=== PATIENT | female | born 1945 | race Caucasian/White ===

== ENCOUNTER → 2018-06-02 11:29 | Outpatient (CLI) | payer MEDICARE, SELFPAY ==
--- NOTE | 2018-06-02 | DI.RAD.S_ITS ---
PROCEDURE: XR LUMBAR SPINE 2-3V INDICATIONS: BACK PAIN TECHNIQUE: 3 views of the lumbar spine were acquired. COMPARISON: , , L-SPINE 2-3 VIEWS, 05/10/2013, 11:06. FINDINGS: Bones: 5 [id number] vertebrae are present. Trace spondylolisthesis L4-L5. Trace retrolisthesis L5-S1. Mild multilevel disc degeneration moderate lower lumbar spine facet joint arthropathy. No vertebral body compression fractures. No suspicious bony lesions. Soft tissues: Overlying bowel gas pattern is normal. No suspicious soft tissue calcifications. 9 mm rounded calcification projected over the right flank posteriorly. IMPRESSION: 1. Multilevel degenerative change. 2. Possible 9 mm right renal calcification. If indicated CT KUB could be performed for further localization. Dictated by: Brendon LEVINE Interpreted: Chilo Sprague MD on 06/02/2018 at 11:47 Approved by: Chilo Sprague M.D. on 06/02/2018 at 12:22
== END ==
PROVIDERS: Visit Provider Internal Medicine
DX: M54.5 Low back pain (principal); M47.816 Spondylosis without myelopathy or radiculopathy, lumbar region
CPT/HCPCS: 72100

== ENCOUNTER 2018-06-08 14:40 | Inpatient (IN) | payer MEDICARE, SELFPAY ==
[2018-06-08 15:02] VITALS: BP 89/57; PULSE 94; RESP 16; TEMP 35.9; O2SAT 97; BMI 32.1
--- NOTE | 2018-06-08 15:38 | ED.NAVMDI ---
HPI - Nausea/Vomiting/Diarrhea <Lenora Jaramillo PA-C - Last Filed: 06/08/18 22:04> General Chief complaint: Nausea/Vomiting/Diarrhea Stated complaint: SENT FOR FLUIDS Time Seen by Provider: 06/08/18 15:37 Source: patient and old records reviewed Mode of arrival: ambulatory Limitations: no limitations History of Present Illness HPI Narrative: this 72-year-old female is sent by her primary care clinic due to vomiting and diarrhea, dehydration. She states that the symptoms started abruptly yesterday with shakes, nausea, and profuse vomiting. She states that she thought she vomited 5 or 6 times but her daughter states more like 30 or 40, at 1 point was vomiting almost continuously. Paramedics came out to evaluate her apparently and told her likely norovirus. She had a fever of 100.4 at that time and also some vague right-sided pain. Her daughter and granddaughter state at 1 point when she had the fever she was confused, got out of bed and stated I am going, but could not walk on her own and they had to support her and have her sit down. She does not remember this. She the started to have diarrhea today about every 0.5 hr. She states this is watery, no blood in the stools. She states that she has not been vomiting so much today because she has had mainly dry heaves. She thinks that she has kept down some tea and water the last couple of days but nothing else. She denies any recent antibiotic use, recent travel or known exposures. Daughter and granddaughter had some mild GI upset last week but that had fully resolved. She denies any urinary symptoms. She denies any chest pain or dyspnea, nor any new pain or swelling in extremities. She and family have not noted any focal weakness, changes in speech or facial symmetry. she states that she did fall and hurt her right upper back a couple of weeks ago and has been taking Tylenol as needed for that pain which is stable. Related Data Home Medications Medication Instructions Recorded Confirmed ibuprofen 600 mg PO TID 06/08/18 06/08/18 naproxen sodium 440 mg PO BID 06/08/18 06/08/18 Previous Rx's Medication Instructions Recorded acyclovir [Zovirax] 800 mg PO BID #20 tab 06/12/18 alum-mag hydroxide-simeth [Mag-Al 30 ml MUCOUS MEMBRANE Q4H PRN #150 06/12/18 Plus] ml gabapentin 100 mg PO TID #30 cap 06/12/18 levofloxacin 500 mg PO DAILY #7 tab 06/12/18 lidocaine HCl [Lidocaine Viscous] 30 ml MUCOUS MEMBRANE Q4H PRN #150 06/12/18 ml methocarbamol 500 mg PO TID #20 tab 06/12/18 nystatin 3,000,000 unit MUCOUS MEMBRANE Q4H 06/12/18 PRN 10 Days ml Allergies Allergy/AdvReac Type Severity Reaction Status Date / Time Penicillins Allergy Verified 06/08/18 15:02 Sulfa (Sulfonamide Allergy Verified 06/08/18 15:02 Antibiotics) Review of Systems <Lenora Jaramillo PA-C - Last Filed: 06/08/18 22:04> Review of Systems All systems reviewed & are unremarkable except as noted in HPI and below Exam <Lenora Jaramillo PA-C - Last Filed: 06/08/18 22:04> Narrative Exam Narrative: GENERAL APPEARANCE: Patient sitting comfortably, in no distress. HEENT: PERRL, EOMI, no scleral icterus , conjunctivae pink, normal oropharynx NECK: Supple LUNGS: Clear to auscultation bilaterally. HEART: Rate and rhythm regular, normal S1 and S2, no S3 or S4. ABDOMEN: Soft, nontender, nondistended, soft bowel sounds present x 4 quadrants, no masses palpable, no hepatosplenomegaly. no CVAT EXTREMITIES: No edema, no calf tenderness DERMATOLOGIC: No jaundice or exanthem NEUROLOGIC: Alert and oriented with normal speech and coordination, facial musculature is symmetric Initial Vital Signs Initial Vital Signs: Vital Signs Temperature 96.6 F L 06/08/18 15:02 Pulse Rate 94 H 06/08/18 15:02 Respiratory Rate 16 06/08/18 15:02 Blood Pressure 89/57 L 06/08/18 15:02 Pulse Oximetry 97 06/08/18 15:02 <Gabrielle Dye MD - Last Filed: 06/14/18 07:59> Initial Vital Signs Initial Vital Signs: Vital Signs Temperature 96.6 F L 06/08/18 15:02 Pulse Rate 94 H 06/08/18 15:02 Respiratory Rate 16 06/08/18 15:02 Blood Pressure 89/57 L 06/08/18 15:02 Pulse Oximetry 97 06/08/18 15:02 Course <Lenora Jaramillo PA-C - Last Filed: 06/08/18 22:04> Additional Information: 194: Findings reviewed with patient and her family including ultrasound report. 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 She does have kidney stones on ultrasound, but no obstruction. There is concern for infection on her micro. She has been given a dose of Levaquin. I have spoken with hospitalist nurse practitioner Zane regarding evaluation and request for admission. Patient has not had any vomiting or diarrhea for several hours now. She still has some nausea and will be given a dose of Zofran. Requesting ice chips, which she will try. SCOOP DRIVER is agreeable and will see patient on the floor. Orders Ordered: ED Orders 06/14/18 05:28 Complete Blood Count AUTO DIFF DAILY Comprehensive Metabolic Panel DAILY Acetaminophen (Tylenol) 650 mg PO Q4HR PRN PRN Reason: As Needed for Fever/Mild Pain Last Admin: 06/14/18 02:50 Dose: 650 mg Admin: 06/13/18 20:23 Dose: 650 mg Admin: 06/13/18 14:02 Dose: 650 mg Admin: 06/13/18 08:58 Dose: 650 mg Admin: 06/12/18 19:16 Dose: 650 mg Acyclovir (Zovirax) 800 mg PO BID WINNIE Last Admin: 06/13/18 20:23 Dose: 800 mg Admin: 06/13/18 09:12 Dose: 800 mg Admin: 06/12/18 21:18 Dose: 800 mg Admin: 06/12/18 10:59 Dose: 800 mg Lidocaine HCl 30 ml/ Al Hydrox /Mg Hydrox/Simethicone 30 ml/Nystatin 3,000,000 unit 0 ml MM Q4H PRN PRN Reason: mucositis Last Admin: 06/13/18 20:24 Dose: 5 ml Admin: 06/13/18 15:52 Dose: 5 ml Admin: 06/13/18 08:59 Dose: 30 ml Admin: 06/13/18 03:35 Dose: 5 ml Admin: 06/12/18 23:38 Dose: 5 ml Admin: 06/12/18 19:16 Dose: 5 ml Admin: 06/12/18 14:47 Dose: 5 ml Admin: 06/12/18 10:59 Dose: 5 ml Docusate Sodium (Colace) 100 mg PO BID PRN PRN Reason: Constipation Last Admin: 06/13/18 14:58 Dose: 100 mg Gabapentin (Neurontin) 100 mg PO TID [facility] Last Admin: 06/13/18 20:23 Dose: 100 mg Admin: 06/13/18 14:58 Dose: 100 mg Admin: 06/13/18 09:15 Dose: Not Given Admin: 06/12/18 21:18 Dose: 100 mg Admin: 06/12/18 15:36 Dose: Not Given Admin: 06/12/18 09:38 Dose: 100 mg Admin: 06/11/18 21:54 Dose: Not Given Admin: 06/11/18 16:47 Dose: Not Given Admin: 06/11/18 09:00 Dose: 100 mg Admin: 06/10/18 20:54 Dose: 100 mg Admin: 06/10/18 15:00 Dose: 100 mg Admin: 06/10/18 08:49 Dose: 100 mg Admin: 06/09/18 21:41 Dose: 100 mg Admin: 06/09/18 14:57 Dose: 100 mg Admin: 06/09/18 09:38 Dose: 100 mg Hydromorphone HCl (Dilaudid) 1 mg IV Q4H PRN PRN Reason: Pain, Severe (7-10) Ceftriaxone Sodium/Dextrose (Rocephin) 1 gm in 50 mls @ 100 mls/hr IV Q24H [facility] Last Infusion: 06/13/18 13:46 Dose: 100 mls/hr Admin: 06/13/18 11:45 Dose: 100 mls/hr Infusion: 06/12/18 15:25 Dose: 0 mls/hr Admin: 06/12/18 14:46 Dose: 100 mls/hr Lorazepam (Ativan) 1 mg IV Q4HR PRN PRN Reason: Anxiety Methocarbamol (Robaxin) 500 mg PO TID [facility] Last Admin: 06/13/18 20:23 Dose: 500 mg Admin: 06/13/18 12:18 Dose: 500 mg Admin: 06/13/18 09:16 Dose: Not Given Admin: 06/12/18 21:18 Dose: 500 mg Admin: 06/12/18 15:36 Dose: Not Given Admin: 06/12/18 09:38 Dose: 500 mg Admin: 06/11/18 21:54 Dose: Not Given Admin: 06/11/18 16:47 Dose: Not Given Admin: 06/11/18 09:00 Dose: 500 mg Admin: 06/10/18 20:53 Dose: 500 mg Admin: 06/10/18 15:00 Dose: 500 mg Admin: 06/10/18 08:49 Dose: 500 mg Admin: 06/09/18 21:41 Dose: 500 mg Admin: 06/09/18 14:57 Dose: 500 mg Admin: 06/09/18 09:38 Dose: 500 mg Metoprolol Tartrate (Lopressor) 5 mg IV Q6H PRN PRN Reason: SBP>180 AND / OR HR >110 Last Admin: 06/11/18 18:38 Dose: 5 mg Ondansetron HCl (Zofran) 4 mg IV Q8HR PRN PRN Reason: Nausea And Vomiting Last Admin: 06/13/18 03:38 Dose: 4 mg Admin: 06/12/18 18:39 Dose: 4 mg Admin: 06/09/18 03:16 Dose: 4 mg Prochlorperazine (Compazine) 5 mg IV Q6HR PRN PRN Reason: Nausea Last Admin: 06/13/18 09:06 Dose: 5 mg Admin: 06/09/18 02:14 Dose: 5 mg Sennosides (Senna) 17.2 mg PO BID [facility] Last Admin: 06/13/18 20:23 Dose: 17.2 mg Admin: 06/13/18 14:58 Dose: 17.2 mg Sodium Chloride (Normal Saline 0.9% Flush) 10 ml IV PRN PRN PRN Reason: Flush Tramadol HCl (Ultram) 50 mg PO BID [facility] Last Admin: 06/13/18 20:23 Dose: Not Given Admin: 06/13/18 08:58 Dose: Admin: 06/12/18 21:14 Dose: Admin: 06/12/18 09:38 Dose: Admin: 06/11/18 21:54 Dose: Not Given Admin: 06/11/18 09:47 Dose: 50 mg Admin: 06/10/18 20:54 Dose: 50 mg Admin: 06/10/18 08:48 Dose: 50 mg Admin: 06/09/18 21:41 Dose: 50 mg Admin: 06/09/18 09:38 Dose: 50 mg Discontinued Medications Acetaminophen (Tylenol) 650 mg PO NOW ONE Stop: 06/08/18 19:45 Last Admin: 06/08/18 20:04 Dose: 650 mg Acetaminophen (Tylenol) 650 mg SC Q6HR PRN PRN Reason: As Needed for Fever/Mild Pain Fentanyl (Sublimaze) 25 mcg IV NOW ONE Stop: 06/09/18 04:35 Last Admin: 06/09/18 04:52 Dose: 25 mcg Sodium Chloride (Normal Saline 0.9%) 1,000 mls @ 1,000 mls/hr IV BOLUS ONE Stop: 06/08/18 17:02 Last Infusion: 06/08/18 17:04 Dose: 0 mls/hr Admin: 06/08/18 16:05 Dose: 1,000 mls/hr Sodium Chloride (Normal Saline 0.9%) 1,000 mls @ 1,000 mls/hr IV BOLUS ONE Stop: 06/08/18 17:33 Last Infusion: 06/08/18 20:12 Dose: 0 mls/hr Admin: 06/08/18 16:47 Dose: 1,000 mls/hr Levofloxacin (Levaquin) 250 mg in 50 mls @ 50 mls/hr IV NOW ONE Stop: 06/08/18 19:59 Last Infusion: 06/08/18 20:12 Dose: 0 mls/hr Admin: 06/08/18 19:22 Dose: 50 mls/hr Sodium Chloride (Normal Saline 0.9%) 1,000 mls @ 100 mls/hr IV CONT WINNIE Last Admin: 06/11/18 06:56 Dose: 100 mls/hr Infusion: 06/11/18 06:53 Dose: 100 mls/hr Admin: 06/10/18 20:53 Dose: 100 mls/hr Infusion: 06/10/18 18:53 Dose: 100 mls/hr Admin: 06/10/18 08:53 Dose: 100 mls/hr Infusion: 06/10/18 08:49 Dose: 100 mls/hr Admin: 06/09/18 22:49 Dose: 100 mls/hr Infusion: 06/09/18 07:09 Dose: 100 mls/hr Admin: 06/08/18 21:09 Dose: 100 mls/hr Levofloxacin (Levaquin) 250 mg in 50 mls @ 50 mls/hr IV Q48H [facility] Last Infusion: 06/10/18 13:55 Dose: 0 mls/hr Admin: 06/10/18 08:49 Dose: 50 mls/hr Levofloxacin (Levaquin) 250 mg in 50 mls @ 50 mls/hr IV 0900 [facility] Last Infusion: 06/11/18 10:52 Dose: 0 mls/hr Admin: 06/11/18 09:47 Dose: 50 mls/hr Sodium Chloride (Normal Saline 0.9%) 250 mls @ 250 mls/hr IV BOLUS ONE Stop: 06/11/18 11:27 Last Admin: 06/11/18 10:52 Dose: 250 mls/hr Potassium Chloride/Sodium Chloride (Ns With Kcl 20 Meq) 1,000 mls @ 70 mls/hr IV CONT [facility] Last Infusion: 06/13/18 14:03 Dose: 70 mls/hr Admin: 06/12/18 23:39 Dose: 70 mls/hr Infusion: 06/12/18 23:39 Dose: 70 mls/hr Infusion: 06/12/18 14:47 Dose: 70 mls/hr Infusion: 06/12/18 09:30 Dose: 0 mls/hr Admin: 06/12/18 04:57 Dose: 70 mls/hr Infusion: 06/12/18 04:41 Dose: 70 mls/hr Admin: 06/11/18 14:23 Dose: 70 mls/hr Levofloxacin (Levaquin) 750 mg in 150 mls @ 100 mls/hr IV Q24H [facility] Last Admin: 06/12/18 09:54 Dose: Not Given Levofloxacin (Levaquin) 500 mg in 100 mls @ 100 mls/hr IV NOW ONE Stop: 06/11/18 15:17 Last Admin: 06/11/18 14:31 Dose: 100 mls/hr Metoprolol Tartrate (Lopressor) 5 mg IV NOW ONE Stop: 06/11/18 14:20 Last Admin: 06/11/18 14:31 Dose: 5 mg Ondansetron HCl (Zofran) 4 mg IV NOW ONE Stop: 06/08/18 15:54 Last Admin: 06/08/18 16:03 Dose: 4 mg Ondansetron HCl (Zofran) 4 mg IV NOW ONE Stop: 06/08/18 19:45 Last Admin: 06/08/18 20:05 Dose: 4 mg Potassium Chloride (Klor-Con M20) 40 meq PO NOW ONE Stop: 06/11/18 14:07 Last Admin: 06/11/18 14:23 Dose: 40 meq Sodium Chloride (Normal Saline 0.9%) 1,000 ml IV NOW ONE Stop: 06/08/18 23:52 Last Admin: 06/09/18 00:29 Dose: 1,000 ml Vital Signs - 8 hr 06/14/18 00:00 06/14/18 06:00 06/14/18 06:49 Temperature 98.0 F Pulse Rate 90 Respiratory Rate 16 Blood Pressure 129/72 Pulse Oximetry 96 96 96 <Gabrielle Dye MD - Last Filed: 06/14/18 07:59> Orders Ordered: ED Orders 06/14/18 05:28 Complete Blood Count AUTO DIFF DAILY Comprehensive Metabolic Panel DAILY Acetaminophen (Tylenol) 650 mg PO Q4HR PRN PRN Reason: As Needed for Fever/Mild Pain Last Admin: 06/14/18 02:50 Dose: 650 mg Admin: 06/13/18 20:23 Dose: 650 mg Admin: 06/13/18 14:02 Dose: 650 mg Admin: 06/13/18 08:58 Dose: 650 mg Admin: 06/12/18 19:16 Dose: 650 mg Acyclovir (Zovirax) 800 mg PO BID WINNIE Last Admin: 06/13/18 20:23 Dose: 800 mg Admin: 06/13/18 09:12 Dose: 800 mg Admin: 06/12/18 21:18 Dose: 800 mg Admin: 06/12/18 10:59 Dose: 800 mg Lidocaine HCl 30 ml/ Al Hydrox /Mg Hydrox/Simethicone 30 ml/Nystatin 3,000,000 unit 0 ml MM Q4H PRN PRN Reason: mucositis Last Admin: 06/13/18 20:24 Dose: 5 ml Admin: 06/13/18 15:52 Dose: 5 ml Admin: 06/13/18 08:59 Dose: 30 ml Admin: 06/13/18 03:35 Dose: 5 ml Admin: 06/12/18 23:38 Dose: 5 ml Admin: 06/12/18 19:16 Dose: 5 ml Admin: 06/12/18 14:47 Dose: 5 ml Admin: 06/12/18 10:59 Dose: 5 ml Docusate Sodium (Colace) 100 mg PO BID PRN PRN Reason: Constipation Last Admin: 06/13/18 14:58 Dose: 100 mg Gabapentin (Neurontin) 100 mg PO TID [facility] Last Admin: 06/13/18 20:23 Dose: 100 mg Admin: 06/13/18 14:58 Dose: 100 mg Admin: 06/13/18 09:15 Dose: Not Given Admin: 06/12/18 21:18 Dose: 100 mg Admin: 06/12/18 15:36 Dose: Not Given Admin: 06/12/18 09:38 Dose: 100 mg Admin: 06/11/18 21:54 Dose: Not Given Admin: 06/11/18 16:47 Dose: Not Given Admin: 06/11/18 09:00 Dose: 100 mg Admin: 06/10/18 20:54 Dose: 100 mg Admin: 06/10/18 15:00 Dose: 100 mg Admin: 06/10/18 08:49 Dose: 100 mg Admin: 06/09/18 21:41 Dose: 100 mg Admin: 06/09/18 14:57 Dose: 100 mg Admin: 06/09/18 09:38 Dose: 100 mg Hydromorphone HCl (Dilaudid) 1 mg IV Q4H PRN PRN Reason: Pain, Severe (7-10) Ceftriaxone Sodium/Dextrose (Rocephin) 1 gm in 50 mls @ 100 mls/hr IV Q24H [facility] Last Infusion: 06/13/18 13:46 Dose: 100 mls/hr Admin: 06/13/18 11:45 Dose: 100 mls/hr Infusion: 06/12/18 15:25 Dose: 0 mls/hr Admin: 06/12/18 14:46 Dose: 100 mls/hr Lorazepam (Ativan) 1 mg IV Q4HR PRN PRN Reason: Anxiety Methocarbamol (Robaxin) 500 mg PO TID [facility] Last Admin: 06/13/18 20:23 Dose: 500 mg Admin: 06/13/18 12:18 Dose: 500 mg Admin: 06/13/18 09:16 Dose: Not Given Admin: 06/12/18 21:18 Dose: 500 mg Admin: 06/12/18 15:36 Dose: Not Given Admin: 06/12/18 09:38 Dose: 500 mg Admin: 06/11/18 21:54 Dose: Not Given Admin: 06/11/18 16:47 Dose: Not Given Admin: 06/11/18 09:00 Dose: 500 mg Admin: 06/10/18 20:53 Dose: 500 mg Admin: 06/10/18 15:00 Dose: 500 mg Admin: 06/10/18 08:49 Dose: 500 mg Admin: 06/09/18 21:41 Dose: 500 mg Admin: 06/09/18 14:57 Dose: 500 mg Admin: 06/09/18 09:38 Dose: 500 mg Metoprolol Tartrate (Lopressor) 5 mg IV Q6H PRN PRN Reason: SBP>180 AND / OR HR >110 Last Admin: 06/11/18 18:38 Dose: 5 mg Ondansetron HCl (Zofran) 4 mg IV Q8HR PRN PRN Reason: Nausea And Vomiting Last Admin: 06/13/18 03:38 Dose: 4 mg Admin: 06/12/18 18:39 Dose: 4 mg Admin: 06/09/18 03:16 Dose: 4 mg Prochlorperazine (Compazine) 5 mg IV Q6HR PRN PRN Reason: Nausea Last Admin: 06/13/18 09:06 Dose: 5 mg Admin: 06/09/18 02:14 Dose: 5 mg Sennosides (Senna) 17.2 mg PO BID WINNIE Last Admin: 06/13/18 20:23 Dose: 17.2 mg Admin: 06/13/18 14:58 Dose: 17.2 mg Sodium Chloride (Normal Saline 0.9% Flush) 10 ml IV PRN PRN PRN Reason: Flush Tramadol HCl (Ultram) 50 mg PO BID WINNIE Last Admin: 06/13/18 20:23 Dose: Not Given Admin: 06/13/18 08:58 Dose: Admin: 06/12/18 21:14 Dose: Admin: 06/12/18 09:38 Dose: Admin: 06/11/18 21:54 Dose: Not Given Admin: 06/11/18 09:47 Dose: 50 mg Admin: 06/10/18 20:54 Dose: 50 mg Admin: 06/10/18 08:48 Dose: 50 mg Admin: 06/09/18 21:41 Dose: 50 mg Admin: 06/09/18 09:38 Dose: 50 mg Discontinued Medications Acetaminophen (Tylenol) 650 mg PO NOW ONE Stop: 06/08/18 19:45 Last Admin: 06/08/18 20:04 Dose: 650 mg Acetaminophen (Tylenol) 650 mg SC Q6HR PRN PRN Reason: As Needed for Fever/Mild Pain Fentanyl (Sublimaze) 25 mcg IV NOW ONE Stop: 06/09/18 04:35 Last Admin: 06/09/18 04:52 Dose: 25 mcg Sodium Chloride (Normal Saline 0.9%) 1,000 mls @ 1,000 mls/hr IV BOLUS ONE Stop: 06/08/18 17:02 Last Infusion: 06/08/18 17:04 Dose: 0 mls/hr Admin: 06/08/18 16:05 Dose: 1,000 mls/hr Sodium Chloride (Normal Saline 0.9%) 1,000 mls @ 1,000 mls/hr IV BOLUS ONE Stop: 06/08/18 17:33 Last Infusion: 06/08/18 20:12 Dose: 0 mls/hr Admin: 06/08/18 16:47 Dose: 1,000 mls/hr Levofloxacin (Levaquin) 250 mg in 50 mls @ 50 mls/hr IV NOW ONE Stop: 06/08/18 19:59 Last Infusion: 06/08/18 20:12 Dose: 0 mls/hr Admin: 06/08/18 19:22 Dose: 50 mls/hr Sodium Chloride (Normal Saline 0.9%) 1,000 mls @ 100 mls/hr IV CONT WINNIE Last Admin: 06/11/18 06:56 Dose: 100 mls/hr Infusion: 06/11/18 06:53 Dose: 100 mls/hr Admin: 06/10/18 20:53 Dose: 100 mls/hr Infusion: 06/10/18 18:53 Dose: 100 mls/hr Admin: 06/10/18 08:53 Dose: 100 mls/hr Infusion: 06/10/18 08:49 Dose: 100 mls/hr Admin: 06/09/18 22:49 Dose: 100 mls/hr Infusion: 06/09/18 07:09 Dose: 100 mls/hr Admin: 06/08/18 21:09 Dose: 100 mls/hr Levofloxacin (Levaquin) 250 mg in 50 mls @ 50 mls/hr IV Q48H [facility] Last Infusion: 06/10/18 13:55 Dose: 0 mls/hr Admin: 06/10/18 08:49 Dose: 50 mls/hr Levofloxacin (Levaquin) 250 mg in 50 mls @ 50 mls/hr IV 0900 [facility] Last Infusion: 06/11/18 10:52 Dose: 0 mls/hr Admin: 06/11/18 09:47 Dose: 50 mls/hr Sodium Chloride (Normal Saline 0.9%) 250 mls @ 250 mls/hr IV BOLUS ONE Stop: 06/11/18 11:27 Last Admin: 06/11/18 10:52 Dose: 250 mls/hr Potassium Chloride/Sodium Chloride (Ns With Kcl 20 Meq) 1,000 mls @ 70 mls/hr IV CONT WINNIE Last Infusion: 06/13/18 14:03 Dose: 70 mls/hr Admin: 06/12/18 23:39 Dose: 70 mls/hr Infusion: 06/12/18 23:39 Dose: 70 mls/hr Infusion: 06/12/18 14:47 Dose: 70 mls/hr Infusion: 06/12/18 09:30 Dose: 0 mls/hr Admin: 06/12/18 04:57 Dose: 70 mls/hr Infusion: 06/12/18 04:41 Dose: 70 mls/hr Admin: 06/11/18 14:23 Dose: 70 mls/hr Levofloxacin (Levaquin) 750 mg in 150 mls @ 100 mls/hr IV Q24H [facility] Last Admin: 06/12/18 09:54 Dose: Not Given Levofloxacin (Levaquin) 500 mg in 100 mls @ 100 mls/hr IV NOW ONE Stop: 06/11/18 15:17 Last Admin: 06/11/18 14:31 Dose: 100 mls/hr Metoprolol Tartrate (Lopressor) 5 mg IV NOW ONE Stop: 06/11/18 14:20 Last Admin: 06/11/18 14:31 Dose: 5 mg Ondansetron HCl (Zofran) 4 mg IV NOW ONE Stop: 06/08/18 15:54 Last Admin: 06/08/18 16:03 Dose: 4 mg Ondansetron HCl (Zofran) 4 mg IV NOW ONE Stop: 06/08/18 19:45 Last Admin: 06/08/18 20:05 Dose: 4 mg Potassium Chloride (Klor-Con M20) 40 meq PO NOW ONE Stop: 06/11/18 14:07 Last Admin: 06/11/18 14:23 Dose: 40 meq Sodium Chloride (Normal Saline 0.9%) 1,000 ml IV NOW ONE Stop: 06/08/18 23:52 Last Admin: 06/09/18 00:29 Dose: 1,000 ml Vital Signs - 8 hr 06/14/18 00:00 06/14/18 06:00 06/14/18 06:49 Temperature 98.0 F Pulse Rate 90 Respiratory Rate 16 Blood Pressure 129/72 Pulse Oximetry 96 96 96 MDM - Nausea/Vomiting/Diarrhea <Lenora Jaramillo PA-C - Last Filed: 06/08/18 22:04> Lab Data Attestation: I reviewed the patient's lab results. Result diagrams: 06/14/18 05:28 06/14/18 05:28 Lab Results 06/08/18 06/08/18 06/08/18 Range/Units 15:20 15:58 15:58 WBC 33.3 H* (4.5-11.0) X10^3/uL RBC 4.23 (4.0-5.2) X10^6/uL Hgb 12.8 (12.0-16.0) g/dL Hct 37.9 (36-46) % MCV 89.6 (80-100) fL MCH 30.2 (26-34) PG MCHC 33.7 (30-36) % RDW 13.6 (11.6-14.8) % Plt Count 191 (150-400) X10^3/uL Neut % (Auto) Not Reportable Lymph % (Auto) Not Reportable [place] % (Auto) Not Reportable Eos % (Auto) Not Reportable Baso % (Auto) Not Reportable Neut # (Auto) ([id number]) /uL Total Counted 100 Seg Neutrophils % 61.0 (38-70) % Band Neutrophils % 29.0 H (3-7) % Lymphocytes % (Manual) 5.0 L (25-45) % Monocytes % (Manual) 3.0 (2-11) % Eosinophils % (Manual) (2-4) % Basophils % (Manual) (0-1) % Metamyelocytes % 2.0 H (-0) % Neutrophils # (Manual) 96435 H (6307-5717) /uL Toxic Vacuolation RBC Morphology Normal morphology Eosinophil Count PT 17.1 H (10.1-12.7) SECONDS INR 1.5 H (0.9-1.3) APTT 36 (26.4-36.2) SECONDS Sodium (137-145) mmol/L Potassium (3.4-5.1) mmol/L Chloride (98-107) mmol/L Carbon Dioxide (22-32) mmol/L BUN (7-17) mg/dL Creatinine (0.52-1.04) mg/dL Estimated GFR (>60) mL/min BUN/Creatinine Ratio (6-22) Glucose (80-110) mg/dL Lactate (0.7-2.1) mmol/L Calcium (8.4-10.2) mg/dL Magnesium (1.6-2.3) mg/dL Total Bilirubin (0.2-1.3) mg/dL AST (14-36) IU/L ALT (9-52) IU/L Alkaline Phosphatase (38-126) U/L Total Protein (6.3-8.2) g/dL Albumin (3.5-5.0) g/dL Globulin (1.7-4.1) g/dL Albumin/Globulin Ratio (1.0-2.8) Lipase (23-300) U/L Urine Color Urine Appearance Urine pH (4.5-8.0) Ur Specific [place] (1.000-1.035) Urine Protein (Negative) Urine Glucose (UA) (Normal) g/dL Urine Ketones (NEGATIVE) Urine Occult Blood (Negative) Urine Nitrate (Negative) Urine Bilirubin (NEGATIVE) Urine Ictotest (Negative) Urine Urobilinogen (0.2) E.U./dL Ur Leukocyte Esterase (NEGATIVE) Urine RBC (0-5/HPF) Urine WBC (0-5/HPF) Ur Squamous Epith Cells Urine Bacteria (None) Hyaline Casts (None) Ur Culture Indicated? Micro UA Comment Ur Random Sodium (30-90) mmol/L Ur Random Potassium mmol/L Ur Random Phosphorus mg/dL Ur Random Calcium Urine Creatinine mg/dL Date of Stool Aeromonas Cult Neg for aeromonas (Not Detect) Stl C. cayetanensis PCR Not detected (Not Detect) Stool Rotavirus (PCR) Not detected (Not Detect) Stool Adenovirus (PCR) Not detected (Not Detect) Stool Astrovirus (PCR) Not detected (Not Detect) Stool Cryptosporidium PCR Not detected (Not Detect) Stl E.coli Shiga Tox PCR Not detected (Not Detect) St Sh/Enteroin Ecoli PCR Not detected (Not Detect) Stool E coli O157 PCR Not Reportable Stl Enterotoxigenic E PCR Not detected (Not Detect) Stool EPEC (PCR) Not detected (Not Detect) Stl E. histolytica PCR Not detected (Not Detect) Stool Giardia Lamblia PCR Not detected (Not Detect) Stool Sapovirus (PCR) Not detected (Not Detect) Stl P. shigelloides PCR Not detected (Not Detect) St Y.enterocolitica PCR Not detected (Not Detect) Stool Vibrio (PCR) Not detected (Not Detect) Stl Vibrio cholerae PCR Not detected (Not Detect) Stl Enteroaggr Ecoli PCR Not detected (Not Detect) Stl Norovirus GI/GII PCR Not detected (Not Detect) A. baumannii (PCR) (Not Detect) Campylobacter (PCR) Not detected (Not Detect) Julissa albicans (PCR) (Not Detect) C. glabrata (PCR) (Not Detect) C. krusei (PCR) (Not Detect) C. parapsilosis (PCR) (Not Detect) C. tropicalis (PCR) (Not Detect) C. difficile Tox (PCR) Not detected (Not Detect) Enterobacteriac sp PCR (Not Detect) E. cloacae complex PCR (Not Detect) Enterococcus sp PCR (Not Detect) E. coli (PCR) (Not Detect) H. influenzae (PCR) (Not Detect) Klebsiella oxytoca PCR (Not Detect) Klebsiella pneumoniae (Not Detect) List. monocytogenes PCR (Not Detect) N. meningitidis (PCR) (Not Detect) Proteus species (PCR) (Not Detect) Salmonella (PCR) Not detected (Not Detect) Serratia marcescens PCR (Not Detect) Staphylococcus sp PCR (Not Detect) Staph aureus (PCR) (Not Detect) mecA-Methicil Res Gene Streptococcus sp PCR (Not Detect) Group A Strep (PCR) (Not Detect) Strep agalactiae (PCR) (Not Detect) Strep pneumoniae (PCR) (Not Detect) P. aeruginosa (PCR) (Not Detect) Tammie/B-Vanco Res Genes KPC-Carbap Res Gene PCR (Not Detect) 06/08/18 06/08/18 06/08/18 Range/Units 15:58 16:55 17:25 WBC (4.5-11.0) X10^3/uL RBC (4.0-5.2) X10^6/uL Hgb (12.0-16.0) g/dL Hct (36-46) % MCV (80-100) fL MCH (26-34) PG MCHC (30-36) % RDW (11.6-14.8) % Plt Count (150-400) X10^3/uL Neut % (Auto) Lymph % (Auto) [place] % (Auto) Eos % (Auto) Baso % (Auto) Neut # (Auto) (0297-5680) /uL Total Counted Seg Neutrophils % (38-70) % Band Neutrophils % (3-7) % Lymphocytes % (Manual) (25-45) % Monocytes % (Manual) (2-11) % Eosinophils % (Manual) (2-4) % Basophils % (Manual) (0-1) % Metamyelocytes % (-0) % Neutrophils # (Manual) (6426-8101) /uL Toxic Vacuolation RBC Morphology Eosinophil Count PT (10.1-12.7) SECONDS INR (0.9-1.3) APTT (26.4-36.2) SECONDS Sodium 142 (137-145) mmol/L Potassium 4.0 (3.4-5.1) mmol/L Chloride 103 (98-107) mmol/L Carbon Dioxide 23 (22-32) mmol/L BUN 48 H (7-17) mg/dL Creatinine 2.10 H (0.52-1.04) mg/dL Estimated GFR 23.0 L (>60) mL/min BUN/Creatinine Ratio 22.9 H (6-22) Glucose 117 H (80-110) mg/dL Lactate 1.7 (0.7-2.1) mmol/L Calcium 8.7 (8.4-10.2) mg/dL Magnesium (1.6-2.3) mg/dL Total Bilirubin 0.7 (0.2-1.3) mg/dL AST 156 H (14-36) IU/L ALT 27 (9-52) IU/L Alkaline Phosphatase 107 (38-126) U/L Total Protein 6.9 (6.3-8.2) g/dL Albumin 3.9 (3.5-5.0) g/dL Globulin 3.0 (1.7-4.1) g/dL Albumin/Globulin Ratio 1.3 (1.0-2.8) Lipase 23 (23-300) U/L Urine Color Urine Appearance Urine pH (4.5-8.0) Ur Specific [place] (1.000-1.035) Urine Protein (Negative) Urine Glucose (UA) (Normal) g/dL Urine Ketones (NEGATIVE) Urine Occult Blood (Negative) Urine Nitrate (Negative) Urine Bilirubin (NEGATIVE) Urine Ictotest (Negative) Urine Urobilinogen (0.2) E.U./dL Ur Leukocyte Esterase (NEGATIVE) Urine RBC (0-5/HPF) Urine WBC (0-5/HPF) Ur Squamous Epith Cells Urine Bacteria (None) Hyaline Casts (None) Ur Culture Indicated? Micro UA Comment Ur Random Sodium (30-90) mmol/L Ur Random Potassium mmol/L Ur Random Phosphorus mg/dL Ur Random Calcium Urine Creatinine mg/dL Date of Stool Aeromonas Cult (Not Detect) Stl C. cayetanensis PCR (Not Detect) Stool Rotavirus (PCR) (Not Detect) Stool Adenovirus (PCR) (Not Detect) Stool Astrovirus (PCR) (Not Detect) Stool Cryptosporidium PCR (Not Detect) Stl E.coli Shiga Tox PCR (Not Detect) St Sh/Enteroin Ecoli PCR (Not Detect) Stool E coli O157 PCR Stl Enterotoxigenic E PCR (Not Detect) Stool EPEC (PCR) (Not Detect) Stl E. histolytica PCR (Not Detect) Stool Giardia Lamblia PCR (Not Detect) Stool Sapovirus (PCR) (Not Detect) Stl P. shigelloides PCR (Not Detect) St Y.enterocolitica PCR (Not Detect) Stool Vibrio (PCR) (Not Detect) Stl Vibrio cholerae PCR (Not Detect) Stl Enteroaggr Ecoli PCR (Not Detect) Stl Norovirus GI/GII PCR (Not Detect) A. baumannii (PCR) Not detected (Not Detect) Campylobacter (PCR) (Not Detect) Julissa albicans (PCR) Not detected (Not Detect) C. glabrata (PCR) Not detected (Not Detect) C. krusei (PCR) Not detected (Not Detect) C. parapsilosis (PCR) Not detected (Not Detect) C. tropicalis (PCR) Not detected (Not Detect) C. difficile Tox (PCR) (Not Detect) Enterobacteriac sp PCR Detected H (Not Detect) E. cloacae complex PCR Not detected (Not Detect) Enterococcus sp PCR Not detected (Not Detect) E. coli (PCR) Detected H (Not Detect) H. influenzae (PCR) Not detected (Not Detect) Klebsiella oxytoca PCR Not detected (Not Detect) Klebsiella pneumoniae Not detected (Not Detect) List. monocytogenes PCR Not detected (Not Detect) N. meningitidis (PCR) Not detected (Not Detect) Proteus species (PCR) Not detected (Not Detect) Salmonella (PCR) (Not Detect) Serratia marcescens PCR Not detected (Not Detect) Staphylococcus sp PCR Not detected (Not Detect) Staph aureus (PCR) Not detected (Not Detect) mecA-Methicil Res Gene Not Reportable Streptococcus sp PCR Not detected (Not Detect) Group A Strep (PCR) Not detected (Not Detect) Strep agalactiae (PCR) Not detected (Not Detect) Strep pneumoniae (PCR) Not detected (Not Detect) P. aeruginosa (PCR) Not detected (Not Detect) Tammie/B-Vanco Res Genes Not Reportable KPC-Carbap Res Gene PCR Not detected (Not Detect) 06/08/18 06/08/18 06/09/18 Range/Units 17:42 17:42 04:45 WBC (4.5-11.0) X10^3/uL RBC (4.0-5.2) X10^6/uL Hgb (12.0-16.0) g/dL Hct (36-46) % MCV (80-100) fL MCH (26-34) PG MCHC (30-36) % RDW (11.6-14.8) % Plt Count (150-400) X10^3/uL Neut % (Auto) Lymph % (Auto) [place] % (Auto) Eos % (Auto) Baso % (Auto) Neut # (Auto) (5749-7483) /uL Total Counted Seg Neutrophils % (38-70) % Band Neutrophils % (3-7) % Lymphocytes % (Manual) (25-45) % Monocytes % (Manual) (2-11) % Eosinophils % (Manual) (2-4) % Basophils % (Manual) (0-1) % Metamyelocytes % (-0) % Neutrophils # (Manual) (2955-1618) /uL Toxic Vacuolation RBC Morphology Eosinophil Count PT (10.1-12.7) SECONDS INR (0.9-1.3) APTT (26.4-36.2) SECONDS Sodium (137-145) mmol/L Potassium (3.4-5.1) mmol/L Chloride (98-107) mmol/L Carbon Dioxide (22-32) mmol/L BUN (7-17) mg/dL Creatinine (0.52-1.04) mg/dL Estimated GFR (>60) mL/min BUN/Creatinine Ratio (6-22) Glucose (80-110) mg/dL Lactate (0.7-2.1) mmol/L Calcium (8.4-10.2) mg/dL Magnesium (1.6-2.3) mg/dL Total Bilirubin (0.2-1.3) mg/dL AST (14-36) IU/L ALT (9-52) IU/L Alkaline Phosphatase (38-126) U/L Total Protein (6.3-8.2) g/dL Albumin (3.5-5.0) g/dL Globulin (1.7-4.1) g/dL Albumin/Globulin Ratio (1.0-2.8) Lipase (23-300) U/L Urine Color Urine Appearance Urine pH (4.5-8.0) Ur Specific [place] (1.000-1.035) Urine Protein (Negative) Urine Glucose (UA) (Normal) g/dL Urine Ketones (NEGATIVE) Urine Occult Blood (Negative) Urine Nitrate (Negative) Urine Bilirubin (NEGATIVE) Urine Ictotest Negative (Negative) Urine Urobilinogen (0.2) E.U./dL Ur Leukocyte Esterase (NEGATIVE) Urine RBC 30-100/hpf H (0-5/HPF) Urine WBC >100/hpf H (0-5/HPF) Ur Squamous Epith Cells 1-5 /hpf Urine Bacteria Many (>30) H (None) Hyaline Casts 1-5/lpf (None) Ur Culture Indicated? Specimen cultured Micro UA Comment Not Reportable Ur Random Sodium 14 L (30-90) mmol/L Ur Random Potassium 46.7 mmol/L Ur Random Phosphorus mg/dL Ur Random Calcium Urine Creatinine 78.9 mg/dL Date of Stool Aeromonas Cult (Not Detect) Stl C. cayetanensis PCR (Not Detect) Stool Rotavirus (PCR) (Not Detect) Stool Adenovirus (PCR) (Not Detect) Stool Astrovirus (PCR) (Not Detect) Stool Cryptosporidium PCR (Not Detect) Stl E.coli Shiga Tox PCR (Not Detect) St Sh/Enteroin Ecoli PCR (Not Detect) Stool E coli O157 PCR Stl Enterotoxigenic E PCR (Not Detect) Stool EPEC (PCR) (Not Detect) Stl E. histolytica PCR (Not Detect) Stool Giardia Lamblia PCR (Not Detect) Stool Sapovirus (PCR) (Not Detect) Stl P. shigelloides PCR (Not Detect) St Y.enterocolitica PCR (Not Detect) Stool Vibrio (PCR) (Not Detect) Stl Vibrio cholerae PCR (Not Detect) Stl Enteroaggr Ecoli PCR (Not Detect) Stl Norovirus GI/GII PCR (Not Detect) A. baumannii (PCR) (Not Detect) Campylobacter (PCR) (Not Detect) Julissa albicans (PCR) (Not Detect) C. glabrata (PCR) (Not Detect) C. krusei (PCR) (Not Detect) C. parapsilosis (PCR) (Not Detect) C. tropicalis (PCR) (Not Detect) C. difficile Tox (PCR) (Not Detect) Enterobacteriac sp PCR (Not Detect) E. cloacae complex PCR (Not Detect) Enterococcus sp PCR (Not Detect) E. coli (PCR) (Not Detect) H. influenzae (PCR) (Not Detect) Klebsiella oxytoca PCR (Not Detect) Klebsiella pneumoniae (Not Detect) List. monocytogenes PCR (Not Detect) N. meningitidis (PCR) (Not Detect) Proteus species (PCR) (Not Detect) Salmonella (PCR) (Not Detect) Serratia marcescens PCR (Not Detect) Staphylococcus sp PCR (Not Detect) Staph aureus (PCR) (Not Detect) mecA-Methicil Res Gene Streptococcus sp PCR (Not Detect) Group A Strep (PCR) (Not Detect) Strep agalactiae (PCR) (Not Detect) Strep pneumoniae (PCR) (Not Detect) P. aeruginosa (PCR) (Not Detect) Tammie/B-Vanco Res Genes KPC-Carbap Res Gene PCR (Not Detect) 06/09/18 06/09/18 06/09/18 Range/Units 04:45 04:45 04:45 WBC (4.5-11.0) X10^3/uL RBC (4.0-5.2) X10^6/uL Hgb (12.0-16.0) g/dL Hct (36-46) % MCV (80-100) fL MCH (26-34) PG MCHC (30-36) % RDW (11.6-14.8) % Plt Count (150-400) X10^3/uL Neut % (Auto) Lymph % (Auto) [place] % (Auto) Eos % (Auto) Baso % (Auto) Neut # (Auto) (2720-0369) /uL Total Counted Seg Neutrophils % (38-70) % Band Neutrophils % (3-7) % Lymphocytes % (Manual) (25-45) % Monocytes % (Manual) (2-11) % Eosinophils % (Manual) (2-4) % Basophils % (Manual) (0-1) % Metamyelocytes % (-0) % Neutrophils # (Manual) (7868-2673) /uL Toxic Vacuolation RBC Morphology Eosinophil Count Cancelled PT (10.1-12.7) SECONDS INR (0.9-1.3) APTT (26.4-36.2) SECONDS Sodium (137-145) mmol/L Potassium (3.4-5.1) mmol/L Chloride (98-107) mmol/L Carbon Dioxide (22-32) mmol/L BUN (7-17) mg/dL Creatinine (0.52-1.04) mg/dL Estimated GFR (>60) mL/min BUN/Creatinine Ratio (6-22) Glucose (80-110) mg/dL Lactate (0.7-2.1) mmol/L Calcium (8.4-10.2) mg/dL Magnesium (1.6-2.3) mg/dL Total Bilirubin (0.2-1.3) mg/dL AST (14-36) IU/L ALT (9-52) IU/L Alkaline Phosphatase (38-126) U/L Total Protein (6.3-8.2) g/dL Albumin (3.5-5.0) g/dL Globulin (1.7-4.1) g/dL Albumin/Globulin Ratio (1.0-2.8) Lipase (23-300) U/L Urine Color Yellow Urine Appearance Sl cloudy Urine pH 5.0 (4.5-8.0) Ur Specific [place] 1.020 (1.000-1.035) Urine Protein 2+ H (Negative) Urine Glucose (UA) Negative (Normal) g/dL Urine Ketones Trace H (NEGATIVE) Urine Occult Blood 3+ H (Negative) Urine Nitrate Negative (Negative) Urine Bilirubin Negative (NEGATIVE) Urine Ictotest (Negative) Urine Urobilinogen 0.2 (0.2) E.U./dL Ur Leukocyte Esterase 1+ H (NEGATIVE) Urine RBC 1-5/hpf D (0-5/HPF) Urine WBC 30-100/hpf H (0-5/HPF) Ur Squamous Epith Cells 0-1 /hpf Urine Bacteria Moderate (10-30) H (None) Hyaline Casts (None) Ur Culture Indicated? Specimen cultured Micro UA Comment Not Reportable Ur Random Sodium (30-90) mmol/L Ur Random Potassium mmol/L Ur Random Phosphorus 59.6 mg/dL Ur Random Calcium < 1.0 Urine Creatinine mg/dL Date of Cancelled Stool Aeromonas Cult (Not Detect) Stl C. cayetanensis PCR (Not Detect) Stool Rotavirus (PCR) (Not Detect) Stool Adenovirus (PCR) (Not Detect) Stool Astrovirus (PCR) (Not Detect) Stool Cryptosporidium PCR (Not Detect) Stl E.coli Shiga Tox PCR (Not Detect) St Sh/Enteroin Ecoli PCR (Not Detect) Stool E coli O157 PCR Stl Enterotoxigenic E PCR (Not Detect) Stool EPEC (PCR) (Not Detect) Stl E. histolytica PCR (Not Detect) Stool Giardia Lamblia PCR (Not Detect) Stool Sapovirus (PCR) (Not Detect) Stl P. shigelloides PCR (Not Detect) St Y.enterocolitica PCR (Not Detect) Stool Vibrio (PCR) (Not Detect) Stl Vibrio cholerae PCR (Not Detect) Stl Enteroaggr Ecoli PCR (Not Detect) Stl Norovirus GI/GII PCR (Not Detect) A. baumannii (PCR) (Not Detect) Campylobacter (PCR) (Not Detect) Julissa albicans (PCR) (Not Detect) C. glabrata (PCR) (Not Detect) C. krusei (PCR) (Not Detect) C. parapsilosis (PCR) (Not Detect) C. tropicalis (PCR) (Not Detect) C. difficile Tox (PCR) (Not Detect) Enterobacteriac sp PCR (Not Detect) E. cloacae complex PCR (Not Detect) Enterococcus sp PCR (Not Detect) E. coli (PCR) (Not Detect) H. influenzae (PCR) (Not Detect) Klebsiella oxytoca PCR (Not Detect) Klebsiella pneumoniae (Not Detect) List. monocytogenes PCR (Not Detect) N. meningitidis (PCR) (Not Detect) Proteus species (PCR) (Not Detect) Salmonella (PCR) (Not Detect) Serratia marcescens PCR (Not Detect) Staphylococcus sp PCR (Not Detect) Staph aureus (PCR) (Not Detect) mecA-Methicil Res Gene Streptococcus sp PCR (Not Detect) Group A Strep (PCR) (Not Detect) Strep agalactiae (PCR) (Not Detect) Strep pneumoniae (PCR) (Not Detect) P. aeruginosa (PCR) (Not Detect) Tammie/B-Vanco Res Genes KPC-Carbap Res Gene PCR (Not Detect) 06/09/18 06/09/18 06/10/18 Range/Units 05:29 05:29 05:37 WBC 22.8 H 19.0 H (4.5-11.0) X10^3/uL RBC 3.69 L 3.55 L (4.0-5.2) X10^6/uL Hgb 11.3 L 10.7 L (12.0-16.0) g/dL Hct 33.4 L 31.9 L (36-46) % MCV 90.7 90.0 (80-100) fL MCH 30.8 30.3 (26-34) PG MCHC 33.9 33.6 (30-36) % RDW 13.8 13.9 (11.6-14.8) % Plt Count 151 153 (150-400) X10^3/uL Neut % (Auto) Not Reportable Not Reportable Lymph % (Auto) Not Reportable Not Reportable [place] % (Auto) Not Reportable Not Reportable Eos % (Auto) Not Reportable Not Reportable Baso % (Auto) Not Reportable Not Reportable Neut # (Auto) (8780-0166) /uL Total Counted 100 100 Seg Neutrophils % 62.0 72.0 H (38-70) % Band Neutrophils % 26.0 H 21.0 H (3-7) % Lymphocytes % (Manual) 6.0 L 4.0 L (25-45) % Monocytes % (Manual) 3.0 2.0 (2-11) % Eosinophils % (Manual) 1.0 L (2-4) % Basophils % (Manual) (0-1) % Metamyelocytes % 3.0 H (-0) % Neutrophils # (Manual) 26268 H 72383 H (3097-2470) /uL Toxic Vacuolation Present H RBC Morphology See below Normal morphology Eosinophil Count PT (10.1-12.7) SECONDS INR (0.9-1.3) APTT (26.4-36.2) SECONDS Sodium 143 (137-145) mmol/L Potassium 3.5 (3.4-5.1) mmol/L Chloride 113 H (98-107) mmol/L Carbon Dioxide 17 L (22-32) mmol/L BUN 47 H (7-17) mg/dL Creatinine 1.20 H (0.52-1.04) mg/dL Estimated GFR 43.9 L (>60) mL/min BUN/Creatinine Ratio 39.2 H (6-22) Glucose 89 (80-110) mg/dL Lactate (0.7-2.1) mmol/L Calcium 7.5 L (8.4-10.2) mg/dL Magnesium 1.8 (1.6-2.3) mg/dL Total Bilirubin (0.2-1.3) mg/dL AST (14-36) IU/L ALT (9-52) IU/L Alkaline Phosphatase (38-126) U/L Total Protein (6.3-8.2) g/dL Albumin (3.5-5.0) g/dL Globulin (1.7-4.1) g/dL Albumin/Globulin Ratio (1.0-2.8) Lipase (23-300) U/L Urine Color Urine Appearance Urine pH (4.5-8.0) Ur Specific [place] (1.000-1.035) Urine Protein (Negative) Urine Glucose (UA) (Normal) g/dL Urine Ketones (NEGATIVE) Urine Occult Blood (Negative) Urine Nitrate (Negative) Urine Bilirubin (NEGATIVE) Urine Ictotest (Negative) Urine Urobilinogen (0.2) E.U./dL Ur Leukocyte Esterase (NEGATIVE) Urine RBC (0-5/HPF) Urine WBC (0-5/HPF) Ur Squamous Epith Cells Urine Bacteria (None) Hyaline Casts (None) Ur Culture Indicated? Micro UA Comment Ur Random Sodium (30-90) mmol/L Ur Random Potassium mmol/L Ur Random Phosphorus mg/dL Ur Random Calcium Urine Creatinine mg/dL Date of Stool Aeromonas Cult (Not Detect) Stl C. cayetanensis PCR (Not Detect) Stool Rotavirus (PCR) (Not Detect) Stool Adenovirus (PCR) (Not Detect) Stool Astrovirus (PCR) (Not Detect) Stool Cryptosporidium PCR (Not Detect) Stl E.coli Shiga Tox PCR (Not Detect) St Sh/Enteroin Ecoli PCR (Not Detect) Stool E coli O157 PCR Stl Enterotoxigenic E PCR (Not Detect) Stool EPEC (PCR) (Not Detect) Stl E. histolytica PCR (Not Detect) Stool Giardia Lamblia PCR (Not Detect) Stool Sapovirus (PCR) (Not Detect) Stl P. shigelloides PCR (Not Detect) St Y.enterocolitica PCR (Not Detect) Stool Vibrio (PCR) (Not Detect) Stl Vibrio cholerae PCR (Not Detect) Stl Enteroaggr Ecoli PCR (Not Detect) Stl Norovirus GI/GII PCR (Not Detect) A. baumannii (PCR) (Not Detect) Campylobacter (PCR) (Not Detect) Julissa albicans (PCR) (Not Detect) C. glabrata (PCR) (Not Detect) C. krusei (PCR) (Not Detect) C. parapsilosis (PCR) (Not Detect) C. tropicalis (PCR) (Not Detect) C. difficile Tox (PCR) (Not Detect) Enterobacteriac sp PCR (Not Detect) E. cloacae complex PCR (Not Detect) Enterococcus sp PCR (Not Detect) E. coli (PCR) (Not Detect) H. influenzae (PCR) (Not Detect) Klebsiella oxytoca PCR (Not Detect) Klebsiella pneumoniae (Not Detect) List. monocytogenes PCR (Not Detect) N. meningitidis (PCR) (Not Detect) Proteus species (PCR) (Not Detect) Salmonella (PCR) (Not Detect) Serratia marcescens PCR (Not Detect) Staphylococcus sp PCR (Not Detect) Staph aureus (PCR) (Not Detect) mecA-Methicil Res Gene Streptococcus sp PCR (Not Detect) Group A Strep (PCR) (Not Detect) Strep agalactiae (PCR) (Not Detect) Strep pneumoniae (PCR) (Not Detect) P. aeruginosa (PCR) (Not Detect) Tammie/B-Vanco Res Genes KPC-Carbap Res Gene PCR (Not Detect) 06/10/18 06/11/18 06/11/18 Range/Units 05:37 05:50 05:50 WBC 11.5 H (4.5-11.0) X10^3/uL RBC 3.43 L (4.0-5.2) X10^6/uL Hgb 10.4 L (12.0-16.0) g/dL Hct 30.9 L (36-46) % MCV 89.9 (80-100) fL MCH 30.4 (26-34) PG MCHC 33.8 (30-36) % RDW 14.0 (11.6-14.8) % Plt Count 149 L (150-400) X10^3/uL Neut % (Auto) Not Reportable Lymph % (Auto) Not Reportable [place] % (Auto) Not Reportable Eos % (Auto) Not Reportable Baso % (Auto) Not Reportable Neut # (Auto) (9381-6112) /uL Total Counted 100 Seg Neutrophils % 40.0 (38-70) % Band Neutrophils % 32.0 H (3-7) % Lymphocytes % (Manual) 11.0 L (25-45) % Monocytes % (Manual) 6.0 (2-11) % Eosinophils % (Manual) 2.0 (2-4) % Basophils % (Manual) 5.0 H (0-1) % Metamyelocytes % 4.0 H (-0) % Neutrophils # (Manual) 8280 H (2609-3415) /uL Toxic Vacuolation RBC Morphology Normal morphology Eosinophil Count PT (10.1-12.7) SECONDS INR (0.9-1.3) APTT (26.4-36.2) SECONDS Sodium 144 142 (137-145) mmol/L Potassium 3.7 3.3 L (3.4-5.1) mmol/L Chloride 113 H 110 H (98-107) mmol/L Carbon Dioxide 22 22 (22-32) mmol/L BUN 26 H 14 (7-17) mg/dL Creatinine 0.70 0.60 (0.52-1.04) mg/dL Estimated GFR > 60.0 > 60.0 (>60) mL/min BUN/Creatinine Ratio 37.1 H 23.3 H (6-22) Glucose 110 101 (80-110) mg/dL Lactate (0.7-2.1) mmol/L Calcium 7.9 L 7.9 L (8.4-10.2) mg/dL Magnesium 2.2 2.1 (1.6-2.3) mg/dL Total Bilirubin (0.2-1.3) mg/dL AST (14-36) IU/L ALT (9-52) IU/L Alkaline Phosphatase (38-126) U/L Total Protein (6.3-8.2) g/dL Albumin (3.5-5.0) g/dL Globulin (1.7-4.1) g/dL Albumin/Globulin Ratio (1.0-2.8) Lipase (23-300) U/L Urine Color Urine Appearance Urine pH (4.5-8.0) Ur Specific [place] (1.000-1.035) Urine Protein (Negative) Urine Glucose (UA) (Normal) g/dL Urine Ketones (NEGATIVE) Urine Occult Blood (Negative) Urine Nitrate (Negative) Urine Bilirubin (NEGATIVE) Urine Ictotest (Negative) Urine Urobilinogen (0.2) E.U./dL Ur Leukocyte Esterase (NEGATIVE) Urine RBC (0-5/HPF) Urine WBC (0-5/HPF) Ur Squamous Epith Cells Urine Bacteria (None) Hyaline Casts (None) Ur Culture Indicated? Micro UA Comment Ur Random Sodium (30-90) mmol/L Ur Random Potassium mmol/L Ur Random Phosphorus mg/dL Ur Random Calcium Urine Creatinine mg/dL Date of Stool Aeromonas Cult (Not Detect) Stl C. cayetanensis PCR (Not Detect) Stool Rotavirus (PCR) (Not Detect) Stool Adenovirus (PCR) (Not Detect) Stool Astrovirus (PCR) (Not Detect) Stool Cryptosporidium PCR (Not Detect) Stl E.coli Shiga Tox PCR (Not Detect) St Sh/Enteroin Ecoli PCR (Not Detect) Stool E coli O157 PCR Stl Enterotoxigenic E PCR (Not Detect) Stool EPEC (PCR) (Not Detect) Stl E. histolytica PCR (Not Detect) Stool Giardia Lamblia PCR (Not Detect) Stool Sapovirus (PCR) (Not Detect) Stl P. shigelloides PCR (Not Detect) St Y.enterocolitica PCR (Not Detect) Stool Vibrio (PCR) (Not Detect) Stl Vibrio cholerae PCR (Not Detect) Stl Enteroaggr Ecoli PCR (Not Detect) Stl Norovirus GI/GII PCR (Not Detect) A. baumannii (PCR) (Not Detect) Campylobacter (PCR) (Not Detect) Julissa albicans (PCR) (Not Detect) C. glabrata (PCR) (Not Detect) C. krusei (PCR) (Not Detect) C. parapsilosis (PCR) (Not Detect) C. tropicalis (PCR) (Not Detect) C. difficile Tox (PCR) (Not Detect) Enterobacteriac sp PCR (Not Detect) E. cloacae complex PCR (Not Detect) Enterococcus sp PCR (Not Detect) E. coli (PCR) (Not Detect) H. influenzae (PCR) (Not Detect) Klebsiella oxytoca PCR (Not Detect) Klebsiella pneumoniae (Not Detect) List. monocytogenes PCR (Not Detect) N. meningitidis (PCR) (Not Detect) Proteus species (PCR) (Not Detect) Salmonella (PCR) (Not Detect) Serratia marcescens PCR (Not Detect) Staphylococcus sp PCR (Not Detect) Staph aureus (PCR) (Not Detect) mecA-Methicil Res Gene Streptococcus sp PCR (Not Detect) Group A Strep (PCR) (Not Detect) Strep agalactiae (PCR) (Not Detect) Strep pneumoniae (PCR) (Not Detect) P. aeruginosa (PCR) (Not Detect) Tammie/B-Vanco Res Genes KPC-Carbap Res Gene PCR (Not Detect) 06/11/18 06/12/18 06/12/18 Range/Units 18:18 05:23 05:23 WBC 9.3 (4.5-11.0) X10^3/uL RBC 3.39 L (4.0-5.2) X10^6/uL Hgb 10.2 L (12.0-16.0) g/dL Hct 30.2 L (36-46) % MCV 89.2 (80-100) fL MCH 30.2 (26-34) PG MCHC 33.9 (30-36) % RDW 13.8 (11.6-14.8) % Plt Count 172 (150-400) X10^3/uL Neut % (Auto) Not Reportable Lymph % (Auto) Not Reportable [place] % (Auto) Not Reportable Eos % (Auto) Not Reportable Baso % (Auto) Not Reportable Neut # (Auto) (6367-5769) /uL Total Counted 100 Seg Neutrophils % 60.0 (38-70) % Band Neutrophils % 10.0 H (3-7) % Lymphocytes % (Manual) 19.0 L (25-45) % Monocytes % (Manual) 11.0 (2-11) % Eosinophils % (Manual) (2-4) % Basophils % (Manual) (0-1) % Metamyelocytes % (-0) % Neutrophils # (Manual) 6510 H (8249-2172) /uL Toxic Vacuolation RBC Morphology Normal morphology Eosinophil Count PT (10.1-12.7) SECONDS INR (0.9-1.3) APTT (26.4-36.2) SECONDS Sodium 143 (137-145) mmol/L Potassium 3.7 (3.4-5.1) mmol/L Chloride 110 H (98-107) mmol/L Carbon Dioxide 23 (22-32) mmol/L BUN 12 (7-17) mg/dL Creatinine 0.60 (0.52-1.04) mg/dL Estimated GFR > 60.0 (>60) mL/min BUN/Creatinine Ratio 20.0 (6-22) Glucose 92 (80-110) mg/dL Lactate 1.2 (0.7-2.1) mmol/L Calcium 7.8 L (8.4-10.2) mg/dL Magnesium (1.6-2.3) mg/dL Total Bilirubin 0.4 (0.2-1.3) mg/dL AST 38 H (14-36) IU/L ALT 28 (9-52) IU/L Alkaline Phosphatase 153 H (38-126) U/L Total Protein 5.0 L (6.3-8.2) g/dL Albumin 2.5 L (3.5-5.0) g/dL Globulin 2.5 (1.7-4.1) g/dL Albumin/Globulin Ratio 1.0 (1.0-2.8) Lipase (23-300) U/L Urine Color Urine Appearance Urine pH (4.5-8.0) Ur Specific [place] (1.000-1.035) Urine Protein (Negative) Urine Glucose (UA) (Normal) g/dL Urine Ketones (NEGATIVE) Urine Occult Blood (Negative) Urine Nitrate (Negative) Urine Bilirubin (NEGATIVE) Urine Ictotest (Negative) Urine Urobilinogen (0.2) E.U./dL Ur Leukocyte Esterase (NEGATIVE) Urine RBC (0-5/HPF) Urine WBC (0-5/HPF) Ur Squamous Epith Cells Urine Bacteria (None) Hyaline Casts (None) Ur Culture Indicated? Micro UA Comment Ur Random Sodium (30-90) mmol/L Ur Random Potassium mmol/L Ur Random Phosphorus mg/dL Ur Random Calcium Urine Creatinine mg/dL Date of Stool Aeromonas Cult (Not Detect) Stl C. cayetanensis PCR (Not Detect) Stool Rotavirus (PCR) (Not Detect) Stool Adenovirus (PCR) (Not Detect) Stool Astrovirus (PCR) (Not Detect) Stool Cryptosporidium PCR (Not Detect) Stl E.coli Shiga Tox PCR (Not Detect) St Sh/Enteroin Ecoli PCR (Not Detect) Stool E coli O157 PCR Stl Enterotoxigenic E PCR (Not Detect) Stool EPEC (PCR) (Not Detect) Stl E. histolytica PCR (Not Detect) Stool Giardia Lamblia PCR (Not Detect) Stool Sapovirus (PCR) (Not Detect) Stl P. shigelloides PCR (Not Detect) St Y.enterocolitica PCR (Not Detect) Stool Vibrio (PCR) (Not Detect) Stl Vibrio cholerae PCR (Not Detect) Stl Enteroaggr Ecoli PCR (Not Detect) Stl Norovirus GI/GII PCR (Not Detect) A. baumannii (PCR) (Not Detect) Campylobacter (PCR) (Not Detect) Julissa albicans (PCR) (Not Detect) C. glabrata (PCR) (Not Detect) C. krusei (PCR) (Not Detect) C. parapsilosis (PCR) (Not Detect) C. tropicalis (PCR) (Not Detect) C. difficile Tox (PCR) (Not Detect) Enterobacteriac sp PCR (Not Detect) E. cloacae complex PCR (Not Detect) Enterococcus sp PCR (Not Detect) E. coli (PCR) (Not Detect) H. influenzae (PCR) (Not Detect) Klebsiella oxytoca PCR (Not Detect) Klebsiella pneumoniae (Not Detect) List. monocytogenes PCR (Not Detect) N. meningitidis (PCR) (Not Detect) Proteus species (PCR) (Not Detect) Salmonella (PCR) (Not Detect) Serratia marcescens PCR (Not Detect) Staphylococcus sp PCR (Not Detect) Staph aureus (PCR) (Not Detect) mecA-Methicil Res Gene Streptococcus sp PCR (Not Detect) Group A Strep (PCR) (Not Detect) Strep agalactiae (PCR) (Not Detect) Strep pneumoniae (PCR) (Not Detect) P. aeruginosa (PCR) (Not Detect) Tammie/B-Vanco Res Genes KPC-Carbap Res Gene PCR (Not Detect) 06/12/1818 06/13/18 Range/Units Unknown 05:37 05:37 WBC 11.4 H (4.5-11.0) X10^3/uL RBC 3.58 L (4.0-5.2) X10^6/uL Hgb 10.4 L (12.0-16.0) g/dL Hct 32.0 L (36-46) % MCV 89.5 (80-100) fL MCH 29.0 (26-34) PG MCHC 32.5 (30-36) % RDW 14.0 (11.6-14.8) % Plt Count 237 (150-400) X10^3/uL Neut % (Auto) Not Reportable Lymph % (Auto) Not Reportable [place] % (Auto) Not Reportable Eos % (Auto) Not Reportable Baso % (Auto) Not Reportable Neut # (Auto) (8077-9346) /uL Total Counted 100 Seg Neutrophils % 74.0 H (38-70) % Band Neutrophils % 8.0 H (3-7) % Lymphocytes % (Manual) 11.0 L (25-45) % Monocytes % (Manual) 7.0 (2-11) % Eosinophils % (Manual) (2-4) % Basophils % (Manual) (0-1) % Metamyelocytes % (-0) % Neutrophils # (Manual) 9348 H (0702-5141) /uL Toxic Vacuolation RBC Morphology Normal morphology Eosinophil Count PT (10.1-12.7) SECONDS INR (0.9-1.3) APTT (26.4-36.2) SECONDS Sodium 143 (137-145) mmol/L Potassium 3.4 (3.4-5.1) mmol/L Chloride 109 H (98-107) mmol/L Carbon Dioxide 24 (22-32) mmol/L BUN 9 (7-17) mg/dL Creatinine 0.50 L (0.52-1.04) mg/dL Estimated GFR > 60.0 (>60) mL/min BUN/Creatinine Ratio 18.0 (6-22) Glucose 97 (80-110) mg/dL Lactate (0.7-2.1) mmol/L Calcium 7.7 L (8.4-10.2) mg/dL Magnesium (1.6-2.3) mg/dL Total Bilirubin 0.5 (0.2-1.3) mg/dL AST 48 H (14-36) IU/L ALT 31 (9-52) IU/L Alkaline Phosphatase 134 H (38-126) U/L Total Protein 5.4 L (6.3-8.2) g/dL Albumin 2.7 L (3.5-5.0) g/dL Globulin 2.7 (1.7-4.1) g/dL Albumin/Globulin Ratio 1.0 (1.0-2.8) Lipase (23-300) U/L Urine Color Urine Appearance Urine pH (4.5-8.0) Ur Specific [place] (1.000-1.035) Urine Protein (Negative) Urine Glucose (UA) (Normal) g/dL Urine Ketones (NEGATIVE) Urine Occult Blood (Negative) Urine Nitrate (Negative) Urine Bilirubin (NEGATIVE) Urine Ictotest (Negative) Urine Urobilinogen (0.2) E.U./dL Ur Leukocyte Esterase (NEGATIVE) Urine RBC (0-5/HPF) Urine WBC (0-5/HPF) Ur Squamous Epith Cells Urine Bacteria (None) Hyaline Casts (None) Ur Culture Indicated? Micro UA Comment Ur Random Sodium (30-90) mmol/L Ur Random Potassium mmol/L Ur Random Phosphorus mg/dL Ur Random Calcium Urine Creatinine mg/dL Date of Stool Aeromonas Cult (Not Detect) Stl C. cayetanensis PCR (Not Detect) Stool Rotavirus (PCR) (Not Detect) Stool Adenovirus (PCR) (Not Detect) Stool Astrovirus (PCR) (Not Detect) Stool Cryptosporidium PCR (Not Detect) Stl E.coli Shiga Tox PCR (Not Detect) St Sh/Enteroin Ecoli PCR (Not Detect) Stool E coli O157 PCR Stl Enterotoxigenic E PCR (Not Detect) Stool EPEC (PCR) (Not Detect) Stl E. histolytica PCR (Not Detect) Stool Giardia Lamblia PCR (Not Detect) Stool Sapovirus (PCR) (Not Detect) Stl P. shigelloides PCR (Not Detect) St Y.enterocolitica PCR (Not Detect) Stool Vibrio (PCR) (Not Detect) Stl Vibrio cholerae PCR (Not Detect) Stl Enteroaggr Ecoli PCR (Not Detect) Stl Norovirus GI/GII PCR (Not Detect) A. baumannii (PCR) Not detected (Not Detect) Campylobacter (PCR) (Not Detect) Julissa albicans (PCR) Not detected (Not Detect) C. glabrata (PCR) Not detected (Not Detect) C. krusei (PCR) Not detected (Not Detect) C. parapsilosis (PCR) Not detected (Not Detect) C. tropicalis (PCR) Not detected (Not Detect) C. difficile Tox (PCR) (Not Detect) Enterobacteriac sp PCR Detected H (Not Detect) E. cloacae complex PCR Not detected (Not Detect) Enterococcus sp PCR Not detected (Not Detect) E. coli (PCR) Detected H (Not Detect) H. influenzae (PCR) Not detected (Not Detect) Klebsiella oxytoca PCR Not detected (Not Detect) Klebsiella pneumoniae Not detected (Not Detect) List. monocytogenes PCR Not detected (Not Detect) N. meningitidis (PCR) Not detected (Not Detect) Proteus species (PCR) Not detected (Not Detect) Salmonella (PCR) (Not Detect) Serratia marcescens PCR Not detected (Not Detect) Staphylococcus sp PCR Not detected (Not Detect) Staph aureus (PCR) Not detected (Not Detect) mecA-Methicil Res Gene Not detected Streptococcus sp PCR Not detected (Not Detect) Group A Strep (PCR) Not detected (Not Detect) Strep agalactiae (PCR) Not detected (Not Detect) Strep pneumoniae (PCR) Not detected (Not Detect) P. aeruginosa (PCR) Not detected (Not Detect) Tammie/B-Vanco Res Genes Not detected KPC-Carbap Res Gene PCR Not detected (Not Detect) 06/14/18 06/14/18 Range/Units 05:28 05:28 WBC 10.1 (4.5-11.0) X10^3/uL RBC 3.56 L (4.0-5.2) X10^6/uL Hgb 10.5 L (12.0-16.0) g/dL Hct 32.0 L (36-46) % MCV 90.0 (80-100) fL MCH 29.5 (26-34) PG MCHC 32.8 (30-36) % RDW 13.9 (11.6-14.8) % Plt Count 321 (150-400) X10^3/uL Neut % (Auto) 70.8 Lymph % (Auto) 17.7 L [place] % (Auto) 9.5 Eos % (Auto) 1.6 L Baso % (Auto) 0.4 Neut # (Auto) 7100 H (3116-1672) /uL Total Counted Seg Neutrophils % (38-70) % Band Neutrophils % (3-7) % Lymphocytes % (Manual) (25-45) % Monocytes % (Manual) (2-11) % Eosinophils % (Manual) (2-4) % Basophils % (Manual) (0-1) % Metamyelocytes % (-0) % Neutrophils # (Manual) (4694-2360) /uL Toxic Vacuolation RBC Morphology Eosinophil Count PT (10.1-12.7) SECONDS INR (0.9-1.3) APTT (26.4-36.2) SECONDS Sodium 145 (137-145) mmol/L Potassium 3.5 (3.4-5.1) mmol/L Chloride 107 (98-107) mmol/L Carbon Dioxide 29 (22-32) mmol/L BUN 10 (7-17) mg/dL Creatinine 0.60 (0.52-1.04) mg/dL Estimated GFR > 60.0 (>60) mL/min BUN/Creatinine Ratio 16.7 (6-22) Glucose 95 (80-110) mg/dL Lactate (0.7-2.1) mmol/L Calcium 8.0 L (8.4-10.2) mg/dL Magnesium (1.6-2.3) mg/dL Total Bilirubin 0.3 (0.2-1.3) mg/dL AST 32 (14-36) IU/L ALT 25 (9-52) IU/L Alkaline Phosphatase 115 (38-126) U/L Total Protein 5.4 L (6.3-8.2) g/dL Albumin 2.6 L (3.5-5.0) g/dL Globulin 2.8 (1.7-4.1) g/dL Albumin/Globulin Ratio 0.9 L (1.0-2.8) Lipase (23-300) U/L Urine Color Urine Appearance Urine pH (4.5-8.0) Ur Specific [place] (1.000-1.035) Urine Protein (Negative) Urine Glucose (UA) (Normal) g/dL Urine Ketones (NEGATIVE) Urine Occult Blood (Negative) Urine Nitrate (Negative) Urine Bilirubin (NEGATIVE) Urine Ictotest (Negative) Urine Urobilinogen (0.2) E.U./dL Ur Leukocyte Esterase (NEGATIVE) Urine RBC (0-5/HPF) Urine WBC (0-5/HPF) Ur Squamous Epith Cells Urine Bacteria (None) Hyaline Casts (None) Ur Culture Indicated? Micro UA Comment Ur Random Sodium (30-90) mmol/L Ur Random Potassium mmol/L Ur Random Phosphorus mg/dL Ur Random Calcium Urine Creatinine mg/dL Date of Stool Aeromonas Cult (Not Detect) Stl C. cayetanensis PCR (Not Detect) Stool Rotavirus (PCR) (Not Detect) Stool Adenovirus (PCR) (Not Detect) Stool Astrovirus (PCR) (Not Detect) Stool Cryptosporidium PCR (Not Detect) Stl E.coli Shiga Tox PCR (Not Detect) St Sh/Enteroin Ecoli PCR (Not Detect) Stool E coli O157 PCR Stl Enterotoxigenic E PCR (Not Detect) Stool EPEC (PCR) (Not Detect) Stl E. histolytica PCR (Not Detect) Stool Giardia Lamblia PCR (Not Detect) Stool Sapovirus (PCR) (Not Detect) Stl P. shigelloides PCR (Not Detect) St Y.enterocolitica PCR (Not Detect) Stool Vibrio (PCR) (Not Detect) Stl Vibrio cholerae PCR (Not Detect) Stl Enteroaggr Ecoli PCR (Not Detect) Stl Norovirus GI/GII PCR (Not Detect) A. baumannii (PCR) (Not Detect) Campylobacter (PCR) (Not Detect) Julissa albicans (PCR) (Not Detect) C. glabrata (PCR) (Not Detect) C. krusei (PCR) (Not Detect) C. parapsilosis (PCR) (Not Detect) C. tropicalis (PCR) (Not Detect) C. difficile Tox (PCR) (Not Detect) Enterobacteriac sp PCR (Not Detect) E. cloacae complex PCR (Not Detect) Enterococcus sp PCR (Not Detect) E. coli (PCR) (Not Detect) H. influenzae (PCR) (Not Detect) Klebsiella oxytoca PCR (Not Detect) Klebsiella pneumoniae (Not Detect) List. monocytogenes PCR (Not Detect) N. meningitidis (PCR) (Not Detect) Proteus species (PCR) (Not Detect) Salmonella (PCR) (Not Detect) Serratia marcescens PCR (Not Detect) Staphylococcus sp PCR (Not Detect) Staph aureus (PCR) (Not Detect) mecA-Methicil Res Gene Streptococcus sp PCR (Not Detect) Group A Strep (PCR) (Not Detect) Strep agalactiae (PCR) (Not Detect) Strep pneumoniae (PCR) (Not Detect) P. aeruginosa (PCR) (Not Detect) Tammie/B-Vanco Res Genes KPC-Carbap Res Gene PCR (Not Detect) Urine Dip Bedside Urine Glucose Negative Bedside Urine Bilirubin + 1 Bedside Urine Ketone - Negative Urine Specific [place] 1.030 Bedside Urine Occult Blood +++ Bedside Urine pH 5.5 Bedside Urine Protein ++ 100 Bedside Urine Urobilinogen - Negative Bedside Urine Nitrite - Negative Bedside Urine Leukocytes ++ 125 Esterase Imaging Data US - abdomen: Radiologist's impression: [address] [address] Ultrasound Report Signed Patient: Angela Snider LMR#: [id number] : 4Acct:[id number] Age/Sex: 72 / FDate of Service: 06/08/18 Loc: ED Accession Number: [id number] Procedure: US abdomen complete Ordering Provider: Lenora Jaramillo P.A-C PROCEDURE: US ABDOMEN COMPLETE INDICATIONS: elevated WBCs, LFTs, vomiting TECHNIQUE: Real-time scanning was performed of the abdominal and retroperitoneal organs, with image documentation. COMPARISON: [facility], [place], ABDOMEN COMPLETE, 06/29/2013, 8:35. FINDINGS: Liver: Liver is normal in size and homogeneous in echotexture. Gallbladder: There is a 2.5 cm gallstone. The gallbladder wall measures 3 mm, pericholecystic fluid or sonographic Samano's sign. Biliary ducts: Intrahepatic bile ducts are non-dilated. Extrahepatic bile duct caliber measures 5 mm. Normal is 6-7 mm or less in diameter, or 10 mm or less post-cholecystectomy. Pancreas: Visualized portions of the pancreas are sonographically normal. Spleen: Spleen is normal in size and homogeneous in echotexture. Kidneys: Kidneys are normal in size and echotexture. Right kidney measures 13.8 cm long; left kidney measures 13.6 cm long. No hydronephrosis or nephrolithiasis. No solid masses. There are renal calculi bilaterally measuring up to 9 mm in the right kidney and 10 mm in the left kidney. Aorta: Visualized aorta is normal in caliber at less than 3 cm. Iliacs: Proximal common iliac arteries are normal in caliber at less than 2.5 cm. IVC: Intrahepatic inferior vena cava is patent. Miscellaneous: No free abdominal fluid. IMPRESSION: 1. Cholelithiasis. The gallbladder wall is at the upper limit of normal. No pericholecystic fluid collection or Samano's sign. 2. Nephrolithiasis bilaterally. No hydronephrosis. Dictated by: Chilo Sprague M.D. on 06/08/2018 at 19:20 Approved by: Chilo Sprague M.D. on 06/08/2018 at 19:24 ECG Data Attestation: I personally reviewed and interpreted this ECG as follows: ( sinus rhythm with rate 97, normal axis, intraventricular conduction delay) Prior ECG tracings: not available for review <Gabrielle Dye MD - Last Filed: 06/14/18 07:59> Lab Data Lab Results 06/08/18 06/08/18 06/08/18 Range/Units 15:20 15:58 15:58 WBC 33.3 H* (4.5-11.0) X10^3/uL RBC 4.23 (4.0-5.2) X10^6/uL Hgb 12.8 (12.0-16.0) g/dL Hct 37.9 (36-46) % MCV 89.6 (80-100) fL MCH 30.2 (26-34) PG MCHC 33.7 (30-36) % RDW 13.6 (11.6-14.8) % Plt Count 191 (150-400) X10^3/uL Neut % (Auto) Not Reportable Lymph % (Auto) Not Reportable [place] % (Auto) Not Reportable Eos % (Auto) Not Reportable Baso % (Auto) Not Reportable Neut # (Auto) (9948-9699) /uL Total Counted 100 Seg Neutrophils % 61.0 (38-70) % Band Neutrophils % 29.0 H (3-7) % Lymphocytes % (Manual) 5.0 L (25-45) % Monocytes % (Manual) 3.0 (2-11) % Eosinophils % (Manual) (2-4) % Basophils % (Manual) (0-1) % Metamyelocytes % 2.0 H (-0) % Neutrophils # (Manual) 26488 H (1426-9731) /uL Toxic Vacuolation RBC Morphology Normal morphology Eosinophil Count PT 17.1 H (10.1-12.7) SECONDS INR 1.5 H (0.9-1.3) APTT 36 (26.4-36.2) SECONDS Sodium (137-145) mmol/L Potassium (3.4-5.1) mmol/L Chloride (98-107) mmol/L Carbon Dioxide (22-32) mmol/L BUN (7-17) mg/dL Creatinine (0.52-1.04) mg/dL Estimated GFR (>60) mL/min BUN/Creatinine Ratio (6-22) Glucose (80-110) mg/dL Lactate (0.7-2.1) mmol/L Calcium (8.4-10.2) mg/dL Magnesium (1.6-2.3) mg/dL Total Bilirubin (0.2-1.3) mg/dL AST (14-36) IU/L ALT (9-52) IU/L Alkaline Phosphatase (38-126) U/L Total Protein (6.3-8.2) g/dL Albumin (3.5-5.0) g/dL Globulin (1.7-4.1) g/dL Albumin/Globulin Ratio (1.0-2.8) Lipase (23-300) U/L Urine Color Urine Appearance Urine pH (4.5-8.0) Ur Specific [place] (1.000-1.035) Urine Protein (Negative) Urine Glucose (UA) (Normal) g/dL Urine Ketones (NEGATIVE) Urine Occult Blood (Negative) Urine Nitrate (Negative) Urine Bilirubin (NEGATIVE) Urine Ictotest (Negative) Urine Urobilinogen (0.2) E.U./dL Ur Leukocyte Esterase (NEGATIVE) Urine RBC (0-5/HPF) Urine WBC (0-5/HPF) Ur Squamous Epith Cells Urine Bacteria (None) Hyaline Casts (None) Ur Culture Indicated? Micro UA Comment Ur Random Sodium (30-90) mmol/L Ur Random Potassium mmol/L Ur Random Phosphorus mg/dL Ur Random Calcium Urine Creatinine mg/dL Date of Stool Aeromonas Cult Neg for aeromonas (Not Detect) Stl C. cayetanensis PCR Not detected (Not Detect) Stool Rotavirus (PCR) Not detected (Not Detect) Stool Adenovirus (PCR) Not detected (Not Detect) Stool Astrovirus (PCR) Not detected (Not Detect) Stool Cryptosporidium PCR Not detected (Not Detect) Stl E.coli Shiga Tox PCR Not detected (Not Detect) St Sh/Enteroin Ecoli PCR Not detected (Not Detect) Stool E coli O157 PCR Not Reportable Stl Enterotoxigenic E PCR Not detected (Not Detect) Stool EPEC (PCR) Not detected (Not Detect) Stl E. histolytica PCR Not detected (Not Detect) Stool Giardia Lamblia PCR Not detected (Not Detect) Stool Sapovirus (PCR) Not detected (Not Detect) Stl P. shigelloides PCR Not detected (Not Detect) St Y.enterocolitica PCR Not detected (Not Detect) Stool Vibrio (PCR) Not detected (Not Detect) Stl Vibrio cholerae PCR Not detected (Not Detect) Stl Enteroaggr Ecoli PCR Not detected (Not Detect) Stl Norovirus GI/GII PCR Not detected (Not Detect) A. baumannii (PCR) (Not Detect) Campylobacter (PCR) Not detected (Not Detect) Julissa albicans (PCR) (Not Detect) C. glabrata (PCR) (Not Detect) C. krusei (PCR) (Not Detect) C. parapsilosis (PCR) (Not Detect) C. tropicalis (PCR) (Not Detect) C. difficile Tox (PCR) Not detected (Not Detect) Enterobacteriac sp PCR (Not Detect) E. cloacae complex PCR (Not Detect) Enterococcus sp PCR (Not Detect) E. coli (PCR) (Not Detect) H. influenzae (PCR) (Not Detect) Klebsiella oxytoca PCR (Not Detect) Klebsiella pneumoniae (Not Detect) List. monocytogenes PCR (Not Detect) N. meningitidis (PCR) (Not Detect) Proteus species (PCR) (Not Detect) Salmonella (PCR) Not detected (Not Detect) Serratia marcescens PCR (Not Detect) Staphylococcus sp PCR (Not Detect) Staph aureus (PCR) (Not Detect) mecA-Methicil Res Gene Streptococcus sp PCR (Not Detect) Group A Strep (PCR) (Not Detect) Strep agalactiae (PCR) (Not Detect) Strep pneumoniae (PCR) (Not Detect) P. aeruginosa (PCR) (Not Detect) Tammie/B-Vanco Res Genes KPC-Carbap Res Gene PCR (Not Detect) 06/08/18 06/08/18 06/08/18 Range/Units 15:58 16:55 17:25 WBC (4.5-11.0) X10^3/uL RBC (4.0-5.2) X10^6/uL Hgb (12.0-16.0) g/dL Hct (36-46) % MCV (80-100) fL MCH (26-34) PG MCHC (30-36) % RDW (11.6-14.8) % Plt Count (150-400) X10^3/uL Neut % (Auto) Lymph % (Auto) [place] % (Auto) Eos % (Auto) Baso % (Auto) Neut # (Auto) (7946-5169) /uL Total Counted Seg Neutrophils % (38-70) % Band Neutrophils % (3-7) % Lymphocytes % (Manual) (25-45) % Monocytes % (Manual) (2-11) % Eosinophils % (Manual) (2-4) % Basophils % (Manual) (0-1) % Metamyelocytes % (-0) % Neutrophils # (Manual) (6251-6476) /uL Toxic Vacuolation RBC Morphology Eosinophil Count PT (10.1-12.7) SECONDS INR (0.9-1.3) APTT (26.4-36.2) SECONDS Sodium 142 (137-145) mmol/L Potassium 4.0 (3.4-5.1) mmol/L Chloride 103 (98-107) mmol/L Carbon Dioxide 23 (22-32) mmol/L BUN 48 H (7-17) mg/dL Creatinine 2.10 H (0.52-1.04) mg/dL Estimated GFR 23.0 L (>60) mL/min BUN/Creatinine Ratio 22.9 H (6-22) Glucose 117 H (80-110) mg/dL Lactate 1.7 (0.7-2.1) mmol/L Calcium 8.7 (8.4-10.2) mg/dL Magnesium (1.6-2.3) mg/dL Total Bilirubin 0.7 (0.2-1.3) mg/dL AST 156 H (14-36) IU/L ALT 27 (9-52) IU/L Alkaline Phosphatase 107 (38-126) U/L Total Protein 6.9 (6.3-8.2) g/dL Albumin 3.9 (3.5-5.0) g/dL Globulin 3.0 (1.7-4.1) g/dL Albumin/Globulin Ratio 1.3 (1.0-2.8) Lipase 23 (23-300) U/L Urine Color Urine Appearance Urine pH (4.5-8.0) Ur Specific [place] (1.000-1.035) Urine Protein (Negative) Urine Glucose (UA) (Normal) g/dL Urine Ketones (NEGATIVE) Urine Occult Blood (Negative) Urine Nitrate (Negative) Urine Bilirubin (NEGATIVE) Urine Ictotest (Negative) Urine Urobilinogen (0.2) E.U./dL Ur Leukocyte Esterase (NEGATIVE) Urine RBC (0-5/HPF) Urine WBC (0-5/HPF) Ur Squamous Epith Cells Urine Bacteria (None) Hyaline Casts (None) Ur Culture Indicated? Micro UA Comment Ur Random Sodium (30-90) mmol/L Ur Random Potassium mmol/L Ur Random Phosphorus mg/dL Ur Random Calcium Urine Creatinine mg/dL Date of Stool Aeromonas Cult (Not Detect) Stl C. cayetanensis PCR (Not Detect) Stool Rotavirus (PCR) (Not Detect) Stool Adenovirus (PCR) (Not Detect) Stool Astrovirus (PCR) (Not Detect) Stool Cryptosporidium PCR (Not Detect) Stl E.coli Shiga Tox PCR (Not Detect) St Sh/Enteroin Ecoli PCR (Not Detect) Stool E coli O157 PCR Stl Enterotoxigenic E PCR (Not Detect) Stool EPEC (PCR) (Not Detect) Stl E. histolytica PCR (Not Detect) Stool Giardia Lamblia PCR (Not Detect) Stool Sapovirus (PCR) (Not Detect) Stl P. shigelloides PCR (Not Detect) St Y.enterocolitica PCR (Not Detect) Stool Vibrio (PCR) (Not Detect) Stl Vibrio cholerae PCR (Not Detect) Stl Enteroaggr Ecoli PCR (Not Detect) Stl Norovirus GI/GII PCR (Not Detect) A. baumannii (PCR) Not detected (Not Detect) Campylobacter (PCR) (Not Detect) Julissa albicans (PCR) Not detected (Not Detect) C. glabrata (PCR) Not detected (Not Detect) C. krusei (PCR) Not detected (Not Detect) C. parapsilosis (PCR) Not detected (Not Detect) C. tropicalis (PCR) Not detected (Not Detect) C. difficile Tox (PCR) (Not Detect) Enterobacteriac sp PCR Detected H (Not Detect) E. cloacae complex PCR Not detected (Not Detect) Enterococcus sp PCR Not detected (Not Detect) E. coli (PCR) Detected H (Not Detect) H. influenzae (PCR) Not detected (Not Detect) Klebsiella oxytoca PCR Not detected (Not Detect) Klebsiella pneumoniae Not detected (Not Detect) List. monocytogenes PCR Not detected (Not Detect) N. meningitidis (PCR) Not detected (Not Detect) Proteus species (PCR) Not detected (Not Detect) Salmonella (PCR) (Not Detect) Serratia marcescens PCR Not detected (Not Detect) Staphylococcus sp PCR Not detected (Not Detect) Staph aureus (PCR) Not detected (Not Detect) mecA-Methicil Res Gene Not Reportable Streptococcus sp PCR Not detected (Not Detect) Group A Strep (PCR) Not detected (Not Detect) Strep agalactiae (PCR) Not detected (Not Detect) Strep pneumoniae (PCR) Not detected (Not Detect) P. aeruginosa (PCR) Not detected (Not Detect) Tammie/B-Vanco Res Genes Not Reportable KPC-Carbap Res Gene PCR Not detected (Not Detect) 06/08/18 06/08/18 06/09/18 Range/Units 17:42 17:42 04:45 WBC (4.5-11.0) X10^3/uL RBC (4.0-5.2) X10^6/uL Hgb (12.0-16.0) g/dL Hct (36-46) % MCV (80-100) fL MCH (26-34) PG MCHC (30-36) % RDW (11.6-14.8) % Plt Count (150-400) X10^3/uL Neut % (Auto) Lymph % (Auto) [place] % (Auto) Eos % (Auto) Baso % (Auto) Neut # (Auto) (1901-0612) /uL Total Counted Seg Neutrophils % (38-70) % Band Neutrophils % (3-7) % Lymphocytes % (Manual) (25-45) % Monocytes % (Manual) (2-11) % Eosinophils % (Manual) (2-4) % Basophils % (Manual) (0-1) % Metamyelocytes % (-0) % Neutrophils # (Manual) (3400-3870) /uL Toxic Vacuolation RBC Morphology Eosinophil Count PT (10.1-12.7) SECONDS INR (0.9-1.3) APTT (26.4-36.2) SECONDS Sodium (137-145) mmol/L Potassium (3.4-5.1) mmol/L Chloride (98-107) mmol/L Carbon Dioxide (22-32) mmol/L BUN (7-17) mg/dL Creatinine (0.52-1.04) mg/dL Estimated GFR (>60) mL/min BUN/Creatinine Ratio (6-22) Glucose (80-110) mg/dL Lactate (0.7-2.1) mmol/L Calcium (8.4-10.2) mg/dL Magnesium (1.6-2.3) mg/dL Total Bilirubin (0.2-1.3) mg/dL AST (14-36) IU/L ALT (9-52) IU/L Alkaline Phosphatase (38-126) U/L Total Protein (6.3-8.2) g/dL Albumin (3.5-5.0) g/dL Globulin (1.7-4.1) g/dL Albumin/Globulin Ratio (1.0-2.8) Lipase (23-300) U/L Urine Color Urine Appearance Urine pH (4.5-8.0) Ur Specific [place] (1.000-1.035) Urine Protein (Negative) Urine Glucose (UA) (Normal) g/dL Urine Ketones (NEGATIVE) Urine Occult Blood (Negative) Urine Nitrate (Negative) Urine Bilirubin (NEGATIVE) Urine Ictotest Negative (Negative) Urine Urobilinogen (0.2) E.U./dL Ur Leukocyte Esterase (NEGATIVE) Urine RBC 30-100/hpf H (0-5/HPF) Urine WBC >100/hpf H (0-5/HPF) Ur Squamous Epith Cells 1-5 /hpf Urine Bacteria Many (>30) H (None) Hyaline Casts 1-5/lpf (None) Ur Culture Indicated? Specimen cultured Micro UA Comment Not Reportable Ur Random Sodium 14 L (30-90) mmol/L Ur Random Potassium 46.7 mmol/L Ur Random Phosphorus mg/dL Ur Random Calcium Urine Creatinine 78.9 mg/dL Date of Stool Aeromonas Cult (Not Detect) Stl C. cayetanensis PCR (Not Detect) Stool Rotavirus (PCR) (Not Detect) Stool Adenovirus (PCR) (Not Detect) Stool Astrovirus (PCR) (Not Detect) Stool Cryptosporidium PCR (Not Detect) Stl E.coli Shiga Tox PCR (Not Detect) St Sh/Enteroin Ecoli PCR (Not Detect) Stool E coli O157 PCR Stl Enterotoxigenic E PCR (Not Detect) Stool EPEC (PCR) (Not Detect) Stl E. histolytica PCR (Not Detect) Stool Giardia Lamblia PCR (Not Detect) Stool Sapovirus (PCR) (Not Detect) Stl P. shigelloides PCR (Not Detect) St Y.enterocolitica PCR (Not Detect) Stool Vibrio (PCR) (Not Detect) Stl Vibrio cholerae PCR (Not Detect) Stl Enteroaggr Ecoli PCR (Not Detect) Stl Norovirus GI/GII PCR (Not Detect) A. baumannii (PCR) (Not Detect) Campylobacter (PCR) (Not Detect) Julissa albicans (PCR) (Not Detect) C. glabrata (PCR) (Not Detect) C. krusei (PCR) (Not Detect) C. parapsilosis (PCR) (Not Detect) C. tropicalis (PCR) (Not Detect) C. difficile Tox (PCR) (Not Detect) Enterobacteriac sp PCR (Not Detect) E. cloacae complex PCR (Not Detect) Enterococcus sp PCR (Not Detect) E. coli (PCR) (Not Detect) H. influenzae (PCR) (Not Detect) Klebsiella oxytoca PCR (Not Detect) Klebsiella pneumoniae (Not Detect) List. monocytogenes PCR (Not Detect) N. meningitidis (PCR) (Not Detect) Proteus species (PCR) (Not Detect) Salmonella (PCR) (Not Detect) Serratia marcescens PCR (Not Detect) Staphylococcus sp PCR (Not Detect) Staph aureus (PCR) (Not Detect) mecA-Methicil Res Gene Streptococcus sp PCR (Not Detect) Group A Strep (PCR) (Not Detect) Strep agalactiae (PCR) (Not Detect) Strep pneumoniae (PCR) (Not Detect) P. aeruginosa (PCR) (Not Detect) Tammie/B-Vanco Res Genes KPC-Carbap Res Gene PCR (Not Detect) 06/09/18 06/09/18 06/09/18 Range/Units 04:45 04:45 04:45 WBC (4.5-11.0) X10^3/uL RBC (4.0-5.2) X10^6/uL Hgb (12.0-16.0) g/dL Hct (36-46) % MCV (80-100) fL MCH (26-34) PG MCHC (30-36) % RDW (11.6-14.8) % Plt Count (150-400) X10^3/uL Neut % (Auto) Lymph % (Auto) [place] % (Auto) Eos % (Auto) Baso % (Auto) Neut # (Auto) (3559-3874) /uL Total Counted Seg Neutrophils % (38-70) % Band Neutrophils % (3-7) % Lymphocytes % (Manual) (25-45) % Monocytes % (Manual) (2-11) % Eosinophils % (Manual) (2-4) % Basophils % (Manual) (0-1) % Metamyelocytes % (-0) % Neutrophils # (Manual) (4701-0371) /uL Toxic Vacuolation RBC Morphology Eosinophil Count Cancelled PT (10.1-12.7) SECONDS INR (0.9-1.3) APTT (26.4-36.2) SECONDS Sodium (137-145) mmol/L Potassium (3.4-5.1) mmol/L Chloride (98-107) mmol/L Carbon Dioxide (22-32) mmol/L BUN (7-17) mg/dL Creatinine (0.52-1.04) mg/dL Estimated GFR (>60) mL/min BUN/Creatinine Ratio (6-22) Glucose (80-110) mg/dL Lactate (0.7-2.1) mmol/L Calcium (8.4-10.2) mg/dL Magnesium (1.6-2.3) mg/dL Total Bilirubin (0.2-1.3) mg/dL AST (14-36) IU/L ALT (9-52) IU/L Alkaline Phosphatase (38-126) U/L Total Protein (6.3-8.2) g/dL Albumin (3.5-5.0) g/dL Globulin (1.7-4.1) g/dL Albumin/Globulin Ratio (1.0-2.8) Lipase (23-300) U/L Urine Color Yellow Urine Appearance Sl cloudy Urine pH 5.0 (4.5-8.0) Ur Specific [place] 1.020 (1.000-1.035) Urine Protein 2+ H (Negative) Urine Glucose (UA) Negative (Normal) g/dL Urine Ketones Trace H (NEGATIVE) Urine Occult Blood 3+ H (Negative) Urine Nitrate Negative (Negative) Urine Bilirubin Negative (NEGATIVE) Urine Ictotest (Negative) Urine Urobilinogen 0.2 (0.2) E.U./dL Ur Leukocyte Esterase 1+ H (NEGATIVE) Urine RBC 1-5/hpf D (0-5/HPF) Urine WBC 30-100/hpf H (0-5/HPF) Ur Squamous Epith Cells 0-1 /hpf Urine Bacteria Moderate (10-30) H (None) Hyaline Casts (None) Ur Culture Indicated? Specimen cultured Micro UA Comment Not Reportable Ur Random Sodium (30-90) mmol/L Ur Random Potassium mmol/L Ur Random Phosphorus 59.6 mg/dL Ur Random Calcium < 1.0 Urine Creatinine mg/dL Date of Cancelled Stool Aeromonas Cult (Not Detect) Stl C. cayetanensis PCR (Not Detect) Stool Rotavirus (PCR) (Not Detect) Stool Adenovirus (PCR) (Not Detect) Stool Astrovirus (PCR) (Not Detect) Stool Cryptosporidium PCR (Not Detect) Stl E.coli Shiga Tox PCR (Not Detect) St Sh/Enteroin Ecoli PCR (Not Detect) Stool E coli O157 PCR Stl Enterotoxigenic E PCR (Not Detect) Stool EPEC (PCR) (Not Detect) Stl E. histolytica PCR (Not Detect) Stool Giardia Lamblia PCR (Not Detect) Stool Sapovirus (PCR) (Not Detect) Stl P. shigelloides PCR (Not Detect) St Y.enterocolitica PCR (Not Detect) Stool Vibrio (PCR) (Not Detect) Stl Vibrio cholerae PCR (Not Detect) Stl Enteroaggr Ecoli PCR (Not Detect) Stl Norovirus GI/GII PCR (Not Detect) A. baumannii (PCR) (Not Detect) Campylobacter (PCR) (Not Detect) Julissa albicans (PCR) (Not Detect) C. glabrata (PCR) (Not Detect) C. krusei (PCR) (Not Detect) C. parapsilosis (PCR) (Not Detect) C. tropicalis (PCR) (Not Detect) C. difficile Tox (PCR) (Not Detect) Enterobacteriac sp PCR (Not Detect) E. cloacae complex PCR (Not Detect) Enterococcus sp PCR (Not Detect) E. coli (PCR) (Not Detect) H. influenzae (PCR) (Not Detect) Klebsiella oxytoca PCR (Not Detect) Klebsiella pneumoniae (Not Detect) List. monocytogenes PCR (Not Detect) N. meningitidis (PCR) (Not Detect) Proteus species (PCR) (Not Detect) Salmonella (PCR) (Not Detect) Serratia marcescens PCR (Not Detect) Staphylococcus sp PCR (Not Detect) Staph aureus (PCR) (Not Detect) mecA-Methicil Res Gene Streptococcus sp PCR (Not Detect) Group A Strep (PCR) (Not Detect) Strep agalactiae (PCR) (Not Detect) Strep pneumoniae (PCR) (Not Detect) P. aeruginosa (PCR) (Not Detect) Tammie/B-Vanco Res Genes KPC-Carbap Res Gene PCR (Not Detect) 06/09/18 06/09/18 06/10/18 Range/Units 05:29 05:29 05:37 WBC 22.8 H 19.0 H (4.5-11.0) X10^3/uL RBC 3.69 L 3.55 L (4.0-5.2) X10^6/uL Hgb 11.3 L 10.7 L (12.0-16.0) g/dL Hct 33.4 L 31.9 L (36-46) % MCV 90.7 90.0 (80-100) fL MCH 30.8 30.3 (26-34) PG MCHC 33.9 33.6 (30-36) % RDW 13.8 13.9 (11.6-14.8) % Plt Count 151 153 (150-400) X10^3/uL Neut % (Auto) Not Reportable Not Reportable Lymph % (Auto) Not Reportable Not Reportable [place] % (Auto) Not Reportable Not Reportable Eos % (Auto) Not Reportable Not Reportable Baso % (Auto) Not Reportable Not Reportable Neut # (Auto) (3521-1927) /uL Total Counted 100 100 Seg Neutrophils % 62.0 72.0 H (38-70) % Band Neutrophils % 26.0 H 21.0 H (3-7) % Lymphocytes % (Manual) 6.0 L 4.0 L (25-45) % Monocytes % (Manual) 3.0 2.0 (2-11) % Eosinophils % (Manual) 1.0 L (2-4) % Basophils % (Manual) (0-1) % Metamyelocytes % 3.0 H (-0) % Neutrophils # (Manual) 86648 H 60628 H (3248-6273) /uL Toxic Vacuolation Present H RBC Morphology See below Normal morphology Eosinophil Count PT (10.1-12.7) SECONDS INR (0.9-1.3) APTT (26.4-36.2) SECONDS Sodium 143 (137-145) mmol/L Potassium 3.5 (3.4-5.1) mmol/L Chloride 113 H (98-107) mmol/L Carbon Dioxide 17 L (22-32) mmol/L BUN 47 H (7-17) mg/dL Creatinine 1.20 H (0.52-1.04) mg/dL Estimated GFR 43.9 L (>60) mL/min BUN/Creatinine Ratio 39.2 H (6-22) Glucose 89 (80-110) mg/dL Lactate (0.7-2.1) mmol/L Calcium 7.5 L (8.4-10.2) mg/dL Magnesium 1.8 (1.6-2.3) mg/dL Total Bilirubin (0.2-1.3) mg/dL AST (14-36) IU/L ALT (9-52) IU/L Alkaline Phosphatase (38-126) U/L Total Protein (6.3-8.2) g/dL Albumin (3.5-5.0) g/dL Globulin (1.7-4.1) g/dL Albumin/Globulin Ratio (1.0-2.8) Lipase (23-300) U/L Urine Color Urine Appearance Urine pH (4.5-8.0) Ur Specific [place] (1.000-1.035) Urine Protein (Negative) Urine Glucose (UA) (Normal) g/dL Urine Ketones (NEGATIVE) Urine Occult Blood (Negative) Urine Nitrate (Negative) Urine Bilirubin (NEGATIVE) Urine Ictotest (Negative) Urine Urobilinogen (0.2) E.U./dL Ur Leukocyte Esterase (NEGATIVE) Urine RBC (0-5/HPF) Urine WBC (0-5/HPF) Ur Squamous Epith Cells Urine Bacteria (None) Hyaline Casts (None) Ur Culture Indicated? Micro UA Comment Ur Random Sodium (30-90) mmol/L Ur Random Potassium mmol/L Ur Random Phosphorus mg/dL Ur Random Calcium Urine Creatinine mg/dL Date of Stool Aeromonas Cult (Not Detect) Stl C. cayetanensis PCR (Not Detect) Stool Rotavirus (PCR) (Not Detect) Stool Adenovirus (PCR) (Not Detect) Stool Astrovirus (PCR) (Not Detect) Stool Cryptosporidium PCR (Not Detect) Stl E.coli Shiga Tox PCR (Not Detect) St Sh/Enteroin Ecoli PCR (Not Detect) Stool E coli O157 PCR Stl Enterotoxigenic E PCR (Not Detect) Stool EPEC (PCR) (Not Detect) Stl E. histolytica PCR (Not Detect) Stool Giardia Lamblia PCR (Not Detect) Stool Sapovirus (PCR) (Not Detect) Stl P. shigelloides PCR (Not Detect) St Y.enterocolitica PCR (Not Detect) Stool Vibrio (PCR) (Not Detect) Stl Vibrio cholerae PCR (Not Detect) Stl Enteroaggr Ecoli PCR (Not Detect) Stl Norovirus GI/GII PCR (Not Detect) A. baumannii (PCR) (Not Detect) Campylobacter (PCR) (Not Detect) Julissa albicans (PCR) (Not Detect) C. glabrata (PCR) (Not Detect) C. krusei (PCR) (Not Detect) C. parapsilosis (PCR) (Not Detect) C. tropicalis (PCR) (Not Detect) C. difficile Tox (PCR) (Not Detect) Enterobacteriac sp PCR (Not Detect) E. cloacae complex PCR (Not Detect) Enterococcus sp PCR (Not Detect) E. coli (PCR) (Not Detect) H. influenzae (PCR) (Not Detect) Klebsiella oxytoca PCR (Not Detect) Klebsiella pneumoniae (Not Detect) List. monocytogenes PCR (Not Detect) N. meningitidis (PCR) (Not Detect) Proteus species (PCR) (Not Detect) Salmonella (PCR) (Not Detect) Serratia marcescens PCR (Not Detect) Staphylococcus sp PCR (Not Detect) Staph aureus (PCR) (Not Detect) mecA-Methicil Res Gene Streptococcus sp PCR (Not Detect) Group A Strep (PCR) (Not Detect) Strep agalactiae (PCR) (Not Detect) Strep pneumoniae (PCR) (Not Detect) P. aeruginosa (PCR) (Not Detect) Tammie/B-Vanco Res Genes KPC-Carbap Res Gene PCR (Not Detect) 06/10/18 06/11/18 06/11/18 Range/Units 05:37 05:50 05:50 WBC 11.5 H (4.5-11.0) X10^3/uL RBC 3.43 L (4.0-5.2) X10^6/uL Hgb 10.4 L (12.0-16.0) g/dL Hct 30.9 L (36-46) % MCV 89.9 (80-100) fL MCH 30.4 (26-34) PG MCHC 33.8 (30-36) % RDW 14.0 (11.6-14.8) % Plt Count 149 L (150-400) X10^3/uL Neut % (Auto) Not Reportable Lymph % (Auto) Not Reportable [place] % (Auto) Not Reportable Eos % (Auto) Not Reportable Baso % (Auto) Not Reportable Neut # (Auto) (3106-2800) /uL Total Counted 100 Seg Neutrophils % 40.0 (38-70) % Band Neutrophils % 32.0 H (3-7) % Lymphocytes % (Manual) 11.0 L (25-45) % Monocytes % (Manual) 6.0 (2-11) % Eosinophils % (Manual) 2.0 (2-4) % Basophils % (Manual) 5.0 H (0-1) % Metamyelocytes % 4.0 H (-0) % Neutrophils # (Manual) 8280 H (8739-1499) /uL Toxic Vacuolation RBC Morphology Normal morphology Eosinophil Count PT (10.1-12.7) SECONDS INR (0.9-1.3) APTT (26.4-36.2) SECONDS Sodium 144 142 (137-145) mmol/L Potassium 3.7 3.3 L (3.4-5.1) mmol/L Chloride 113 H 110 H (98-107) mmol/L Carbon Dioxide 22 22 (22-32) mmol/L BUN 26 H 14 (7-17) mg/dL Creatinine 0.70 0.60 (0.52-1.04) mg/dL Estimated GFR > 60.0 > 60.0 (>60) mL/min BUN/Creatinine Ratio 37.1 H 23.3 H (6-22) Glucose 110 101 (80-110) mg/dL Lactate (0.7-2.1) mmol/L Calcium 7.9 L 7.9 L (8.4-10.2) mg/dL Magnesium 2.2 2.1 (1.6-2.3) mg/dL Total Bilirubin (0.2-1.3) mg/dL AST (14-36) IU/L ALT (9-52) IU/L Alkaline Phosphatase (38-126) U/L Total Protein (6.3-8.2) g/dL Albumin (3.5-5.0) g/dL Globulin (1.7-4.1) g/dL Albumin/Globulin Ratio (1.0-2.8) Lipase (23-300) U/L Urine Color Urine Appearance Urine pH (4.5-8.0) Ur Specific [place] (1.000-1.035) Urine Protein (Negative) Urine Glucose (UA) (Normal) g/dL Urine Ketones (NEGATIVE) Urine Occult Blood (Negative) Urine Nitrate (Negative) Urine Bilirubin (NEGATIVE) Urine Ictotest (Negative) Urine Urobilinogen (0.2) E.U./dL Ur Leukocyte Esterase (NEGATIVE) Urine RBC (0-5/HPF) Urine WBC (0-5/HPF) Ur Squamous Epith Cells Urine Bacteria (None) Hyaline Casts (None) Ur Culture Indicated? Micro UA Comment Ur Random Sodium (30-90) mmol/L Ur Random Potassium mmol/L Ur Random Phosphorus mg/dL Ur Random Calcium Urine Creatinine mg/dL Date of Stool Aeromonas Cult (Not Detect) Stl C. cayetanensis PCR (Not Detect) Stool Rotavirus (PCR) (Not Detect) Stool Adenovirus (PCR) (Not Detect) Stool Astrovirus (PCR) (Not Detect) Stool Cryptosporidium PCR (Not Detect) Stl E.coli Shiga Tox PCR (Not Detect) St Sh/Enteroin Ecoli PCR (Not Detect) Stool E coli O157 PCR Stl Enterotoxigenic E PCR (Not Detect) Stool EPEC (PCR) (Not Detect) Stl E. histolytica PCR (Not Detect) Stool Giardia Lamblia PCR (Not Detect) Stool Sapovirus (PCR) (Not Detect) Stl P. shigelloides PCR (Not Detect) St Y.enterocolitica PCR (Not Detect) Stool Vibrio (PCR) (Not Detect) Stl Vibrio cholerae PCR (Not Detect) Stl Enteroaggr Ecoli PCR (Not Detect) Stl Norovirus GI/GII PCR (Not Detect) A. baumannii (PCR) (Not Detect) Campylobacter (PCR) (Not Detect) Julissa albicans (PCR) (Not Detect) C. glabrata (PCR) (Not Detect) C. krusei (PCR) (Not Detect) C. parapsilosis (PCR) (Not Detect) C. tropicalis (PCR) (Not Detect) C. difficile Tox (PCR) (Not Detect) Enterobacteriac sp PCR (Not Detect) E. cloacae complex PCR (Not Detect) Enterococcus sp PCR (Not Detect) E. coli (PCR) (Not Detect) H. influenzae (PCR) (Not Detect) Klebsiella oxytoca PCR (Not Detect) Klebsiella pneumoniae (Not Detect) List. monocytogenes PCR (Not Detect) N. meningitidis (PCR) (Not Detect) Proteus species (PCR) (Not Detect) Salmonella (PCR) (Not Detect) Serratia marcescens PCR (Not Detect) Staphylococcus sp PCR (Not Detect) Staph aureus (PCR) (Not Detect) mecA-Methicil Res Gene Streptococcus sp PCR (Not Detect) Group A Strep (PCR) (Not Detect) Strep agalactiae (PCR) (Not Detect) Strep pneumoniae (PCR) (Not Detect) P. aeruginosa (PCR) (Not Detect) Tammie/B-Vanco Res Genes KPC-Carbap Res Gene PCR (Not Detect) 18 18 06/12/18 Range/Units 18:18 05:23 05:23 WBC 9.3 (4.5-11.0) X10^3/uL RBC 3.39 L (4.0-5.2) X10^6/uL Hgb 10.2 L (12.0-16.0) g/dL Hct 30.2 L (36-46) % MCV 89.2 (80-100) fL MCH 30.2 (26-34) PG MCHC 33.9 (30-36) % RDW 13.8 (11.6-14.8) % Plt Count 172 (150-400) X10^3/uL Neut % (Auto) Not Reportable Lymph % (Auto) Not Reportable [place] % (Auto) Not Reportable Eos % (Auto) Not Reportable Baso % (Auto) Not Reportable Neut # (Auto) (6114-3880) /uL Total Counted 100 Seg Neutrophils % 60.0 (38-70) % Band Neutrophils % 10.0 H (3-7) % Lymphocytes % (Manual) 19.0 L (25-45) % Monocytes % (Manual) 11.0 (2-11) % Eosinophils % (Manual) (2-4) % Basophils % (Manual) (0-1) % Metamyelocytes % (-0) % Neutrophils # (Manual) 6510 H (5163-8437) /uL Toxic Vacuolation RBC Morphology Normal morphology Eosinophil Count PT (10.1-12.7) SECONDS INR (0.9-1.3) APTT (26.4-36.2) SECONDS Sodium 143 (137-145) mmol/L Potassium 3.7 (3.4-5.1) mmol/L Chloride 110 H (98-107) mmol/L Carbon Dioxide 23 (22-32) mmol/L BUN 12 (7-17) mg/dL Creatinine 0.60 (0.52-1.04) mg/dL Estimated GFR > 60.0 (>60) mL/min BUN/Creatinine Ratio 20.0 (6-22) Glucose 92 (80-110) mg/dL Lactate 1.2 (0.7-2.1) mmol/L Calcium 7.8 L (8.4-10.2) mg/dL Magnesium (1.6-2.3) mg/dL Total Bilirubin 0.4 (0.2-1.3) mg/dL AST 38 H (14-36) IU/L ALT 28 (9-52) IU/L Alkaline Phosphatase 153 H (38-126) U/L Total Protein 5.0 L (6.3-8.2) g/dL Albumin 2.5 L (3.5-5.0) g/dL Globulin 2.5 (1.7-4.1) g/dL Albumin/Globulin Ratio 1.0 (1.0-2.8) Lipase (23-300) U/L Urine Color Urine Appearance Urine pH (4.5-8.0) Ur Specific [place] (1.000-1.035) Urine Protein (Negative) Urine Glucose (UA) (Normal) g/dL Urine Ketones (NEGATIVE) Urine Occult Blood (Negative) Urine Nitrate (Negative) Urine Bilirubin (NEGATIVE) Urine Ictotest (Negative) Urine Urobilinogen (0.2) E.U./dL Ur Leukocyte Esterase (NEGATIVE) Urine RBC (0-5/HPF) Urine WBC (0-5/HPF) Ur Squamous Epith Cells Urine Bacteria (None) Hyaline Casts (None) Ur Culture Indicated? Micro UA Comment Ur Random Sodium (30-90) mmol/L Ur Random Potassium mmol/L Ur Random Phosphorus mg/dL Ur Random Calcium Urine Creatinine mg/dL Date of Stool Aeromonas Cult (Not Detect) Stl C. cayetanensis PCR (Not Detect) Stool Rotavirus (PCR) (Not Detect) Stool Adenovirus (PCR) (Not Detect) Stool Astrovirus (PCR) (Not Detect) Stool Cryptosporidium PCR (Not Detect) Stl E.coli Shiga Tox PCR (Not Detect) St Sh/Enteroin Ecoli PCR (Not Detect) Stool E coli O157 PCR Stl Enterotoxigenic E PCR (Not Detect) Stool EPEC (PCR) (Not Detect) Stl E. histolytica PCR (Not Detect) Stool Giardia Lamblia PCR (Not Detect) Stool Sapovirus (PCR) (Not Detect) Stl P. shigelloides PCR (Not Detect) St Y.enterocolitica PCR (Not Detect) Stool Vibrio (PCR) (Not Detect) Stl Vibrio cholerae PCR (Not Detect) Stl Enteroaggr Ecoli PCR (Not Detect) Stl Norovirus GI/GII PCR (Not Detect) A. baumannii (PCR) (Not Detect) Campylobacter (PCR) (Not Detect) Julissa albicans (PCR) (Not Detect) C. glabrata (PCR) (Not Detect) C. krusei (PCR) (Not Detect) C. parapsilosis (PCR) (Not Detect) C. tropicalis (PCR) (Not Detect) C. difficile Tox (PCR) (Not Detect) Enterobacteriac sp PCR (Not Detect) E. cloacae complex PCR (Not Detect) Enterococcus sp PCR (Not Detect) E. coli (PCR) (Not Detect) H. influenzae (PCR) (Not Detect) Klebsiella oxytoca PCR (Not Detect) Klebsiella pneumoniae (Not Detect) List. monocytogenes PCR (Not Detect) N. meningitidis (PCR) (Not Detect) Proteus species (PCR) (Not Detect) Salmonella (PCR) (Not Detect) Serratia marcescens PCR (Not Detect) Staphylococcus sp PCR (Not Detect) Staph aureus (PCR) (Not Detect) mecA-Methicil Res Gene Streptococcus sp PCR (Not Detect) Group A Strep (PCR) (Not Detect) Strep agalactiae (PCR) (Not Detect) Strep pneumoniae (PCR) (Not Detect) P. aeruginosa (PCR) (Not Detect) Tammie/B-Vanco Res Genes KPC-Carbap Res Gene PCR (Not Detect) 06/12/18 06/13/18 06/13/18 Range/Units Unknown 05:37 05:37 WBC 11.4 H (4.5-11.0) X10^3/uL RBC 3.58 L (4.0-5.2) X10^6/uL Hgb 10.4 L (12.0-16.0) g/dL Hct 32.0 L (36-46) % MCV 89.5 (80-100) fL MCH 29.0 (26-34) PG MCHC 32.5 (30-36) % RDW 14.0 (11.6-14.8) % Plt Count 237 (150-400) X10^3/uL Neut % (Auto) Not Reportable Lymph % (Auto) Not Reportable [place] % (Auto) Not Reportable Eos % (Auto) Not Reportable Baso % (Auto) Not Reportable Neut # (Auto) (6523-3632) /uL Total Counted 100 Seg Neutrophils % 74.0 H (38-70) % Band Neutrophils % 8.0 H (3-7) % Lymphocytes % (Manual) 11.0 L (25-45) % Monocytes % (Manual) 7.0 (2-11) % Eosinophils % (Manual) (2-4) % Basophils % (Manual) (0-1) % Metamyelocytes % (-0) % Neutrophils # (Manual) 9348 H (5454-9369) /uL Toxic Vacuolation RBC Morphology Normal morphology Eosinophil Count PT (10.1-12.7) SECONDS INR (0.9-1.3) APTT (26.4-36.2) SECONDS Sodium 143 (137-145) mmol/L Potassium 3.4 (3.4-5.1) mmol/L Chloride 109 H (98-107) mmol/L Carbon Dioxide 24 (22-32) mmol/L BUN 9 (7-17) mg/dL Creatinine 0.50 L (0.52-1.04) mg/dL Estimated GFR > 60.0 (>60) mL/min BUN/Creatinine Ratio 18.0 (6-22) Glucose 97 (80-110) mg/dL Lactate (0.7-2.1) mmol/L Calcium 7.7 L (8.4-10.2) mg/dL Magnesium (1.6-2.3) mg/dL Total Bilirubin 0.5 (0.2-1.3) mg/dL AST 48 H (14-36) IU/L ALT 31 (9-52) IU/L Alkaline Phosphatase 134 H (38-126) U/L Total Protein 5.4 L (6.3-8.2) g/dL Albumin 2.7 L (3.5-5.0) g/dL Globulin 2.7 (1.7-4.1) g/dL Albumin/Globulin Ratio 1.0 (1.0-2.8) Lipase (23-300) U/L Urine Color Urine Appearance Urine pH (4.5-8.0) Ur Specific [place] (1.000-1.035) Urine Protein (Negative) Urine Glucose (UA) (Normal) g/dL Urine Ketones (NEGATIVE) Urine Occult Blood (Negative) Urine Nitrate (Negative) Urine Bilirubin (NEGATIVE) Urine Ictotest (Negative) Urine Urobilinogen (0.2) E.U./dL Ur Leukocyte Esterase (NEGATIVE) Urine RBC (0-5/HPF) Urine WBC (0-5/HPF) Ur Squamous Epith Cells Urine Bacteria (None) Hyaline Casts (None) Ur Culture Indicated? Micro UA Comment Ur Random Sodium (30-90) mmol/L Ur Random Potassium mmol/L Ur Random Phosphorus mg/dL Ur Random Calcium Urine Creatinine mg/dL Date of Stool Aeromonas Cult (Not Detect) Stl C. cayetanensis PCR (Not Detect) Stool Rotavirus (PCR) (Not Detect) Stool Adenovirus (PCR) (Not Detect) Stool Astrovirus (PCR) (Not Detect) Stool Cryptosporidium PCR (Not Detect) Stl E.coli Shiga Tox PCR (Not Detect) St Sh/Enteroin Ecoli PCR (Not Detect) Stool E coli O157 PCR Stl Enterotoxigenic E PCR (Not Detect) Stool EPEC (PCR) (Not Detect) Stl E. histolytica PCR (Not Detect) Stool Giardia Lamblia PCR (Not Detect) Stool Sapovirus (PCR) (Not Detect) Stl P. shigelloides PCR (Not Detect) St Y.enterocolitica PCR (Not Detect) Stool Vibrio (PCR) (Not Detect) Stl Vibrio cholerae PCR (Not Detect) Stl Enteroaggr Ecoli PCR (Not Detect) Stl Norovirus GI/GII PCR (Not Detect) A. baumannii (PCR) Not detected (Not Detect) Campylobacter (PCR) (Not Detect) Julissa albicans (PCR) Not detected (Not Detect) C. glabrata (PCR) Not detected (Not Detect) C. krusei (PCR) Not detected (Not Detect) C. parapsilosis (PCR) Not detected (Not Detect) C. tropicalis (PCR) Not detected (Not Detect) C. difficile Tox (PCR) (Not Detect) Enterobacteriac sp PCR Detected H (Not Detect) E. cloacae complex PCR Not detected (Not Detect) Enterococcus sp PCR Not detected (Not Detect) E. coli (PCR) Detected H (Not Detect) H. influenzae (PCR) Not detected (Not Detect) Klebsiella oxytoca PCR Not detected (Not Detect) Klebsiella pneumoniae Not detected (Not Detect) List. monocytogenes PCR Not detected (Not Detect) N. meningitidis (PCR) Not detected (Not Detect) Proteus species (PCR) Not detected (Not Detect) Salmonella (PCR) (Not Detect) Serratia marcescens PCR Not detected (Not Detect) Staphylococcus sp PCR Not detected (Not Detect) Staph aureus (PCR) Not detected (Not Detect) mecA-Methicil Res Gene Not detected Streptococcus sp PCR Not detected (Not Detect) Group A Strep (PCR) Not detected (Not Detect) Strep agalactiae (PCR) Not detected (Not Detect) Strep pneumoniae (PCR) Not detected (Not Detect) P. aeruginosa (PCR) Not detected (Not Detect) Tammie/B-Vanco Res Genes Not detected KPC-Carbap Res Gene PCR Not detected (Not Detect) 06/14/18 06/14/18 Range/Units 05:28 05:28 WBC 10.1 (4.5-11.0) X10^3/uL RBC 3.56 L (4.0-5.2) X10^6/uL Hgb 10.5 L (12.0-16.0) g/dL Hct 32.0 L (36-46) % MCV 90.0 (80-100) fL MCH 29.5 (26-34) PG MCHC 32.8 (30-36) % RDW 13.9 (11.6-14.8) % Plt Count 321 (150-400) X10^3/uL Neut % (Auto) 70.8 Lymph % (Auto) 17.7 L [place] % (Auto) 9.5 Eos % (Auto) 1.6 L Baso % (Auto) 0.4 Neut # (Auto) 7100 H (5336-0051) /uL Total Counted Seg Neutrophils % (38-70) % Band Neutrophils % (3-7) % Lymphocytes % (Manual) (25-45) % Monocytes % (Manual) (2-11) % Eosinophils % (Manual) (2-4) % Basophils % (Manual) (0-1) % Metamyelocytes % (-0) % Neutrophils # (Manual) (0208-8462) /uL Toxic Vacuolation RBC Morphology Eosinophil Count PT (10.1-12.7) SECONDS INR (0.9-1.3) APTT (26.4-36.2) SECONDS Sodium 145 (137-145) mmol/L Potassium 3.5 (3.4-5.1) mmol/L Chloride 107 (98-107) mmol/L Carbon Dioxide 29 (22-32) mmol/L BUN 10 (7-17) mg/dL Creatinine 0.60 (0.52-1.04) mg/dL Estimated GFR > 60.0 (>60) mL/min BUN/Creatinine Ratio 16.7 (6-22) Glucose 95 (80-110) mg/dL Lactate (0.7-2.1) mmol/L Calcium 8.0 L (8.4-10.2) mg/dL Magnesium (1.6-2.3) mg/dL Total Bilirubin 0.3 (0.2-1.3) mg/dL AST 32 (14-36) IU/L ALT 25 (9-52) IU/L Alkaline Phosphatase 115 (38-126) U/L Total Protein 5.4 L (6.3-8.2) g/dL Albumin 2.6 L (3.5-5.0) g/dL Globulin 2.8 (1.7-4.1) g/dL Albumin/Globulin Ratio 0.9 L (1.0-2.8) Lipase (23-300) U/L Urine Color Urine Appearance Urine pH (4.5-8.0) Ur Specific [place] (1.000-1.035) Urine Protein (Negative) Urine Glucose (UA) (Normal) g/dL Urine Ketones (NEGATIVE) Urine Occult Blood (Negative) Urine Nitrate (Negative) Urine Bilirubin (NEGATIVE) Urine Ictotest (Negative) Urine Urobilinogen (0.2) E.U./dL Ur Leukocyte Esterase (NEGATIVE) Urine RBC (0-5/HPF) Urine WBC (0-5/HPF) Ur Squamous Epith Cells Urine Bacteria (None) Hyaline Casts (None) Ur Culture Indicated? Micro UA Comment Ur Random Sodium (30-90) mmol/L Ur Random Potassium mmol/L Ur Random Phosphorus mg/dL Ur Random Calcium Urine Creatinine mg/dL Date of Stool Aeromonas Cult (Not Detect) Stl C. cayetanensis PCR (Not Detect) Stool Rotavirus (PCR) (Not Detect) Stool Adenovirus (PCR) (Not Detect) Stool Astrovirus (PCR) (Not Detect) Stool Cryptosporidium PCR (Not Detect) Stl E.coli Shiga Tox PCR (Not Detect) St Sh/Enteroin Ecoli PCR (Not Detect) Stool E coli O157 PCR Stl Enterotoxigenic E PCR (Not Detect) Stool EPEC (PCR) (Not Detect) Stl E. histolytica PCR (Not Detect) Stool Giardia Lamblia PCR (Not Detect) Stool Sapovirus (PCR) (Not Detect) Stl P. shigelloides PCR (Not Detect) St Y.enterocolitica PCR (Not Detect) Stool Vibrio (PCR) (Not Detect) Stl Vibrio cholerae PCR (Not Detect) Stl Enteroaggr Ecoli PCR (Not Detect) Stl Norovirus GI/GII PCR (Not Detect) A. baumannii (PCR) (Not Detect) Campylobacter (PCR) (Not Detect) Julissa albicans (PCR) (Not Detect) C. glabrata (PCR) (Not Detect) C. krusei (PCR) (Not Detect) C. parapsilosis (PCR) (Not Detect) C. tropicalis (PCR) (Not Detect) C. difficile Tox (PCR) (Not Detect) Enterobacteriac sp PCR (Not Detect) E. cloacae complex PCR (Not Detect) Enterococcus sp PCR (Not Detect) E. coli (PCR) (Not Detect) H. influenzae (PCR) (Not Detect) Klebsiella oxytoca PCR (Not Detect) Klebsiella pneumoniae (Not Detect) List. monocytogenes PCR (Not Detect) N. meningitidis (PCR) (Not Detect) Proteus species (PCR) (Not Detect) Salmonella (PCR) (Not Detect) Serratia marcescens PCR (Not Detect) Staphylococcus sp PCR (Not Detect) Staph aureus (PCR) (Not Detect) mecA-Methicil Res Gene Streptococcus sp PCR (Not Detect) Group A Strep (PCR) (Not Detect) Strep agalactiae (PCR) (Not Detect) Strep pneumoniae (PCR) (Not Detect) P. aeruginosa (PCR) (Not Detect) Tammie/B-Vanco Res Genes KPC-Carbap Res Gene PCR (Not Detect) Urine Dip Bedside Urine Glucose Negative Bedside Urine Bilirubin + 1 Bedside Urine Ketone - Negative Urine Specific [place] 1.030 Bedside Urine Occult Blood +++ Bedside Urine pH 5.5 Bedside Urine Protein ++ 100 Bedside Urine Urobilinogen - Negative Bedside Urine Nitrite - Negative Bedside Urine Leukocytes ++ 125 Esterase Discharge Plan Departure Patient Disposition: Admitted As Inpatient Clinical Impression: Dehydration, Acute renal failure, Pyelonephritis Discharge Date/Time: 06/08/18 20:12 Interventions: ED Discharge Assessment Last Done: 06/08/18 20:07 Instructions: DI for Kidney Infection, Methocarbamol, Gabapentin, Levofloxacin Referrals: Coleman Castellanos MD [Primary Care Provider] - Admit Date/Time: 06/08/18 19:49 Admit Provider: Marisol Degroot
--- NOTE | 2018-06-08 15:59 | ED_ITS ---
HPI - Nausea/Vomiting/Diarrhea <Lenora Jaramillo PA-C - Last Filed: 06/08/18 22:04> General Chief complaint: Nausea/Vomiting/Diarrhea Stated complaint: SENT FOR FLUIDS Time Seen by Provider: 06/08/18 15:37 Source: patient and old records reviewed Mode of arrival: ambulatory Limitations: no limitations History of Present Illness HPI Narrative: this 72-year-old female is sent by her primary care clinic due to vomiting and diarrhea, dehydration. She states that the symptoms started abruptly yesterday with shakes, nausea, and profuse vomiting. She states that she thought she vomited 5 or 6 times but her daughter states more like 30 or 40 , at 1 point was vomiting almost continuously. Paramedics came out to evaluate her apparently and told her likely norovirus. She had a fever of 100.4 at that time and also some vague right-sided pain. Her daughter and granddaughter state at 1 point when she had the fever she was confused, got out of bed and stated I am going, but could not walk on her own and they had to support her and have her sit down. She does not remember this. She the started to have diarrhea today about every 0.5 hr. She states this is watery, no blood in the stools. She states that she has not been vomiting so much today because she has had mainly dry heaves. She thinks that she has kept down some tea and water the last couple of days but nothing else. She denies any recent antibiotic use, recent travel or known exposures. Daughter and granddaughter had some mild GI upset last week but that had fully resolved. She denies any urinary symptoms. She denies any chest pain or dyspnea, nor any new pain or swelling in extremities. She and family have not noted any focal weakness, changes in speech or facial symmetry. she states that she did fall and hurt her right upper back a couple of weeks ago and has been taking Tylenol as needed for that pain which is stable. Related Data Home Medications Medication Instructions Recorded Confirmed ibuprofen 600 mg PO TID 06/08/18 06/08/18 naproxen sodium 440 mg PO BID 06/08/18 06/08/18 Previous Rx's Medication Instructions Recorded acyclovir [Zovirax] 800 mg PO BID #20 tab 06/12/18 alum-mag hydroxide-simeth [Mag-Al 30 ml MUCOUS MEMBRANE Q4H PRN #150 06/12/18 Plus] ml gabapentin 100 mg PO TID #30 cap 06/12/18 levofloxacin 500 mg PO DAILY #7 tab 06/12/18 lidocaine HCl [Lidocaine Viscous] 30 ml MUCOUS MEMBRANE Q4H PRN #150 06/12/18 ml methocarbamol 500 mg PO TID #20 tab 06/12/18 nystatin 3,000,000 unit MUCOUS MEMBRANE Q4H 06/12/18 PRN 10 Days ml Allergies Allergy/AdvReac Type Severity Reaction Status Date / Time Penicillins Allergy Verified 06/08/18 15:02 Sulfa (Sulfonamide Allergy Verified 06/08/18 15:02 Antibiotics) Review of Systems <Lenora Jaramillo PA-C - Last Filed: 06/08/18 22:04> Review of Systems All systems reviewed & are unremarkable except as noted in HPI and below Exam <Lenora Jaramillo PA-C - Last Filed: 06/08/18 22:04> Narrative Exam Narrative: GENERAL APPEARANCE: Patient sitting comfortably, in no distress. HEENT: PERRL, EOMI, no scleral icterus , conjunctivae pink, normal oropharynx NECK: Supple LUNGS: Clear to auscultation bilaterally. HEART: Rate and rhythm regular, normal S1 and S2, no S3 or S4. ABDOMEN: Soft, nontender, nondistended, soft bowel sounds present x 4 quadrants , no masses palpable, no hepatosplenomegaly. no CVAT EXTREMITIES: No edema, no calf tenderness DERMATOLOGIC: No jaundice or exanthem NEUROLOGIC: Alert and oriented with normal speech and coordination, facial musculature is symmetric Initial Vital Signs Initial Vital Signs: Vital Signs Temperature 96.6 F L 06/08/18 15:02 Pulse Rate 94 H 06/08/18 15:02 Respiratory Rate 16 06/08/18 15:02 Blood Pressure 89/57 L 06/08/18 15:02 Pulse Oximetry 97 06/08/18 15:02 <Gabrielle Dye MD - Last Filed: 06/14/18 07:59> Initial Vital Signs Initial Vital Signs: Vital Signs Temperature 96.6 F L 06/08/18 15:02 Pulse Rate 94 H 06/08/18 15:02 Respiratory Rate 16 06/08/18 15:02 Blood Pressure 89/57 L 06/08/18 15:02 Pulse Oximetry 97 06/08/18 15:02 Course <Lenora Jaramillo PA-C - Last Filed: 06/08/18 22:04> Additional Information: 194: Findings reviewed with patient and her family including ultrasound report. 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 She does have kidney stones on ultrasound, but no obstruction. There is concern for infection on her micro. She has been given a dose of Levaquin. I have spoken with hospitalist nurse practitioner Zane regarding evaluation and request for admission. Patient has not had any vomiting or diarrhea for several hours now. She still has some nausea and will be given a dose of Zofran. Requesting ice chips, which she will try. GEOSPATIAL TECHNOLOGIST is agreeable and will see patient on the floor. Orders Ordered: ED Orders 06/14/18 05:28 Complete Blood Count AUTO DIFF DAILY Comprehensive Metabolic Panel DAILY Acetaminophen (Tylenol) 650 mg PO Q4HR PRN PRN Reason: As Needed for Fever/Mild Pain Last Admin: 06/14/18 02:50 Dose: 650 mg Admin: 06/13/18 20:23 Dose: 650 mg Admin: 06/13/18 14:02 Dose: 650 mg Admin: 06/13/18 08:58 Dose: 650 mg Admin: 06/12/18 19:16 Dose: 650 mg Acyclovir (Zovirax) 800 mg PO BID WINNIE Last Admin: 06/13/18 20:23 Dose: 800 mg Admin: 06/13/18 09:12 Dose: 800 mg Admin: 06/12/18 21:18 Dose: 800 mg Admin: 06/12/18 10:59 Dose: 800 mg Lidocaine HCl 30 ml/ Al Hydrox /Mg Hydrox/Simethicone 30 ml/Nystatin 3,000,000 unit 0 ml MM Q4H PRN PRN Reason: mucositis Last Admin: 06/13/18 20:24 Dose: 5 ml Admin: 06/13/18 15:52 Dose: 5 ml Admin: 06/13/18 08:59 Dose: 30 ml Admin: 06/13/18 03:35 Dose: 5 ml Admin: 06/12/18 23:38 Dose: 5 ml Admin: 06/12/18 19:16 Dose: 5 ml Admin: 06/12/18 14:47 Dose: 5 ml Admin: 06/12/18 10:59 Dose: 5 ml Docusate Sodium (Colace) 100 mg PO BID PRN PRN Reason: Constipation Last Admin: 06/13/18 14:58 Dose: 100 mg Gabapentin (Neurontin) 100 mg PO TID [facility] Last Admin: 06/13/18 20:23 Dose: 100 mg Admin: 06/13/18 14:58 Dose: 100 mg Admin: 06/13/18 09:15 Dose: Not Given Admin: 06/12/18 21:18 Dose: 100 mg Admin: 06/12/18 15:36 Dose: Not Given Admin: 06/12/18 09:38 Dose: 100 mg Admin: 06/11/18 21:54 Dose: Not Given Admin: 06/11/18 16:47 Dose: Not Given Admin: 06/11/18 09:00 Dose: 100 mg Admin: 06/10/18 20:54 Dose: 100 mg Admin: 06/10/18 15:00 Dose: 100 mg Admin: 06/10/18 08:49 Dose: 100 mg Admin: 06/09/18 21:41 Dose: 100 mg Admin: 06/09/18 14:57 Dose: 100 mg Admin: 06/09/18 09:38 Dose: 100 mg Hydromorphone HCl (Dilaudid) 1 mg IV Q4H PRN PRN Reason: Pain, Severe (7-10) Ceftriaxone Sodium/Dextrose (Rocephin) 1 gm in 50 mls @ 100 mls/hr IV Q24H [facility] Last Infusion: 06/13/18 13:46 Dose: 100 mls/hr Admin: 06/13/18 11:45 Dose: 100 mls/hr Infusion: 06/12/18 15:25 Dose: 0 mls/hr Admin: 06/12/18 14:46 Dose: 100 mls/hr Lorazepam (Ativan) 1 mg IV Q4HR PRN PRN Reason: Anxiety Methocarbamol (Robaxin) 500 mg PO TID [facility] Last Admin: 06/13/18 20:23 Dose: 500 mg Admin: 06/13/18 12:18 Dose: 500 mg Admin: 06/13/18 09:16 Dose: Not Given Admin: 06/12/18 21:18 Dose: 500 mg Admin: 06/12/18 15:36 Dose: Not Given Admin: 06/12/18 09:38 Dose: 500 mg Admin: 06/11/18 21:54 Dose: Not Given Admin: 06/11/18 16:47 Dose: Not Given Admin: 06/11/18 09:00 Dose: 500 mg Admin: 06/10/18 20:53 Dose: 500 mg Admin: 06/10/18 15:00 Dose: 500 mg Admin: 06/10/18 08:49 Dose: 500 mg Admin: 06/09/18 21:41 Dose: 500 mg Admin: 06/09/18 14:57 Dose: 500 mg Admin: 06/09/18 09:38 Dose: 500 mg Metoprolol Tartrate (Lopressor) 5 mg IV Q6H PRN PRN Reason: SBP>180 AND / OR HR >110 Last Admin: 06/11/18 18:38 Dose: 5 mg Ondansetron HCl (Zofran) 4 mg IV Q8HR PRN PRN Reason: Nausea And Vomiting Last Admin: 06/13/18 03:38 Dose: 4 mg Admin: 06/12/18 18:39 Dose: 4 mg Admin: 06/09/18 03:16 Dose: 4 mg Prochlorperazine (Compazine) 5 mg IV Q6HR PRN PRN Reason: Nausea Last Admin: 06/13/18 09:06 Dose: 5 mg Admin: 06/09/18 02:14 Dose: 5 mg Sennosides (Senna) 17.2 mg PO BID [facility] Last Admin: 06/13/18 20:23 Dose: 17.2 mg Admin: 06/13/18 14:58 Dose: 17.2 mg Sodium Chloride (Normal Saline 0.9% Flush) 10 ml IV PRN PRN PRN Reason: Flush Tramadol HCl (Ultram) 50 mg PO BID [facility] Last Admin: 06/13/18 20:23 Dose: Not Given Admin: 06/13/18 08:58 Dose: Admin: 06/12/18 21:14 Dose: Admin: 06/12/18 09:38 Dose: Admin: 06/11/18 21:54 Dose: Not Given Admin: 06/11/18 09:47 Dose: 50 mg Admin: 06/10/18 20:54 Dose: 50 mg Admin: 06/10/18 08:48 Dose: 50 mg Admin: 06/09/18 21:41 Dose: 50 mg Admin: 06/09/18 09:38 Dose: 50 mg Discontinued Medications Acetaminophen (Tylenol) 650 mg PO NOW ONE Stop: 06/08/18 19:45 Last Admin: 06/08/18 20:04 Dose: 650 mg Acetaminophen (Tylenol) 650 mg [place] Q6HR PRN PRN Reason: As Needed for Fever/Mild Pain Fentanyl (Sublimaze) 25 mcg IV NOW ONE Stop: 06/09/18 04:35 Last Admin: 06/09/18 04:52 Dose: 25 mcg Sodium Chloride (Normal Saline 0.9%) 1,000 mls @ 1,000 mls/hr IV BOLUS ONE Stop: 06/08/18 17:02 Last Infusion: 06/08/18 17:04 Dose: 0 mls/hr Admin: 06/08/18 16:05 Dose: 1,000 mls/hr Sodium Chloride (Normal Saline 0.9%) 1,000 mls @ 1,000 mls/hr IV BOLUS ONE Stop: 06/08/18 17:33 Last Infusion: 06/08/18 20:12 Dose: 0 mls/hr Admin: 06/08/18 16:47 Dose: 1,000 mls/hr Levofloxacin (Levaquin) 250 mg in 50 mls @ 50 mls/hr IV NOW ONE Stop: 06/08/18 19:59 Last Infusion: 06/08/18 20:12 Dose: 0 mls/hr Admin: 06/08/18 19:22 Dose: 50 mls/hr Sodium Chloride (Normal Saline 0.9%) 1,000 mls @ 100 mls/hr IV CONT WINNIE Last Admin: 06/11/18 06:56 Dose: 100 mls/hr Infusion: 06/11/18 06:53 Dose: 100 mls/hr Admin: 06/10/18 20:53 Dose: 100 mls/hr Infusion: 06/10/18 18:53 Dose: 100 mls/hr Admin: 06/10/18 08:53 Dose: 100 mls/hr Infusion: 06/10/18 08:49 Dose: 100 mls/hr Admin: 06/09/18 22:49 Dose: 100 mls/hr Infusion: 06/09/18 07:09 Dose: 100 mls/hr Admin: 06/08/18 21:09 Dose: 100 mls/hr Levofloxacin (Levaquin) 250 mg in 50 mls @ 50 mls/hr IV Q48H [facility] Last Infusion: 06/10/18 13:55 Dose: 0 mls/hr Admin: 06/10/18 08:49 Dose: 50 mls/hr Levofloxacin (Levaquin) 250 mg in 50 mls @ 50 mls/hr IV 0900 [facility] Last Infusion: 06/11/18 10:52 Dose: 0 mls/hr Admin: 06/11/18 09:47 Dose: 50 mls/hr Sodium Chloride (Normal Saline 0.9%) 250 mls @ 250 mls/hr IV BOLUS ONE Stop: 06/11/18 11:27 Last Admin: 06/11/18 10:52 Dose: 250 mls/hr Potassium Chloride/Sodium Chloride (Ns With Kcl 20 Meq) 1,000 mls @ 70 mls/hr IV CONT [facility] Last Infusion: 06/13/18 14:03 Dose: 70 mls/hr Admin: 06/12/18 23:39 Dose: 70 mls/hr Infusion: 06/12/18 23:39 Dose: 70 mls/hr Infusion: 06/12/18 14:47 Dose: 70 mls/hr Infusion: 06/12/18 09:30 Dose: 0 mls/hr Admin: 06/12/18 04:57 Dose: 70 mls/hr Infusion: 06/12/18 04:41 Dose: 70 mls/hr Admin: 06/11/18 14:23 Dose: 70 mls/hr Levofloxacin (Levaquin) 750 mg in 150 mls @ 100 mls/hr IV Q24H [facility] Last Admin: 06/12/18 09:54 Dose: Not Given Levofloxacin (Levaquin) 500 mg in 100 mls @ 100 mls/hr IV NOW ONE Stop: 06/11/18 15:17 Last Admin: 06/11/18 14:31 Dose: 100 mls/hr Metoprolol Tartrate (Lopressor) 5 mg IV NOW ONE Stop: 06/11/18 14:20 Last Admin: 06/11/18 14:31 Dose: 5 mg Ondansetron HCl (Zofran) 4 mg IV NOW ONE Stop: 06/08/18 15:54 Last Admin: 06/08/18 16:03 Dose: 4 mg Ondansetron HCl (Zofran) 4 mg IV NOW ONE Stop: 06/08/18 19:45 Last Admin: 06/08/18 20:05 Dose: 4 mg Potassium Chloride (Klor-Con M20) 40 meq PO NOW ONE Stop: 06/11/18 14:07 Last Admin: 06/11/18 14:23 Dose: 40 meq Sodium Chloride (Normal Saline 0.9%) 1,000 ml IV NOW ONE Stop: 06/08/18 23:52 Last Admin: 06/09/18 00:29 Dose: 1,000 ml Vital Signs - 8 hr 06/14/18 00:00 06/14/18 06:00 06/14/18 06:49 Temperature 98.0 F Pulse Rate 90 Respiratory Rate 16 Blood Pressure 129/72 Pulse Oximetry 96 96 96 <Gabrielle Dye MD - Last Filed: 06/14/18 07:59> Orders Ordered: ED Orders 06/14/18 05:28 Complete Blood Count AUTO DIFF DAILY Comprehensive Metabolic Panel DAILY Acetaminophen (Tylenol) 650 mg PO Q4HR PRN PRN Reason: As Needed for Fever/Mild Pain Last Admin: 06/14/18 02:50 Dose: 650 mg Admin: 06/13/18 20:23 Dose: 650 mg Admin: 06/13/18 14:02 Dose: 650 mg Admin: 06/13/18 08:58 Dose: 650 mg Admin: 06/12/18 19:16 Dose: 650 mg Acyclovir (Zovirax) 800 mg PO BID WINNIE Last Admin: 06/13/18 20:23 Dose: 800 mg Admin: 06/13/18 09:12 Dose: 800 mg Admin: 06/12/18 21:18 Dose: 800 mg Admin: 06/12/18 10:59 Dose: 800 mg Lidocaine HCl 30 ml/ Al Hydrox /Mg Hydrox/Simethicone 30 ml/Nystatin 3,000,000 unit 0 ml MM Q4H PRN PRN Reason: mucositis Last Admin: 06/13/18 20:24 Dose: 5 ml Admin: 06/13/18 15:52 Dose: 5 ml Admin: 06/13/18 08:59 Dose: 30 ml Admin: 06/13/18 03:35 Dose: 5 ml Admin: 06/12/18 23:38 Dose: 5 ml Admin: 06/12/18 19:16 Dose: 5 ml Admin: 06/12/18 14:47 Dose: 5 ml Admin: 06/12/18 10:59 Dose: 5 ml Docusate Sodium (Colace) 100 mg PO BID PRN PRN Reason: Constipation Last Admin: 06/13/18 14:58 Dose: 100 mg Gabapentin (Neurontin) 100 mg PO TID [facility] Last Admin: 06/13/18 20:23 Dose: 100 mg Admin: 06/13/18 14:58 Dose: 100 mg Admin: 06/13/18 09:15 Dose: Not Given Admin: 06/12/18 21:18 Dose: 100 mg Admin: 06/12/18 15:36 Dose: Not Given Admin: 06/12/18 09:38 Dose: 100 mg Admin: 06/11/18 21:54 Dose: Not Given Admin: 06/11/18 16:47 Dose: Not Given Admin: 06/11/18 09:00 Dose: 100 mg Admin: 06/10/18 20:54 Dose: 100 mg Admin: 06/10/18 15:00 Dose: 100 mg Admin: 06/10/18 08:49 Dose: 100 mg Admin: 06/09/18 21:41 Dose: 100 mg Admin: 06/09/18 14:57 Dose: 100 mg Admin: 06/09/18 09:38 Dose: 100 mg Hydromorphone HCl (Dilaudid) 1 mg IV Q4H PRN PRN Reason: Pain, Severe (7-10) Ceftriaxone Sodium/Dextrose (Rocephin) 1 gm in 50 mls @ 100 mls/hr IV Q24H [facility] Last Infusion: 06/13/18 13:46 Dose: 100 mls/hr Admin: 06/13/18 11:45 Dose: 100 mls/hr Infusion: 06/12/18 15:25 Dose: 0 mls/hr Admin: 06/12/18 14:46 Dose: 100 mls/hr Lorazepam (Ativan) 1 mg IV Q4HR PRN PRN Reason: Anxiety Methocarbamol (Robaxin) 500 mg PO TID [facility] Last Admin: 06/13/18 20:23 Dose: 500 mg Admin: 06/13/18 12:18 Dose: 500 mg Admin: 06/13/18 09:16 Dose: Not Given Admin: 06/12/18 21:18 Dose: 500 mg Admin: 06/12/18 15:36 Dose: Not Given Admin: 06/12/18 09:38 Dose: 500 mg Admin: 06/11/18 21:54 Dose: Not Given Admin: 06/11/18 16:47 Dose: Not Given Admin: 06/11/18 09:00 Dose: 500 mg Admin: 06/10/18 20:53 Dose: 500 mg Admin: 06/10/18 15:00 Dose: 500 mg Admin: 06/10/18 08:49 Dose: 500 mg Admin: 06/09/18 21:41 Dose: 500 mg Admin: 06/09/18 14:57 Dose: 500 mg Admin: 06/09/18 09:38 Dose: 500 mg Metoprolol Tartrate (Lopressor) 5 mg IV Q6H PRN PRN Reason: SBP>180 AND / OR HR >110 Last Admin: 06/11/18 18:38 Dose: 5 mg Ondansetron HCl (Zofran) 4 mg IV Q8HR PRN PRN Reason: Nausea And Vomiting Last Admin: 06/13/18 03:38 Dose: 4 mg Admin: 06/12/18 18:39 Dose: 4 mg Admin: 06/09/18 03:16 Dose: 4 mg Prochlorperazine (Compazine) 5 mg IV Q6HR PRN PRN Reason: Nausea Last Admin: 06/13/18 09:06 Dose: 5 mg Admin: 06/09/18 02:14 Dose: 5 mg Sennosides (Senna) 17.2 mg PO BID WINNIE Last Admin: 06/13/18 20:23 Dose: 17.2 mg Admin: 06/13/18 14:58 Dose: 17.2 mg Sodium Chloride (Normal Saline 0.9% Flush) 10 ml IV PRN PRN PRN Reason: Flush Tramadol HCl (Ultram) 50 mg PO BID WINNIE Last Admin: 06/13/18 20:23 Dose: Not Given Admin: 06/13/18 08:58 Dose: Admin: 06/12/18 21:14 Dose: Admin: 06/12/18 09:38 Dose: Admin: 06/11/18 21:54 Dose: Not Given Admin: 06/11/18 09:47 Dose: 50 mg Admin: 06/10/18 20:54 Dose: 50 mg Admin: 06/10/18 08:48 Dose: 50 mg Admin: 06/09/18 21:41 Dose: 50 mg Admin: 06/09/18 09:38 Dose: 50 mg Discontinued Medications Acetaminophen (Tylenol) 650 mg PO NOW ONE Stop: 06/08/18 19:45 Last Admin: 06/08/18 20:04 Dose: 650 mg Acetaminophen (Tylenol) 650 mg [place] Q6HR PRN PRN Reason: As Needed for Fever/Mild Pain Fentanyl (Sublimaze) 25 mcg IV NOW ONE Stop: 06/09/18 04:35 Last Admin: 06/09/18 04:52 Dose: 25 mcg Sodium Chloride (Normal Saline 0.9%) 1,000 mls @ 1,000 mls/hr IV BOLUS ONE Stop: 06/08/18 17:02 Last Infusion: 06/08/18 17:04 Dose: 0 mls/hr Admin: 06/08/18 16:05 Dose: 1,000 mls/hr Sodium Chloride (Normal Saline 0.9%) 1,000 mls @ 1,000 mls/hr IV BOLUS ONE Stop: 06/08/18 17:33 Last Infusion: 06/08/18 20:12 Dose: 0 mls/hr Admin: 06/08/18 16:47 Dose: 1,000 mls/hr Levofloxacin (Levaquin) 250 mg in 50 mls @ 50 mls/hr IV NOW ONE Stop: 06/08/18 19:59 Last Infusion: 06/08/18 20:12 Dose: 0 mls/hr Admin: 06/08/18 19:22 Dose: 50 mls/hr Sodium Chloride (Normal Saline 0.9%) 1,000 mls @ 100 mls/hr IV CONT WINNIE Last Admin: 06/11/18 06:56 Dose: 100 mls/hr Infusion: 06/11/18 06:53 Dose: 100 mls/hr Admin: 06/10/18 20:53 Dose: 100 mls/hr Infusion: 06/10/18 18:53 Dose: 100 mls/hr Admin: 06/10/18 08:53 Dose: 100 mls/hr Infusion: 06/10/18 08:49 Dose: 100 mls/hr Admin: 06/09/18 22:49 Dose: 100 mls/hr Infusion: 06/09/18 07:09 Dose: 100 mls/hr Admin: 06/08/18 21:09 Dose: 100 mls/hr Levofloxacin (Levaquin) 250 mg in 50 mls @ 50 mls/hr IV Q48H [facility] Last Infusion: 06/10/18 13:55 Dose: 0 mls/hr Admin: 06/10/18 08:49 Dose: 50 mls/hr Levofloxacin (Levaquin) 250 mg in 50 mls @ 50 mls/hr IV 0900 [facility] Last Infusion: 06/11/18 10:52 Dose: 0 mls/hr Admin: 06/11/18 09:47 Dose: 50 mls/hr Sodium Chloride (Normal Saline 0.9%) 250 mls @ 250 mls/hr IV BOLUS ONE Stop: 06/11/18 11:27 Last Admin: 06/11/18 10:52 Dose: 250 mls/hr Potassium Chloride/Sodium Chloride (Ns With Kcl 20 Meq) 1,000 mls @ 70 mls/hr IV CONT WINNIE Last Infusion: 06/13/18 14:03 Dose: 70 mls/hr Admin: 06/12/18 23:39 Dose: 70 mls/hr Infusion: 06/12/18 23:39 Dose: 70 mls/hr Infusion: 06/12/18 14:47 Dose: 70 mls/hr Infusion: 06/12/18 09:30 Dose: 0 mls/hr Admin: 06/12/18 04:57 Dose: 70 mls/hr Infusion: 06/12/18 04:41 Dose: 70 mls/hr Admin: 06/11/18 14:23 Dose: 70 mls/hr Levofloxacin (Levaquin) 750 mg in 150 mls @ 100 mls/hr IV Q24H [facility] Last Admin: 06/12/18 09:54 Dose: Not Given Levofloxacin (Levaquin) 500 mg in 100 mls @ 100 mls/hr IV NOW ONE Stop: 06/11/18 15:17 Last Admin: 06/11/18 14:31 Dose: 100 mls/hr Metoprolol Tartrate (Lopressor) 5 mg IV NOW ONE Stop: 06/11/18 14:20 Last Admin: 06/11/18 14:31 Dose: 5 mg Ondansetron HCl (Zofran) 4 mg IV NOW ONE Stop: 06/08/18 15:54 Last Admin: 06/08/18 16:03 Dose: 4 mg Ondansetron HCl (Zofran) 4 mg IV NOW ONE Stop: 06/08/18 19:45 Last Admin: 06/08/18 20:05 Dose: 4 mg Potassium Chloride (Klor-Con M20) 40 meq PO NOW ONE Stop: 06/11/18 14:07 Last Admin: 06/11/18 14:23 Dose: 40 meq Sodium Chloride (Normal Saline 0.9%) 1,000 ml IV NOW ONE Stop: 06/08/18 23:52 Last Admin: 06/09/18 00:29 Dose: 1,000 ml Vital Signs - 8 hr 06/14/18 00:00 06/14/18 06:00 06/14/18 06:49 Temperature 98.0 F Pulse Rate 90 Respiratory Rate 16 Blood Pressure 129/72 Pulse Oximetry 96 96 96 MDM - Nausea/Vomiting/Diarrhea <Lenora Jaramillo PA-C - Last Filed: 06/08/18 22:04> Lab Data Attestation: I reviewed the patient's lab results. Result diagrams: 06/14/18 05:28 06/14/18 05:28 Lab Results 06/08/18 06/08/18 06/08/18 Range/Units 15:20 15:58 15:58 WBC 33.3 H* (4.5-11.0) X10^3/uL RBC 4.23 (4.0-5.2) X10^6/uL Hgb 12.8 (12.0-16.0) g/dL Hct 37.9 (36-46) % MCV 89.6 (80-100) fL MCH 30.2 (26-34) PG MCHC 33.7 (30-36) % RDW 13.6 (11.6-14.8) % Plt Count 191 (150-400) X10^3/uL Neut % (Auto) Not Reportable Lymph % (Auto) Not Reportable [place] % (Auto) Not Reportable Eos % (Auto) Not Reportable Baso % (Auto) Not Reportable Neut # (Auto) ([id number]) /uL Total Counted 100 Seg Neutrophils % 61.0 (38-70) % Band Neutrophils % 29.0 H (3-7) % Lymphocytes % (Manual) 5.0 L (25-45) % Monocytes % (Manual) 3.0 (2-11) % Eosinophils % (Manual) (2-4) % Basophils % (Manual) (0-1) % Metamyelocytes % 2.0 H (-0) % Neutrophils # (Manual) 37188 H (5606-0496) /uL Toxic Vacuolation RBC Morphology Normal morphology Eosinophil Count PT 17.1 H (10.1-12.7) SECONDS INR 1.5 H (0.9-1.3) APTT 36 (26.4-36.2) SECONDS Sodium (137-145) mmol/L Potassium (3.4-5.1) mmol/L Chloride (98-107) mmol/L Carbon Dioxide (22-32) mmol/L BUN (7-17) mg/dL Creatinine (0.52-1.04) mg/dL Estimated GFR (>60) mL/min BUN/Creatinine Ratio (6-22) Glucose (80-110) mg/dL Lactate (0.7-2.1) mmol/L Calcium (8.4-10.2) mg/dL Magnesium (1.6-2.3) mg/dL Total Bilirubin (0.2-1.3) mg/dL AST (14-36) IU/L ALT (9-52) IU/L Alkaline Phosphatase (38-126) U/L Total Protein (6.3-8.2) g/dL Albumin (3.5-5.0) g/dL Globulin (1.7-4.1) g/dL Albumin/Globulin Ratio (1.0-2.8) Lipase (23-300) U/L Urine Color Urine Appearance Urine pH (4.5-8.0) Ur Specific [place] (1.000-1.035) Urine Protein (Negative) Urine Glucose (UA) (Normal) g/dL Urine Ketones (NEGATIVE) Urine Occult Blood (Negative) Urine Nitrate (Negative) Urine Bilirubin (NEGATIVE) Urine Ictotest (Negative) Urine Urobilinogen (0.2) E.U./dL Ur Leukocyte Esterase (NEGATIVE) Urine RBC (0-5/HPF) Urine WBC (0-5/HPF) Ur Squamous Epith Cells Urine Bacteria (None) Hyaline Casts (None) Ur Culture Indicated? Micro UA Comment Ur Random Sodium (30-90) mmol/L Ur Random Potassium mmol/L Ur Random Phosphorus mg/dL Ur Random Calcium Urine Creatinine mg/dL Date of Stool Aeromonas Cult Neg for aeromonas (Not Detect) Stl C. cayetanensis PCR Not detected (Not Detect) Stool Rotavirus (PCR) Not detected (Not Detect) Stool Adenovirus (PCR) Not detected (Not Detect) Stool Astrovirus (PCR) Not detected (Not Detect) Stool Cryptosporidium PCR Not detected (Not Detect) Stl E.coli Shiga Tox PCR Not detected (Not Detect) St Sh/Enteroin Ecoli PCR Not detected (Not Detect) Stool E coli O157 PCR Not Reportable Stl Enterotoxigenic E PCR Not detected (Not Detect) Stool EPEC (PCR) Not detected (Not Detect) Stl E. histolytica PCR Not detected (Not Detect) Stool Giardia Lamblia PCR Not detected (Not Detect) Stool Sapovirus (PCR) Not detected (Not Detect) Stl P. shigelloides PCR Not detected (Not Detect) St Y.enterocolitica PCR Not detected (Not Detect) Stool Vibrio (PCR) Not detected (Not Detect) Stl Vibrio cholerae PCR Not detected (Not Detect) Stl Enteroaggr Ecoli PCR Not detected (Not Detect) Stl Norovirus GI/GII PCR Not detected (Not Detect) A. baumannii (PCR) (Not Detect) Campylobacter (PCR) Not detected (Not Detect) Julissa albicans (PCR) (Not Detect) C. glabrata (PCR) (Not Detect) C. krusei (PCR) (Not Detect) C. parapsilosis (PCR) (Not Detect) C. tropicalis (PCR) (Not Detect) C. difficile Tox (PCR) Not detected (Not Detect) Enterobacteriac sp PCR (Not Detect) E. cloacae complex PCR (Not Detect) Enterococcus sp PCR (Not Detect) E. coli (PCR) (Not Detect) H. influenzae (PCR) (Not Detect) Klebsiella oxytoca PCR (Not Detect) Klebsiella pneumoniae (Not Detect) List. monocytogenes PCR (Not Detect) N. meningitidis (PCR) (Not Detect) Proteus species (PCR) (Not Detect) Salmonella (PCR) Not detected (Not Detect) Serratia marcescens PCR (Not Detect) Staphylococcus sp PCR (Not Detect) Staph aureus (PCR) (Not Detect) mecA-Methicil Res Gene Streptococcus sp PCR (Not Detect) Group A Strep (PCR) (Not Detect) Strep agalactiae (PCR) (Not Detect) Strep pneumoniae (PCR) (Not Detect) P. aeruginosa (PCR) (Not Detect) Tammie/B-Vanco Res Genes KPC-Carbap Res Gene PCR (Not Detect) 06/08/18 06/08/18 06/08/18 Range/Units 15:58 16:55 17:25 WBC (4.5-11.0) X10^3/uL RBC (4.0-5.2) X10^6/uL Hgb (12.0-16.0) g/dL Hct (36-46) % MCV (80-100) fL MCH (26-34) PG MCHC (30-36) % RDW (11.6-14.8) % Plt Count (150-400) X10^3/uL Neut % (Auto) Lymph % (Auto) [place] % (Auto) Eos % (Auto) Baso % (Auto) Neut # (Auto) (0447-1906) /uL Total Counted Seg Neutrophils % (38-70) % Band Neutrophils % (3-7) % Lymphocytes % (Manual) (25-45) % Monocytes % (Manual) (2-11) % Eosinophils % (Manual) (2-4) % Basophils % (Manual) (0-1) % Metamyelocytes % (-0) % Neutrophils # (Manual) (8133-1733) /uL Toxic Vacuolation RBC Morphology Eosinophil Count PT (10.1-12.7) SECONDS INR (0.9-1.3) APTT (26.4-36.2) SECONDS Sodium 142 (137-145) mmol/L Potassium 4.0 (3.4-5.1) mmol/L Chloride 103 (98-107) mmol/L Carbon Dioxide 23 (22-32) mmol/L BUN 48 H (7-17) mg/dL Creatinine 2.10 H (0.52-1.04) mg/dL Estimated GFR 23.0 L (>60) mL/min BUN/Creatinine Ratio 22.9 H (6-22) Glucose 117 H (80-110) mg/dL Lactate 1.7 (0.7-2.1) mmol/L Calcium 8.7 (8.4-10.2) mg/dL Magnesium (1.6-2.3) mg/dL Total Bilirubin 0.7 (0.2-1.3) mg/dL AST 156 H (14-36) IU/L ALT 27 (9-52) IU/L Alkaline Phosphatase 107 (38-126) U/L Total Protein 6.9 (6.3-8.2) g/dL Albumin 3.9 (3.5-5.0) g/dL Globulin 3.0 (1.7-4.1) g/dL Albumin/Globulin Ratio 1.3 (1.0-2.8) Lipase 23 (23-300) U/L Urine Color Urine Appearance Urine pH (4.5-8.0) Ur Specific [place] (1.000-1.035) Urine Protein (Negative) Urine Glucose (UA) (Normal) g/dL Urine Ketones (NEGATIVE) Urine Occult Blood (Negative) Urine Nitrate (Negative) Urine Bilirubin (NEGATIVE) Urine Ictotest (Negative) Urine Urobilinogen (0.2) E.U./dL Ur Leukocyte Esterase (NEGATIVE) Urine RBC (0-5/HPF) Urine WBC (0-5/HPF) Ur Squamous Epith Cells Urine Bacteria (None) Hyaline Casts (None) Ur Culture Indicated? Micro UA Comment Ur Random Sodium (30-90) mmol/L Ur Random Potassium mmol/L Ur Random Phosphorus mg/dL Ur Random Calcium Urine Creatinine mg/dL Date of Stool Aeromonas Cult (Not Detect) Stl C. cayetanensis PCR (Not Detect) Stool Rotavirus (PCR) (Not Detect) Stool Adenovirus (PCR) (Not Detect) Stool Astrovirus (PCR) (Not Detect) Stool Cryptosporidium PCR (Not Detect) Stl E.coli Shiga Tox PCR (Not Detect) St Sh/Enteroin Ecoli PCR (Not Detect) Stool E coli O157 PCR Stl Enterotoxigenic E PCR (Not Detect) Stool EPEC (PCR) (Not Detect) Stl E. histolytica PCR (Not Detect) Stool Giardia Lamblia PCR (Not Detect) Stool Sapovirus (PCR) (Not Detect) Stl P. shigelloides PCR (Not Detect) St Y.enterocolitica PCR (Not Detect) Stool Vibrio (PCR) (Not Detect) Stl Vibrio cholerae PCR (Not Detect) Stl Enteroaggr Ecoli PCR (Not Detect) Stl Norovirus GI/GII PCR (Not Detect) A. baumannii (PCR) Not detected (Not Detect) Campylobacter (PCR) (Not Detect) Julissa albicans (PCR) Not detected (Not Detect) C. glabrata (PCR) Not detected (Not Detect) C. krusei (PCR) Not detected (Not Detect) C. parapsilosis (PCR) Not detected (Not Detect) C. tropicalis (PCR) Not detected (Not Detect) C. difficile Tox (PCR) (Not Detect) Enterobacteriac sp PCR Detected H (Not Detect) E. cloacae complex PCR Not detected (Not Detect) Enterococcus sp PCR Not detected (Not Detect) E. coli (PCR) Detected H (Not Detect) H. influenzae (PCR) Not detected (Not Detect) Klebsiella oxytoca PCR Not detected (Not Detect) Klebsiella pneumoniae Not detected (Not Detect) List. monocytogenes PCR Not detected (Not Detect) N. meningitidis (PCR) Not detected (Not Detect) Proteus species (PCR) Not detected (Not Detect) Salmonella (PCR) (Not Detect) Serratia marcescens PCR Not detected (Not Detect) Staphylococcus sp PCR Not detected (Not Detect) Staph aureus (PCR) Not detected (Not Detect) mecA-Methicil Res Gene Not Reportable Streptococcus sp PCR Not detected (Not Detect) Group A Strep (PCR) Not detected (Not Detect) Strep agalactiae (PCR) Not detected (Not Detect) Strep pneumoniae (PCR) Not detected (Not Detect) P. aeruginosa (PCR) Not detected (Not Detect) Tammie/B-Vanco Res Genes Not Reportable KPC-Carbap Res Gene PCR Not detected (Not Detect) 06/08/18 06/08/18 06/09/18 Range/Units 17:42 17:42 04:45 WBC (4.5-11.0) X10^3/uL RBC (4.0-5.2) X10^6/uL Hgb (12.0-16.0) g/dL Hct (36-46) % MCV (80-100) fL MCH (26-34) PG MCHC (30-36) % RDW (11.6-14.8) % Plt Count (150-400) X10^3/uL Neut % (Auto) Lymph % (Auto) [place] % (Auto) Eos % (Auto) Baso % (Auto) Neut # (Auto) (9763-3955) /uL Total Counted Seg Neutrophils % (38-70) % Band Neutrophils % (3-7) % Lymphocytes % (Manual) (25-45) % Monocytes % (Manual) (2-11) % Eosinophils % (Manual) (2-4) % Basophils % (Manual) (0-1) % Metamyelocytes % (-0) % Neutrophils # (Manual) (8981-3584) /uL Toxic Vacuolation RBC Morphology Eosinophil Count PT (10.1-12.7) SECONDS INR (0.9-1.3) APTT (26.4-36.2) SECONDS Sodium (137-145) mmol/L Potassium (3.4-5.1) mmol/L Chloride (98-107) mmol/L Carbon Dioxide (22-32) mmol/L BUN (7-17) mg/dL Creatinine (0.52-1.04) mg/dL Estimated GFR (>60) mL/min BUN/Creatinine Ratio (6-22) Glucose (80-110) mg/dL Lactate (0.7-2.1) mmol/L Calcium (8.4-10.2) mg/dL Magnesium (1.6-2.3) mg/dL Total Bilirubin (0.2-1.3) mg/dL AST (14-36) IU/L ALT (9-52) IU/L Alkaline Phosphatase (38-126) U/L Total Protein (6.3-8.2) g/dL Albumin (3.5-5.0) g/dL Globulin (1.7-4.1) g/dL Albumin/Globulin Ratio (1.0-2.8) Lipase (23-300) U/L Urine Color Urine Appearance Urine pH (4.5-8.0) Ur Specific [place] (1.000-1.035) Urine Protein (Negative) Urine Glucose (UA) (Normal) g/dL Urine Ketones (NEGATIVE) Urine Occult Blood (Negative) Urine Nitrate (Negative) Urine Bilirubin (NEGATIVE) Urine Ictotest Negative (Negative) Urine Urobilinogen (0.2) E.U./dL Ur Leukocyte Esterase (NEGATIVE) Urine RBC 30-100/hpf H (0-5/HPF) Urine WBC >100/hpf H (0-5/HPF) Ur Squamous Epith Cells 1-5 /hpf Urine Bacteria Many (>30) H (None) Hyaline Casts 1-5/lpf (None) Ur Culture Indicated? Specimen cultured Micro UA Comment Not Reportable Ur Random Sodium 14 L (30-90) mmol/L Ur Random Potassium 46.7 mmol/L Ur Random Phosphorus mg/dL Ur Random Calcium Urine Creatinine 78.9 mg/dL Date of Stool Aeromonas Cult (Not Detect) Stl C. cayetanensis PCR (Not Detect) Stool Rotavirus (PCR) (Not Detect) Stool Adenovirus (PCR) (Not Detect) Stool Astrovirus (PCR) (Not Detect) Stool Cryptosporidium PCR (Not Detect) Stl E.coli Shiga Tox PCR (Not Detect) St Sh/Enteroin Ecoli PCR (Not Detect) Stool E coli O157 PCR Stl Enterotoxigenic E PCR (Not Detect) Stool EPEC (PCR) (Not Detect) Stl E. histolytica PCR (Not Detect) Stool Giardia Lamblia PCR (Not Detect) Stool Sapovirus (PCR) (Not Detect) Stl P. shigelloides PCR (Not Detect) St Y.enterocolitica PCR (Not Detect) Stool Vibrio (PCR) (Not Detect) Stl Vibrio cholerae PCR (Not Detect) Stl Enteroaggr Ecoli PCR (Not Detect) Stl Norovirus GI/GII PCR (Not Detect) A. baumannii (PCR) (Not Detect) Campylobacter (PCR) (Not Detect) Julissa albicans (PCR) (Not Detect) C. glabrata (PCR) (Not Detect) C. krusei (PCR) (Not Detect) C. parapsilosis (PCR) (Not Detect) C. tropicalis (PCR) (Not Detect) C. difficile Tox (PCR) (Not Detect) Enterobacteriac sp PCR (Not Detect) E. cloacae complex PCR (Not Detect) Enterococcus sp PCR (Not Detect) E. coli (PCR) (Not Detect) H. influenzae (PCR) (Not Detect) Klebsiella oxytoca PCR (Not Detect) Klebsiella pneumoniae (Not Detect) List. monocytogenes PCR (Not Detect) N. meningitidis (PCR) (Not Detect) Proteus species (PCR) (Not Detect) Salmonella (PCR) (Not Detect) Serratia marcescens PCR (Not Detect) Staphylococcus sp PCR (Not Detect) Staph aureus (PCR) (Not Detect) mecA-Methicil Res Gene Streptococcus sp PCR (Not Detect) Group A Strep (PCR) (Not Detect) Strep agalactiae (PCR) (Not Detect) Strep pneumoniae (PCR) (Not Detect) P. aeruginosa (PCR) (Not Detect) Tammie/B-Vanco Res Genes KPC-Carbap Res Gene PCR (Not Detect) 06/09/18 06/09/18 06/09/18 Range/Units 04:45 04:45 04:45 WBC (4.5-11.0) X10^3/uL RBC (4.0-5.2) X10^6/uL Hgb (12.0-16.0) g/dL Hct (36-46) % MCV (80-100) fL MCH (26-34) PG MCHC (30-36) % RDW (11.6-14.8) % Plt Count (150-400) X10^3/uL Neut % (Auto) Lymph % (Auto) [place] % (Auto) Eos % (Auto) Baso % (Auto) Neut # (Auto) (9497-0393) /uL Total Counted Seg Neutrophils % (38-70) % Band Neutrophils % (3-7) % Lymphocytes % (Manual) (25-45) % Monocytes % (Manual) (2-11) % Eosinophils % (Manual) (2-4) % Basophils % (Manual) (0-1) % Metamyelocytes % (-0) % Neutrophils # (Manual) (2295-3073) /uL Toxic Vacuolation RBC Morphology Eosinophil Count Cancelled PT (10.1-12.7) SECONDS INR (0.9-1.3) APTT (26.4-36.2) SECONDS Sodium (137-145) mmol/L Potassium (3.4-5.1) mmol/L Chloride (98-107) mmol/L Carbon Dioxide (22-32) mmol/L BUN (7-17) mg/dL Creatinine (0.52-1.04) mg/dL Estimated GFR (>60) mL/min BUN/Creatinine Ratio (6-22) Glucose (80-110) mg/dL Lactate (0.7-2.1) mmol/L Calcium (8.4-10.2) mg/dL Magnesium (1.6-2.3) mg/dL Total Bilirubin (0.2-1.3) mg/dL AST (14-36) IU/L ALT (9-52) IU/L Alkaline Phosphatase (38-126) U/L Total Protein (6.3-8.2) g/dL Albumin (3.5-5.0) g/dL Globulin (1.7-4.1) g/dL Albumin/Globulin Ratio (1.0-2.8) Lipase (23-300) U/L Urine Color Yellow Urine Appearance Sl cloudy Urine pH 5.0 (4.5-8.0) Ur Specific [place] 1.020 (1.000-1.035) Urine Protein 2+ H (Negative) Urine Glucose (UA) Negative (Normal) g/dL Urine Ketones Trace H (NEGATIVE) Urine Occult Blood 3+ H (Negative) Urine Nitrate Negative (Negative) Urine Bilirubin Negative (NEGATIVE) Urine Ictotest (Negative) Urine Urobilinogen 0.2 (0.2) E.U./dL Ur Leukocyte Esterase 1+ H (NEGATIVE) Urine RBC 1-5/hpf D (0-5/HPF) Urine WBC 30-100/hpf H (0-5/HPF) Ur Squamous Epith Cells 0-1 /hpf Urine Bacteria Moderate (10-30) H (None) Hyaline Casts (None) Ur Culture Indicated? Specimen cultured Micro UA Comment Not Reportable Ur Random Sodium (30-90) mmol/L Ur Random Potassium mmol/L Ur Random Phosphorus 59.6 mg/dL Ur Random Calcium < 1.0 Urine Creatinine mg/dL Date of Cancelled Stool Aeromonas Cult (Not Detect) Stl C. cayetanensis PCR (Not Detect) Stool Rotavirus (PCR) (Not Detect) Stool Adenovirus (PCR) (Not Detect) Stool Astrovirus (PCR) (Not Detect) Stool Cryptosporidium PCR (Not Detect) Stl E.coli Shiga Tox PCR (Not Detect) St Sh/Enteroin Ecoli PCR (Not Detect) Stool E coli O157 PCR Stl Enterotoxigenic E PCR (Not Detect) Stool EPEC (PCR) (Not Detect) Stl E. histolytica PCR (Not Detect) Stool Giardia Lamblia PCR (Not Detect) Stool Sapovirus (PCR) (Not Detect) Stl P. shigelloides PCR (Not Detect) St Y.enterocolitica PCR (Not Detect) Stool Vibrio (PCR) (Not Detect) Stl Vibrio cholerae PCR (Not Detect) Stl Enteroaggr Ecoli PCR (Not Detect) Stl Norovirus GI/GII PCR (Not Detect) A. baumannii (PCR) (Not Detect) Campylobacter (PCR) (Not Detect) Julissa albicans (PCR) (Not Detect) C. glabrata (PCR) (Not Detect) C. krusei (PCR) (Not Detect) C. parapsilosis (PCR) (Not Detect) C. tropicalis (PCR) (Not Detect) C. difficile Tox (PCR) (Not Detect) Enterobacteriac sp PCR (Not Detect) E. cloacae complex PCR (Not Detect) Enterococcus sp PCR (Not Detect) E. coli (PCR) (Not Detect) H. influenzae (PCR) (Not Detect) Klebsiella oxytoca PCR (Not Detect) Klebsiella pneumoniae (Not Detect) List. monocytogenes PCR (Not Detect) N. meningitidis (PCR) (Not Detect) Proteus species (PCR) (Not Detect) Salmonella (PCR) (Not Detect) Serratia marcescens PCR (Not Detect) Staphylococcus sp PCR (Not Detect) Staph aureus (PCR) (Not Detect) mecA-Methicil Res Gene Streptococcus sp PCR (Not Detect) Group A Strep (PCR) (Not Detect) Strep agalactiae (PCR) (Not Detect) Strep pneumoniae (PCR) (Not Detect) P. aeruginosa (PCR) (Not Detect) Tammie/B-Vanco Res Genes KPC-Carbap Res Gene PCR (Not Detect) 06/09/18 06/09/18 06/10/18 Range/Units 05:29 05:29 05:37 WBC 22.8 H 19.0 H (4.5-11.0) X10^3/uL RBC 3.69 L 3.55 L (4.0-5.2) X10^6/uL Hgb 11.3 L 10.7 L (12.0-16.0) g/dL Hct 33.4 L 31.9 L (36-46) % MCV 90.7 90.0 (80-100) fL MCH 30.8 30.3 (26-34) PG MCHC 33.9 33.6 (30-36) % RDW 13.8 13.9 (11.6-14.8) % Plt Count 151 153 (150-400) X10^3/uL Neut % (Auto) Not Reportable Not Reportable Lymph % (Auto) Not Reportable Not Reportable [place] % (Auto) Not Reportable Not Reportable Eos % (Auto) Not Reportable Not Reportable Baso % (Auto) Not Reportable Not Reportable Neut # (Auto) (0963-9074) /uL Total Counted 100 100 Seg Neutrophils % 62.0 72.0 H (38-70) % Band Neutrophils % 26.0 H 21.0 H (3-7) % Lymphocytes % (Manual) 6.0 L 4.0 L (25-45) % Monocytes % (Manual) 3.0 2.0 (2-11) % Eosinophils % (Manual) 1.0 L (2-4) % Basophils % (Manual) (0-1) % Metamyelocytes % 3.0 H (-0) % Neutrophils # (Manual) 77214 H 83938 H (1504-3896) /uL Toxic Vacuolation Present H RBC Morphology See below Normal morphology Eosinophil Count PT (10.1-12.7) SECONDS INR (0.9-1.3) APTT (26.4-36.2) SECONDS Sodium 143 (137-145) mmol/L Potassium 3.5 (3.4-5.1) mmol/L Chloride 113 H (98-107) mmol/L Carbon Dioxide 17 L (22-32) mmol/L BUN 47 H (7-17) mg/dL Creatinine 1.20 H (0.52-1.04) mg/dL Estimated GFR 43.9 L (>60) mL/min BUN/Creatinine Ratio 39.2 H (6-22) Glucose 89 (80-110) mg/dL Lactate (0.7-2.1) mmol/L Calcium 7.5 L (8.4-10.2) mg/dL Magnesium 1.8 (1.6-2.3) mg/dL Total Bilirubin (0.2-1.3) mg/dL AST (14-36) IU/L ALT (9-52) IU/L Alkaline Phosphatase (38-126) U/L Total Protein (6.3-8.2) g/dL Albumin (3.5-5.0) g/dL Globulin (1.7-4.1) g/dL Albumin/Globulin Ratio (1.0-2.8) Lipase (23-300) U/L Urine Color Urine Appearance Urine pH (4.5-8.0) Ur Specific [place] (1.000-1.035) Urine Protein (Negative) Urine Glucose (UA) (Normal) g/dL Urine Ketones (NEGATIVE) Urine Occult Blood (Negative) Urine Nitrate (Negative) Urine Bilirubin (NEGATIVE) Urine Ictotest (Negative) Urine Urobilinogen (0.2) E.U./dL Ur Leukocyte Esterase (NEGATIVE) Urine RBC (0-5/HPF) Urine WBC (0-5/HPF) Ur Squamous Epith Cells Urine Bacteria (None) Hyaline Casts (None) Ur Culture Indicated? Micro UA Comment Ur Random Sodium (30-90) mmol/L Ur Random Potassium mmol/L Ur Random Phosphorus mg/dL Ur Random Calcium Urine Creatinine mg/dL Date of Stool Aeromonas Cult (Not Detect) Stl C. cayetanensis PCR (Not Detect) Stool Rotavirus (PCR) (Not Detect) Stool Adenovirus (PCR) (Not Detect) Stool Astrovirus (PCR) (Not Detect) Stool Cryptosporidium PCR (Not Detect) Stl E.coli Shiga Tox PCR (Not Detect) St Sh/Enteroin Ecoli PCR (Not Detect) Stool E coli O157 PCR Stl Enterotoxigenic E PCR (Not Detect) Stool EPEC (PCR) (Not Detect) Stl E. histolytica PCR (Not Detect) Stool Giardia Lamblia PCR (Not Detect) Stool Sapovirus (PCR) (Not Detect) Stl P. shigelloides PCR (Not Detect) St Y.enterocolitica PCR (Not Detect) Stool Vibrio (PCR) (Not Detect) Stl Vibrio cholerae PCR (Not Detect) Stl Enteroaggr Ecoli PCR (Not Detect) Stl Norovirus GI/GII PCR (Not Detect) A. baumannii (PCR) (Not Detect) Campylobacter (PCR) (Not Detect) Julissa albicans (PCR) (Not Detect) C. glabrata (PCR) (Not Detect) C. krusei (PCR) (Not Detect) C. parapsilosis (PCR) (Not Detect) C. tropicalis (PCR) (Not Detect) C. difficile Tox (PCR) (Not Detect) Enterobacteriac sp PCR (Not Detect) E. cloacae complex PCR (Not Detect) Enterococcus sp PCR (Not Detect) E. coli (PCR) (Not Detect) H. influenzae (PCR) (Not Detect) Klebsiella oxytoca PCR (Not Detect) Klebsiella pneumoniae (Not Detect) List. monocytogenes PCR (Not Detect) N. meningitidis (PCR) (Not Detect) Proteus species (PCR) (Not Detect) Salmonella (PCR) (Not Detect) Serratia marcescens PCR (Not Detect) Staphylococcus sp PCR (Not Detect) Staph aureus (PCR) (Not Detect) mecA-Methicil Res Gene Streptococcus sp PCR (Not Detect) Group A Strep (PCR) (Not Detect) Strep agalactiae (PCR) (Not Detect) Strep pneumoniae (PCR) (Not Detect) P. aeruginosa (PCR) (Not Detect) Tammie/B-Vanco Res Genes KPC-Carbap Res Gene PCR (Not Detect) 06/10/18 06/11/18 06/11/18 Range/Units 05:37 05:50 05:50 WBC 11.5 H (4.5-11.0) X10^3/uL RBC 3.43 L (4.0-5.2) X10^6/uL Hgb 10.4 L (12.0-16.0) g/dL Hct 30.9 L (36-46) % MCV 89.9 (80-100) fL MCH 30.4 (26-34) PG MCHC 33.8 (30-36) % RDW 14.0 (11.6-14.8) % Plt Count 149 L (150-400) X10^3/uL Neut % (Auto) Not Reportable Lymph % (Auto) Not Reportable [place] % (Auto) Not Reportable Eos % (Auto) Not Reportable Baso % (Auto) Not Reportable Neut # (Auto) (0689-0329) /uL Total Counted 100 Seg Neutrophils % 40.0 (38-70) % Band Neutrophils % 32.0 H (3-7) % Lymphocytes % (Manual) 11.0 L (25-45) % Monocytes % (Manual) 6.0 (2-11) % Eosinophils % (Manual) 2.0 (2-4) % Basophils % (Manual) 5.0 H (0-1) % Metamyelocytes % 4.0 H (-0) % Neutrophils # (Manual) 8280 H (7260-1996) /uL Toxic Vacuolation RBC Morphology Normal morphology Eosinophil Count PT (10.1-12.7) SECONDS INR (0.9-1.3) APTT (26.4-36.2) SECONDS Sodium 144 142 (137-145) mmol/L Potassium 3.7 3.3 L (3.4-5.1) mmol/L Chloride 113 H 110 H (98-107) mmol/L Carbon Dioxide 22 22 (22-32) mmol/L BUN 26 H 14 (7-17) mg/dL Creatinine 0.70 0.60 (0.52-1.04) mg/dL Estimated GFR > 60.0 > 60.0 (>60) mL/min BUN/Creatinine Ratio 37.1 H 23.3 H (6-22) Glucose 110 101 (80-110) mg/dL Lactate (0.7-2.1) mmol/L Calcium 7.9 L 7.9 L (8.4-10.2) mg/dL Magnesium 2.2 2.1 (1.6-2.3) mg/dL Total Bilirubin (0.2-1.3) mg/dL AST (14-36) IU/L ALT (9-52) IU/L Alkaline Phosphatase (38-126) U/L Total Protein (6.3-8.2) g/dL Albumin (3.5-5.0) g/dL Globulin (1.7-4.1) g/dL Albumin/Globulin Ratio (1.0-2.8) Lipase (23-300) U/L Urine Color Urine Appearance Urine pH (4.5-8.0) Ur Specific [place] (1.000-1.035) Urine Protein (Negative) Urine Glucose (UA) (Normal) g/dL Urine Ketones (NEGATIVE) Urine Occult Blood (Negative) Urine Nitrate (Negative) Urine Bilirubin (NEGATIVE) Urine Ictotest (Negative) Urine Urobilinogen (0.2) E.U./dL Ur Leukocyte Esterase (NEGATIVE) Urine RBC (0-5/HPF) Urine WBC (0-5/HPF) Ur Squamous Epith Cells Urine Bacteria (None) Hyaline Casts (None) Ur Culture Indicated? Micro UA Comment Ur Random Sodium (30-90) mmol/L Ur Random Potassium mmol/L Ur Random Phosphorus mg/dL Ur Random Calcium Urine Creatinine mg/dL Date of Stool Aeromonas Cult (Not Detect) Stl C. cayetanensis PCR (Not Detect) Stool Rotavirus (PCR) (Not Detect) Stool Adenovirus (PCR) (Not Detect) Stool Astrovirus (PCR) (Not Detect) Stool Cryptosporidium PCR (Not Detect) Stl E.coli Shiga Tox PCR (Not Detect) St Sh/Enteroin Ecoli PCR (Not Detect) Stool E coli O157 PCR Stl Enterotoxigenic E PCR (Not Detect) Stool EPEC (PCR) (Not Detect) Stl E. histolytica PCR (Not Detect) Stool Giardia Lamblia PCR (Not Detect) Stool Sapovirus (PCR) (Not Detect) Stl P. shigelloides PCR (Not Detect) St Y.enterocolitica PCR (Not Detect) Stool Vibrio (PCR) (Not Detect) Stl Vibrio cholerae PCR (Not Detect) Stl Enteroaggr Ecoli PCR (Not Detect) Stl Norovirus GI/GII PCR (Not Detect) A. baumannii (PCR) (Not Detect) Campylobacter (PCR) (Not Detect) Julissa albicans (PCR) (Not Detect) C. glabrata (PCR) (Not Detect) C. krusei (PCR) (Not Detect) C. parapsilosis (PCR) (Not Detect) C. tropicalis (PCR) (Not Detect) C. difficile Tox (PCR) (Not Detect) Enterobacteriac sp PCR (Not Detect) E. cloacae complex PCR (Not Detect) Enterococcus sp PCR (Not Detect) E. coli (PCR) (Not Detect) H. influenzae (PCR) (Not Detect) Klebsiella oxytoca PCR (Not Detect) Klebsiella pneumoniae (Not Detect) List. monocytogenes PCR (Not Detect) N. meningitidis (PCR) (Not Detect) Proteus species (PCR) (Not Detect) Salmonella (PCR) (Not Detect) Serratia marcescens PCR (Not Detect) Staphylococcus sp PCR (Not Detect) Staph aureus (PCR) (Not Detect) mecA-Methicil Res Gene Streptococcus sp PCR (Not Detect) Group A Strep (PCR) (Not Detect) Strep agalactiae (PCR) (Not Detect) Strep pneumoniae (PCR) (Not Detect) P. aeruginosa (PCR) (Not Detect) Tammie/B-Vanco Res Genes KPC-Carbap Res Gene PCR (Not Detect) 06/11/18 06/12/18 06/12/18 Range/Units 18:18 05:23 05:23 WBC 9.3 (4.5-11.0) X10^3/uL RBC 3.39 L (4.0-5.2) X10^6/uL Hgb 10.2 L (12.0-16.0) g/dL Hct 30.2 L (36-46) % MCV 89.2 (80-100) fL MCH 30.2 (26-34) PG MCHC 33.9 (30-36) % RDW 13.8 (11.6-14.8) % Plt Count 172 (150-400) X10^3/uL Neut % (Auto) Not Reportable Lymph % (Auto) Not Reportable [place] % (Auto) Not Reportable Eos % (Auto) Not Reportable Baso % (Auto) Not Reportable Neut # (Auto) (8106-1847) /uL Total Counted 100 Seg Neutrophils % 60.0 (38-70) % Band Neutrophils % 10.0 H (3-7) % Lymphocytes % (Manual) 19.0 L (25-45) % Monocytes % (Manual) 11.0 (2-11) % Eosinophils % (Manual) (2-4) % Basophils % (Manual) (0-1) % Metamyelocytes % (-0) % Neutrophils # (Manual) 6510 H (1508-5347) /uL Toxic Vacuolation RBC Morphology Normal morphology Eosinophil Count PT (10.1-12.7) SECONDS INR (0.9-1.3) APTT (26.4-36.2) SECONDS Sodium 143 (137-145) mmol/L Potassium 3.7 (3.4-5.1) mmol/L Chloride 110 H (98-107) mmol/L Carbon Dioxide 23 (22-32) mmol/L BUN 12 (7-17) mg/dL Creatinine 0.60 (0.52-1.04) mg/dL Estimated GFR > 60.0 (>60) mL/min BUN/Creatinine Ratio 20.0 (6-22) Glucose 92 (80-110) mg/dL Lactate 1.2 (0.7-2.1) mmol/L Calcium 7.8 L (8.4-10.2) mg/dL Magnesium (1.6-2.3) mg/dL Total Bilirubin 0.4 (0.2-1.3) mg/dL AST 38 H (14-36) IU/L ALT 28 (9-52) IU/L Alkaline Phosphatase 153 H (38-126) U/L Total Protein 5.0 L (6.3-8.2) g/dL Albumin 2.5 L (3.5-5.0) g/dL Globulin 2.5 (1.7-4.1) g/dL Albumin/Globulin Ratio 1.0 (1.0-2.8) Lipase (23-300) U/L Urine Color Urine Appearance Urine pH (4.5-8.0) Ur Specific [place] (1.000-1.035) Urine Protein (Negative) Urine Glucose (UA) (Normal) g/dL Urine Ketones (NEGATIVE) Urine Occult Blood (Negative) Urine Nitrate (Negative) Urine Bilirubin (NEGATIVE) Urine Ictotest (Negative) Urine Urobilinogen (0.2) E.U./dL Ur Leukocyte Esterase (NEGATIVE) Urine RBC (0-5/HPF) Urine WBC (0-5/HPF) Ur Squamous Epith Cells Urine Bacteria (None) Hyaline Casts (None) Ur Culture Indicated? Micro UA Comment Ur Random Sodium (30-90) mmol/L Ur Random Potassium mmol/L Ur Random Phosphorus mg/dL Ur Random Calcium Urine Creatinine mg/dL Date of Stool Aeromonas Cult (Not Detect) Stl C. cayetanensis PCR (Not Detect) Stool Rotavirus (PCR) (Not Detect) Stool Adenovirus (PCR) (Not Detect) Stool Astrovirus (PCR) (Not Detect) Stool Cryptosporidium PCR (Not Detect) Stl E.coli Shiga Tox PCR (Not Detect) St Sh/Enteroin Ecoli PCR (Not Detect) Stool E coli O157 PCR Stl Enterotoxigenic E PCR (Not Detect) Stool EPEC (PCR) (Not Detect) Stl E. histolytica PCR (Not Detect) Stool Giardia Lamblia PCR (Not Detect) Stool Sapovirus (PCR) (Not Detect) Stl P. shigelloides PCR (Not Detect) St Y.enterocolitica PCR (Not Detect) Stool Vibrio (PCR) (Not Detect) Stl Vibrio cholerae PCR (Not Detect) Stl Enteroaggr Ecoli PCR (Not Detect) Stl Norovirus GI/GII PCR (Not Detect) A. baumannii (PCR) (Not Detect) Campylobacter (PCR) (Not Detect) Julissa albicans (PCR) (Not Detect) C. glabrata (PCR) (Not Detect) C. krusei (PCR) (Not Detect) C. parapsilosis (PCR) (Not Detect) C. tropicalis (PCR) (Not Detect) C. difficile Tox (PCR) (Not Detect) Enterobacteriac sp PCR (Not Detect) E. cloacae complex PCR (Not Detect) Enterococcus sp PCR (Not Detect) E. coli (PCR) (Not Detect) H. influenzae (PCR) (Not Detect) Klebsiella oxytoca PCR (Not Detect) Klebsiella pneumoniae (Not Detect) List. monocytogenes PCR (Not Detect) N. meningitidis (PCR) (Not Detect) Proteus species (PCR) (Not Detect) Salmonella (PCR) (Not Detect) Serratia marcescens PCR (Not Detect) Staphylococcus sp PCR (Not Detect) Staph aureus (PCR) (Not Detect) mecA-Methicil Res Gene Streptococcus sp PCR (Not Detect) Group A Strep (PCR) (Not Detect) Strep agalactiae (PCR) (Not Detect) Strep pneumoniae (PCR) (Not Detect) P. aeruginosa (PCR) (Not Detect) Tammie/B-Vanco Res Genes KPC-Carbap Res Gene PCR (Not Detect) 06/12/1818 06/13/18 Range/Units Unknown 05:37 05:37 WBC 11.4 H (4.5-11.0) X10^3/uL RBC 3.58 L (4.0-5.2) X10^6/uL Hgb 10.4 L (12.0-16.0) g/dL Hct 32.0 L (36-46) % MCV 89.5 (80-100) fL MCH 29.0 (26-34) PG MCHC 32.5 (30-36) % RDW 14.0 (11.6-14.8) % Plt Count 237 (150-400) X10^3/uL Neut % (Auto) Not Reportable Lymph % (Auto) Not Reportable [place] % (Auto) Not Reportable Eos % (Auto) Not Reportable Baso % (Auto) Not Reportable Neut # (Auto) (5626-7972) /uL Total Counted 100 Seg Neutrophils % 74.0 H (38-70) % Band Neutrophils % 8.0 H (3-7) % Lymphocytes % (Manual) 11.0 L (25-45) % Monocytes % (Manual) 7.0 (2-11) % Eosinophils % (Manual) (2-4) % Basophils % (Manual) (0-1) % Metamyelocytes % (-0) % Neutrophils # (Manual) 9348 H (0417-6189) /uL Toxic Vacuolation RBC Morphology Normal morphology Eosinophil Count PT (10.1-12.7) SECONDS INR (0.9-1.3) APTT (26.4-36.2) SECONDS Sodium 143 (137-145) mmol/L Potassium 3.4 (3.4-5.1) mmol/L Chloride 109 H (98-107) mmol/L Carbon Dioxide 24 (22-32) mmol/L BUN 9 (7-17) mg/dL Creatinine 0.50 L (0.52-1.04) mg/dL Estimated GFR > 60.0 (>60) mL/min BUN/Creatinine Ratio 18.0 (6-22) Glucose 97 (80-110) mg/dL Lactate (0.7-2.1) mmol/L Calcium 7.7 L (8.4-10.2) mg/dL Magnesium (1.6-2.3) mg/dL Total Bilirubin 0.5 (0.2-1.3) mg/dL AST 48 H (14-36) IU/L ALT 31 (9-52) IU/L Alkaline Phosphatase 134 H (38-126) U/L Total Protein 5.4 L (6.3-8.2) g/dL Albumin 2.7 L (3.5-5.0) g/dL Globulin 2.7 (1.7-4.1) g/dL Albumin/Globulin Ratio 1.0 (1.0-2.8) Lipase (23-300) U/L Urine Color Urine Appearance Urine pH (4.5-8.0) Ur Specific [place] (1.000-1.035) Urine Protein (Negative) Urine Glucose (UA) (Normal) g/dL Urine Ketones (NEGATIVE) Urine Occult Blood (Negative) Urine Nitrate (Negative) Urine Bilirubin (NEGATIVE) Urine Ictotest (Negative) Urine Urobilinogen (0.2) E.U./dL Ur Leukocyte Esterase (NEGATIVE) Urine RBC (0-5/HPF) Urine WBC (0-5/HPF) Ur Squamous Epith Cells Urine Bacteria (None) Hyaline Casts (None) Ur Culture Indicated? Micro UA Comment Ur Random Sodium (30-90) mmol/L Ur Random Potassium mmol/L Ur Random Phosphorus mg/dL Ur Random Calcium Urine Creatinine mg/dL Date of Stool Aeromonas Cult (Not Detect) Stl C. cayetanensis PCR (Not Detect) Stool Rotavirus (PCR) (Not Detect) Stool Adenovirus (PCR) (Not Detect) Stool Astrovirus (PCR) (Not Detect) Stool Cryptosporidium PCR (Not Detect) Stl E.coli Shiga Tox PCR (Not Detect) St Sh/Enteroin Ecoli PCR (Not Detect) Stool E coli O157 PCR Stl Enterotoxigenic E PCR (Not Detect) Stool EPEC (PCR) (Not Detect) Stl E. histolytica PCR (Not Detect) Stool Giardia Lamblia PCR (Not Detect) Stool Sapovirus (PCR) (Not Detect) Stl P. shigelloides PCR (Not Detect) St Y.enterocolitica PCR (Not Detect) Stool Vibrio (PCR) (Not Detect) Stl Vibrio cholerae PCR (Not Detect) Stl Enteroaggr Ecoli PCR (Not Detect) Stl Norovirus GI/GII PCR (Not Detect) A. baumannii (PCR) Not detected (Not Detect) Campylobacter (PCR) (Not Detect) Julissa albicans (PCR) Not detected (Not Detect) C. glabrata (PCR) Not detected (Not Detect) C. krusei (PCR) Not detected (Not Detect) C. parapsilosis (PCR) Not detected (Not Detect) C. tropicalis (PCR) Not detected (Not Detect) C. difficile Tox (PCR) (Not Detect) Enterobacteriac sp PCR Detected H (Not Detect) E. cloacae complex PCR Not detected (Not Detect) Enterococcus sp PCR Not detected (Not Detect) E. coli (PCR) Detected H (Not Detect) H. influenzae (PCR) Not detected (Not Detect) Klebsiella oxytoca PCR Not detected (Not Detect) Klebsiella pneumoniae Not detected (Not Detect) List. monocytogenes PCR Not detected (Not Detect) N. meningitidis (PCR) Not detected (Not Detect) Proteus species (PCR) Not detected (Not Detect) Salmonella (PCR) (Not Detect) Serratia marcescens PCR Not detected (Not Detect) Staphylococcus sp PCR Not detected (Not Detect) Staph aureus (PCR) Not detected (Not Detect) mecA-Methicil Res Gene Not detected Streptococcus sp PCR Not detected (Not Detect) Group A Strep (PCR) Not detected (Not Detect) Strep agalactiae (PCR) Not detected (Not Detect) Strep pneumoniae (PCR) Not detected (Not Detect) P. aeruginosa (PCR) Not detected (Not Detect) Tammie/B-Vanco Res Genes Not detected KPC-Carbap Res Gene PCR Not detected (Not Detect) 06/14/18 06/14/18 Range/Units 05:28 05:28 WBC 10.1 (4.5-11.0) X10^3/uL RBC 3.56 L (4.0-5.2) X10^6/uL Hgb 10.5 L (12.0-16.0) g/dL Hct 32.0 L (36-46) % MCV 90.0 (80-100) fL MCH 29.5 (26-34) PG MCHC 32.8 (30-36) % RDW 13.9 (11.6-14.8) % Plt Count 321 (150-400) X10^3/uL Neut % (Auto) 70.8 Lymph % (Auto) 17.7 L [place] % (Auto) 9.5 Eos % (Auto) 1.6 L Baso % (Auto) 0.4 Neut # (Auto) 7100 H (2347-8280) /uL Total Counted Seg Neutrophils % (38-70) % Band Neutrophils % (3-7) % Lymphocytes % (Manual) (25-45) % Monocytes % (Manual) (2-11) % Eosinophils % (Manual) (2-4) % Basophils % (Manual) (0-1) % Metamyelocytes % (-0) % Neutrophils # (Manual) (7198-2185) /uL Toxic Vacuolation RBC Morphology Eosinophil Count PT (10.1-12.7) SECONDS INR (0.9-1.3) APTT (26.4-36.2) SECONDS Sodium 145 (137-145) mmol/L Potassium 3.5 (3.4-5.1) mmol/L Chloride 107 (98-107) mmol/L Carbon Dioxide 29 (22-32) mmol/L BUN 10 (7-17) mg/dL Creatinine 0.60 (0.52-1.04) mg/dL Estimated GFR > 60.0 (>60) mL/min BUN/Creatinine Ratio 16.7 (6-22) Glucose 95 (80-110) mg/dL Lactate (0.7-2.1) mmol/L Calcium 8.0 L (8.4-10.2) mg/dL Magnesium (1.6-2.3) mg/dL Total Bilirubin 0.3 (0.2-1.3) mg/dL AST 32 (14-36) IU/L ALT 25 (9-52) IU/L Alkaline Phosphatase 115 (38-126) U/L Total Protein 5.4 L (6.3-8.2) g/dL Albumin 2.6 L (3.5-5.0) g/dL Globulin 2.8 (1.7-4.1) g/dL Albumin/Globulin Ratio 0.9 L (1.0-2.8) Lipase (23-300) U/L Urine Color Urine Appearance Urine pH (4.5-8.0) Ur Specific [place] (1.000-1.035) Urine Protein (Negative) Urine Glucose (UA) (Normal) g/dL Urine Ketones (NEGATIVE) Urine Occult Blood (Negative) Urine Nitrate (Negative) Urine Bilirubin (NEGATIVE) Urine Ictotest (Negative) Urine Urobilinogen (0.2) E.U./dL Ur Leukocyte Esterase (NEGATIVE) Urine RBC (0-5/HPF) Urine WBC (0-5/HPF) Ur Squamous Epith Cells Urine Bacteria (None) Hyaline Casts (None) Ur Culture Indicated? Micro UA Comment Ur Random Sodium (30-90) mmol/L Ur Random Potassium mmol/L Ur Random Phosphorus mg/dL Ur Random Calcium Urine Creatinine mg/dL Date of Stool Aeromonas Cult (Not Detect) Stl C. cayetanensis PCR (Not Detect) Stool Rotavirus (PCR) (Not Detect) Stool Adenovirus (PCR) (Not Detect) Stool Astrovirus (PCR) (Not Detect) Stool Cryptosporidium PCR (Not Detect) Stl E.coli Shiga Tox PCR (Not Detect) St Sh/Enteroin Ecoli PCR (Not Detect) Stool E coli O157 PCR Stl Enterotoxigenic E PCR (Not Detect) Stool EPEC (PCR) (Not Detect) Stl E. histolytica PCR (Not Detect) Stool Giardia Lamblia PCR (Not Detect) Stool Sapovirus (PCR) (Not Detect) Stl P. shigelloides PCR (Not Detect) St Y.enterocolitica PCR (Not Detect) Stool Vibrio (PCR) (Not Detect) Stl Vibrio cholerae PCR (Not Detect) Stl Enteroaggr Ecoli PCR (Not Detect) Stl Norovirus GI/GII PCR (Not Detect) A. baumannii (PCR) (Not Detect) Campylobacter (PCR) (Not Detect) Julissa albicans (PCR) (Not Detect) C. glabrata (PCR) (Not Detect) C. krusei (PCR) (Not Detect) C. parapsilosis (PCR) (Not Detect) C. tropicalis (PCR) (Not Detect) C. difficile Tox (PCR) (Not Detect) Enterobacteriac sp PCR (Not Detect) E. cloacae complex PCR (Not Detect) Enterococcus sp PCR (Not Detect) E. coli (PCR) (Not Detect) H. influenzae (PCR) (Not Detect) Klebsiella oxytoca PCR (Not Detect) Klebsiella pneumoniae (Not Detect) List. monocytogenes PCR (Not Detect) N. meningitidis (PCR) (Not Detect) Proteus species (PCR) (Not Detect) Salmonella (PCR) (Not Detect) Serratia marcescens PCR (Not Detect) Staphylococcus sp PCR (Not Detect) Staph aureus (PCR) (Not Detect) mecA-Methicil Res Gene Streptococcus sp PCR (Not Detect) Group A Strep (PCR) (Not Detect) Strep agalactiae (PCR) (Not Detect) Strep pneumoniae (PCR) (Not Detect) P. aeruginosa (PCR) (Not Detect) Tammie/B-Vanco Res Genes KPC-Carbap Res Gene PCR (Not Detect) Urine Dip Bedside Urine Glucose Negative Bedside Urine Bilirubin + 1 Bedside Urine Ketone - Negative Urine Specific [place] 1.030 Bedside Urine Occult Blood +++ Bedside Urine pH 5.5 Bedside Urine Protein ++ 100 Bedside Urine Urobilinogen - Negative Bedside Urine Nitrite - Negative Bedside Urine Leukocytes ++ 125 Esterase Imaging Data US - abdomen: Radiologist's impression: [address] [address] Ultrasound Report Signed Patient: Angela Snider LMR#: [id number] : 4Acct:[id number] Age/Sex: 72 / FDate of Service: 06/08/18 Loc: ED Accession Number: [id number] Procedure: US abdomen complete Ordering Provider: Lenora Jaramillo P.A-C PROCEDURE: US ABDOMEN COMPLETE INDICATIONS: elevated WBCs, LFTs, vomiting TECHNIQUE: Real-time scanning was performed of the abdominal and retroperitoneal organs, with image documentation. COMPARISON: [facility], US, ABDOMEN COMPLETE, 06/29/2013, 8:35. FINDINGS: Liver: Liver is normal in size and homogeneous in echotexture. Gallbladder: There is a 2.5 cm gallstone. The gallbladder wall measures 3 mm, pericholecystic fluid or sonographic Samano's sign. Biliary ducts: Intrahepatic bile ducts are non-dilated. Extrahepatic bile duct caliber measures 5 mm. Normal is 6-7 mm or less in diameter, or 10 mm or less post-cholecystectomy. Pancreas: Visualized portions of the pancreas are sonographically normal. Spleen: Spleen is normal in size and homogeneous in echotexture. Kidneys: Kidneys are normal in size and echotexture. Right kidney measures 13.8 cm long; left kidney measures 13.6 cm long. No hydronephrosis or nephrolithiasis. No solid masses. There are renal calculi bilaterally measuring up to 9 mm in the right kidney and 10 mm in the left kidney. Aorta: Visualized aorta is normal in caliber at less than 3 cm. Iliacs: Proximal common iliac arteries are normal in caliber at less than 2.5 cm. IVC: Intrahepatic inferior vena cava is patent. Miscellaneous: No free abdominal fluid. IMPRESSION: 1. Cholelithiasis. The gallbladder wall is at the upper limit of normal. No pericholecystic fluid collection or Samano's sign. 2. Nephrolithiasis bilaterally. No hydronephrosis. Dictated by: Chilo Sprague M.D. on 06/08/2018 at 19:20 Approved by: Chilo Sprague M.D. on 06/08/2018 at 19:24 ECG Data Attestation: I personally reviewed and interpreted this ECG as follows: ( sinus rhythm with rate 97, normal axis, intraventricular conduction delay) Prior ECG tracings: not available for review <Gabrielle Dye MD - Last Filed: 06/14/18 07:59> Lab Data Lab Results 06/08/18 06/08/18 06/08/18 Range/Units 15:20 15:58 15:58 WBC 33.3 H* (4.5-11.0) X10^3/uL RBC 4.23 (4.0-5.2) X10^6/uL Hgb 12.8 (12.0-16.0) g/dL Hct 37.9 (36-46) % MCV 89.6 (80-100) fL MCH 30.2 (26-34) PG MCHC 33.7 (30-36) % RDW 13.6 (11.6-14.8) % Plt Count 191 (150-400) X10^3/uL Neut % (Auto) Not Reportable Lymph % (Auto) Not Reportable [place] % (Auto) Not Reportable Eos % (Auto) Not Reportable Baso % (Auto) Not Reportable Neut # (Auto) (7467-6814) /uL Total Counted 100 Seg Neutrophils % 61.0 (38-70) % Band Neutrophils % 29.0 H (3-7) % Lymphocytes % (Manual) 5.0 L (25-45) % Monocytes % (Manual) 3.0 (2-11) % Eosinophils % (Manual) (2-4) % Basophils % (Manual) (0-1) % Metamyelocytes % 2.0 H (-0) % Neutrophils # (Manual) 57084 H (6632-8673) /uL Toxic Vacuolation RBC Morphology Normal morphology Eosinophil Count PT 17.1 H (10.1-12.7) SECONDS INR 1.5 H (0.9-1.3) APTT 36 (26.4-36.2) SECONDS Sodium (137-145) mmol/L Potassium (3.4-5.1) mmol/L Chloride (98-107) mmol/L Carbon Dioxide (22-32) mmol/L BUN (7-17) mg/dL Creatinine (0.52-1.04) mg/dL Estimated GFR (>60) mL/min BUN/Creatinine Ratio (6-22) Glucose (80-110) mg/dL Lactate (0.7-2.1) mmol/L Calcium (8.4-10.2) mg/dL Magnesium (1.6-2.3) mg/dL Total Bilirubin (0.2-1.3) mg/dL AST (14-36) IU/L ALT (9-52) IU/L Alkaline Phosphatase (38-126) U/L Total Protein (6.3-8.2) g/dL Albumin (3.5-5.0) g/dL Globulin (1.7-4.1) g/dL Albumin/Globulin Ratio (1.0-2.8) Lipase (23-300) U/L Urine Color Urine Appearance Urine pH (4.5-8.0) Ur Specific [place] (1.000-1.035) Urine Protein (Negative) Urine Glucose (UA) (Normal) g/dL Urine Ketones (NEGATIVE) Urine Occult Blood (Negative) Urine Nitrate (Negative) Urine Bilirubin (NEGATIVE) Urine Ictotest (Negative) Urine Urobilinogen (0.2) E.U./dL Ur Leukocyte Esterase (NEGATIVE) Urine RBC (0-5/HPF) Urine WBC (0-5/HPF) Ur Squamous Epith Cells Urine Bacteria (None) Hyaline Casts (None) Ur Culture Indicated? Micro UA Comment Ur Random Sodium (30-90) mmol/L Ur Random Potassium mmol/L Ur Random Phosphorus mg/dL Ur Random Calcium Urine Creatinine mg/dL Date of Stool Aeromonas Cult Neg for aeromonas (Not Detect) Stl C. cayetanensis PCR Not detected (Not Detect) Stool Rotavirus (PCR) Not detected (Not Detect) Stool Adenovirus (PCR) Not detected (Not Detect) Stool Astrovirus (PCR) Not detected (Not Detect) Stool Cryptosporidium PCR Not detected (Not Detect) Stl E.coli Shiga Tox PCR Not detected (Not Detect) St Sh/Enteroin Ecoli PCR Not detected (Not Detect) Stool E coli O157 PCR Not Reportable Stl Enterotoxigenic E PCR Not detected (Not Detect) Stool EPEC (PCR) Not detected (Not Detect) Stl E. histolytica PCR Not detected (Not Detect) Stool Giardia Lamblia PCR Not detected (Not Detect) Stool Sapovirus (PCR) Not detected (Not Detect) Stl P. shigelloides PCR Not detected (Not Detect) St Y.enterocolitica PCR Not detected (Not Detect) Stool Vibrio (PCR) Not detected (Not Detect) Stl Vibrio cholerae PCR Not detected (Not Detect) Stl Enteroaggr Ecoli PCR Not detected (Not Detect) Stl Norovirus GI/GII PCR Not detected (Not Detect) A. baumannii (PCR) (Not Detect) Campylobacter (PCR) Not detected (Not Detect) Julissa albicans (PCR) (Not Detect) C. glabrata (PCR) (Not Detect) C. krusei (PCR) (Not Detect) C. parapsilosis (PCR) (Not Detect) C. tropicalis (PCR) (Not Detect) C. difficile Tox (PCR) Not detected (Not Detect) Enterobacteriac sp PCR (Not Detect) E. cloacae complex PCR (Not Detect) Enterococcus sp PCR (Not Detect) E. coli (PCR) (Not Detect) H. influenzae (PCR) (Not Detect) Klebsiella oxytoca PCR (Not Detect) Klebsiella pneumoniae (Not Detect) List. monocytogenes PCR (Not Detect) N. meningitidis (PCR) (Not Detect) Proteus species (PCR) (Not Detect) Salmonella (PCR) Not detected (Not Detect) Serratia marcescens PCR (Not Detect) Staphylococcus sp PCR (Not Detect) Staph aureus (PCR) (Not Detect) mecA-Methicil Res Gene Streptococcus sp PCR (Not Detect) Group A Strep (PCR) (Not Detect) Strep agalactiae (PCR) (Not Detect) Strep pneumoniae (PCR) (Not Detect) P. aeruginosa (PCR) (Not Detect) Tammie/B-Vanco Res Genes KPC-Carbap Res Gene PCR (Not Detect) 06/08/18 06/08/18 06/08/18 Range/Units 15:58 16:55 17:25 WBC (4.5-11.0) X10^3/uL RBC (4.0-5.2) X10^6/uL Hgb (12.0-16.0) g/dL Hct (36-46) % MCV (80-100) fL MCH (26-34) PG MCHC (30-36) % RDW (11.6-14.8) % Plt Count (150-400) X10^3/uL Neut % (Auto) Lymph % (Auto) [place] % (Auto) Eos % (Auto) Baso % (Auto) Neut # (Auto) (3801-3032) /uL Total Counted Seg Neutrophils % (38-70) % Band Neutrophils % (3-7) % Lymphocytes % (Manual) (25-45) % Monocytes % (Manual) (2-11) % Eosinophils % (Manual) (2-4) % Basophils % (Manual) (0-1) % Metamyelocytes % (-0) % Neutrophils # (Manual) (2671-7665) /uL Toxic Vacuolation RBC Morphology Eosinophil Count PT (10.1-12.7) SECONDS INR (0.9-1.3) APTT (26.4-36.2) SECONDS Sodium 142 (137-145) mmol/L Potassium 4.0 (3.4-5.1) mmol/L Chloride 103 (98-107) mmol/L Carbon Dioxide 23 (22-32) mmol/L BUN 48 H (7-17) mg/dL Creatinine 2.10 H (0.52-1.04) mg/dL Estimated GFR 23.0 L (>60) mL/min BUN/Creatinine Ratio 22.9 H (6-22) Glucose 117 H (80-110) mg/dL Lactate 1.7 (0.7-2.1) mmol/L Calcium 8.7 (8.4-10.2) mg/dL Magnesium (1.6-2.3) mg/dL Total Bilirubin 0.7 (0.2-1.3) mg/dL AST 156 H (14-36) IU/L ALT 27 (9-52) IU/L Alkaline Phosphatase 107 (38-126) U/L Total Protein 6.9 (6.3-8.2) g/dL Albumin 3.9 (3.5-5.0) g/dL Globulin 3.0 (1.7-4.1) g/dL Albumin/Globulin Ratio 1.3 (1.0-2.8) Lipase 23 (23-300) U/L Urine Color Urine Appearance Urine pH (4.5-8.0) Ur Specific [place] (1.000-1.035) Urine Protein (Negative) Urine Glucose (UA) (Normal) g/dL Urine Ketones (NEGATIVE) Urine Occult Blood (Negative) Urine Nitrate (Negative) Urine Bilirubin (NEGATIVE) Urine Ictotest (Negative) Urine Urobilinogen (0.2) E.U./dL Ur Leukocyte Esterase (NEGATIVE) Urine RBC (0-5/HPF) Urine WBC (0-5/HPF) Ur Squamous Epith Cells Urine Bacteria (None) Hyaline Casts (None) Ur Culture Indicated? Micro UA Comment Ur Random Sodium (30-90) mmol/L Ur Random Potassium mmol/L Ur Random Phosphorus mg/dL Ur Random Calcium Urine Creatinine mg/dL Date of Stool Aeromonas Cult (Not Detect) Stl C. cayetanensis PCR (Not Detect) Stool Rotavirus (PCR) (Not Detect) Stool Adenovirus (PCR) (Not Detect) Stool Astrovirus (PCR) (Not Detect) Stool Cryptosporidium PCR (Not Detect) Stl E.coli Shiga Tox PCR (Not Detect) St Sh/Enteroin Ecoli PCR (Not Detect) Stool E coli O157 PCR Stl Enterotoxigenic E PCR (Not Detect) Stool EPEC (PCR) (Not Detect) Stl E. histolytica PCR (Not Detect) Stool Giardia Lamblia PCR (Not Detect) Stool Sapovirus (PCR) (Not Detect) Stl P. shigelloides PCR (Not Detect) St Y.enterocolitica PCR (Not Detect) Stool Vibrio (PCR) (Not Detect) Stl Vibrio cholerae PCR (Not Detect) Stl Enteroaggr Ecoli PCR (Not Detect) Stl Norovirus GI/GII PCR (Not Detect) A. baumannii (PCR) Not detected (Not Detect) Campylobacter (PCR) (Not Detect) Julissa albicans (PCR) Not detected (Not Detect) C. glabrata (PCR) Not detected (Not Detect) C. krusei (PCR) Not detected (Not Detect) C. parapsilosis (PCR) Not detected (Not Detect) C. tropicalis (PCR) Not detected (Not Detect) C. difficile Tox (PCR) (Not Detect) Enterobacteriac sp PCR Detected H (Not Detect) E. cloacae complex PCR Not detected (Not Detect) Enterococcus sp PCR Not detected (Not Detect) E. coli (PCR) Detected H (Not Detect) H. influenzae (PCR) Not detected (Not Detect) Klebsiella oxytoca PCR Not detected (Not Detect) Klebsiella pneumoniae Not detected (Not Detect) List. monocytogenes PCR Not detected (Not Detect) N. meningitidis (PCR) Not detected (Not Detect) Proteus species (PCR) Not detected (Not Detect) Salmonella (PCR) (Not Detect) Serratia marcescens PCR Not detected (Not Detect) Staphylococcus sp PCR Not detected (Not Detect) Staph aureus (PCR) Not detected (Not Detect) mecA-Methicil Res Gene Not Reportable Streptococcus sp PCR Not detected (Not Detect) Group A Strep (PCR) Not detected (Not Detect) Strep agalactiae (PCR) Not detected (Not Detect) Strep pneumoniae (PCR) Not detected (Not Detect) P. aeruginosa (PCR) Not detected (Not Detect) Tammie/B-Vanco Res Genes Not Reportable KPC-Carbap Res Gene PCR Not detected (Not Detect) 06/08/18 06/08/18 06/09/18 Range/Units 17:42 17:42 04:45 WBC (4.5-11.0) X10^3/uL RBC (4.0-5.2) X10^6/uL Hgb (12.0-16.0) g/dL Hct (36-46) % MCV (80-100) fL MCH (26-34) PG MCHC (30-36) % RDW (11.6-14.8) % Plt Count (150-400) X10^3/uL Neut % (Auto) Lymph % (Auto) [place] % (Auto) Eos % (Auto) Baso % (Auto) Neut # (Auto) (2436-8439) /uL Total Counted Seg Neutrophils % (38-70) % Band Neutrophils % (3-7) % Lymphocytes % (Manual) (25-45) % Monocytes % (Manual) (2-11) % Eosinophils % (Manual) (2-4) % Basophils % (Manual) (0-1) % Metamyelocytes % (-0) % Neutrophils # (Manual) (7079-1496) /uL Toxic Vacuolation RBC Morphology Eosinophil Count PT (10.1-12.7) SECONDS INR (0.9-1.3) APTT (26.4-36.2) SECONDS Sodium (137-145) mmol/L Potassium (3.4-5.1) mmol/L Chloride (98-107) mmol/L Carbon Dioxide (22-32) mmol/L BUN (7-17) mg/dL Creatinine (0.52-1.04) mg/dL Estimated GFR (>60) mL/min BUN/Creatinine Ratio (6-22) Glucose (80-110) mg/dL Lactate (0.7-2.1) mmol/L Calcium (8.4-10.2) mg/dL Magnesium (1.6-2.3) mg/dL Total Bilirubin (0.2-1.3) mg/dL AST (14-36) IU/L ALT (9-52) IU/L Alkaline Phosphatase (38-126) U/L Total Protein (6.3-8.2) g/dL Albumin (3.5-5.0) g/dL Globulin (1.7-4.1) g/dL Albumin/Globulin Ratio (1.0-2.8) Lipase (23-300) U/L Urine Color Urine Appearance Urine pH (4.5-8.0) Ur Specific [place] (1.000-1.035) Urine Protein (Negative) Urine Glucose (UA) (Normal) g/dL Urine Ketones (NEGATIVE) Urine Occult Blood (Negative) Urine Nitrate (Negative) Urine Bilirubin (NEGATIVE) Urine Ictotest Negative (Negative) Urine Urobilinogen (0.2) E.U./dL Ur Leukocyte Esterase (NEGATIVE) Urine RBC 30-100/hpf H (0-5/HPF) Urine WBC >100/hpf H (0-5/HPF) Ur Squamous Epith Cells 1-5 /hpf Urine Bacteria Many (>30) H (None) Hyaline Casts 1-5/lpf (None) Ur Culture Indicated? Specimen cultured Micro UA Comment Not Reportable Ur Random Sodium 14 L (30-90) mmol/L Ur Random Potassium 46.7 mmol/L Ur Random Phosphorus mg/dL Ur Random Calcium Urine Creatinine 78.9 mg/dL Date of Stool Aeromonas Cult (Not Detect) Stl C. cayetanensis PCR (Not Detect) Stool Rotavirus (PCR) (Not Detect) Stool Adenovirus (PCR) (Not Detect) Stool Astrovirus (PCR) (Not Detect) Stool Cryptosporidium PCR (Not Detect) Stl E.coli Shiga Tox PCR (Not Detect) St Sh/Enteroin Ecoli PCR (Not Detect) Stool E coli O157 PCR Stl Enterotoxigenic E PCR (Not Detect) Stool EPEC (PCR) (Not Detect) Stl E. histolytica PCR (Not Detect) Stool Giardia Lamblia PCR (Not Detect) Stool Sapovirus (PCR) (Not Detect) Stl P. shigelloides PCR (Not Detect) St Y.enterocolitica PCR (Not Detect) Stool Vibrio (PCR) (Not Detect) Stl Vibrio cholerae PCR (Not Detect) Stl Enteroaggr Ecoli PCR (Not Detect) Stl Norovirus GI/GII PCR (Not Detect) A. baumannii (PCR) (Not Detect) Campylobacter (PCR) (Not Detect) Julissa albicans (PCR) (Not Detect) C. glabrata (PCR) (Not Detect) C. krusei (PCR) (Not Detect) C. parapsilosis (PCR) (Not Detect) C. tropicalis (PCR) (Not Detect) C. difficile Tox (PCR) (Not Detect) Enterobacteriac sp PCR (Not Detect) E. cloacae complex PCR (Not Detect) Enterococcus sp PCR (Not Detect) E. coli (PCR) (Not Detect) H. influenzae (PCR) (Not Detect) Klebsiella oxytoca PCR (Not Detect) Klebsiella pneumoniae (Not Detect) List. monocytogenes PCR (Not Detect) N. meningitidis (PCR) (Not Detect) Proteus species (PCR) (Not Detect) Salmonella (PCR) (Not Detect) Serratia marcescens PCR (Not Detect) Staphylococcus sp PCR (Not Detect) Staph aureus (PCR) (Not Detect) mecA-Methicil Res Gene Streptococcus sp PCR (Not Detect) Group A Strep (PCR) (Not Detect) Strep agalactiae (PCR) (Not Detect) Strep pneumoniae (PCR) (Not Detect) P. aeruginosa (PCR) (Not Detect) Tammie/B-Vanco Res Genes KPC-Carbap Res Gene PCR (Not Detect) 06/09/18 06/09/18 06/09/18 Range/Units 04:45 04:45 04:45 WBC (4.5-11.0) X10^3/uL RBC (4.0-5.2) X10^6/uL Hgb (12.0-16.0) g/dL Hct (36-46) % MCV (80-100) fL MCH (26-34) PG MCHC (30-36) % RDW (11.6-14.8) % Plt Count (150-400) X10^3/uL Neut % (Auto) Lymph % (Auto) [place] % (Auto) Eos % (Auto) Baso % (Auto) Neut # (Auto) (3498-6847) /uL Total Counted Seg Neutrophils % (38-70) % Band Neutrophils % (3-7) % Lymphocytes % (Manual) (25-45) % Monocytes % (Manual) (2-11) % Eosinophils % (Manual) (2-4) % Basophils % (Manual) (0-1) % Metamyelocytes % (-0) % Neutrophils # (Manual) (6607-5587) /uL Toxic Vacuolation RBC Morphology Eosinophil Count Cancelled PT (10.1-12.7) SECONDS INR (0.9-1.3) APTT (26.4-36.2) SECONDS Sodium (137-145) mmol/L Potassium (3.4-5.1) mmol/L Chloride (98-107) mmol/L Carbon Dioxide (22-32) mmol/L BUN (7-17) mg/dL Creatinine (0.52-1.04) mg/dL Estimated GFR (>60) mL/min BUN/Creatinine Ratio (6-22) Glucose (80-110) mg/dL Lactate (0.7-2.1) mmol/L Calcium (8.4-10.2) mg/dL Magnesium (1.6-2.3) mg/dL Total Bilirubin (0.2-1.3) mg/dL AST (14-36) IU/L ALT (9-52) IU/L Alkaline Phosphatase (38-126) U/L Total Protein (6.3-8.2) g/dL Albumin (3.5-5.0) g/dL Globulin (1.7-4.1) g/dL Albumin/Globulin Ratio (1.0-2.8) Lipase (23-300) U/L Urine Color Yellow Urine Appearance Sl cloudy Urine pH 5.0 (4.5-8.0) Ur Specific [place] 1.020 (1.000-1.035) Urine Protein 2+ H (Negative) Urine Glucose (UA) Negative (Normal) g/dL Urine Ketones Trace H (NEGATIVE) Urine Occult Blood 3+ H (Negative) Urine Nitrate Negative (Negative) Urine Bilirubin Negative (NEGATIVE) Urine Ictotest (Negative) Urine Urobilinogen 0.2 (0.2) E.U./dL Ur Leukocyte Esterase 1+ H (NEGATIVE) Urine RBC 1-5/hpf D (0-5/HPF) Urine WBC 30-100/hpf H (0-5/HPF) Ur Squamous Epith Cells 0-1 /hpf Urine Bacteria Moderate (10-30) H (None) Hyaline Casts (None) Ur Culture Indicated? Specimen cultured Micro UA Comment Not Reportable Ur Random Sodium (30-90) mmol/L Ur Random Potassium mmol/L Ur Random Phosphorus 59.6 mg/dL Ur Random Calcium < 1.0 Urine Creatinine mg/dL Date of Cancelled Stool Aeromonas Cult (Not Detect) Stl C. cayetanensis PCR (Not Detect) Stool Rotavirus (PCR) (Not Detect) Stool Adenovirus (PCR) (Not Detect) Stool Astrovirus (PCR) (Not Detect) Stool Cryptosporidium PCR (Not Detect) Stl E.coli Shiga Tox PCR (Not Detect) St Sh/Enteroin Ecoli PCR (Not Detect) Stool E coli O157 PCR Stl Enterotoxigenic E PCR (Not Detect) Stool EPEC (PCR) (Not Detect) Stl E. histolytica PCR (Not Detect) Stool Giardia Lamblia PCR (Not Detect) Stool Sapovirus (PCR) (Not Detect) Stl P. shigelloides PCR (Not Detect) St Y.enterocolitica PCR (Not Detect) Stool Vibrio (PCR) (Not Detect) Stl Vibrio cholerae PCR (Not Detect) Stl Enteroaggr Ecoli PCR (Not Detect) Stl Norovirus GI/GII PCR (Not Detect) A. baumannii (PCR) (Not Detect) Campylobacter (PCR) (Not Detect) Julissa albicans (PCR) (Not Detect) C. glabrata (PCR) (Not Detect) C. krusei (PCR) (Not Detect) C. parapsilosis (PCR) (Not Detect) C. tropicalis (PCR) (Not Detect) C. difficile Tox (PCR) (Not Detect) Enterobacteriac sp PCR (Not Detect) E. cloacae complex PCR (Not Detect) Enterococcus sp PCR (Not Detect) E. coli (PCR) (Not Detect) H. influenzae (PCR) (Not Detect) Klebsiella oxytoca PCR (Not Detect) Klebsiella pneumoniae (Not Detect) List. monocytogenes PCR (Not Detect) N. meningitidis (PCR) (Not Detect) Proteus species (PCR) (Not Detect) Salmonella (PCR) (Not Detect) Serratia marcescens PCR (Not Detect) Staphylococcus sp PCR (Not Detect) Staph aureus (PCR) (Not Detect) mecA-Methicil Res Gene Streptococcus sp PCR (Not Detect) Group A Strep (PCR) (Not Detect) Strep agalactiae (PCR) (Not Detect) Strep pneumoniae (PCR) (Not Detect) P. aeruginosa (PCR) (Not Detect) Tammie/B-Vanco Res Genes KPC-Carbap Res Gene PCR (Not Detect) 06/09/18 06/09/18 06/10/18 Range/Units 05:29 05:29 05:37 WBC 22.8 H 19.0 H (4.5-11.0) X10^3/uL RBC 3.69 L 3.55 L (4.0-5.2) X10^6/uL Hgb 11.3 L 10.7 L (12.0-16.0) g/dL Hct 33.4 L 31.9 L (36-46) % MCV 90.7 90.0 (80-100) fL MCH 30.8 30.3 (26-34) PG MCHC 33.9 33.6 (30-36) % RDW 13.8 13.9 (11.6-14.8) % Plt Count 151 153 (150-400) X10^3/uL Neut % (Auto) Not Reportable Not Reportable Lymph % (Auto) Not Reportable Not Reportable [place] % (Auto) Not Reportable Not Reportable Eos % (Auto) Not Reportable Not Reportable Baso % (Auto) Not Reportable Not Reportable Neut # (Auto) (2162-2521) /uL Total Counted 100 100 Seg Neutrophils % 62.0 72.0 H (38-70) % Band Neutrophils % 26.0 H 21.0 H (3-7) % Lymphocytes % (Manual) 6.0 L 4.0 L (25-45) % Monocytes % (Manual) 3.0 2.0 (2-11) % Eosinophils % (Manual) 1.0 L (2-4) % Basophils % (Manual) (0-1) % Metamyelocytes % 3.0 H (-0) % Neutrophils # (Manual) 21218 H 45542 H (4606-1246) /uL Toxic Vacuolation Present H RBC Morphology See below Normal morphology Eosinophil Count PT (10.1-12.7) SECONDS INR (0.9-1.3) APTT (26.4-36.2) SECONDS Sodium 143 (137-145) mmol/L Potassium 3.5 (3.4-5.1) mmol/L Chloride 113 H (98-107) mmol/L Carbon Dioxide 17 L (22-32) mmol/L BUN 47 H (7-17) mg/dL Creatinine 1.20 H (0.52-1.04) mg/dL Estimated GFR 43.9 L (>60) mL/min BUN/Creatinine Ratio 39.2 H (6-22) Glucose 89 (80-110) mg/dL Lactate (0.7-2.1) mmol/L Calcium 7.5 L (8.4-10.2) mg/dL Magnesium 1.8 (1.6-2.3) mg/dL Total Bilirubin (0.2-1.3) mg/dL AST (14-36) IU/L ALT (9-52) IU/L Alkaline Phosphatase (38-126) U/L Total Protein (6.3-8.2) g/dL Albumin (3.5-5.0) g/dL Globulin (1.7-4.1) g/dL Albumin/Globulin Ratio (1.0-2.8) Lipase (23-300) U/L Urine Color Urine Appearance Urine pH (4.5-8.0) Ur Specific [place] (1.000-1.035) Urine Protein (Negative) Urine Glucose (UA) (Normal) g/dL Urine Ketones (NEGATIVE) Urine Occult Blood (Negative) Urine Nitrate (Negative) Urine Bilirubin (NEGATIVE) Urine Ictotest (Negative) Urine Urobilinogen (0.2) E.U./dL Ur Leukocyte Esterase (NEGATIVE) Urine RBC (0-5/HPF) Urine WBC (0-5/HPF) Ur Squamous Epith Cells Urine Bacteria (None) Hyaline Casts (None) Ur Culture Indicated? Micro UA Comment Ur Random Sodium (30-90) mmol/L Ur Random Potassium mmol/L Ur Random Phosphorus mg/dL Ur Random Calcium Urine Creatinine mg/dL Date of Stool Aeromonas Cult (Not Detect) Stl C. cayetanensis PCR (Not Detect) Stool Rotavirus (PCR) (Not Detect) Stool Adenovirus (PCR) (Not Detect) Stool Astrovirus (PCR) (Not Detect) Stool Cryptosporidium PCR (Not Detect) Stl E.coli Shiga Tox PCR (Not Detect) St Sh/Enteroin Ecoli PCR (Not Detect) Stool E coli O157 PCR Stl Enterotoxigenic E PCR (Not Detect) Stool EPEC (PCR) (Not Detect) Stl E. histolytica PCR (Not Detect) Stool Giardia Lamblia PCR (Not Detect) Stool Sapovirus (PCR) (Not Detect) Stl P. shigelloides PCR (Not Detect) St Y.enterocolitica PCR (Not Detect) Stool Vibrio (PCR) (Not Detect) Stl Vibrio cholerae PCR (Not Detect) Stl Enteroaggr Ecoli PCR (Not Detect) Stl Norovirus GI/GII PCR (Not Detect) A. baumannii (PCR) (Not Detect) Campylobacter (PCR) (Not Detect) Julissa albicans (PCR) (Not Detect) C. glabrata (PCR) (Not Detect) C. krusei (PCR) (Not Detect) C. parapsilosis (PCR) (Not Detect) C. tropicalis (PCR) (Not Detect) C. difficile Tox (PCR) (Not Detect) Enterobacteriac sp PCR (Not Detect) E. cloacae complex PCR (Not Detect) Enterococcus sp PCR (Not Detect) E. coli (PCR) (Not Detect) H. influenzae (PCR) (Not Detect) Klebsiella oxytoca PCR (Not Detect) Klebsiella pneumoniae (Not Detect) List. monocytogenes PCR (Not Detect) N. meningitidis (PCR) (Not Detect) Proteus species (PCR) (Not Detect) Salmonella (PCR) (Not Detect) Serratia marcescens PCR (Not Detect) Staphylococcus sp PCR (Not Detect) Staph aureus (PCR) (Not Detect) mecA-Methicil Res Gene Streptococcus sp PCR (Not Detect) Group A Strep (PCR) (Not Detect) Strep agalactiae (PCR) (Not Detect) Strep pneumoniae (PCR) (Not Detect) P. aeruginosa (PCR) (Not Detect) Tammie/B-Vanco Res Genes KPC-Carbap Res Gene PCR (Not Detect) 06/10/18 06/11/18 06/11/18 Range/Units 05:37 05:50 05:50 WBC 11.5 H (4.5-11.0) X10^3/uL RBC 3.43 L (4.0-5.2) X10^6/uL Hgb 10.4 L (12.0-16.0) g/dL Hct 30.9 L (36-46) % MCV 89.9 (80-100) fL MCH 30.4 (26-34) PG MCHC 33.8 (30-36) % RDW 14.0 (11.6-14.8) % Plt Count 149 L (150-400) X10^3/uL Neut % (Auto) Not Reportable Lymph % (Auto) Not Reportable [place] % (Auto) Not Reportable Eos % (Auto) Not Reportable Baso % (Auto) Not Reportable Neut # (Auto) (5667-3502) /uL Total Counted 100 Seg Neutrophils % 40.0 (38-70) % Band Neutrophils % 32.0 H (3-7) % Lymphocytes % (Manual) 11.0 L (25-45) % Monocytes % (Manual) 6.0 (2-11) % Eosinophils % (Manual) 2.0 (2-4) % Basophils % (Manual) 5.0 H (0-1) % Metamyelocytes % 4.0 H (-0) % Neutrophils # (Manual) 8280 H (8312-3160) /uL Toxic Vacuolation RBC Morphology Normal morphology Eosinophil Count PT (10.1-12.7) SECONDS INR (0.9-1.3) APTT (26.4-36.2) SECONDS Sodium 144 142 (137-145) mmol/L Potassium 3.7 3.3 L (3.4-5.1) mmol/L Chloride 113 H 110 H (98-107) mmol/L Carbon Dioxide 22 22 (22-32) mmol/L BUN 26 H 14 (7-17) mg/dL Creatinine 0.70 0.60 (0.52-1.04) mg/dL Estimated GFR > 60.0 > 60.0 (>60) mL/min BUN/Creatinine Ratio 37.1 H 23.3 H (6-22) Glucose 110 101 (80-110) mg/dL Lactate (0.7-2.1) mmol/L Calcium 7.9 L 7.9 L (8.4-10.2) mg/dL Magnesium 2.2 2.1 (1.6-2.3) mg/dL Total Bilirubin (0.2-1.3) mg/dL AST (14-36) IU/L ALT (9-52) IU/L Alkaline Phosphatase (38-126) U/L Total Protein (6.3-8.2) g/dL Albumin (3.5-5.0) g/dL Globulin (1.7-4.1) g/dL Albumin/Globulin Ratio (1.0-2.8) Lipase (23-300) U/L Urine Color Urine Appearance Urine pH (4.5-8.0) Ur Specific [place] (1.000-1.035) Urine Protein (Negative) Urine Glucose (UA) (Normal) g/dL Urine Ketones (NEGATIVE) Urine Occult Blood (Negative) Urine Nitrate (Negative) Urine Bilirubin (NEGATIVE) Urine Ictotest (Negative) Urine Urobilinogen (0.2) E.U./dL Ur Leukocyte Esterase (NEGATIVE) Urine RBC (0-5/HPF) Urine WBC (0-5/HPF) Ur Squamous Epith Cells Urine Bacteria (None) Hyaline Casts (None) Ur Culture Indicated? Micro UA Comment Ur Random Sodium (30-90) mmol/L Ur Random Potassium mmol/L Ur Random Phosphorus mg/dL Ur Random Calcium Urine Creatinine mg/dL Date of Stool Aeromonas Cult (Not Detect) Stl C. cayetanensis PCR (Not Detect) Stool Rotavirus (PCR) (Not Detect) Stool Adenovirus (PCR) (Not Detect) Stool Astrovirus (PCR) (Not Detect) Stool Cryptosporidium PCR (Not Detect) Stl E.coli Shiga Tox PCR (Not Detect) St Sh/Enteroin Ecoli PCR (Not Detect) Stool E coli O157 PCR Stl Enterotoxigenic E PCR (Not Detect) Stool EPEC (PCR) (Not Detect) Stl E. histolytica PCR (Not Detect) Stool Giardia Lamblia PCR (Not Detect) Stool Sapovirus (PCR) (Not Detect) Stl P. shigelloides PCR (Not Detect) St Y.enterocolitica PCR (Not Detect) Stool Vibrio (PCR) (Not Detect) Stl Vibrio cholerae PCR (Not Detect) Stl Enteroaggr Ecoli PCR (Not Detect) Stl Norovirus GI/GII PCR (Not Detect) A. baumannii (PCR) (Not Detect) Campylobacter (PCR) (Not Detect) Julissa albicans (PCR) (Not Detect) C. glabrata (PCR) (Not Detect) C. krusei (PCR) (Not Detect) C. parapsilosis (PCR) (Not Detect) C. tropicalis (PCR) (Not Detect) C. difficile Tox (PCR) (Not Detect) Enterobacteriac sp PCR (Not Detect) E. cloacae complex PCR (Not Detect) Enterococcus sp PCR (Not Detect) E. coli (PCR) (Not Detect) H. influenzae (PCR) (Not Detect) Klebsiella oxytoca PCR (Not Detect) Klebsiella pneumoniae (Not Detect) List. monocytogenes PCR (Not Detect) N. meningitidis (PCR) (Not Detect) Proteus species (PCR) (Not Detect) Salmonella (PCR) (Not Detect) Serratia marcescens PCR (Not Detect) Staphylococcus sp PCR (Not Detect) Staph aureus (PCR) (Not Detect) mecA-Methicil Res Gene Streptococcus sp PCR (Not Detect) Group A Strep (PCR) (Not Detect) Strep agalactiae (PCR) (Not Detect) Strep pneumoniae (PCR) (Not Detect) P. aeruginosa (PCR) (Not Detect) Tammie/B-Vanco Res Genes KPC-Carbap Res Gene PCR (Not Detect) 18 18 06/12/18 Range/Units 18:18 05:23 05:23 WBC 9.3 (4.5-11.0) X10^3/uL RBC 3.39 L (4.0-5.2) X10^6/uL Hgb 10.2 L (12.0-16.0) g/dL Hct 30.2 L (36-46) % MCV 89.2 (80-100) fL MCH 30.2 (26-34) PG MCHC 33.9 (30-36) % RDW 13.8 (11.6-14.8) % Plt Count 172 (150-400) X10^3/uL Neut % (Auto) Not Reportable Lymph % (Auto) Not Reportable [place] % (Auto) Not Reportable Eos % (Auto) Not Reportable Baso % (Auto) Not Reportable Neut # (Auto) (1295-5443) /uL Total Counted 100 Seg Neutrophils % 60.0 (38-70) % Band Neutrophils % 10.0 H (3-7) % Lymphocytes % (Manual) 19.0 L (25-45) % Monocytes % (Manual) 11.0 (2-11) % Eosinophils % (Manual) (2-4) % Basophils % (Manual) (0-1) % Metamyelocytes % (-0) % Neutrophils # (Manual) 6510 H (9367-7122) /uL Toxic Vacuolation RBC Morphology Normal morphology Eosinophil Count PT (10.1-12.7) SECONDS INR (0.9-1.3) APTT (26.4-36.2) SECONDS Sodium 143 (137-145) mmol/L Potassium 3.7 (3.4-5.1) mmol/L Chloride 110 H (98-107) mmol/L Carbon Dioxide 23 (22-32) mmol/L BUN 12 (7-17) mg/dL Creatinine 0.60 (0.52-1.04) mg/dL Estimated GFR > 60.0 (>60) mL/min BUN/Creatinine Ratio 20.0 (6-22) Glucose 92 (80-110) mg/dL Lactate 1.2 (0.7-2.1) mmol/L Calcium 7.8 L (8.4-10.2) mg/dL Magnesium (1.6-2.3) mg/dL Total Bilirubin 0.4 (0.2-1.3) mg/dL AST 38 H (14-36) IU/L ALT 28 (9-52) IU/L Alkaline Phosphatase 153 H (38-126) U/L Total Protein 5.0 L (6.3-8.2) g/dL Albumin 2.5 L (3.5-5.0) g/dL Globulin 2.5 (1.7-4.1) g/dL Albumin/Globulin Ratio 1.0 (1.0-2.8) Lipase (23-300) U/L Urine Color Urine Appearance Urine pH (4.5-8.0) Ur Specific [place] (1.000-1.035) Urine Protein (Negative) Urine Glucose (UA) (Normal) g/dL Urine Ketones (NEGATIVE) Urine Occult Blood (Negative) Urine Nitrate (Negative) Urine Bilirubin (NEGATIVE) Urine Ictotest (Negative) Urine Urobilinogen (0.2) E.U./dL Ur Leukocyte Esterase (NEGATIVE) Urine RBC (0-5/HPF) Urine WBC (0-5/HPF) Ur Squamous Epith Cells Urine Bacteria (None) Hyaline Casts (None) Ur Culture Indicated? Micro UA Comment Ur Random Sodium (30-90) mmol/L Ur Random Potassium mmol/L Ur Random Phosphorus mg/dL Ur Random Calcium Urine Creatinine mg/dL Date of Stool Aeromonas Cult (Not Detect) Stl C. cayetanensis PCR (Not Detect) Stool Rotavirus (PCR) (Not Detect) Stool Adenovirus (PCR) (Not Detect) Stool Astrovirus (PCR) (Not Detect) Stool Cryptosporidium PCR (Not Detect) Stl E.coli Shiga Tox PCR (Not Detect) St Sh/Enteroin Ecoli PCR (Not Detect) Stool E coli O157 PCR Stl Enterotoxigenic E PCR (Not Detect) Stool EPEC (PCR) (Not Detect) Stl E. histolytica PCR (Not Detect) Stool Giardia Lamblia PCR (Not Detect) Stool Sapovirus (PCR) (Not Detect) Stl P. shigelloides PCR (Not Detect) St Y.enterocolitica PCR (Not Detect) Stool Vibrio (PCR) (Not Detect) Stl Vibrio cholerae PCR (Not Detect) Stl Enteroaggr Ecoli PCR (Not Detect) Stl Norovirus GI/GII PCR (Not Detect) A. baumannii (PCR) (Not Detect) Campylobacter (PCR) (Not Detect) Julissa albicans (PCR) (Not Detect) C. glabrata (PCR) (Not Detect) C. krusei (PCR) (Not Detect) C. parapsilosis (PCR) (Not Detect) C. tropicalis (PCR) (Not Detect) C. difficile Tox (PCR) (Not Detect) Enterobacteriac sp PCR (Not Detect) E. cloacae complex PCR (Not Detect) Enterococcus sp PCR (Not Detect) E. coli (PCR) (Not Detect) H. influenzae (PCR) (Not Detect) Klebsiella oxytoca PCR (Not Detect) Klebsiella pneumoniae (Not Detect) List. monocytogenes PCR (Not Detect) N. meningitidis (PCR) (Not Detect) Proteus species (PCR) (Not Detect) Salmonella (PCR) (Not Detect) Serratia marcescens PCR (Not Detect) Staphylococcus sp PCR (Not Detect) Staph aureus (PCR) (Not Detect) mecA-Methicil Res Gene Streptococcus sp PCR (Not Detect) Group A Strep (PCR) (Not Detect) Strep agalactiae (PCR) (Not Detect) Strep pneumoniae (PCR) (Not Detect) P. aeruginosa (PCR) (Not Detect) Tammie/B-Vanco Res Genes KPC-Carbap Res Gene PCR (Not Detect) 06/12/18 06/13/18 06/13/18 Range/Units Unknown 05:37 05:37 WBC 11.4 H (4.5-11.0) X10^3/uL RBC 3.58 L (4.0-5.2) X10^6/uL Hgb 10.4 L (12.0-16.0) g/dL Hct 32.0 L (36-46) % MCV 89.5 (80-100) fL MCH 29.0 (26-34) PG MCHC 32.5 (30-36) % RDW 14.0 (11.6-14.8) % Plt Count 237 (150-400) X10^3/uL Neut % (Auto) Not Reportable Lymph % (Auto) Not Reportable [place] % (Auto) Not Reportable Eos % (Auto) Not Reportable Baso % (Auto) Not Reportable Neut # (Auto) (0221-5245) /uL Total Counted 100 Seg Neutrophils % 74.0 H (38-70) % Band Neutrophils % 8.0 H (3-7) % Lymphocytes % (Manual) 11.0 L (25-45) % Monocytes % (Manual) 7.0 (2-11) % Eosinophils % (Manual) (2-4) % Basophils % (Manual) (0-1) % Metamyelocytes % (-0) % Neutrophils # (Manual) 9348 H (1877-4365) /uL Toxic Vacuolation RBC Morphology Normal morphology Eosinophil Count PT (10.1-12.7) SECONDS INR (0.9-1.3) APTT (26.4-36.2) SECONDS Sodium 143 (137-145) mmol/L Potassium 3.4 (3.4-5.1) mmol/L Chloride 109 H (98-107) mmol/L Carbon Dioxide 24 (22-32) mmol/L BUN 9 (7-17) mg/dL Creatinine 0.50 L (0.52-1.04) mg/dL Estimated GFR > 60.0 (>60) mL/min BUN/Creatinine Ratio 18.0 (6-22) Glucose 97 (80-110) mg/dL Lactate (0.7-2.1) mmol/L Calcium 7.7 L (8.4-10.2) mg/dL Magnesium (1.6-2.3) mg/dL Total Bilirubin 0.5 (0.2-1.3) mg/dL AST 48 H (14-36) IU/L ALT 31 (9-52) IU/L Alkaline Phosphatase 134 H (38-126) U/L Total Protein 5.4 L (6.3-8.2) g/dL Albumin 2.7 L (3.5-5.0) g/dL Globulin 2.7 (1.7-4.1) g/dL Albumin/Globulin Ratio 1.0 (1.0-2.8) Lipase (23-300) U/L Urine Color Urine Appearance Urine pH (4.5-8.0) Ur Specific [place] (1.000-1.035) Urine Protein (Negative) Urine Glucose (UA) (Normal) g/dL Urine Ketones (NEGATIVE) Urine Occult Blood (Negative) Urine Nitrate (Negative) Urine Bilirubin (NEGATIVE) Urine Ictotest (Negative) Urine Urobilinogen (0.2) E.U./dL Ur Leukocyte Esterase (NEGATIVE) Urine RBC (0-5/HPF) Urine WBC (0-5/HPF) Ur Squamous Epith Cells Urine Bacteria (None) Hyaline Casts (None) Ur Culture Indicated? Micro UA Comment Ur Random Sodium (30-90) mmol/L Ur Random Potassium mmol/L Ur Random Phosphorus mg/dL Ur Random Calcium Urine Creatinine mg/dL Date of Stool Aeromonas Cult (Not Detect) Stl C. cayetanensis PCR (Not Detect) Stool Rotavirus (PCR) (Not Detect) Stool Adenovirus (PCR) (Not Detect) Stool Astrovirus (PCR) (Not Detect) Stool Cryptosporidium PCR (Not Detect) Stl E.coli Shiga Tox PCR (Not Detect) St Sh/Enteroin Ecoli PCR (Not Detect) Stool E coli O157 PCR Stl Enterotoxigenic E PCR (Not Detect) Stool EPEC (PCR) (Not Detect) Stl E. histolytica PCR (Not Detect) Stool Giardia Lamblia PCR (Not Detect) Stool Sapovirus (PCR) (Not Detect) Stl P. shigelloides PCR (Not Detect) St Y.enterocolitica PCR (Not Detect) Stool Vibrio (PCR) (Not Detect) Stl Vibrio cholerae PCR (Not Detect) Stl Enteroaggr Ecoli PCR (Not Detect) Stl Norovirus GI/GII PCR (Not Detect) A. baumannii (PCR) Not detected (Not Detect) Campylobacter (PCR) (Not Detect) Julissa albicans (PCR) Not detected (Not Detect) C. glabrata (PCR) Not detected (Not Detect) C. krusei (PCR) Not detected (Not Detect) C. parapsilosis (PCR) Not detected (Not Detect) C. tropicalis (PCR) Not detected (Not Detect) C. difficile Tox (PCR) (Not Detect) Enterobacteriac sp PCR Detected H (Not Detect) E. cloacae complex PCR Not detected (Not Detect) Enterococcus sp PCR Not detected (Not Detect) E. coli (PCR) Detected H (Not Detect) H. influenzae (PCR) Not detected (Not Detect) Klebsiella oxytoca PCR Not detected (Not Detect) Klebsiella pneumoniae Not detected (Not Detect) List. monocytogenes PCR Not detected (Not Detect) N. meningitidis (PCR) Not detected (Not Detect) Proteus species (PCR) Not detected (Not Detect) Salmonella (PCR) (Not Detect) Serratia marcescens PCR Not detected (Not Detect) Staphylococcus sp PCR Not detected (Not Detect) Staph aureus (PCR) Not detected (Not Detect) mecA-Methicil Res Gene Not detected Streptococcus sp PCR Not detected (Not Detect) Group A Strep (PCR) Not detected (Not Detect) Strep agalactiae (PCR) Not detected (Not Detect) Strep pneumoniae (PCR) Not detected (Not Detect) P. aeruginosa (PCR) Not detected (Not Detect) Tammie/B-Vanco Res Genes Not detected KPC-Carbap Res Gene PCR Not detected (Not Detect) 06/14/18 06/14/18 Range/Units 05:28 05:28 WBC 10.1 (4.5-11.0) X10^3/uL RBC 3.56 L (4.0-5.2) X10^6/uL Hgb 10.5 L (12.0-16.0) g/dL Hct 32.0 L (36-46) % MCV 90.0 (80-100) fL MCH 29.5 (26-34) PG MCHC 32.8 (30-36) % RDW 13.9 (11.6-14.8) % Plt Count 321 (150-400) X10^3/uL Neut % (Auto) 70.8 Lymph % (Auto) 17.7 L [place] % (Auto) 9.5 Eos % (Auto) 1.6 L Baso % (Auto) 0.4 Neut # (Auto) 7100 H (9872-7977) /uL Total Counted Seg Neutrophils % (38-70) % Band Neutrophils % (3-7) % Lymphocytes % (Manual) (25-45) % Monocytes % (Manual) (2-11) % Eosinophils % (Manual) (2-4) % Basophils % (Manual) (0-1) % Metamyelocytes % (-0) % Neutrophils # (Manual) (8344-0593) /uL Toxic Vacuolation RBC Morphology Eosinophil Count PT (10.1-12.7) SECONDS INR (0.9-1.3) APTT (26.4-36.2) SECONDS Sodium 145 (137-145) mmol/L Potassium 3.5 (3.4-5.1) mmol/L Chloride 107 (98-107) mmol/L Carbon Dioxide 29 (22-32) mmol/L BUN 10 (7-17) mg/dL Creatinine 0.60 (0.52-1.04) mg/dL Estimated GFR > 60.0 (>60) mL/min BUN/Creatinine Ratio 16.7 (6-22) Glucose 95 (80-110) mg/dL Lactate (0.7-2.1) mmol/L Calcium 8.0 L (8.4-10.2) mg/dL Magnesium (1.6-2.3) mg/dL Total Bilirubin 0.3 (0.2-1.3) mg/dL AST 32 (14-36) IU/L ALT 25 (9-52) IU/L Alkaline Phosphatase 115 (38-126) U/L Total Protein 5.4 L (6.3-8.2) g/dL Albumin 2.6 L (3.5-5.0) g/dL Globulin 2.8 (1.7-4.1) g/dL Albumin/Globulin Ratio 0.9 L (1.0-2.8) Lipase (23-300) U/L Urine Color Urine Appearance Urine pH (4.5-8.0) Ur Specific [place] (1.000-1.035) Urine Protein (Negative) Urine Glucose (UA) (Normal) g/dL Urine Ketones (NEGATIVE) Urine Occult Blood (Negative) Urine Nitrate (Negative) Urine Bilirubin (NEGATIVE) Urine Ictotest (Negative) Urine Urobilinogen (0.2) E.U./dL Ur Leukocyte Esterase (NEGATIVE) Urine RBC (0-5/HPF) Urine WBC (0-5/HPF) Ur Squamous Epith Cells Urine Bacteria (None) Hyaline Casts (None) Ur Culture Indicated? Micro UA Comment Ur Random Sodium (30-90) mmol/L Ur Random Potassium mmol/L Ur Random Phosphorus mg/dL Ur Random Calcium Urine Creatinine mg/dL Date of Stool Aeromonas Cult (Not Detect) Stl C. cayetanensis PCR (Not Detect) Stool Rotavirus (PCR) (Not Detect) Stool Adenovirus (PCR) (Not Detect) Stool Astrovirus (PCR) (Not Detect) Stool Cryptosporidium PCR (Not Detect) Stl E.coli Shiga Tox PCR (Not Detect) St Sh/Enteroin Ecoli PCR (Not Detect) Stool E coli O157 PCR Stl Enterotoxigenic E PCR (Not Detect) Stool EPEC (PCR) (Not Detect) Stl E. histolytica PCR (Not Detect) Stool Giardia Lamblia PCR (Not Detect) Stool Sapovirus (PCR) (Not Detect) Stl P. shigelloides PCR (Not Detect) St Y.enterocolitica PCR (Not Detect) Stool Vibrio (PCR) (Not Detect) Stl Vibrio cholerae PCR (Not Detect) Stl Enteroaggr Ecoli PCR (Not Detect) Stl Norovirus GI/GII PCR (Not Detect) A. baumannii (PCR) (Not Detect) Campylobacter (PCR) (Not Detect) Julissa albicans (PCR) (Not Detect) C. glabrata (PCR) (Not Detect) C. krusei (PCR) (Not Detect) C. parapsilosis (PCR) (Not Detect) C. tropicalis (PCR) (Not Detect) C. difficile Tox (PCR) (Not Detect) Enterobacteriac sp PCR (Not Detect) E. cloacae complex PCR (Not Detect) Enterococcus sp PCR (Not Detect) E. coli (PCR) (Not Detect) H. influenzae (PCR) (Not Detect) Klebsiella oxytoca PCR (Not Detect) Klebsiella pneumoniae (Not Detect) List. monocytogenes PCR (Not Detect) N. meningitidis (PCR) (Not Detect) Proteus species (PCR) (Not Detect) Salmonella (PCR) (Not Detect) Serratia marcescens PCR (Not Detect) Staphylococcus sp PCR (Not Detect) Staph aureus (PCR) (Not Detect) mecA-Methicil Res Gene Streptococcus sp PCR (Not Detect) Group A Strep (PCR) (Not Detect) Strep agalactiae (PCR) (Not Detect) Strep pneumoniae (PCR) (Not Detect) P. aeruginosa (PCR) (Not Detect) Tammie/B-Vanco Res Genes KPC-Carbap Res Gene PCR (Not Detect) Urine Dip Bedside Urine Glucose Negative Bedside Urine Bilirubin + 1 Bedside Urine Ketone - Negative Urine Specific [place] 1.030 Bedside Urine Occult Blood +++ Bedside Urine pH 5.5 Bedside Urine Protein ++ 100 Bedside Urine Urobilinogen - Negative Bedside Urine Nitrite - Negative Bedside Urine Leukocytes ++ 125 Esterase Discharge Plan Departure Patient Disposition: Admitted As Inpatient Clinical Impression: Dehydration, Acute renal failure, Pyelonephritis Discharge Date/Time: 06/08/18 20:12 Interventions: ED Discharge Assessment Last Done: 06/08/18 20:07 Instructions: DI for Kidney Infection, Methocarbamol, Gabapentin, Levofloxacin Referrals: Coleman Castellanos MD [Primary Care Provider] - Admit Date/Time: 06/08/18 19:49 Admit Provider: Marisol Degroot
[2018-06-08] MEDS: ONDANSETRON 4 MG/2 ML INJ IV ×2 (16:03→20:05)
[2018-06-08] MEDS: SODIUM CHLORIDE 0.9% 1,000 ML 1000 ML IV ×2 (16:05→16:47)
[2018-06-08 16:16] LABS: Hematocrit 37.9 % (36-46); Hemoglobin 12.8 g/dL (12.0-16.0); Mean Corpuscular HGB Conc 33.7 % (30-36); Mean Corpuscular Hemoglobin 30.2 PG (26-34); Mean Corpuscular Volume 89.6 fL (80-100); Platelet Count 191 X10^3/uL (150-400); Red Blood Cell Count 4.23 X10^6/uL (4.0-5.2); Red Cell Distribution Width 13.6 % (11.6-14.8)
[2018-06-08 16:27] LABS: Add Manual Diff / Slide Review YES; INR 1.5 (0.9-1.3); Prothrombin Time 17.1 SECONDS (10.1-12.7); White Blood Cell Count 33.3 X10^3/uL (4.5-11.0)
[2018-06-08 16:30] LABS: PTT Partial Thromboplastin Tim 36 SECONDS (26.4-36.2)
[2018-06-08 16:32] LABS: Alanine Aminotransferase 27 IU/L (9-52); Albumin 3.9 g/dL (3.5-5.0); Albumin Globulin Ratio 1.3 (1.0-2.8); Alkaline Phosphatase 107 U/L (38-126); Aspartate Aminotransferase 156 IU/L (14-36); BUN Creatinine Ratio 22.9 (6-22); Bilirubin Total 0.7 mg/dL (0.2-1.3); Blood Urea Nitrogen 48 mg/dL (7-17); Calcium 8.7 mg/dL (8.4-10.2); Carbon Dioxide 23 mmol/L (22-32); Chloride 103 mmol/L (98-107); Glucose 117 mg/dL (80-110); HEMOLYSIS < 15 (0-50); Lipase 23 U/L (23-300); Sodium 142 mmol/L (137-145); Total Protein 6.9 g/dL (6.3-8.2)
[2018-06-08 16:33] LABS: Neutrophils Absolute Manual 29970 /uL (3000-5900); Total Cells Counted 100
[2018-06-08 16:34] LABS: RBC Morphology Normal Morphology
[2018-06-08 17:15] LABS: Lactate (Lactic Acid) 1.7 mmol/L (0.7-2.1)
[2018-06-08 17:26] VITALS: BP 92/47; PULSE 95; RESP 20; O2SAT 97
[2018-06-08 17:31] LABS: Adenovirus F 40/41 Not Detected (Not Detect); Astrovirus Not Detected (Not Detect); Campylobacter Not Detected (Not Detect); Clostridium difficile toxin AB Not Detected (Not Detect); Cryptosporidium Not Detected (Not Detect); Cyclospora cayetanensis Not Detected (Not Detect); Entamoeba histolytica Not Detected (Not Detect); Enteroaggregative E.coli Not Detected (Not Detect); Enteropathogenic E.coli Not Detected (Not Detect); Enterotoxigenic E.coli It/st Not Detected (Not Detect); Giardia lamblia Not Detected (Not Detect); Norovirus GI/GII Not Detected (Not Detect); Plesiomonsa shigelloides Not Detected (Not Detect); Salmonella Not Detected (Not Detect); Shiga-like toxin-prod E.coli Not Detected (Not Detect); Shigella/Enteroinvasive E.coli Not Detected (Not Detect); Vibrio Not Detected (Not Detect); Vibrio cholerae Not Detected (Not Detect); Yersinia enterocolitica Not Detected (Not Detect)
[2018-06-08 17:32] LABS: Rotavirus A Not Detected (Not Detect); Sapovirus Not Detected (Not Detect)
--- NOTE | 2018-06-08 17:51 | DI.US.S_ITS ---
PROCEDURE: US ABDOMEN COMPLETE INDICATIONS: elevated WBCs, LFTs, vomiting TECHNIQUE: Real-time scanning was performed of the abdominal and retroperitoneal organs, with image documentation. COMPARISON: [facility], US, ABDOMEN COMPLETE, 06/29/2013, 8:35. FINDINGS: Liver: Liver is normal in size and homogeneous in echotexture. Gallbladder: There is a 2.5 cm gallstone. The gallbladder wall measures 3 mm, pericholecystic fluid or sonographic Samano's sign. Biliary ducts: Intrahepatic bile ducts are non-dilated. Extrahepatic bile duct caliber measures 5 mm. Normal is 6-7 mm or less in diameter, or 10 mm or less post-cholecystectomy. Pancreas: Visualized portions of the pancreas are sonographically normal. Spleen: Spleen is normal in size and homogeneous in echotexture. Kidneys: Kidneys are normal in size and echotexture. Right kidney measures 13.8 cm long; left kidney measures 13.6 cm long. No hydronephrosis or nephrolithiasis. No solid masses. There are renal calculi bilaterally measuring up to 9 mm in the right kidney and 10 mm in the left kidney. Aorta: Visualized aorta is normal in caliber at less than 3 cm. Iliacs: Proximal common iliac arteries are normal in caliber at less than 2.5 cm. IVC: Intrahepatic inferior vena cava is patent. Miscellaneous: No free abdominal fluid. IMPRESSION: 1. Cholelithiasis. The gallbladder wall is at the upper limit of normal. No pericholecystic fluid collection or Samano's sign. 2. Nephrolithiasis bilaterally. No hydronephrosis. Dictated by: Chilo Sprague M.D. on 06/08/2018 at 19:20 Approved by: Chilo Sprague M.D. on 06/08/2018 at 19:24
[2018-06-08 17:58] LABS: Ictotest Urine Negative (Negative)
[2018-06-08 18:04] LABS: RBC Urine 30-100/HPF (0-5/HPF)
[2018-06-08 18:05] LABS: Bacteria Urine Many (>30); Culture Indicated Urine Specimen Cultured; Hyaline Casts Urine 1-5/LPF; Squamous Epithelial Cell Urine 1-5 /HPF; WBC Urine >100/HPF (0-5/HPF)
[2018-06-08] MEDS: levoFLOXacin 250 MG/50 ML PIGGYBACK 50 MG IV (19:22)
[2018-06-08] MEDS: ACETAMINOPHEN 325 MG TABLET 650 MG PO (20:04)
[2018-06-08 20:07] VITALS: BP 106/54; PULSE 103; RESP 20; O2SAT 98
[2018-06-08 20:13] VITALS: BMI 32.7
--- NOTE | 2018-06-08 20:33 | PC.NURSE ---
Pt admitted to from ER. Transferred via stretcher, ambulated to bed. Alert/oriented. Pain 01/03 in back, reports this has been an issue since falling 2 weeks ago. Nausea present and pt dry heaving. Recently medicated in ER with zofran/also tylenol. Oriented to room and call light. Pt verbalized understanding to call staff before getting out of bed. Bed alarm on due to recent fall. MD notified by shift RN of pt arrival.
[2018-06-08 20:55] VITALS: BP 107/62; PULSE 100; RESP 17; TEMP 36.5; O2SAT 97
[2018-06-08] MEDS: SODIUM CHLORIDE 0.9% 1,000 ML 100 ML IV (21:09)
--- NOTE | 2018-06-08 21:46 | PM.HP.1 ---
History of Present Illness Chief complaint: SENT FOR FLUIDS Narrative: The patient is a 70-year-old female with PMH significant for kidney disease, recurrent pyelonephritis, recurrent UTIs, GERD, HLD, and osteopenia. Patient presented to the ED on 06/08/2018 upon recommendations from her PCP. Patient was seen in the outpatient clinic for sudden, acute, onset of nausea and vomiting. Specifically, symptoms noted in the afternoon on 06/07/2018. Since onset of symptoms and presentation to the ED, patient was told that she had 20-30 episodes of vomiting. Presence of blood in the vomitus is unknown. Associated symptoms include disorientation. Patient notes that she has no recollection of excessive vomiting, however she was told that she was confused. This morning patient developed watery diarrhea. She denies fever, chills, chest pain, palpitations, dizziness, lightheadedness, syncopal events, peripheral edema, abdominal pain, frequency, urgency, or suprapubic discomfort. She does note a 2 day history of right flank pain, hematuria, and decrease in urine output. Describes urine as dark. Patient reports having 3-4 episodes of UTIs annually. It is worth mentioning that patient sustained a fall 2 weeks ago (tripped over an object), has been having bilateral lower lumbar discomfort w/o lower extremity weakness or paresthesia. Patient reports that she was instructed by her outpatient clinic to take 400 mg of ibuprofen twice daily, which she has been doing for the past two weeks. To make a note, the pain patient is experiencing in the past 2 days is specifically in the right flank area. Also, patient's granddaughter was experiencing flu-like symptoms with diarrhea 2-3 weeks ago. With the exception of a fall, patient herself denies recent illness. No prior recent history of strep throat. In the past 24 hr notes sinus drainage and minor cough without significant phlegm production. Patient History Medical History Allergic rhinitis (Chronic) Chronic GERD (Chronic) Elevated lipids (Chronic) History of recurrent UTI (urinary tract infection) (Chronic) Osteopenia (Chronic) Recurrent pyelonephritis (Chronic) Surgical History Status post breast biopsy (Resolved) Family & Social History Social History: household members spouse, grandaughter Prior Living Arrangements House Safety & Behavioral: Feels Safe in Current Yes Environment Been Physically Hurt or No Threatened By a Person Suicidal Ideation Description None Tobacco & Substance use: Smoking Status Never smoker alcohol intake current alcohol intake frequency holiday/special occasion Substance Use Type does not use Meds Home Medications Medication Instructions Recorded Confirmed Type ibuprofen 600 mg PO TID 06/08/18 06/08/18 History naproxen sodium 440 mg PO BID 06/08/18 06/08/18 History Allergies Allergy/AdvReac Type Severity Reaction Status Date / Time Penicillins Allergy Verified 06/08/18 15:02 Sulfa (Sulfonamide Allergy Verified 06/08/18 15:02 Antibiotics) Review of Systems Review of Systems All systems reviewed & are unremarkable except as noted in HPI and below Exam Vital Signs (past 8 hours): - 06/08/18 15:02 06/08/18 17:26 06/08/18 20:07 Temperature 96.6 F L Pulse Rate 94 H 95 H 103 H Respiratory Rate 16 20 20 Blood Pressure 89/57 L 106/54 L Blood Pressure [Right Arm] 92/47 L Pulse Oximetry 97 97 98 06/08/18 20:55 Temperature 97.7 F Pulse Rate 100 H Respiratory Rate 17 Blood Pressure 107/62 Blood Pressure [Right Arm] Pulse Oximetry 97 Oxygen Delivery Method Room Air Narrative Exam Narrative: Constitutional: NAD, obese, pleasant elderly female Neurologic: AOx3, no focal neurological deficits, no unilateral weakness, no speech deficits, follows commands, able to provide adequate recall of history and symptoms Head: NC, AT Eyes: Pupils equal and reactive, gaze conjugate, conjunctiva is not injected Ears: external ears normal, no otorrhea Nose: external nose normal, no rhinorrhea or epistaxis Throat: dry MM, oropharynx w/o exudate, throat is not ejected, no lymphadenopathy Neck: no masses, cervical lymphadenopathy, or JVD Chest / Respiratory: equal chest rise, unlabored respiratory effort, no tachypnea, CTAB Heart / CV: S1S2, no murmur Abdomen / GI: round, NT, ND, + BS, no organomegaly : no suprapubic tenderness, Rigth CVA present Peripheral / Vascular: warm to touch, DP and PT pulses palpable, no edema Musc: full ROM of upper and lower extremities, adequate muscle tone and bulk Skin: no ecchymosis or suspicious lesions / ulcers Objective Labs Result Diagrams: 06/08/18 15:58 06/08/18 15:58 Labs: Laboratory Results - last 24 hr 06/08/18 06/08/18 06/08/18 15:20 15:58 15:58 WBC 33.3 H* RBC 4.23 Hgb 12.8 Hct 37.9 MCV 89.6 MCH 30.2 MCHC 33.7 RDW 13.6 Plt Count 191 Neut % (Auto) Not Reportable Lymph % (Auto) Not Reportable Ritchie % (Auto) Not Reportable Eos % (Auto) Not Reportable Baso % (Auto) Not Reportable Total Counted 100 Seg Neutrophils % 61.0 Band Neutrophils % 29.0 H Lymphocytes % (Manual) 5.0 L Monocytes % (Manual) 3.0 Metamyelocytes % 2.0 H Neutrophils # (Manual) 13711 H RBC Morphology Normal morphology PT 17.1 H INR 1.5 H APTT 36 Sodium Potassium Chloride Carbon Dioxide BUN Creatinine Estimated GFR BUN/Creatinine Ratio Glucose Lactate Calcium Total Bilirubin AST ALT Alkaline Phosphatase Total Protein Albumin Globulin Albumin/Globulin Ratio Lipase Urine Ictotest Urine RBC Urine WBC Ur Squamous Epith Cells Urine Bacteria Hyaline Casts Ur Culture Indicated? Micro UA Comment Stool Aeromonas Cult Awaiting culture res Stl C. cayetanensis PCR Not detected Stool Rotavirus (PCR) Not detected Stool Adenovirus (PCR) Not detected Stool Astrovirus (PCR) Not detected Stool Cryptosporidium PCR Not detected Stl E.coli Shiga Tox PCR Not detected St Sh/Enteroin Ecoli PCR Not detected Stool E coli O157 PCR Not Reportable Stl Enterotoxigenic E PCR Not detected Stool EPEC (PCR) Not detected Stl E. histolytica PCR Not detected Stool Giardia Lamblia PCR Not detected Stool Sapovirus (PCR) Not detected Stl P. shigelloides PCR Not detected St Y.enterocolitica PCR Not detected Stool Vibrio (PCR) Not detected Stl Vibrio cholerae PCR Not detected Stl Enteroaggr Ecoli PCR Not detected Stl Norovirus GI/GII PCR Not detected Campylobacter (PCR) Not detected C. difficile Tox (PCR) Not detected Salmonella (PCR) Not detected 06/08/18 06/08/18 06/08/18 15:58 16:55 17:42 WBC RBC Hgb Hct MCV MCH MCHC RDW Plt Count Neut % (Auto) Lymph % (Auto) Ritchie % (Auto) Eos % (Auto) Baso % (Auto) Total Counted Seg Neutrophils % Band Neutrophils % Lymphocytes % (Manual) Monocytes % (Manual) Metamyelocytes % Neutrophils # (Manual) RBC Morphology PT INR APTT Sodium 142 Potassium 4.0 Chloride 103 Carbon Dioxide 23 BUN 48 H Creatinine 2.10 H Estimated GFR 23.0 L BUN/Creatinine Ratio 22.9 H Glucose 117 H Lactate 1.7 Calcium 8.7 Total Bilirubin 0.7 AST 156 H ALT 27 Alkaline Phosphatase 107 Total Protein 6.9 Albumin 3.9 Globulin 3.0 Albumin/Globulin Ratio 1.3 Lipase 23 Urine Ictotest Urine RBC 30-100/hpf H Urine WBC >100/hpf H Ur Squamous Epith Cells 1-5 /hpf Urine Bacteria Many (>30) H Hyaline Casts 1-5/lpf Ur Culture Indicated? Specimen cultured Micro UA Comment Not Reportable Stool Aeromonas Cult Stl C. cayetanensis PCR Stool Rotavirus (PCR) Stool Adenovirus (PCR) Stool Astrovirus (PCR) Stool Cryptosporidium PCR Stl E.coli Shiga Tox PCR St Sh/Enteroin Ecoli PCR Stool E coli O157 PCR Stl Enterotoxigenic E PCR Stool EPEC (PCR) Stl E. histolytica PCR Stool Giardia Lamblia PCR Stool Sapovirus (PCR) Stl P. shigelloides PCR St Y.enterocolitica PCR Stool Vibrio (PCR) Stl Vibrio cholerae PCR Stl Enteroaggr Ecoli PCR Stl Norovirus GI/GII PCR Campylobacter (PCR) C. difficile Tox (PCR) Salmonella (PCR) 06/08/18 17:42 WBC RBC Hgb Hct MCV MCH MCHC RDW Plt Count Neut % (Auto) Lymph % (Auto) Ritchie % (Auto) Eos % (Auto) Baso % (Auto) Total Counted Seg Neutrophils % Band Neutrophils % Lymphocytes % (Manual) Monocytes % (Manual) Metamyelocytes % Neutrophils # (Manual) RBC Morphology PT INR APTT Sodium Potassium Chloride Carbon Dioxide BUN Creatinine Estimated GFR BUN/Creatinine Ratio Glucose Lactate Calcium Total Bilirubin AST ALT Alkaline Phosphatase Total Protein Albumin Globulin Albumin/Globulin Ratio Lipase Urine Ictotest Negative Urine RBC Urine WBC Ur Squamous Epith Cells Urine Bacteria Hyaline Casts Ur Culture Indicated? Micro UA Comment Stool Aeromonas Cult Stl C. cayetanensis PCR Stool Rotavirus (PCR) Stool Adenovirus (PCR) Stool Astrovirus (PCR) Stool Cryptosporidium PCR Stl E.coli Shiga Tox PCR St Sh/Enteroin Ecoli PCR Stool E coli O157 PCR Stl Enterotoxigenic E PCR Stool EPEC (PCR) Stl E. histolytica PCR Stool Giardia Lamblia PCR Stool Sapovirus (PCR) Stl P. shigelloides PCR St Y.enterocolitica PCR Stool Vibrio (PCR) Stl Vibrio cholerae PCR Stl Enteroaggr Ecoli PCR Stl Norovirus GI/GII PCR Campylobacter (PCR) C. difficile Tox (PCR) Salmonella (PCR) Assessment & Plan Plan: Assessment/Plan Narrative: Pyelonephritis Low grade temp 100.4F, nausea, vomiting, right flank pain, leukocytosis UA dipstick in ED suggestive of UTI. Hematuria reported, per home observation Received 250 mg IV levofloxacin - abnormal spot UA in ED, urine cx pending - continue levofloxacin IV per renal dosing which is Q48H, CrCl 13 - supportive care, assess for urine retention - CBC, BMP, Mg daily x3 days, then re-evaluate need for daily lab HENRY on CKD, baseline renal fx is not known CrCl 13, sCr 2.1. No s/s of uremia. In the setting of volume depletion and use of ibuprofen No severe e-lyte derangement on presentation. 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 Temp elevated to 100.4F (not sufficient to meet sepsis criteria). Lactate 1.7, WNL. Organ dysfunction, ie HENRY. - urine cx pending Intractable nausea and vomiting Sequela of STENOTYPE MACHINE OPERATOR vs upper respiratory or GI pathology - NPO, may advance diet to clear liquids in a.m. - IVF - Zofran, compazine prn Intractable diarrhea, no episodes since admission to the acute care floor No melena or hematochezia. - stool culture pending - acute GI panel negative for viral pathology, Campylobacter, Salmonella, and C. diff potentially induced by acute NSAID use / overuse Hematuria, Hgb 12.8 Hemodynamically stable. No acute s/s of blood loss. Routine use of NSAIDs. - Trend Hgb w/ am CBC - check for fecal occult blood Quality VTE Deep Vein Thrombosis/Pulmonary Embolism Present on Admission: No
[2018-06-08 23:35] VITALS: O2SAT 98
[2018-06-09] VITALS (11 sets, daily range): BP systolic 88–154; BP diastolic 49–77; PULSE 87–124; RESP 16–18; TEMP 36.2–37.2; O2SAT 93–97
[2018-06-09] MEDS: SODIUM CHLORIDE 0.9% 100 ML 1000 ML IV (00:29)
[2018-06-09] MEDS: PROCHLORPERAZINE 10 MG/2 ML VIAL 5 MG IV (02:14)
[2018-06-09] MEDS: ONDANSETRON 4 MG/2 ML INJ IV (03:16)
--- NOTE | 2018-06-09 04:01 | PC.NURSE ---
pt had a low BP at the beginning of the shift 88/51, gave 1L bolus BP up 90/54, pt asymptomatic. Later on she developed some nausea, administered compazine, but it didn't work. Administered zofran, pt denied n/v. pt had some diarrhea, guaiac positive.
[2018-06-09] MEDS: fentaNYL 100 MCG/2 ML INJ 25 MCG IV (04:52)
[2018-06-09 05:33] LABS: Appearance Urine UA SL CLOUDY; Bilirubin Urine UA NEGATIVE (NEGATIVE); Color Urine UA YELLOW; Glucose Urine UA NEGATIVE (Normal); Ketones Urine UA TRACE (NEGATIVE); Leukocyte Esterase Urine UA 1+ (NEGATIVE); Nitrite Urine UA NEGATIVE (Negative); Occult Blood Urine UA 3+ (Negative); Protein Urine UA 2+ (Negative); Urobilinogen Urine UA 0.2 E.U./dL (0.2)
[2018-06-09 05:43] LABS: RBC Urine 1-5/HPF (0-5/HPF); Squamous Epithelial Cell Urine 0-1 /HPF; WBC Urine 30-100/HPF (0-5/HPF)
[2018-06-09 05:44] LABS: Bacteria Urine Moderate (10-30)
[2018-06-09 05:45] LABS: Culture Indicated Urine Specimen Cultured
[2018-06-09 05:59] LABS: BUN Creatinine Ratio 39.2 (6-22); Blood Urea Nitrogen 47 mg/dL (7-17); Calcium 7.5 mg/dL (8.4-10.2); Carbon Dioxide 17 mmol/L (22-32); Chloride 113 mmol/L (98-107); Estimated Glomerular Filt Rate 43.9 mL/min (>60); Glucose 89 mg/dL (80-110); HEMOLYSIS < 15 (0-50); Magnesium 1.8 mg/dL (1.6-2.3); Potassium 3.5 mmol/L (3.4-5.1); Sodium 143 mmol/L (137-145)
[2018-06-09 06:22] LABS: Hematocrit 33.4 % (36-46); Hemoglobin 11.3 g/dL (12.0-16.0); Mean Corpuscular HGB Conc 33.9 % (30-36); Mean Corpuscular Hemoglobin 30.8 PG (26-34); Mean Corpuscular Volume 90.7 fL (80-100); Platelet Count 151 X10^3/uL (150-400); Red Blood Cell Count 3.69 X10^6/uL (4.0-5.2); Red Cell Distribution Width 13.8 % (11.6-14.8); White Blood Cell Count 22.8 X10^3/uL (4.5-11.0)
[2018-06-09 06:37] LABS: Add Manual Diff / Slide Review YES
[2018-06-09 06:50] LABS: Creatinine Urine Random 78.9 mg/dL; Potassium Urine Random 46.7 mmol/L; Sodium Urine Random 14 mmol/L (30-90)
[2018-06-09 06:51] LABS: Phosphorous Urine Random 59.6 mg/dL
[2018-06-09 06:58] LABS: Calcium Urine Random < 1.0
[2018-06-09 07:11] LABS: Neutrophils Absolute Manual 20064 /uL (3000-5900); Total Cells Counted 100
[2018-06-09 07:12] LABS: Toxic Vacuolation Present
[2018-06-09 08:46] LABS: Acinetobacter baumannii Not Detected (Not Detect); Candida albicans Not Detected (Not Detect); Candida glabrata Not Detected (Not Detect); Candida krusei Not Detected (Not Detect); Candida parapsilosis Not Detected (Not Detect); Candida tropicalis Not Detected (Not Detect); E. coli Detected (Not Detect); Enterobacter cloacae complex Not Detected (Not Detect); Enterobacteriaceae species Detected (Not Detect); Enterococcus species Not Detected (Not Detect); Haemophilus influenzae Not Detected (Not Detect); KPC (carbapenem-resist gene) Not Detected (Not Detect); Listeria monocytogenes Not Detected (Not Detect); Neisseria meningitidis Not Detected (Not Detect); Proteus species Not Detected (Not Detect); Pseudomonas aeruginosa Not Detected (Not Detect); Serratia marcescens Not Detected (Not Detect); Staphylococcus species Not Detected (Not Detect); Streptococcus agalactiae (Gr B Not Detected (Not Detect); Streptococcus pneumonia Not Detected (Not Detect); Streptococcus pyogenes (Gr A) Not Detected (Not Detect); Streptococcus species Not Detected (Not Detect)
[2018-06-09] MEDS: METHOCARBAMOL 500 MG TABLET PO ×3 (09:38→21:41)
[2018-06-09] MEDS: TRAMADOL 50 MG TABLET PO ×2 (09:38→21:41)
[2018-06-09] MEDS: GABAPENTIN 100 MG CAPSULE PO ×3 (09:38→21:41)
--- NOTE | 2018-06-09 12:17 | PM.PN.1 ---
Subjective Date Patient Seen: 06/09/18 Time Patient Seen: 12:18 Interval history: NO SIGNIFICANT ISSUES OVERNIGHT PATIENT REQUESTED DC QUESTIONS AND CONCERNS ADDRESSED APPROPRIATELY NO FEVER OR CHILLS Exam Vital Signs (past 8 hours): - 06/09/18 05:00 06/09/18 07:25 06/09/18 08:20 Temperature 98.9 F 97.2 F L Pulse Rate 91 H 96 H Respiratory Rate 16 18 Blood Pressure 102/58 L 127/77 Pulse Oximetry 93 96 97 06/09/18 11:25 Temperature 97.8 F Pulse Rate 90 Respiratory Rate 16 Blood Pressure 108/62 Pulse Oximetry 96 Oxygen Delivery Method Room Air Oxygen Flow Rate 0 Narrative Exam Narrative: NO ACUTE DISTRESS. PATIENT IS ALERT ORIENTED X3. VITAL SIGNS STABLE HEAD ATRAUMATIC NORMOCEPHALIC NECK : SUPPLE WITHOUT ADENOPATHY NO CAROTID BRUITS EYE: EOMI, PERRLA, NORMAL CONJUNCTIVA; NO JAUNDICE CHEST: REGULAR RATE. NO RUBS. PMI IS NON DISPLACED. NO MURMURS; NORMAL S1-S2 PULMONARY: DECREASED BS OVER THE BASES. MILD BIBASILAR CRACKLES NOTED; NO INCREASED DULLNESS TO PERCUSSION ABDOMEN: SOFT. NONTENDER. NONDISTENDED. BOWEL SOUNDS ARE PRESENT IN ALL 4 QUADRANTS. NO MASS. EXTREMITIES: NO EDEMA.. NO CYANOSIS CLUBBING NOTED. NEURO: CRANIAL NERVES 2-12 GROSSLY INTACT. NO FOCAL NEUROLOGICAL DEFICIT NOTED. MSK: NORMAL RANGE OF MOTION FOR AGE. NO JOINT EFFUSION. SKIN: NORMAL FOR ETHNICITY; NO ECCHYMOSIS. NO LESION. GOOD TURGOR.; NO RASHES : NORMAL EXTERNAL GENITALIA. PSYCH : APPROPRIATE MOOD AND AFFECT. ALERT AWAKE ORIENTED X3 Objective Labs Result Diagrams: 06/09/18 05:29 06/09/18 05:29 Labs: Laboratory Results - last 24 hr 06/08/18 06/08/18 06/08/18 15:20 15:58 15:58 WBC 33.3 H* RBC 4.23 Hgb 12.8 Hct 37.9 MCV 89.6 MCH 30.2 MCHC 33.7 RDW 13.6 Plt Count 191 Neut % (Auto) Not Reportable Lymph % (Auto) Not Reportable Rapides % (Auto) Not Reportable Eos % (Auto) Not Reportable Baso % (Auto) Not Reportable Total Counted 100 Seg Neutrophils % 61.0 Band Neutrophils % 29.0 H Lymphocytes % (Manual) 5.0 L Monocytes % (Manual) 3.0 Metamyelocytes % 2.0 H Neutrophils # (Manual) 61142 H Toxic Vacuolation RBC Morphology Normal morphology PT 17.1 H INR 1.5 H APTT 36 Sodium Potassium Chloride Carbon Dioxide BUN Creatinine Estimated GFR BUN/Creatinine Ratio Glucose Lactate Calcium Magnesium Total Bilirubin AST ALT Alkaline Phosphatase Total Protein Albumin Globulin Albumin/Globulin Ratio Lipase Urine Color Urine Appearance Urine pH Ur Specific [place] Urine Protein Urine Glucose (UA) Urine Ketones Urine Occult Blood Urine Nitrate Urine Bilirubin Urine Ictotest Urine Urobilinogen Ur Leukocyte Esterase Urine RBC Urine WBC Ur Squamous Epith Cells Urine Bacteria Hyaline Casts Ur Culture Indicated? Micro UA Comment Ur Random Sodium Ur Random Potassium Ur Random Phosphorus Ur Random Calcium Urine Creatinine Stool Aeromonas Cult Awaiting culture res Stl C. cayetanensis PCR Not detected Stool Rotavirus (PCR) Not detected Stool Adenovirus (PCR) Not detected Stool Astrovirus (PCR) Not detected Stool Cryptosporidium PCR Not detected Stl E.coli Shiga Tox PCR Not detected St Sh/Enteroin Ecoli PCR Not detected Stool E coli O157 PCR Not Reportable Stl Enterotoxigenic E PCR Not detected Stool EPEC (PCR) Not detected Stl E. histolytica PCR Not detected Stool Giardia Lamblia PCR Not detected Stool Sapovirus (PCR) Not detected Stl P. shigelloides PCR Not detected St Y.enterocolitica PCR Not detected Stool Vibrio (PCR) Not detected Stl Vibrio cholerae PCR Not detected Stl Enteroaggr Ecoli PCR Not detected Stl Norovirus GI/GII PCR Not detected A. baumannii (PCR) Campylobacter (PCR) Not detected Julissa albicans (PCR) C. glabrata (PCR) C. krusei (PCR) C. parapsilosis (PCR) C. tropicalis (PCR) C. difficile Tox (PCR) Not detected Enterobacteriac sp PCR E. cloacae complex PCR Enterococcus sp PCR E. coli (PCR) H. influenzae (PCR) Klebsiella oxytoca PCR Klebsiella pneumoniae List. monocytogenes PCR N. meningitidis (PCR) Proteus species (PCR) Salmonella (PCR) Not detected Serratia marcescens PCR Staphylococcus sp PCR Staph aureus (PCR) mecA-Methicil Res Gene Streptococcus sp PCR Group A Strep (PCR) Strep agalactiae (PCR) Strep pneumoniae (PCR) P. aeruginosa (PCR) Tammie/B-Vanco Res Genes KPC-Carbap Res Gene PCR 06/08/18 06/08/18 06/08/18 15:58 16:55 17:25 WBC RBC Hgb Hct MCV MCH MCHC RDW Plt Count Neut % (Auto) Lymph % (Auto) Rap[place] % (Auto) Eos % (Auto) Baso % (Auto) Total Counted Seg Neutrophils % Band Neutrophils % Lymphocytes % (Manual) Monocytes % (Manual) Metamyelocytes % Neutrophils # (Manual) Toxic Vacuolation RBC Morphology PT INR APTT Sodium 142 Potassium 4.0 Chloride 103 Carbon Dioxide 23 BUN 48 H Creatinine 2.10 H Estimated GFR 23.0 L BUN/Creatinine Ratio 22.9 H Glucose 117 H Lactate 1.7 Calcium 8.7 Magnesium Total Bilirubin 0.7 AST 156 H ALT 27 Alkaline Phosphatase 107 Total Protein 6.9 Albumin 3.9 Globulin 3.0 Albumin/Globulin Ratio 1.3 Lipase 23 Urine Color Urine Appearance Urine pH Ur Specific [place] Urine Protein Urine Glucose (UA) Urine Ketones Urine Occult Blood Urine Nitrate Urine Bilirubin Urine Ictotest Urine Urobilinogen Ur Leukocyte Esterase Urine RBC Urine WBC Ur Squamous Epith Cells Urine Bacteria Hyaline Casts Ur Culture Indicated? Micro UA Comment Ur Random Sodium Ur Random Potassium Ur Random Phosphorus Ur Random Calcium Urine Creatinine Stool Aeromonas Cult Stl C. cayetanensis PCR Stool Rotavirus (PCR) Stool Adenovirus (PCR) Stool Astrovirus (PCR) Stool Cryptosporidium PCR Stl E.coli Shiga Tox PCR St Sh/Enteroin Ecoli PCR Stool E coli O157 PCR Stl Enterotoxigenic E PCR Stool EPEC (PCR) Stl E. histolytica PCR Stool Giardia Lamblia PCR Stool Sapovirus (PCR) Stl P. shigelloides PCR St Y.enterocolitica PCR Stool Vibrio (PCR) Stl Vibrio cholerae PCR Stl Enteroaggr Ecoli PCR Stl Norovirus GI/GII PCR A. baumannii (PCR) Not detected Campylobacter (PCR) Julissa albicans (PCR) Not detected C. glabrata (PCR) Not detected C. krusei (PCR) Not detected C. parapsilosis (PCR) Not detected C. tropicalis (PCR) Not detected C. difficile Tox (PCR) Enterobacteriac sp PCR Detected H E. cloacae complex PCR Not detected Enterococcus sp PCR Not detected E. coli (PCR) Detected H H. influenzae (PCR) Not detected Klebsiella oxytoca PCR Not detected Klebsiella pneumoniae Not detected List. monocytogenes PCR Not detected N. meningitidis (PCR) Not detected Proteus species (PCR) Not detected Salmonella (PCR) Serratia marcescens PCR Not detected Staphylococcus sp PCR Not detected Staph aureus (PCR) Not detected mecA-Methicil Res Gene Not Reportable Streptococcus sp PCR Not detected Group A Strep (PCR) Not detected Strep agalactiae (PCR) Not detected Strep pneumoniae (PCR) Not detected P. aeruginosa (PCR) Not detected Tammie/B-Vanco Res Genes Not Reportable KPC-Carbap Res Gene PCR Not detected 06/08/18 06/08/18 06/09/18 17:42 17:42 04:45 WBC RBC Hgb Hct MCV MCH MCHC RDW Plt Count Neut % (Auto) Lymph % (Auto) [place] % (Auto) Eos % (Auto) Baso % (Auto) Total Counted Seg Neutrophils % Band Neutrophils % Lymphocytes % (Manual) Monocytes % (Manual) Metamyelocytes % Neutrophils # (Manual) Toxic Vacuolation RBC Morphology PT INR APTT Sodium Potassium Chloride Carbon Dioxide BUN Creatinine Estimated GFR BUN/Creatinine Ratio Glucose Lactate Calcium Magnesium Total Bilirubin AST ALT Alkaline Phosphatase Total Protein Albumin Globulin Albumin/Globulin Ratio Lipase Urine Color Urine Appearance Urine pH Ur Specific [place] Urine Protein Urine Glucose (UA) Urine Ketones Urine Occult Blood Urine Nitrate Urine Bilirubin Urine Ictotest Negative Urine Urobilinogen Ur Leukocyte Esterase Urine RBC 30-100/hpf H Urine WBC >100/hpf H Ur Squamous Epith Cells 1-5 /hpf Urine Bacteria Many (>30) H Hyaline Casts 1-5/lpf Ur Culture Indicated? Specimen cultured Micro UA Comment Not Reportable Ur Random Sodium 14 L Ur Random Potassium 46.7 Ur Random Phosphorus Ur Random Calcium Urine Creatinine 78.9 Stool Aeromonas Cult Stl C. cayetanensis PCR Stool Rotavirus (PCR) Stool Adenovirus (PCR) Stool Astrovirus (PCR) Stool Cryptosporidium PCR Stl E.coli Shiga Tox PCR St Sh/Enteroin Ecoli PCR Stool E coli O157 PCR Stl Enterotoxigenic E PCR Stool EPEC (PCR) Stl E. histolytica PCR Stool Giardia Lamblia PCR Stool Sapovirus (PCR) Stl P. shigelloides PCR St Y.enterocolitica PCR Stool Vibrio (PCR) Stl Vibrio cholerae PCR Stl Enteroaggr Ecoli PCR Stl Norovirus GI/GII PCR A. baumannii (PCR) Campylobacter (PCR) Julissa albicans (PCR) C. glabrata (PCR) C. krusei (PCR) C. parapsilosis (PCR) C. tropicalis (PCR) C. difficile Tox (PCR) Enterobacteriac sp PCR E. cloacae complex PCR Enterococcus sp PCR E. coli (PCR) H. influenzae (PCR) Klebsiella oxytoca PCR Klebsiella pneumoniae List. monocytogenes PCR N. meningitidis (PCR) Proteus species (PCR) Salmonella (PCR) Serratia marcescens PCR Staphylococcus sp PCR Staph aureus (PCR) mecA-Methicil Res Gene Streptococcus sp PCR Group A Strep (PCR) Strep agalactiae (PCR) Strep pneumoniae (PCR) P. aeruginosa (PCR) Tammie/B-Vanco Res Genes KPC-Carbap Res Gene PCR 06/09/18 06/09/18 06/09/18 04:45 04:45 05:29 WBC 22.8 H RBC 3.69 L Hgb 11.3 L Hct 33.4 L MCV 90.7 MCH 30.8 MCHC 33.9 RDW 13.8 Plt Count 151 Neut % (Auto) Not Reportable Lymph % (Auto) Not Reportable [place] % (Auto) Not Reportable Eos % (Auto) Not Reportable Baso % (Auto) Not Reportable Total Counted 100 Seg Neutrophils % 62.0 Band Neutrophils % 26.0 H Lymphocytes % (Manual) 6.0 L Monocytes % (Manual) 3.0 Metamyelocytes % 3.0 H Neutrophils # (Manual) 27171 H Toxic Vacuolation Present H RBC Morphology See below PT INR APTT Sodium Potassium Chloride Carbon Dioxide BUN Creatinine Estimated GFR BUN/Creatinine Ratio Glucose Lactate Calcium Magnesium Total Bilirubin AST ALT Alkaline Phosphatase Total Protein Albumin Globulin Albumin/Globulin Ratio Lipase Urine Color Yellow Urine Appearance Sl cloudy Urine pH 5.0 Ur Specific [place] 1.020 Urine Protein 2+ H Urine Glucose (UA) Negative Urine Ketones Trace H Urine Occult Blood 3+ H Urine Nitrate Negative Urine Bilirubin Negative Urine Ictotest Urine Urobilinogen 0.2 Ur Leukocyte Esterase 1+ H Urine RBC 1-5/hpf D Urine WBC 30-100/hpf H Ur Squamous Epith Cells 0-1 /hpf Urine Bacteria Moderate (10-30) H Hyaline Casts Ur Culture Indicated? Specimen cultured Micro UA Comment Not Reportable Ur Random Sodium Ur Random Potassium Ur Random Phosphorus 59.6 Ur Random Calcium < 1.0 Urine Creatinine Stool Aeromonas Cult Stl C. cayetanensis PCR Stool Rotavirus (PCR) Stool Adenovirus (PCR) Stool Astrovirus (PCR) Stool Cryptosporidium PCR Stl E.coli Shiga Tox PCR St Sh/Enteroin Ecoli PCR Stool E coli O157 PCR Stl Enterotoxigenic E PCR Stool EPEC (PCR) Stl E. histolytica PCR Stool Giardia Lamblia PCR Stool Sapovirus (PCR) Stl P. shigelloides PCR St Y.enterocolitica PCR Stool Vibrio (PCR) Stl Vibrio cholerae PCR Stl Enteroaggr Ecoli PCR Stl Norovirus GI/GII PCR A. baumannii (PCR) Campylobacter (PCR) Julissa albicans (PCR) C. glabrata (PCR) C. krusei (PCR) C. parapsilosis (PCR) C. tropicalis (PCR) C. difficile Tox (PCR) Enterobacteriac sp PCR E. cloacae complex PCR Enterococcus sp PCR E. coli (PCR) H. influenzae (PCR) Klebsiella oxytoca PCR Klebsiella pneumoniae List. monocytogenes PCR N. meningitidis (PCR) Proteus species (PCR) Salmonella (PCR) Serratia marcescens PCR Staphylococcus sp PCR Staph aureus (PCR) mecA-Methicil Res Gene Streptococcus sp PCR Group A Strep (PCR) Strep agalactiae (PCR) Strep pneumoniae (PCR) P. aeruginosa (PCR) Tammie/B-Vanco Res Genes KPC-Carbap Res Gene PCR 06/09/18 05:29 WBC RBC Hgb Hct MCV MCH MCHC RDW Plt Count Neut % (Auto) Lymph % (Auto) [place] % (Auto) Eos % (Auto) Baso % (Auto) Total Counted Seg Neutrophils % Band Neutrophils % Lymphocytes % (Manual) Monocytes % (Manual) Metamyelocytes % Neutrophils # (Manual) Toxic Vacuolation RBC Morphology PT INR APTT Sodium 143 Potassium 3.5 Chloride 113 H Carbon Dioxide 17 L BUN 47 H Creatinine 1.20 H Estimated GFR 43.9 L BUN/Creatinine Ratio 39.2 H Glucose 89 Lactate Calcium 7.5 L Magnesium 1.8 Total Bilirubin AST ALT Alkaline Phosphatase Total Protein Albumin Globulin Albumin/Globulin Ratio Lipase Urine Color Urine Appearance Urine pH Ur Specific [place] Urine Protein Urine Glucose (UA) Urine Ketones Urine Occult Blood Urine Nitrate Urine Bilirubin Urine Ictotest Urine Urobilinogen Ur Leukocyte Esterase Urine RBC Urine WBC Ur Squamous Epith Cells Urine Bacteria Hyaline Casts Ur Culture Indicated? Micro UA Comment Ur Random Sodium Ur Random Potassium Ur Random Phosphorus Ur Random Calcium Urine Creatinine Stool Aeromonas Cult Stl C. cayetanensis PCR Stool Rotavirus (PCR) Stool Adenovirus (PCR) Stool Astrovirus (PCR) Stool Cryptosporidium PCR Stl E.coli Shiga Tox PCR St Sh/Enteroin Ecoli PCR Stool E coli O157 PCR Stl Enterotoxigenic E PCR Stool EPEC (PCR) Stl E. histolytica PCR Stool Giardia Lamblia PCR Stool Sapovirus (PCR) Stl P. shigelloides PCR St Y.enterocolitica PCR Stool Vibrio (PCR) Stl Vibrio cholerae PCR Stl Enteroaggr Ecoli PCR Stl Norovirus GI/GII PCR A. baumannii (PCR) Campylobacter (PCR) Julissa albicans (PCR) C. glabrata (PCR) C. krusei (PCR) C. parapsilosis (PCR) C. tropicalis (PCR) C. difficile Tox (PCR) Enterobacteriac sp PCR E. cloacae complex PCR Enterococcus sp PCR E. coli (PCR) H. influenzae (PCR) Klebsiella oxytoca PCR Klebsiella pneumoniae List. monocytogenes PCR N. meningitidis (PCR) Proteus species (PCR) Salmonella (PCR) Serratia marcescens PCR Staphylococcus sp PCR Staph aureus (PCR) mecA-Methicil Res Gene Streptococcus sp PCR Group A Strep (PCR) Strep agalactiae (PCR) Strep pneumoniae (PCR) P. aeruginosa (PCR) Tammie/B-Vanco Res Genes KPC-Carbap Res Gene PCR Assessment & Plan Plan: Assessment/Plan Narrative: IMPRESSION AND PLAN E COLI UTI/PYELO; POA; CONT CURRENT ABX; FOLLOW CX AND SENSITIVITY REPORT; WATCH FOR WORSENING INFECTIOUS PROCESS E COLI BACTEREMIA; SAME ORGNISMS IN URINE; CONT CURRENT ABX; FOLLOW CX; ADJUST ABX A INDICATED ANEMIA OF CD; MONITOR WITH SERIAL LABS OBESITY; OUTPATIENT MANAGEEMNT ; LIFESTYLE CHANGES RECOMMENDED COAGULOPATHY; CAUSE IS UNCLEAR; MONITOR FOR NOW POSS ACUTE ON CHRONIC RENAL DISEASE 2-3; AVOID NEPHROTOXINS ; DOSE MEDS PER GFR; DAILY LABS; STRICT IO CHOLELITHIASIS ; ASYMPTOMATIC; OUTPATIENT MANAGEMENT INDICATED SHERWIN NEPRHOLITHIASIS ; NON OBSTRUCTIVE; UROLOGY TO SEE OUTPATIENT ADDITIONAL MANAGEMENT INDICATED CLINICALLY DC PER CLINICAL COURSE PT/OT Quality VTE Deep Vein Thrombosis/Pulmonary Embolism Present on Admission: No
--- NOTE | 2018-06-09 21:59 | PC.NURSE ---
SHFIT NOTE A&Ox3, pleasant and cooperative with care. denies any nausea but pt with poor PO intake, pt states no appetite. denies dizziness, dysuria, fever/chills. states pain to back rated 3-4/10 but tolerable on new medication regimen. pt inquiring to have IV fluids discontinued. educated on concern for kidney injury and last lab values; pt agreeable to keep IV fluids running. call light within reach.
[2018-06-09] MEDS: SODIUM CHLORIDE 0.9% 1,000 ML 100 ML IV (22:49)
[2018-06-10] VITALS (7 sets, daily range): BP systolic 108–137; BP diastolic 44–67; PULSE 93–107; RESP 16–18; TEMP 36.6–38.1; O2SAT 94–97
[2018-06-10 06:02] LABS: BUN Creatinine Ratio 37.1 (6-22); Blood Urea Nitrogen 26 mg/dL (7-17); Calcium 7.9 mg/dL (8.4-10.2); Carbon Dioxide 22 mmol/L (22-32); Chloride 113 mmol/L (98-107); Estimated Glomerular Filt Rate > 60.0 mL/min (>60); Glucose 110 mg/dL (80-110); HEMOLYSIS < 15 (0-50); Magnesium 2.2 mg/dL (1.6-2.3); Potassium 3.7 mmol/L (3.4-5.1); Sodium 144 mmol/L (137-145)
[2018-06-10 06:17] LABS: Hematocrit 31.9 % (36-46); Hemoglobin 10.7 g/dL (12.0-16.0); Mean Corpuscular HGB Conc 33.6 % (30-36); Mean Corpuscular Hemoglobin 30.3 PG (26-34); Platelet Count 153 X10^3/uL (150-400); Red Blood Cell Count 3.55 X10^6/uL (4.0-5.2); Red Cell Distribution Width 13.9 % (11.6-14.8)
[2018-06-10 06:20] LABS: Add Manual Diff / Slide Review YES
--- NOTE | 2018-06-10 06:44 | PC.NURSE ---
Pt is A and O x 4, forgetful at times. VSS. +BTs, no BM yet. LS clear, S1, S2. Pt denies pain and nausea. Pt has said she would like to go home.
[2018-06-10 06:50] LABS: Neutrophils Absolute Manual 17670 /uL (3000-5900); Total Cells Counted 100
[2018-06-10 06:52] LABS: RBC Morphology Normal Morphology
[2018-06-10] MEDS: TRAMADOL 50 MG TABLET PO ×2 (08:48→20:54)
[2018-06-10] MEDS: levoFLOXacin 250 MG/50 ML PIGGYBACK 50 MG IV (08:49)
[2018-06-10] MEDS: METHOCARBAMOL 500 MG TABLET PO ×3 (08:49→20:53)
[2018-06-10] MEDS: GABAPENTIN 100 MG CAPSULE PO ×3 (08:49→20:54)
[2018-06-10] MEDS: SODIUM CHLORIDE 0.9% 1,000 ML 100 ML IV ×2 (08:53→20:53)
--- NOTE | 2018-06-10 09:30 | PT.IIE ---
Current Diagnoses Tubulo-interstitial nephritis, not specified as acute or chronic (06/08/18) Surgical History (Last Reviewed 06/08/18 @ 22:28 by FITO Kline) Status post breast biopsy (Resolved) Medical History (Last Reviewed 06/08/18 @ 22:28 by FITO Kline) Allergic rhinitis (Chronic) Chronic GERD (Chronic) Elevated lipids (Chronic) History of recurrent UTI (urinary tract infection) (Chronic) Osteopenia (Chronic) Recurrent pyelonephritis (Chronic) Physical Therapy Inpatient Evaluation/Re-Eval M1 PT/OT-IP Prior Functional Status Start: 06/10/18 09:29 Freq: NEEDED Status: Active Protocol: Document 06/10/18 09:30 [facility] (Rec: 06/10/18 09:39 [facility] [id number]) Medical Review Prior Functional Status Medical History Reviewed Yes Mobility and Gait indep. community ambulation without device Activities of Daily Living and IADL's indep. I/ADLs Social History Household Members spouse children Living Arrangements House Number of Floors (Floors) One Floor Number of Stairs To Enter/Railing? 8 steps to enter/exit B rails from garage Home Environment Standard Height Toilet Walk in Shower Tub/Shower Home Equipment Grab Bars In Shower Additional Social History Comment able to assist. Their 13 y/o grandaughter also lives with them. Pt with sudden acute onset nausea and vomiting, along with a fall tripping over the laundry 2 wks ago causing LBP. Pt reports radiographs were negative. M2 PT-IP Current Condition Start: 06/10/18 09:29 Freq: NEEDED Status: Active Protocol: Document 06/10/18 09:30 [facility] (Rec: 06/10/18 09:39 [facility] [id number]) Physical Therapy Current Condition Current Condition Evaluation Date 06/10/18 Treatment Diagnosis nausea/vomiting, impaired gait tolerance Precautions Lumbar Precautions Log Roll M3 PT-IP Subjective Start: 06/10/18 09:29 Freq: NEEDED Status: Active Protocol: Document 06/10/18 09:30 [facility] (Rec: 06/10/18 09:39 [facility] [id number]) Subjective Physical Therapy Visit Type Type Initial Evaluation Visit Start Time 09:00 Visit Stop Time 09:30 Total Visit Minutes 30 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 Patient Goals wants to go home Therapy Pain Assessment Pain When Pain Assessed At Rest Pain Present Pain Present Pain Reported Location Back Intensity 3 Scale Used Numeric (1 - 10) M4 PT-IP Mobility and Gait Start: 06/10/18 09:29 Freq: NEEDED Status: Active Protocol: Document 06/10/18 09:30 [facility] (Rec: 06/10/18 09:39 [facility] [id number]) PT-Bed Mobility Assessment Rolling Type of Rolling Log Rolling Level of Assist Contact Guard Assistance Sit to Supine Sit to Supine Contact Guard Assistance Scooting Scooting to Edge of Bed Independent PT-Transfer Assessment Sit to and From Stand Sit to and from Stand Standby Assistance Equipment Transfer Assistive Device Gait Belt Transfers Transfer Destination Bed Transfer Technique Stand Step Pivot Transfer Ability Level of Assist Standby Assistance Comments Mobility Comments BP 118/76 prior to gait, no c/ o dizziness or lightheadedness Gait Assessment Gait Gait Assistance Required: Standby Assistance Distance (Feet) 170 Assistive Devices Assistive Device Gait Belt Gait Deviations General Gait Pattern Antalgic Decreased Stride Length Factors Limiting Gait Function Factors Limiting Gait Function Decreased Activity Tolerance Pain Comments Gait Comments pt using wall initially for support with gait, but final 50 ft without any support. PT-Balance Assessment Sitting Balance and Reactions Static Sitting Balance Ability Good Dynamic Sitting Balance Ability Good Standing Balance and Reactions Static Standing Balance Ability Good Dynamic Standing Balance Ability Fair Device Used none M5 PT-IP Objective Assessments Start: 06/10/18 09:29 Freq: NEEDED Status: Active Protocol: Document 06/10/18 09:30 [facility] (Rec: 06/10/18 09:39 [facility] [id number]) Orientation Orientation/Cognition Level of Alertness Alert Orientation Name Age Birthday Month Date Year Day of Week Place Situation Gross Range of Motion Lower Extremity ROM Assessment Within Functional Limits Strength Lower Extremity Strength Assessment Within Functional Limits Coordination Assessment Gross Coordination Gross Coordination WNL Sensation Assessment Sensation Gross Sensation WNL Muscle Tone Muscle Tone WNL Yes M6 PT-IP Treatment Start: 06/10/18 09:29 Freq: NEEDED Status: Active Protocol: Document 06/10/18 09:30 [facility] (Rec: 06/10/18 09:39 [facility] [id number]) Physical Therapy Treatment Exercises Exercises Short Arc Quads Education Education Provided Safety Other Treatments Other Treatment Performed log roll technique/education and performance for low back protection M7 PT-IP Assessment and Plan Start: 06/10/18 09:29 Freq: NEEDED Status: Active Protocol: Document 06/10/18 09:30 [facility] (Rec: 06/10/18 09:39 [facility] [id number]) PT Summary Assessment and Plan Potential Rehabilitation Potential Good Status of Condition at Evaluation Stable Summary Impairments Pain Bed Mobility Gait Activity Tolerance Assessment Summary Pt presents with low back pain increased with bed mobility and transfers, educated on log roll which she was able to perform with less reported pain. Pt is able to ambulate 170 ft without an assistive device, but did use the wall for stability initially. No c/ o dizziness or lightheadedness , and low back pain remained stable during ambulation. At this time, pt will benefit from continued skilled PT for progressive gait and initiating stair training and continued bed mobility/log roll training to improve functional independence. She is cleared to ambulate with nursing in hallway as tolerated, but use gait belt at all times OOB due to h/o fall. Expect she will be able to return home with support when medically stable. Goals Bed Mobility Goal Independent Transfer Goal Independent Gait Goal Independent Gait Distance 200 Other Goals up/down 8 steps B rails and SBA. Days to Meet Goals 2 Frequency of Treatment Frequency Of Treatment Once a Day Treatment Plan Physical Therapy Treatment Plan Bed Mobility Training Transfer Training Gait Training Therapeutic Exercise Balance Retraining Discharge Planning Hot or Cold Pack Neuromuscular Re-ed Other Recommendations and Next Treatment gait with gait belt, stair Focus training (8 SE B rails), continue to edu. and perform log roll Recommendations To Nursing Amount of Assist Needed 1 Person Assist Discharge Recommendations PT Discharge Recommendations Home with Assistance
--- NOTE | 2018-06-10 10:00 | OT.IP.TRT ---
Current Diagnoses Tubulo-interstitial nephritis, not specified as acute or chronic (06/08/18) Occupational Therapy Treatment Note M3 OT- IP Subjective and Pain Start: 06/10/18 09:48 Freq: Status: Active Protocol: Document 06/10/18 09:57 [facility] (Rec: 06/10/18 09:59 [facility] [id number]) OT- Subjective Occupational Therapy Visit Type Type Administrative Note Notes Pt doing well per PT and has supportive family at home to assist for needs . Spoke to pt and able to do all ADl's on her own, suggested intially to have family present and may benefit from shower chair. Pt states to have railing installed to increase ease to get into the house. Information given for fall preventions. No charge discharge OT eval orders.
--- NOTE | 2018-06-10 11:12 | PM.PN.1 ---
Subjective Date Patient Seen: 06/10/18 Time Patient Seen: 09:15 Interval history: NO SIGNIFICANT ISSUES OVERNIGHT FEELING OK THIS AM NO FEVER OR CHILLS OVERNIGHT QUESTIONS AND CONCERNS ADDRESSED Exam Vital Signs (past 8 hours): - 06/10/18 05:00 06/10/18 07:45 Temperature 98.5 F 99.0 F Pulse Rate 94 H 93 H Respiratory Rate 18 18 Blood Pressure 109/57 L 137/64 Pulse Oximetry 95 94 Oxygen Delivery Method Room Air Oxygen Flow Rate 0 Narrative Exam Narrative: NO ACUTE DISTRESS. PATIENT IS ALERT ORIENTED X3. VITAL SIGNS STABLE HEAD ATRAUMATIC NORMOCEPHALIC NECK : SUPPLE WITHOUT ADENOPATHY NO CAROTID BRUITS EYE: EOMI, PERRLA, NORMAL CONJUNCTIVA; NO JAUNDICE CHEST: REGULAR RATE. NO RUBS. PMI IS NON DISPLACED. NO MURMURS; NORMAL S1-S2 PULMONARY: DECREASED BS OVER THE BASES. MILD BIBASILAR CRACKLES NOTED; NO INCREASED DULLNESS TO PERCUSSION ABDOMEN: SOFT. NONTENDER. NONDISTENDED. BOWEL SOUNDS ARE PRESENT IN ALL 4 QUADRANTS. NO MASS. EXTREMITIES: NO EDEMA.. NO CYANOSIS CLUBBING NOTED. NEURO: CRANIAL NERVES 2-12 GROSSLY INTACT. NO FOCAL NEUROLOGICAL DEFICIT NOTED. MSK: NORMAL RANGE OF MOTION FOR AGE. NO JOINT EFFUSION. SKIN: NORMAL FOR ETHNICITY; NO ECCHYMOSIS. NO LESION. GOOD TURGOR.; NO RASHES : NORMAL EXTERNAL GENITALIA. PSYCH : APPROPRIATE MOOD AND AFFECT. ALERT AWAKE ORIENTED X3 Objective Labs Result Diagrams: 06/10/18 05:37 06/10/18 05:37 Labs: Laboratory Results - last 24 hr 06/08/18 06/10/18 06/10/18 15:20 05:37 05:37 WBC 19.0 H RBC 3.55 L Hgb 10.7 L Hct 31.9 L MCV 90.0 MCH 30.3 MCHC 33.6 RDW 13.9 Plt Count 153 Neut % (Auto) Not Reportable Lymph % (Auto) Not Reportable [place] % (Auto) Not Reportable Eos % (Auto) Not Reportable Baso % (Auto) Not Reportable Total Counted 100 Seg Neutrophils % 72.0 H Band Neutrophils % 21.0 H Lymphocytes % (Manual) 4.0 L Monocytes % (Manual) 2.0 Eosinophils % (Manual) 1.0 L Neutrophils # (Manual) 57497 H RBC Morphology Normal morphology Sodium 144 Potassium 3.7 Chloride 113 H Carbon Dioxide 22 BUN 26 H Creatinine 0.70 Estimated GFR > 60.0 BUN/Creatinine Ratio 37.1 H Glucose 110 Calcium 7.9 L Magnesium 2.2 Stool Aeromonas Cult Neg for aeromonas Assessment & Plan Plan: Assessment/Plan Narrative: IMPRESSION AND PLAN E COLI UTI/PYELO; POA; CONT CURRENT ABX; CX AND SENSITIVITY REPORT NOTED; CONT CURRENT ABX FOR NOW; SWITCH TO PO PRIOR TO DC. 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
--- NOTE | 2018-06-10 11:18 | P.PN_ITS ---
Subjective Date Patient Seen: 06/10/18 Time Patient Seen: 09:15 Interval history: NO SIGNIFICANT ISSUES OVERNIGHT FEELING OK THIS AM NO FEVER OR CHILLS OVERNIGHT QUESTIONS AND CONCERNS ADDRESSED Exam Vital Signs (past 8 hours): - 06/10/18 05:00 06/10/18 07:45 Temperature 98.5 F 99.0 F Pulse Rate 94 H 93 H Respiratory Rate 18 18 Blood Pressure 109/57 L 137/64 Pulse Oximetry 95 94 Oxygen Delivery Method Room Air Oxygen Flow Rate 0 Narrative Exam Narrative: NO ACUTE DISTRESS. PATIENT IS ALERT ORIENTED X3. VITAL SIGNS STABLE HEAD ATRAUMATIC NORMOCEPHALIC NECK : SUPPLE WITHOUT ADENOPATHY NO CAROTID BRUITS EYE: EOMI, PERRLA, NORMAL CONJUNCTIVA; NO JAUNDICE CHEST: REGULAR RATE. NO RUBS. PMI IS NON DISPLACED. NO MURMURS; NORMAL S1- S2 PULMONARY: DECREASED BS OVER THE BASES. MILD BIBASILAR CRACKLES NOTED; NO INCREASED DULLNESS TO PERCUSSION ABDOMEN: SOFT. NONTENDER. NONDISTENDED. BOWEL SOUNDS ARE PRESENT IN ALL 4 QUADRANTS. NO MASS. EXTREMITIES: NO EDEMA.. NO CYANOSIS CLUBBING NOTED. NEURO: CRANIAL NERVES 2-12 GROSSLY INTACT. NO FOCAL NEUROLOGICAL DEFICIT NOTED. MSK: NORMAL RANGE OF MOTION FOR AGE. NO JOINT EFFUSION. SKIN: NORMAL FOR ETHNICITY; NO ECCHYMOSIS. NO LESION. GOOD TURGOR.; NO RASHES : NORMAL EXTERNAL GENITALIA. PSYCH : APPROPRIATE MOOD AND AFFECT. ALERT AWAKE ORIENTED X3 Objective Labs Result Diagrams: 06/10/18 05:37 06/10/18 05:37 Labs: Laboratory Results - last 24 hr 06/08/18 06/10/18 06/10/18 15:20 05:37 05:37 WBC 19.0 H RBC 3.55 L Hgb 10.7 L Hct 31.9 L MCV 90.0 MCH 30.3 MCHC 33.6 RDW 13.9 Plt Count 153 Neut % (Auto) Not Reportable Lymph % (Auto) Not Reportable [place] % (Auto) Not Reportable Eos % (Auto) Not Reportable Baso % (Auto) Not Reportable Total Counted 100 Seg Neutrophils % 72.0 H Band Neutrophils % 21.0 H Lymphocytes % (Manual) 4.0 L Monocytes % (Manual) 2.0 Eosinophils % (Manual) 1.0 L Neutrophils # (Manual) 66392 H RBC Morphology Normal morphology Sodium 144 Potassium 3.7 Chloride 113 H Carbon Dioxide 22 BUN 26 H Creatinine 0.70 Estimated GFR > 60.0 BUN/Creatinine Ratio 37.1 H Glucose 110 Calcium 7.9 L Magnesium 2.2 Stool Aeromonas Cult Neg for aeromonas Assessment & Plan Plan: Assessment/Plan Narrative: IMPRESSION AND PLAN E COLI UTI/PYELO; POA; CONT CURRENT ABX; CX AND SENSITIVITY REPORT NOTED; CONT CURRENT ABX FOR NOW; SWITCH TO PO PRIOR TO DC. E COLI BACTEREMIA; SAME ORGNISMS IN URINE; CONT CURRENT ABX; FOLLOW REPEATED CX; ADJUST ABX A INDICATED ; DC AFTER 72 HRS OF NEG CX ON ORAL ABX LIKELY ANEMIA OF CD; MONITOR WITH SERIAL LABS OBESITY; OUTPATIENT MANAGEEMNT ; LIFESTYLE CHANGES RECOMMENDED COAGULOPATHY; CAUSE IS UNCLEAR; MONITOR FOR NOW POSS ACUTE ON CHRONIC RENAL DISEASE 2-3; AVOID NEPHROTOXINS ; DOSE MEDS PER GFR ; DAILY LABS; STRICT IO CHOLELITHIASIS ; ASYMPTOMATIC; OUTPATIENT MANAGEMENT INDICATED SHERWIN NEPRHOLITHIASIS ; NON OBSTRUCTIVE; UROLOGY TO SEE OUTPATIENT ADDITIONAL MANAGEMENT INDICATED CLINICALLY DC PER CLINICAL COURSE IN NEXT 48-72 HRS PT/OT INCENTIVE SPIROMETERY OOB/ IN CHAIR WITH EACH MEAL Quality VTE Deep Vein Thrombosis/Pulmonary Embolism Present on Admission: No
--- NOTE | 2018-06-10 16:31 | CM.DANOTE ---
Addendum entered by Charlene Bowen LPN 06/11/18 15:39: Went to room to check in with pt after discussion re POC in Team Rounds. Pt was lying flat in bed, snoring lightly, room dark. Saw no need to wake her up. Pt is expected to be here another 24/[address] Mcleod with home on oral antibiotics anticipated. DCP to follow prn. PT has cleared pt for a d/c home from a functional mobility standpoint. Original Note: Discharge Planning/Care Management DCP: assessment: case received and discussed in Team Rounds. PT is a 72 year old female who admitted night of 06/08 to care of hospitalist team. Payer: Medicare [facility] PCP: Dr. Darian Mcleod confirms today that pt is being treated for a UTI and IV antibiotics with expectation that she will be ok by Tuesday to go home on oral antibitics. Pt with a recent fall and low back pain. PT and OT were ordered and PT worked with pt today with recommendation of home with family prn support. OT met briefly with pt after the PT session but full OT eval was dermined not to be needed. Pt's identified goal is to go home as soon as she is medically stable for same. Pt at baseline is functionally independent in the community without assistive device. P: check in tomorrow prn and follow for any d/c needs that may arise. CM Discharge Assessment Start: 06/10/18 16:29 Freq: Status: Active Protocol: Document 06/10/18 16:29 ITV (Rec: 06/10/18 16:31 ITV [id number]) Discharge Planning Assessment Advance Directives? No History Provided By Patient Medical Record Prior Living Arrangements House Household Members spouse children Comment 13 year old granddaughter lives in the home Type of transporation used prior to Drives own vehicle admit Independent with ADL's Yes Is patient alert and oriented? Yes Review Status In Process Next Review Type Continued Stay Review
[2018-06-11] VITALS (15 sets, daily range): BP systolic 112–160; BP diastolic 64–76; PULSE 99–132; RESP 16–30; TEMP 36.7–39.3; O2SAT 91–99
--- NOTE | 2018-06-11 05:35 | PC.NURSE ---
Pt VSS, A and O x 4. Urine is concentrated advised to drink more water. Pt gait is steady, she needs assist with IV pole only. O2 sat is 95% or greater on RA. No complaints of pain or nausea.
[2018-06-11 06:43] LABS: Hematocrit 30.9 % (36-46); Hemoglobin 10.4 g/dL (12.0-16.0); Mean Corpuscular HGB Conc 33.8 % (30-36); Mean Corpuscular Hemoglobin 30.4 PG (26-34); Mean Corpuscular Volume 89.9 fL (80-100); Platelet Count 149 X10^3/uL (150-400); Red Blood Cell Count 3.43 X10^6/uL (4.0-5.2); White Blood Cell Count 11.5 X10^3/uL (4.5-11.0)
[2018-06-11 06:44] LABS: Add Manual Diff / Slide Review YES
[2018-06-11 06:49] LABS: BUN Creatinine Ratio 23.3 (6-22); Blood Urea Nitrogen 14 mg/dL (7-17); Calcium 7.9 mg/dL (8.4-10.2); Carbon Dioxide 22 mmol/L (22-32); Chloride 110 mmol/L (98-107); Estimated Glomerular Filt Rate > 60.0 mL/min (>60); Glucose 101 mg/dL (80-110); HEMOLYSIS < 15 (0-50); Magnesium 2.1 mg/dL (1.6-2.3); Potassium 3.3 mmol/L (3.4-5.1); Sodium 142 mmol/L (137-145)
[2018-06-11] MEDS: SODIUM CHLORIDE 0.9% 1,000 ML 100 ML IV (06:56)
[2018-06-11 07:27] LABS: Neutrophils Absolute Manual 8280 /uL (3000-5900); Total Cells Counted 100
[2018-06-11 07:28] LABS: RBC Morphology Normal Morphology
[2018-06-11] MEDS: GABAPENTIN 100 MG CAPSULE PO (09:00)
[2018-06-11] MEDS: METHOCARBAMOL 500 MG TABLET PO (09:00)
[2018-06-11] MEDS: TRAMADOL 50 MG TABLET PO (09:47)
[2018-06-11] MEDS: levoFLOXacin 250 MG/50 ML PIGGYBACK 50 MG IV (09:47)
--- NOTE | 2018-06-11 10:47 | PC.NURSE ---
Addendum entered by Grace Powers R.N. 06/11/18 13:58: HR remains tachy and noted new onset of temp 100.5. Denies palpitations feeling dizzy/lightheaded. N/O to complete EKG, telemetry monitoring and repeat blood cultures. Pt stating, I'm fine, I'm getting out of bed so much better Pt has been dozing intermittently most of shift. Original Note: Pt A&Ox3, reports feeling better, no urinary urgency noted. Complains of intermittent back pain that occurred from a previous fall injury at home. Pain tolerable at 3/10--medicated per emar. Noted tachy reg. HR - 118 with assessment @ rest, MD aware n/o bolus 250ml. Otherwise dozing, arouses to voice. Will continue to monitor.
[2018-06-11] MEDS: SODIUM CHLORIDE 0.9% 250 ML IV (10:52)
--- NOTE | 2018-06-11 11:32 | P.PN_ITS ---
Subjective Date Patient Seen: 06/11/18 Time Patient Seen: 08:26 Interval history: FEELING WELL THIS AM SLIGHTLY TIRED NO OTHER COMPALAINTS SPOKE TO PATIENT PCP TODAY Exam Vital Signs (past 8 hours): - 06/11/18 04:00 06/11/18 05:34 06/11/18 08:00 Temperature 98.6 F Pulse Rate 99 H Respiratory Rate 16 Blood Pressure 130/69 Pulse Oximetry 96 94 95 06/11/18 08:15 06/11/18 10:52 Temperature 98.1 F Pulse Rate 101 H 118 H Respiratory Rate 24 20 Blood Pressure 128/65 133/72 Pulse Oximetry 91 95 Oxygen Delivery Method Room Air Oxygen Flow Rate 0 Narrative Exam Narrative: NO ACUTE DISTRESS. PATIENT IS ALERT ORIENTED X3. VITAL SIGNS STABLE HEAD ATRAUMATIC NORMOCEPHALIC NECK : SUPPLE WITHOUT ADENOPATHY NO CAROTID BRUITS EYE: EOMI, PERRLA, NORMAL CONJUNCTIVA; NO JAUNDICE CHEST: REGULAR RATE. NO RUBS. PMI IS NON DISPLACED. NO MURMURS; NORMAL S1- S2 PULMONARY: DECREASED BS OVER THE BASES. MILD BIBASILAR CRACKLES NOTED; NO INCREASED DULLNESS TO PERCUSSION ABDOMEN: SOFT. NONTENDER. NONDISTENDED. BOWEL SOUNDS ARE PRESENT IN ALL 4 QUADRANTS. NO MASS. EXTREMITIES: NO EDEMA.. NO CYANOSIS CLUBBING NOTED. NEURO: CRANIAL NERVES 2-12 GROSSLY INTACT. NO FOCAL NEUROLOGICAL DEFICIT NOTED. MSK: NORMAL RANGE OF MOTION FOR AGE. NO JOINT EFFUSION. SKIN: NORMAL FOR ETHNICITY; NO ECCHYMOSIS. NO LESION. GOOD TURGOR.; NO RASHES : NORMAL EXTERNAL GENITALIA. PSYCH : APPROPRIATE MOOD AND AFFECT. ALERT AWAKE ORIENTED X3 Objective Labs Result Diagrams: 06/11/18 05:50 06/11/18 05:50 Labs: Laboratory Results - last 24 hr 06/11/18 06/11/18 05:50 05:50 WBC 11.5 H RBC 3.43 L Hgb 10.4 L Hct 30.9 L MCV 89.9 MCH 30.4 MCHC 33.8 RDW 14.0 Plt Count 149 L Neut % (Auto) Not Reportable Lymph % (Auto) Not Reportable [place] % (Auto) Not Reportable Eos % (Auto) Not Reportable Baso % (Auto) Not Reportable Total Counted 100 Seg Neutrophils % 40.0 Band Neutrophils % 32.0 H Lymphocytes % (Manual) 11.0 L Monocytes % (Manual) 6.0 Eosinophils % (Manual) 2.0 Basophils % (Manual) 5.0 H Metamyelocytes % 4.0 H Neutrophils # (Manual) 8280 H RBC Morphology Normal morphology Sodium 142 Potassium 3.3 L Chloride 110 H Carbon Dioxide 22 BUN 14 Creatinine 0.60 Estimated GFR > 60.0 BUN/Creatinine Ratio 23.3 H Glucose 101 Calcium 7.9 L Magnesium 2.1 Assessment & Plan Plan: Assessment/Plan Narrative: IMPRESSION AND PLAN E COLI UTI/PYELO; POA; CONT CURRENT ABX; CX AND SENSITIVITY REPORT NOTED; CONT CURRENT ABX FOR NOW; SWITCH TO PO PRIOR TO DC IF REPEATED BLOOD CX REMAINS NEG. E COLI BACTEREMIA; SAME ORGNISMS IN URINE; CONT CURRENT ABX; REPEATED CX REMAINS NEG; ADJUST ABX INDICATED ; DC AFTER IN NEXT 24-48 HRS ON ORAL ABX IF CX REMAINS NEG LEUKOCYTOSIS; IMPROVING; DAILY CBC TO FOLLOW ANEMIA OF CD; MONITOR WITH SERIAL LABS OBESITY; OUTPATIENT MANAGEEMNT ; LIFESTYLE CHANGES RECOMMENDED COAGULOPATHY; CAUSE IS UNCLEAR; MONITOR FOR NOW ACUTE RENAL FAILURE; CHRONIC COMPONENT IS RULED OUT; CONTINUE TO AVOID NEPHROTOXINS ; MONITOR CLOSELY; DAILY LABS; STRICT IO CHOLELITHIASIS ; ASYMPTOMATIC; OUTPATIENT MANAGEMENT INDICATED SHERWIN NEPRHOLITHIASIS ; NON OBSTRUCTIVE; UROLOGY TO SEE OUTPATIENT ADDITIONAL MANAGEMENT INDICATED CLINICALLY DC PER CLINICAL COURSE IN NEXT 24-48 HRS PT/OT INCENTIVE SPIROMETERY OOB/ IN CHAIR WITH EACH MEAL Quality VTE Deep Vein Thrombosis/Pulmonary Embolism Present on Admission: No
[2018-06-11] MEDS: KCL 20 MEQ IN NS 1,000 ML 70 MEQ IV (14:23)
[2018-06-11] MEDS: POTASSIUM CHLORIDE 20 MEQ TAB 40 MEQ PO (14:23)
[2018-06-11] MEDS: levoFLOXacin 500 MG/100 ML PIGGYBACK 100 MG IV (14:31)
[2018-06-11] MEDS: METOPROLOL TARTRATE 5 MG/5 ML INJ IV ×2 (14:31→18:38)
--- NOTE | 2018-06-11 16:27 | PT.IPTN ---
Current Diagnoses Tubulo-interstitial nephritis, not specified as acute or chronic (06/08/18) Physical Therapy Treatment Note M2 PT-IP Current Condition Start: 06/10/18 09:29 Freq: NEEDED Status: Active Protocol: Document 06/10/18 09:30 RCC (Rec: 06/10/18 09:39 RCC [id number]) Physical Therapy Current Condition Current Condition Evaluation Date 06/10/18 Treatment Diagnosis nausea/vomiting, impaired gait tolerance Precautions Lumbar Precautions Log Roll M3 PT-IP Subjective Start: 06/10/18 09:29 Freq: NEEDED Status: Active Protocol: Document 06/11/18 14:52 CLB (Rec: 06/11/18 16:27 CLB [id number]) Subjective Physical Therapy Visit Type Type Treatment Note Visit Start Time 14:52 Visit Stop Time 15:20 Total Visit Minutes 28 Number of PRACTICE LEAD Visits 1 Physical Therapy Visit Comments Patient Comments Pt willing to participate with therapy. Patient Goals wants to go home Therapy Pain Assessment Pain When Pain Assessed During Mobility Pain Present Pain Present Pain Reported Location Back Intensity 3 Scale Used Numeric (1 - 10) M4 PT-IP Mobility and Gait Start: 06/10/18 09:29 Freq: NEEDED Status: Active Protocol: Document 06/11/18 14:52 CLB (Rec: 06/11/18 16:27 CLB [id number]) PT-Bed Mobility Assessment Rolling Type of Rolling Log Rolling Level of Assist Contact Guard Assistance Supine to Sit Supine to Sit Minimal Assistance 1 Person Assistance Head of Bed Elevated Bedrails Sit to Supine Sit to Supine Minimal Assistance 1 Person Assistance Scooting Scooting to Edge of Bed Standby Assistance PT-Transfer Assessment Sit to and From Stand Sit to and from Stand Contact Guard Assistance Equipment Transfer Assistive Device Gait Belt Front Wheeled Walker Transfers Transfer Destination Bed Transfer Technique Stand Step Pivot Transfer Ability Level of Assist Contact Guard Assistance Minimal Assistance 1 Person Assistance Comments Mobility Comments BP in supine 128/79, [id number], with no c/o dizziness or lightheadedness. Gait Assessment Gait Gait Assistance Required: Contact Guard Assist Distance (Feet) 150 Assistive Devices Assistive Device Gait Belt Front Wheeled Walker Orthotic/Prosthetic Devices or Brace: No Gait Deviations General Gait Pattern Antalgic Decreased Stride Length Decreased Feet Clearance Flexed Trunk Factors Limiting Gait Function Factors Limiting Gait Function Decreased Activity Tolerance Pain Comments Gait Comments Pt with c/o increased pain in standing with flexed trunk, used FWW to increased support. M5 PT-IP Objective Assessments Start: 06/10/18 09:29 Freq: NEEDED Status: Active Protocol: Document 06/10/18 09:30 RCC (Rec: 06/10/18 09:39 RCC [id number]) Orientation Orientation/Cognition Level of Alertness Alert Orientation Name Age Birthday Month Date Year Day of Week Place Situation Gross Range of Motion Lower Extremity ROM Assessment Within Functional Limits Strength Lower Extremity Strength Assessment Within Functional Limits Coordination Assessment Gross Coordination Gross Coordination WNL Sensation Assessment Sensation Gross Sensation WNL Muscle Tone Muscle Tone WNL Yes M6 PT-IP Treatment Start: 06/10/18 09:29 Freq: NEEDED Status: Active Protocol: Document 06/10/18 09:30 RCC (Rec: 06/10/18 09:39 RCC [id number]) Physical Therapy Treatment Exercises Exercises Short Arc Quads Education Education Provided Safety Other Treatments Other Treatment Performed log roll technique/education and performance for low back protection M7 PT-IP Assessment and Plan Start: 06/10/18 09:29 Freq: NEEDED Status: Active Protocol: Document 06/11/18 14:52 CLB (Rec: 06/11/18 16:27 CLB [id number]) PT Summary Assessment and Plan Summary Impairments Pain Bed Mobility Gait Activity Tolerance Assessment Summary Pt required increase in assist with bed mobility and gait. Pt continues to need education on log roll as pt reports not being able to remember how to perform. Goals Bed Mobility Goal Independent Transfer Goal Independent Gait Goal Independent Gait Distance 200 Days to Meet Goals 2 Frequency of Treatment Frequency Of Treatment Once a Day Treatment Plan Physical Therapy Treatment Plan Bed Mobility Training Transfer Training Gait Training Therapeutic Exercise Balance Retraining Discharge Planning Hot or Cold Pack Neuromuscular Re-ed Other Recommendations and Next Treatment gait with gait belt, stair Focus training (8 SE B rails), continue to edu. and perform log roll Recommendations To Nursing Amount of Assist Needed 1 Person Assist Discharge Recommendations PT Discharge Recommendations Home with Assistance
[2018-06-11 18:40] LABS: Lactate (Lactic Acid) 1.2 mmol/L (0.7-2.1)
--- NOTE | 2018-06-11 18:51 | PC.NURSE ---
SHIFT NOTE received pt sleeping, wakens to verbal stimuli. pt with a dry cough, breath sounds diminished with slight expiratory wheeze. pt denies any SOB or difficulties breathing. pt verbally agreed to plan of care to hold off on afternoon pain medications (neurontin and robaxin) so that she is not so sleepy, to increase ambulation activity in hallway, and to do IS exercises. at approximately 1820, pt returned to room from walking in hallway for lab draws. upon sitting in recliner chair, pt with severe chills/shaking. lab unable to obtain blood work due to pt's severe shivering. pt unconcerned and voiced to this RN that this has occurred at least once a day since coming in to the hospital. oral temp 98.4, axillary temp 100, HR up to 130-140's, respirations at 30. unable to get BP or pulse ox due to shivering. pt taken to bed 2LO2 applied, Bp 160/76, and pt wrapped in multiple layers of blankets. PRN metoprolol administered for HR with good effects. pt currently resting comfortably. call light within reach.
[2018-06-12] VITALS (13 sets, daily range): BP systolic 115–138; BP diastolic 60–75; PULSE 90–116; RESP 16–20; TEMP 36.6–38.9; O2SAT 93–99
[2018-06-12] MEDS: KCL 20 MEQ IN NS 1,000 ML 70 MEQ IV ×2 (04:57→23:39)
[2018-06-12 05:49] LABS: Hematocrit 30.2 % (36-46); Hemoglobin 10.2 g/dL (12.0-16.0); Mean Corpuscular HGB Conc 33.9 % (30-36); Mean Corpuscular Hemoglobin 30.2 PG (26-34); Mean Corpuscular Volume 89.2 fL (80-100); Platelet Count 172 X10^3/uL (150-400); Red Blood Cell Count 3.39 X10^6/uL (4.0-5.2); Red Cell Distribution Width 13.8 % (11.6-14.8); White Blood Cell Count 9.3 X10^3/uL (4.5-11.0)
[2018-06-12 05:51] LABS: Add Manual Diff / Slide Review YES
[2018-06-12 05:58] LABS: Alanine Aminotransferase 28 IU/L (9-52); Albumin 2.5 g/dL (3.5-5.0); Alkaline Phosphatase 153 U/L (38-126); Aspartate Aminotransferase 38 IU/L (14-36); Bilirubin Total 0.4 mg/dL (0.2-1.3); Blood Urea Nitrogen 12 mg/dL (7-17); Calcium 7.8 mg/dL (8.4-10.2); Carbon Dioxide 23 mmol/L (22-32); Chloride 110 mmol/L (98-107); Estimated Glomerular Filt Rate > 60.0 mL/min (>60); Globulin 2.5 g/dL (1.7-4.1); Glucose 92 mg/dL (80-110); HEMOLYSIS < 15 (0-50); Potassium 3.7 mmol/L (3.4-5.1); Sodium 143 mmol/L (137-145)
[2018-06-12 06:03] LABS: Neutrophils Absolute Manual 6510 /uL (3000-5900); Total Cells Counted 100
[2018-06-12 06:04] LABS: RBC Morphology Normal Morphology
--- NOTE | 2018-06-12 06:17 | PC.NURSE ---
Patient has discomfort with ambulation. Declined medication for pain. Ambulates to BR with SBA, utilizing IV pole for aide.
[2018-06-12] MEDS: METHOCARBAMOL 500 MG TABLET PO ×2 (09:38→21:18)
[2018-06-12] MEDS: GABAPENTIN 100 MG CAPSULE PO ×2 (09:38→21:18)
--- NOTE | 2018-06-12 09:45 | PT.IPTN ---
Current Diagnoses Tubulo-interstitial nephritis, not specified as acute or chronic (06/08/18) Physical Therapy Treatment Note M2 PT-IP Current Condition Start: 06/10/18 09:29 Freq: NEEDED Status: Active Protocol: Document 06/10/18 09:30 RCC (Rec: 06/10/18 09:39 RCC [id number]) Physical Therapy Current Condition Current Condition Evaluation Date 06/10/18 Treatment Diagnosis nausea/vomiting, impaired gait tolerance Precautions Lumbar Precautions Log Roll M3 PT-IP Subjective Start: 06/10/18 09:29 Freq: NEEDED Status: Active Protocol: Document 06/12/18 09:05 CLB (Rec: 06/12/18 09:45 CLB [id number]) Subjective Physical Therapy Visit Type Type Treatment Note Visit Start Time 09:05 Visit Stop Time 09:30 Total Visit Minutes 25 Number of BULL RIDER Visits 2 Physical Therapy Visit Comments Patient Comments Pt willing to participate with therapy. Patient Goals wants to go home Therapy Pain Assessment Pain When Pain Assessed During Mobility Pain Present Pain Present Pain Reported Location Back Intensity 2 Scale Used Numeric (1 - 10) M4 PT-IP Mobility and Gait Start: 06/10/18 09:29 Freq: NEEDED Status: Active Protocol: Document 06/12/18 09:05 CLB (Rec: 06/12/18 09:45 CLB [id number]) PT-Bed Mobility Assessment Rolling Type of Rolling Log Rolling Level of Assist Standby Assistance Supine to Sit Supine to Sit Standby Assistance Bedrails Sit to Supine Sit to Supine Standby Assistance Scooting Scooting to Edge of Bed Standby Assistance PT-Transfer Assessment Sit to and From Stand Sit to and from Stand Standby Assistance Equipment Transfer Assistive Device Gait Belt Transfers Transfer Destination Bed Chair Toilet Wheelchair Transfer Technique Stand Step Pivot Transfer Ability Level of Assist Standby Assistance Comments Mobility Comments pt had no dizziness or lightheadedness with tx. Gait Assessment Gait Gait Assistance Required: Standby Assistance Distance (Feet) 200 Assistive Devices Assistive Device Gait Belt Orthotic/Prosthetic Devices or Brace: No Gait Deviations General Gait Pattern Antalgic Decreased Stride Length Factors Limiting Gait Function Factors Limiting Gait Function Decreased Activity Tolerance Pain Comments Gait Comments Pt ambulating today with good posture and no AD. Pt took three rest breaks due to back pain. Stair Climbing Assessment Evaluation Level of Assist On Stairs Standby Assistance 1 Person Assistance Devices Stair Climbing Assistive Devices Left Railing Right Railing Technique/Endurance Stair Climbing Direction Ascend and Descend Stair Climbing Technique Step to Step Number of Steps Climbed 3 Query Text: Stair Climbing Set # Repetitions (reps) 3 Comments Stair Climbing Comments Pt able to climb up/down three steps x3 with SBA. M5 PT-IP Objective Assessments Start: 06/10/18 09:29 Freq: NEEDED Status: Active Protocol: Document 06/10/18 09:30 RCC (Rec: 06/10/18 09:39 RCC [id number]) Orientation Orientation/Cognition Level of Alertness Alert Orientation Name Age Birthday Month Date Year Day of Week Place Situation Gross Range of Motion Lower Extremity ROM Assessment Within Functional Limits Strength Lower Extremity Strength Assessment Within Functional Limits Coordination Assessment Gross Coordination Gross Coordination WNL Sensation Assessment Sensation Gross Sensation WNL Muscle Tone Muscle Tone WNL Yes M6 PT-IP Treatment Start: 06/10/18 09:29 Freq: NEEDED Status: Active Protocol: Document 06/12/18 09:05 CLB (Rec: 06/12/18 09:45 CLB [id number]) Physical Therapy Treatment Education Education Provided Safety Other Treatments Other Treatment Performed log roll technique/education and performance for low back protection M7 PT-IP Assessment and Plan Start: 06/10/18 09:29 Freq: NEEDED Status: Active Protocol: Document 06/12/18 09:05 CLB (Rec: 06/12/18 09:45 CLB [id number]) PT Summary Assessment and Plan Summary Assessment Summary Pt able to perform all mobility with SBA including stair climbing. Pt able to safely ambulate with no AD ~ 200ft with some complaint of increase in LBP. Goals Bed Mobility Goal Independent Transfer Goal Independent Gait Goal Independent Gait Distance 200 Other Goals up/down 8 steps B rails and SBA. Days to Meet Goals 2 Frequency of Treatment Frequency Of Treatment Once a Day Treatment Plan Physical Therapy Treatment Plan Bed Mobility Training Transfer Training Gait Training Therapeutic Exercise Balance Retraining Discharge Planning Hot or Cold Pack Neuromuscular Re-ed Other Recommendations and Next Treatment Pt seems able to d/c home when Focus medically stable. Recommendations To Nursing Amount of Assist Needed 1 Person Assist Discharge Recommendations PT Discharge Recommendations Home with Assistance
--- NOTE | 2018-06-12 10:16 | PM.DS.1 ---
History of Present Illness Date Patient Seen: 06/12/18 Chief complaint: SENT FOR FLUIDS Narrative: Patient presented to the ED on 06/08/2018 upon recommendations from her PCP. Patient was seen in the outpatient clinic for sudden, acute, onset of nausea and vomiting. Specifically, symptoms noted in the afternoon on 06/07/2018. Since onset of symptoms and presentation to the ED, patient was told that she had 20-30 episodes of vomiting. Presence of blood in the vomitus is unknown. Associated symptoms include disorientation. Patient notes that she has no recollection of excessive vomiting, however she was told that she was confused. This morning patient developed watery diarrhea. She denies fever, chills, chest pain, palpitations, dizziness, lightheadedness, syncopal events, peripheral edema, abdominal pain, frequency, urgency, or suprapubic discomfort. She does note a 2 day history of right flank pain, hematuria, and decrease in urine output. Describes urine as dark. Patient reports having 3-4 episodes of UTIs annually. It is worth mentioning that patient sustained a fall 2 weeks ago (tripped over an object), has been having bilateral lower lumbar discomfort w/o lower extremity weakness or paresthesia. Patient reports that she was instructed by her outpatient clinic to take 400 mg of ibuprofen twice daily, which she has been doing for the past two weeks. To make a note, the pain patient is experiencing in the past 2 days is specifically in the right flank area. Also, patient's granddaughter was experiencing flu-like symptoms with diarrhea 2-3 weeks ago. With the exception of a fall, patient herself denies recent illness. No prior recent history of strep throat. In the past 24 hr notes sinus drainage and minor cough without significant phlegm production. Discharge Providers Date of admission: 06/08/18 19:49 Primary care physician: Coleman Castellanos MD Consults: 06/08/18 20:40 Consult to Discharge Planning Routine Comment: 06/09/18 12:34 Consult to Occupational Therapy Evaluate & Treat Comment: Physician Instructions: Evaluate and treat Consult to Physical Therapy Evaluate & Treat Comment: Physician Instructions: Evaluate and Treat Discharge provider: Ayesha Corona MD Discharge Date: 06/12/18 Summary Discharge Diagnosis: Sepsis secondary to EColi Bacteremia Pyelonephritis Back pain S/p Fall nausea/vomiting/dehydration Acute Kidney Injury Hospital Course: Patient was admitted to the course with dehydration, nausea, emesis, diarrhea. Patient was found to have ECOLI urinary tract infection with bacteremia. She also was found to have nephrolithiasis that did not require intervention. She was placed on IV antibiotics, IV hydration, with slow but gradual improvement in her symptoms. She was seen by PT/OT and deemed appropriate for discharge home. The patient developed mucositis, and an eruption on her lip. She was treated accordingly. Patient will follow up with her PCP next week for for further evaluation. Status at Discharge Functional status at discharge: independent ambulation Overall status at discharge: patient is back to baseline Time Spent with Patient Less than 30 minutes Exam Vital Signs (past 8 hours): - 06/12/18 05:48 06/12/18 06:00 06/12/18 07:45 Temperature 99.1 F 98 F Pulse Rate 112 H 90 Respiratory Rate 16 18 Blood Pressure 120/60 115/63 Pulse Oximetry 94 94 95 06/12/18 09:55 Temperature Pulse Rate Respiratory Rate Blood Pressure Pulse Oximetry 95 Oxygen Delivery Method Room Air Oxygen Flow Rate 0 Narrative Exam Narrative: Pleasant female resting comfortably in No Acute Distress Face: vesicular eruption beneath nose and upper lip Oropharyx: erythematous lesions Lungs: clear to auscultation CV:RRR nl Sl S2 Abd: soft/ non tender/non distended Ext: trace edema Objective Labs Result Diagrams: 06/12/18 05:23 06/12/18 05:23 Labs: Laboratory Results - last 24 hr 06/11/18 06/12/18 06/12/18 18:18 05:23 05:23 WBC 9.3 RBC 3.39 L Hgb 10.2 L Hct 30.2 L MCV 89.2 MCH 30.2 MCHC 33.9 RDW 13.8 Plt Count 172 Neut % (Auto) Not Reportable Lymph % (Auto) Not Reportable [place] % (Auto) Not Reportable Eos % (Auto) Not Reportable Baso % (Auto) Not Reportable Total Counted 100 Seg Neutrophils % 60.0 Band Neutrophils % 10.0 H Lymphocytes % (Manual) 19.0 L Monocytes % (Manual) 11.0 Neutrophils # (Manual) 6510 H RBC Morphology Normal morphology Sodium 143 Potassium 3.7 Chloride 110 H Carbon Dioxide 23 BUN 12 Creatinine 0.60 Estimated GFR > 60.0 BUN/Creatinine Ratio 20.0 Glucose 92 Lactate 1.2 Calcium 7.8 L Total Bilirubin 0.4 AST 38 H ALT 28 Alkaline Phosphatase 153 H Total Protein 5.0 L Albumin 2.5 L Globulin 2.5 Albumin/Globulin Ratio 1.0 Discharge Plan Discharge Plan Discharge Problem: Dehydration, Acute renal failure, Pyelonephritis Patient Disposition: Home Discharge Med Rec/Prescriptions Prescriptions: New acyclovir [Zovirax] 400 mg Tablet 800 mg PO BID Qty: 20 RF: 0 levofloxacin 500 mg tablet 500 mg PO DAILY Qty: 7 RF: 0 gabapentin 100 mg Capsule 100 mg PO TID Qty: 30 RF: 0 methocarbamol 500 mg Tablet 500 mg PO TID Qty: 20 RF: 0 lidocaine HCl [Lidocaine Viscous] 2 % Solution 30 ml Mucous Membrane Q4H PRN (Reason: ucositis) Qty: 150 RF: 0 alum-mag hydroxide-simeth [Mag-Al Plus] 200-200-20 mg/5 mL Suspension 30 ml Mucous Membrane Q4H PRN (Reason: ucositis) Qty: 150 RF: 0 nystatin 100,000 unit/mL Suspension 3,000,000 unit Mucous Membrane Q4H PRN (Reason: ucositis) 10 Days RF: 0 Continue naproxen sodium 220 mg Tablet 440 mg PO BID RF: 0 ibuprofen 200 mg Tablet 600 mg PO TID RF: 0 Provider Discharge Instructions Diet: Diet as Tolerated and Regular Diet comment: mechanical soft/progress as tolerated Activity: as tolerated Skin/Wound/Dressing Care Report to your healthcare provider any signs of infection, such as:: chills, fever and night sweats Discharge Data Primary Care Provider: Coleman Castellanos V Attending Provider: Marisol Degroot Admit Date/Time: 06/08/18 19:49 Quality VTE Deep Vein Thrombosis/Pulmonary Embolism Present on Admission: No
[2018-06-12 10:46] LABS: Acinetobacter baumannii Not Detected (Not Detect); Candida albicans Not Detected (Not Detect); Candida glabrata Not Detected (Not Detect); Candida krusei Not Detected (Not Detect); Candida parapsilosis Not Detected (Not Detect); Candida tropicalis Not Detected (Not Detect); E. coli Detected (Not Detect); Enterobacter cloacae complex Not Detected (Not Detect); Enterobacteriaceae species Detected (Not Detect); Enterococcus species Not Detected (Not Detect); Haemophilus influenzae Not Detected (Not Detect); KPC (carbapenem-resist gene) Not Detected (Not Detect); Listeria monocytogenes Not Detected (Not Detect); Methicillin-resistant gene Not Detected (Not Detect); Neisseria meningitidis Not Detected (Not Detect); Proteus species Not Detected (Not Detect); Pseudomonas aeruginosa Not Detected (Not Detect); Serratia marcescens Not Detected (Not Detect); Staphylococcus species Not Detected (Not Detect); Streptococcus agalactiae (Gr B Not Detected (Not Detect); Streptococcus pneumonia Not Detected (Not Detect); Streptococcus pyogenes (Gr A) Not Detected (Not Detect); Streptococcus species Not Detected (Not Detect); Vancomycin-rest genes A/B Not Detected (Not Detect)
[2018-06-12] MEDS: LIDOCAINE VISCOUS 2% 30 ML, MAG HYDROX/ALUMINUM/SIMETH SUS 30 ML, NYSTATIN SUSP 3,000,0... MM ×4 (10:59→23:38)
[2018-06-12] MEDS: ACYCLOVIR 400 MG TABLET 800 MG PO ×2 (10:59→21:18)
--- NOTE | 2018-06-12 12:03 | PT.IPNOTE ---
PT POC Update Per discussion with FARO DEALER, pt has reached all of her therapy goals and is set to discharge home later today. Patient has no other acute PT needs, therefore, acute PT will sign off.
[2018-06-12] MEDS: CEFTRIAXONE 1 GM/50 ML FROZ.PIGGY IV (14:46)
--- NOTE | 2018-06-12 16:34 | P.PN_ITS ---
Subjective Date Patient Seen: 06/12/18 Interval history: Patient had spiking fevers yesterday. Less febrile overnight. She continues to have bacteremia with ECOLI growing in the blood. She feels better but still having fevers Exam Vital Signs (past 8 hours): - 06/12/18 09:55 06/12/18 11:30 06/12/18 14:00 Temperature 98.2 F Pulse Rate 93 H Respiratory Rate 20 Blood Pressure 138/72 Pulse Oximetry 95 99 93 06/12/18 15:40 Temperature 99.2 F Pulse Rate 110 H Respiratory Rate 20 Blood Pressure 138/75 Pulse Oximetry 98 Oxygen Delivery Method Room Air Oxygen Flow Rate 0 Narrative Exam Narrative: Pleasant female in no acute distress HEENT: vesicular eruption above lip, oropharyx with open lesions Lungs: clear to auscultation CV: RRR nl Sl S2 ABd: soft/ nontender/ non distended Ext: no edema Objective Labs Result Diagrams: 06/12/18 05:23 06/12/18 05:23 Labs: Laboratory Results - last 24 hr 06/11/18 06/12/18 06/12/18 18:18 05:23 05:23 WBC 9.3 RBC 3.39 L Hgb 10.2 L Hct 30.2 L MCV 89.2 MCH 30.2 MCHC 33.9 RDW 13.8 Plt Count 172 Neut % (Auto) Not Reportable Lymph % (Auto) Not Reportable [place] % (Auto) Not Reportable Eos % (Auto) Not Reportable Baso % (Auto) Not Reportable Total Counted 100 Seg Neutrophils % 60.0 Band Neutrophils % 10.0 H Lymphocytes % (Manual) 19.0 L Monocytes % (Manual) 11.0 Neutrophils # (Manual) 6510 H RBC Morphology Normal morphology Sodium 143 Potassium 3.7 Chloride 110 H Carbon Dioxide 23 BUN 12 Creatinine 0.60 Estimated GFR > 60.0 BUN/Creatinine Ratio 20.0 Glucose 92 Lactate 1.2 Calcium 7.8 L Total Bilirubin 0.4 AST 38 H ALT 28 Alkaline Phosphatase 153 H Total Protein 5.0 L Albumin 2.5 L Globulin 2.5 Albumin/Globulin Ratio 1.0 A. baumannii (PCR) Julissa albicans (PCR) C. glabrata (PCR) C. krusei (PCR) C. parapsilosis (PCR) C. tropicalis (PCR) Enterobacteriac sp PCR E. cloacae complex PCR Enterococcus sp PCR E. coli (PCR) H. influenzae (PCR) Klebsiella oxytoca PCR Klebsiella pneumoniae List. monocytogenes PCR N. meningitidis (PCR) Proteus species (PCR) Serratia marcescens PCR Staphylococcus sp PCR Staph aureus (PCR) mecA-Methicil Res Gene Streptococcus sp PCR Group A Strep (PCR) Strep agalactiae (PCR) Strep pneumoniae (PCR) P. aeruginosa (PCR) Tammie/B-Vanco Res Genes KPC-Carbap Res Gene PCR 06/12/18 Unknown WBC RBC Hgb Hct MCV MCH MCHC RDW Plt Count Neut % (Auto) Lymph % (Auto) [place] % (Auto) Eos % (Auto) Baso % (Auto) Total Counted Seg Neutrophils % Band Neutrophils % Lymphocytes % (Manual) Monocytes % (Manual) Neutrophils # (Manual) RBC Morphology Sodium Potassium Chloride Carbon Dioxide BUN Creatinine Estimated GFR BUN/Creatinine Ratio Glucose Lactate Calcium Total Bilirubin AST ALT Alkaline Phosphatase Total Protein Albumin Globulin Albumin/Globulin Ratio A. baumannii (PCR) Not detected Julissa albicans (PCR) Not detected C. glabrata (PCR) Not detected C. krusei (PCR) Not detected C. parapsilosis (PCR) Not detected C. tropicalis (PCR) Not detected Enterobacteriac sp PCR Detected H E. cloacae complex PCR Not detected Enterococcus sp PCR Not detected E. coli (PCR) Detected H H. influenzae (PCR) Not detected Klebsiella oxytoca PCR Not detected Klebsiella pneumoniae Not detected List. monocytogenes PCR Not detected N. meningitidis (PCR) Not detected Proteus species (PCR) Not detected Serratia marcescens PCR Not detected Staphylococcus sp PCR Not detected Staph aureus (PCR) Not detected mecA-Methicil Res Gene Not detected Streptococcus sp PCR Not detected Group A Strep (PCR) Not detected Strep agalactiae (PCR) Not detected Strep pneumoniae (PCR) Not detected P. aeruginosa (PCR) Not detected Tammie/B-Vanco Res Genes Not detected KPC-Carbap Res Gene PCR Not detected Assessment & Plan (1) Pyelonephritis: Problem details: On ceftriaxone now, will follow fever and blood cultures Current visit: Yes Status: Acute (2) Acute renal failure: Problem details: Improved with IV hydration Qualifiers: Acute renal failure type: unspecified Qualified Code(s): N17.9 - Acute kidney failure, unspecified Current visit: Yes Status: Acute (3) Dehydration: Problem details: Improved with hydration Current visit: Yes Status: Acute (4) Bacteremia due to Gram-negative bacteria: Problem details: On ceftriaxone, d/c levofloxacin given spiking fevers and continued bacteremia Current visit: Yes Status: Acute Quality VTE Deep Vein Thrombosis/Pulmonary Embolism Present on Admission: No
[2018-06-12] MEDS: ONDANSETRON 4 MG/2 ML INJ IV (18:39)
[2018-06-12] MEDS: ACETAMINOPHEN 325 MG TABLET 650 MG PO (19:16)
--- NOTE | 2018-06-12 20:42 | PC.NURSE ---
1500- assumed care of pt from outgoing shift. pt asleep but arouses to voice.pt uses call light. pt voids frequently. denies burning or pain with urination. Pt having some nausea and then didn't want to finish dinner. pt bed alarm on. calls appropriately. Pt given tylenol for fever, pt states blankets help her so she doesnt shiver. Pt take her swish mouth solution and swallows. discussed maybe to spit it out if she thinks that is causing her upset stomach. Pt arouses easily to voice and goes right back to sleep. Pt given zofran for nausea. pt ambulates steady gait and able to manipulate IV pole, will continue to monitor pt for safety.
[2018-06-13] VITALS (11 sets, daily range): BP systolic 120–149; BP diastolic 55–72; PULSE 85–97; RESP 14–20; TEMP 36.4–37.7; O2SAT 93–99
--- NOTE | 2018-06-13 | DI.CT.S_ITS ---
PROCEDURE: CT ABDOMEN PELVIS WO CON INDICATIONS: r/o perinephric abcess TECHNIQUE: Noncontrast 5 mm thick sections acquired from the diaphragms to the symphysis. 5 mm coronal and sagittal reformats were then performed. For radiation dose reduction, the following was used: automated exposure control, adjustment of mA and/or kV according to patient size. COMPARISON: [facility], US, US ABDOMEN COMPLETE, 06/08/2018, 18:47. FINDINGS: Image quality: Excellent. ABDOMEN: Lung bases: Small bilateral pleural effusions, with adjacent atelectasis. There are subcentimeter (up to 6 mm) multiple subpleural bibasilar pulmonary nodules, image 6 series 3, image 4 series 3 which are indeterminate in the absence of prior studies. Additional 2-3 mm nodule seen on image 3 series 3 and may right lung base also indeterminate. Solid organs: Liver is normal in size. Gallbladder negative. Pancreas is normal in contours. Spleen is normal in size. No adrenal nodules. Kidneys are normal in size, without hydronephrosis. Numerous renal calculi are seen measuring up to 8mm on the right, and 3 mm on the left. Subcentimeter hypodensity present in the anterior left renal cortex, image 31 series 2 technically indeterminate and too small to characterize. Similar-appearing medial right cortical hypodensity seen, 5 mm. There is mild bilateral perinephric stranding. Peritoneum and bowel: Possible trace hernia. Unenhanced bowel loops demonstrate normal wall thickness and caliber. No free fluid or air. Colonic diverticulosis is seen without evidence of acute complication. Nodes and vessels: No retroperitoneal or mesenteric adenopathy by size criteria. Aorta and inferior vena cava are normal in caliber. Miscellaneous: No ventral hernias. PELVIS: Genitourinary: Bladder wall thickness is normal. Miscellaneous: No inguinal hernias or adenopathy. Bones: No suspicious bony lesions. Age-indeterminate mild anterior wedging of L1. Scattered small Schmorl's nodes. IMPRESSION: No hydronephrosis. Bilateral nephrolithiasis as above. No definite focal fluid collections to suggest perinephric or intrarenal abscess. Of note, limited evaluation of the renal parenchyma and decreased study sensitivity for abscess in the absence of IV contrast. Subcentimeter bilateral renal hypodense foci, likely small cysts although technically indeterminate and too small to characterize. If clinically warranted, continued ultrasound surveillance could be performed. Small bilateral pleural effusion with adjacent atelectasis. Multiple bibasilar pulmonary subcentimeter nodules, technically indeterminate in the absence of comparison studies. Recommend further evaluation with noncontrast chest CT in 6 months to exclude early metastatic or malignant possibilities. Dictated by: Frederic Harley M.D. on 06/13/2018 at 17:57 Approved by: Frederic Harley M.D. on 06/13/2018 at 18:07
--- NOTE | 2018-06-13 | DI.RAD.S_ITS ---
PROCEDURE: XR CHEST 1V INDICATIONS: crackles TECHNIQUE: One view of the chest was acquired. COMPARISON: None. FINDINGS: Surgical changes and devices: None. Lungs and pleura: No pleural effusions or pneumothorax. Blunting of the costophrenic angles bilaterally. Streaky retrocardiac opacities presumably scarring/atelectasis. Mediastinum: Mediastinal contours appear normal. Heart size is normal. Bones and chest wall: No suspicious bony lesions. Overlying soft tissues appear unremarkable. IMPRESSION: Trace bilateral pleural effusions. Streaky retrocardiac and left lower lobe opacities suggestive of atelectasis/aspiration although developing pneumonia cannot be excluded. If there is persistent clinical diagnostic uncertainty, continued surveillance with short interval chest radiographs after treatment is recommended. Dictated by: Frederic Harley M.D. on 06/13/2018 at 16:23 Approved by: Frederic Harley M.D. on 06/13/2018 at 16:26
[2018-06-13] MEDS: LIDOCAINE VISCOUS 2% 30 ML, MAG HYDROX/ALUMINUM/SIMETH SUS 30 ML, NYSTATIN SUSP 3,000,0... MM ×4 (03:35→20:24)
[2018-06-13] MEDS: ONDANSETRON 4 MG/2 ML INJ IV (03:38)
[2018-06-13 06:05] LABS: Hemoglobin 10.4 g/dL (12.0-16.0); Mean Corpuscular HGB Conc 32.5 % (30-36); Mean Corpuscular Volume 89.5 fL (80-100); Platelet Count 237 X10^3/uL (150-400); Red Blood Cell Count 3.58 X10^6/uL (4.0-5.2); White Blood Cell Count 11.4 X10^3/uL (4.5-11.0)
[2018-06-13 06:09] LABS: Alanine Aminotransferase 31 IU/L (9-52); Albumin 2.7 g/dL (3.5-5.0); Alkaline Phosphatase 134 U/L (38-126); Aspartate Aminotransferase 48 IU/L (14-36); Bilirubin Total 0.5 mg/dL (0.2-1.3); Blood Urea Nitrogen 9 mg/dL (7-17); Calcium 7.7 mg/dL (8.4-10.2); Carbon Dioxide 24 mmol/L (22-32); Chloride 109 mmol/L (98-107); Estimated Glomerular Filt Rate > 60.0 mL/min (>60); Globulin 2.7 g/dL (1.7-4.1); Glucose 97 mg/dL (80-110); HEMOLYSIS < 15 (0-50); Potassium 3.4 mmol/L (3.4-5.1); Sodium 143 mmol/L (137-145); Total Protein 5.4 g/dL (6.3-8.2)
[2018-06-13 06:10] LABS: Add Manual Diff / Slide Review YES
[2018-06-13 06:31] LABS: Neutrophils Absolute Manual 9348 /uL (3000-5900); RBC Morphology Normal Morphology; Total Cells Counted 100
[2018-06-13] MEDS: ACETAMINOPHEN 325 MG TABLET 650 MG PO ×3 (08:58→20:23)
[2018-06-13] MEDS: PROCHLORPERAZINE 10 MG/2 ML VIAL 5 MG IV (09:06)
[2018-06-13] MEDS: ACYCLOVIR 400 MG TABLET 800 MG PO ×2 (09:12→20:23)
--- NOTE | 2018-06-13 10:57 | PC.NURSE ---
Addendum entered by Ebony Phillips R.N. 06/13/18 12:23: PAIN - incr back discomfort, discussed medications available, and given robaxin and ice pack to back. Original Note: AM NOTE - pt is alert, does have some mild back discomfort, states bed and chair are uncomfortable, ongoing nausea, given 5mg iv compazine this am and 650mg tylenol, declines the robaxin and gabapentin, has blisters accross upper and lower lips, some at gum area and under nose, given swish and swallow lidocaine mix this am after breakfast, nausea resolved, standby assist by director of guidance in public [employer] into shower this am.
--- NOTE | 2018-06-13 11:18 | CM.DPC ---
DCP Cont: Patient was going to be discharged home, but has been febrile, and cultures have been obtained, which are pending. At this time, patient is continuing with IV antibiotics. Patient has been working with physical therapy as well, and goals have been met. At this time, patient is still not medically ready for discharge, but home is still the plan, as long as she can be changed over to oral antibiotics, as soon as bacteria is identified. P: DCP to continue to follow closely. Home is still the plan when stable. Lore Mancilla RN/Retread Operator
[2018-06-13] MEDS: CEFTRIAXONE 1 GM/50 ML FROZ.PIGGY IV (11:45)
[2018-06-13] MEDS: METHOCARBAMOL 500 MG TABLET PO ×2 (12:18→20:23)
--- NOTE | 2018-06-13 14:03 | PM.PN.1 ---
Subjective Date Patient Seen: 06/13/18 Interval history: Patient continues to spike fevers at night. Last temperature was 102?. She continues to have herpetic eruption over her mouth. She feels ill and out of it. Exam Vital Signs (past 8 hours): - 06/13/18 08:15 06/13/18 11:01 06/13/18 11:59 Temperature 98.1 F 97.8 F Pulse Rate 93 H 90 Respiratory Rate 18 18 Blood Pressure 143/69 H 131/55 L Pulse Oximetry 97 95 93 Oxygen Delivery Method Room Air Oxygen Flow Rate 0 Narrative Exam Narrative: Pleasant female resting comfortably Lungs: Clear to auscultation Cardiac exam: Regular rate and rhythm normal S1 and S2 Abdomen: Soft and nontender Extremities: No edema Face: Vesicular eruption on the upper lip and lower chin Objective Labs Result Diagrams: 06/13/18 05:37 06/13/18 05:37 Labs: Laboratory Results - last 24 hr 06/09/18 06/13/18 06/13/18 04:45 05:37 05:37 WBC 11.4 H RBC 3.58 L Hgb 10.4 L Hct 32.0 L MCV 89.5 MCH 29.0 MCHC 32.5 RDW 14.0 Plt Count 237 Neut % (Auto) Not Reportable Lymph % (Auto) Not Reportable [place] % (Auto) Not Reportable Eos % (Auto) Not Reportable Baso % (Auto) Not Reportable Total Counted 100 Seg Neutrophils % 74.0 H Band Neutrophils % 8.0 H Lymphocytes % (Manual) 11.0 L Monocytes % (Manual) 7.0 Neutrophils # (Manual) 9348 H RBC Morphology Normal morphology Eosinophil Count Cancelled Sodium 143 Potassium 3.4 Chloride 109 H Carbon Dioxide 24 BUN 9 Creatinine 0.50 L Estimated GFR > 60.0 BUN/Creatinine Ratio 18.0 Glucose 97 Calcium 7.7 L Total Bilirubin 0.5 AST 48 H ALT 31 Alkaline Phosphatase 134 H Total Protein 5.4 L Albumin 2.7 L Globulin 2.7 Albumin/Globulin Ratio 1.0 Date of Cancelled Assessment & Plan (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 Current visit: Yes Status: Acute (3) Dehydration: Problem details: Improved with hydration Current visit: Yes Status: Acute (4) Pyelonephritis: Problem details: On ceftriaxone now, will follow fever and blood cultures Current visit: Yes Status: Acute Quality VTE Deep Vein Thrombosis/Pulmonary Embolism Present on Admission: No
[2018-06-13] MEDS: GABAPENTIN 100 MG CAPSULE PO ×2 (14:58→20:23)
[2018-06-13] MEDS: SENNOSIDES 8.6 MG TABLET 17.2 MG PO ×2 (14:58→20:23)
[2018-06-13] MEDS: DOCUSATE 100 MG CAPSULE PO (14:58)
--- NOTE | 2018-06-13 22:12 | PC.NURSE ---
1500- assumed care of pt from outgoing shift and pt awake, sitting up in chair. Pt on isolation. Pt compliant discussed POC with pt and pt compliant. Pt uses the maalox solution and pt swishes and spits as she stated that she thinks if she swallows that it makes her nauseated. Pt uses call light. ambulates steady gait but waits for assistance. has terrible back pain. Pt sates she feels that her mouth is less dry bc she hasn't been taking the tramadol. Pt cooperative and pleasant to work with. will continue to monitor pt for safety.
[2018-06-14] VITALS: O2SAT 96
[2018-06-14] MEDS: ACETAMINOPHEN 325 MG TABLET 650 MG PO ×3 (02:50→14:27)
[2018-06-14 05:57] LABS: Add Manual Diff / Slide Review NO; Basophils Percent Auto 0.4 % (0-2); Eosinophils Percent Auto 1.6 % (2-4); Hemoglobin 10.5 g/dL (12.0-16.0); Lymphocytes Percent Auto 17.7 % (25-40); Mean Corpuscular HGB Conc 32.8 % (30-36); Mean Corpuscular Hemoglobin 29.5 PG (26-34); Monocytes Percent Auto 9.5 % (3-14); Neutrophils Absolute Auto 7100 /uL (1500-7000); Neutrophils Percent Auto 70.8 % (50-75); Platelet Count 321 X10^3/uL (150-400); Red Blood Cell Count 3.56 X10^6/uL (4.0-5.2); Red Cell Distribution Width 13.9 % (11.6-14.8); White Blood Cell Count 10.1 X10^3/uL (4.5-11.0)
[2018-06-14 06:00] VITALS: BP 129/72; PULSE 90; RESP 16; TEMP 36.7; O2SAT 96
[2018-06-14 06:18] LABS: Alanine Aminotransferase 25 IU/L (9-52); Albumin 2.6 g/dL (3.5-5.0); Albumin Globulin Ratio 0.9 (1.0-2.8); Alkaline Phosphatase 115 U/L (38-126); Aspartate Aminotransferase 32 IU/L (14-36); BUN Creatinine Ratio 16.7 (6-22); Bilirubin Total 0.3 mg/dL (0.2-1.3); Blood Urea Nitrogen 10 mg/dL (7-17); Carbon Dioxide 29 mmol/L (22-32); Chloride 107 mmol/L (98-107); Estimated Glomerular Filt Rate > 60.0 mL/min (>60); Globulin 2.8 g/dL (1.7-4.1); Glucose 95 mg/dL (80-110); HEMOLYSIS < 15 (0-50); Potassium 3.5 mmol/L (3.4-5.1); Sodium 145 mmol/L (137-145); Total Protein 5.4 g/dL (6.3-8.2)
[2018-06-14 06:49] VITALS: O2SAT 96
[2018-06-14 08:10] VITALS: BP 150/73; PULSE 94; RESP 20; TEMP 36.8; O2SAT 97
[2018-06-14 09:25] VITALS: O2SAT 97
[2018-06-14] MEDS: METHOCARBAMOL 500 MG TABLET PO ×2 (09:34→14:27)
[2018-06-14] MEDS: SENNOSIDES 8.6 MG TABLET 17.2 MG PO (09:34)
[2018-06-14] MEDS: ACYCLOVIR 400 MG TABLET 800 MG PO (09:34)
[2018-06-14] MEDS: GABAPENTIN 100 MG CAPSULE PO (12:11)
[2018-06-14] MEDS: DOCUSATE 250 MG CAPSULE PO (12:11)
[2018-06-14] MEDS: MAGNESIUM HYDROXIDE 30 ML UDC PO (12:11)
[2018-06-14 14:18] VITALS: O2SAT 97
--- NOTE | 2018-06-14 15:14 | PC.NURSE ---
Discharge Pt states she is having back spasms, medicated as ordered and it helps but still having spasms which she had prior to admit. PIV removed. Up with SBA. Stable on feet once up. D/c instructions provided to pt and . notified to f/u with PCP and also to contact MD with any additional questions or concerns. Pt left with all belongings. Left in w/c with RN escort to car.
== END 2018-06-14 14:40 | disposition home or self-care (01) | DRG 872 ==
LOC: ED 19:49 → AC 19:55
PROVIDERS: Emergency Medicine; Hospitalist; Admitting Provider Nurse Practitioner Gerontology; Emergency Provider Internal Medicine; PCP Internal Medicine; Visit Provider Nurse Practitioner Gerontology
DX: A41.51 Sepsis due to Escherichia coli [E. coli] (principal); N12 Tubulo-interstitial nephritis, not specified as acute or chronic; N17.9 Acute kidney failure, unspecified; R65.20 Severe sepsis without septic shock; R19.7 Diarrhea, unspecified; E86.0 Dehydration; B00.9 Herpesviral infection, unspecified; K21.9 Gastro-esophageal reflux disease without esophagitis; E78.5 Hyperlipidemia, unspecified
CPT/HCPCS: 36415; 71045; 74176; 76700; 80048; 80053; 81001; 81003; 81015; 82340; 82570; 83605; 83690; 83735; 84105; 84133; 84300; 85025; 85610; 85730; 85999; 87040; 87077; 87086; 87150; 87186; 87205; 87507; 93005; 93010; 96361; 96365; 96375; 96376; 97116; 97161; 97530; 99283; 99284; J0780; J1956; J2405; J3010

== ENCOUNTER 2018-06-23 17:42 | Emergency (ER) | payer MEDICARE, SELFPAY ==
[2018-06-23 17:53] VITALS: BP 132/85; PULSE 102; RESP 16; TEMP 36.8; O2SAT 98
--- NOTE | 2018-06-23 18:17 | DI.MRI.S_ITS ---
PROCEDURE: MR LUMBAR SPINE WO/W CON INDICATIONS: diskitis, pain, infection TECHNIQUE: Noncontrast sagittal T1 spin echo and T2 fast spin echo, sagittal STIR, axial T1 and T2 fast spin echo through the lumbar spine. In cases with scoliosis, additional coronal T2 fast spin echo may be performed. After the administration of contrast, sagittal and axial T1 spin echo with fat saturation through the lumbar spine. COMPARISON: [facility], CT, CT ABDOMEN PELVIS WO CON, 06/13/2018, 14:33. [facility], CR, XR LUMBAR SPINE 2-3V, 06/02/2018, 11:35. FINDINGS: Image quality: Excellent. Alignment, marrow, and curvature: There are moderate multilevel degenerative changes of the lumbar spine with grade 1 anterolisthesis of L4 on L5 and multilevel degenerative disc disease. There is multilevel mild neural foraminal narrowing. There is otherwise maintenance of the normal lumbar lordosis. There is multilevel degenerative loss of T2 signal within the intervertebral discs of the lumbar spine. There is a superior endplate Schmorl's node at T12. There is a moderate anterior compression deformity/fracture of the L1 vertebral body with approximately 30% height loss anteriorly. There is diffuse abnormal T1 hypointense marrow signal within the L1 vertebral body. There is abnormal STIR hyperintense signal within the L1-L2 intervertebral discs and abnormal signal within the superior endplate of L2. Spinal cord: Conus medullaris terminates at the L1 level. Visualized spinal cord demonstrates normal signal, without suspicious enhancement. There is a thin 3 mm AP by 8.0 cm CC region of serpiginous epidural enhancement within the anterior spinal canal extending from the T12 to L3 vertebral bodies, concerning for an epidural abscess/hemorrhage. There is also a 3 mm AP by 7 cm CC thin region of serpiginous enhancement along the anterior paraspinous musculature concerning for paraspinous inflammation/abscess. Paraspinous soft tissues: There is a 1.0 cm fluid collection extending laterally into the right iliopsoas muscle and a 0.8 cm fluid collection extending laterally into the left iliopsoas muscle at the level of L1, consistent with ilioppsoas abscesses. Cholelithiasis noted. There are multiple bilateral renal cysts. 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 This results in an L1 anterior vertebral body compression fracture with 30% vertebral body height loss. Findings are concerning for an additional thin anterior spinal canal epidural abscess/hemorrhage extending from T12 to L3, a thin anterior paraspinous fluid collection/abscess, and small bilateral iliopsoas abscesses with surrounding inflammation. Findings discussed with the referring provider Dr. Purdy of the emergency department at 9:00 PM on 06/23/[address] Lorenzo. Dictated by: Guy Lorenzo M.D. on 06/23/2018 at 20:42 Approved by: Guy Lorenzo M.D. on 06/23/2018 at 20:57
--- NOTE | 2018-06-23 18:20 | PC.NURSE ---
Pt referred by Dr Castellanos. She was released from the hospital after treated with urosepsis from kidney infection. Pt continue to have bilateral low back pain which occurs with movements or changing in position. Pt describes as locking up, spasming. Denies bladder or bowel dysfunction. Pt's lower extremities strength bilaterally equal with +2 patella reflex. Pt has been having chills but unsure of fever. Pt sitting on WC since arrived in ER, reports this is more comfortable.
[2018-06-23] MEDS: MORPHINE 2 MG/ML INJ IV ×2 (18:40→19:44)
[2018-06-23] MEDS: ONDANSETRON 4 MG/2 ML INJ IV (18:48)
--- NOTE | 2018-06-23 18:48 | ED_ITS ---
HPI - Back Pain/Injury General Chief Complaint: Back Pain/Injury Stated Complaint: spoke with her dr, wants to have MRI on lower back Time Seen by Provider: 06/23/18 18:09 Source: patient Mode of arrival: ambulatory Limitations: no limitations History of Present Illness HPI Narrative: Patient is a 72-year-old female who presents with left low back pain. She was seen by her primary care provider in sent her to the ED for further evaluation he is worried about diskitis. She was recently admitted with bacteremia E coli secondary to UTI with multi-drug resistance. She was discharged on 06/14/2018. She says she has 1 dose of antibiotics left, cefdinir. She is since then having increasing back pain. She is able to sit however walking is causing her extreme pain. Any pressure on her shoulders also causes extreme pain. She has no numbness or tingling in her legs no weakness. She states she did fall about 3 weeks ago she had an x-ray which was negative. She has not had any fever or chills. She has been using a walker to get around. MD Complaint: back pain Related Data Home Medications Medication Instructions Recorded Confirmed ibuprofen 600 mg PO TID 06/08/18 06/08/18 naproxen sodium 440 mg PO BID 06/08/18 06/08/18 Previous Rx's Medication Instructions Recorded acyclovir [Zovirax] 800 mg PO BID #20 tab 06/12/18 alum-mag hydroxide-simeth [Mag-Al 30 ml MUCOUS MEMBRANE Q4H PRN #150 06/12/18 Plus] ml gabapentin 100 mg PO TID #30 cap 06/12/18 lidocaine HCl [Lidocaine Viscous] 30 ml MUCOUS MEMBRANE Q4H PRN #150 06/12/18 ml methocarbamol 500 mg PO TID #20 tab 06/12/18 cefdinir 300 mg PO Q12H 10 Days #20 cap 06/14/18 Allergies Allergy/AdvReac Type Severity Reaction Status Date / Time Penicillins Allergy Verified 06/08/18 15:02 Sulfa (Sulfonamide Allergy Verified 06/08/18 15:02 Antibiotics) Review of Systems Review of Systems All systems reviewed & are unremarkable except as noted in HPI and below Constitutional Denies chills, Denies fever(s), Denies lethargy and Denies weakness Eyes Denies change in vision, Denies eye discharge, Denies irritation and Denies loss of vision Cardiovascular Denies chest pain, Denies irregular heart rhythm, Denies lightheadedness, Denies palpitations, Denies dyspnea, Denies dyspnea on exertion and Denies orthopnea Respiratory Denies cough, Denies dyspnea, Denies dyspnea on exertion and Denies wheezing Gastrointestinal Gastrointestinal: Denies abdominal pain, Denies change in bowel habits, Denies diarrhea, Denies nausea and Denies vomiting Genitourinary Reports as per HPI Musculoskeletal Reports as per HPI, Reports back pain, Denies muscle weakness, Denies numbness and Denies tingling Integumentary/Breasts Denies pruritus, Denies erythema, Denies rash and Denies wounds Neurologic Denies loss of vision, Denies numbness, Denies tingling and Denies weakness Endocrine Denies palpitations Allergic/Immunologic Denies wheezing FOR[facility]LY [facility] Medical History Allergic rhinitis (Chronic) Chronic GERD (Chronic) Elevated lipids (Chronic) History of recurrent UTI (urinary tract infection) (Chronic) Osteopenia (Chronic) Recurrent pyelonephritis (Chronic) Surgical History Status post breast biopsy (Resolved) Family History Mother No known health problems Father No known health problems Social History household members: spouse and children Smoking Status: Never smoker alcohol intake: current Exam Initial Vital Signs Initial Vital Signs: Vital Signs Temperature 98.2 F 06/23/18 17:53 Pulse Rate 102 H 06/23/18 17:53 Respiratory Rate 16 06/23/18 17:53 Blood Pressure 132/85 06/23/18 17:53 Pulse Oximetry 98 06/23/18 17:53 GENERAL: Sitting in wheelchair alert and oriented no acute distress HEENT: Head atraumatic,EOMI, pupils reactive, face symmetric, moist mucous membranes CARDIOVASCULAR: Regular rate and rhythm without murmurs, rubs or gallops. RESPIRATORY: Breath sounds equal bilaterally, no wheezes rales or rhonchi. ABDOMEN: Soft, nontender. Normoactive bowel sounds all 4 quadrants. No guarding or rebound. BACK: L3-4 tenderness more laterally than midline : No CVA tenderness EXTREMITIES: Normal range of motion, no clubbing or edema. Neurovascularly intact NEUROLOGICAL: Alert and oriented x4.Normal gait and speech. Cranial nerves II through XII grossly intact. Strength and lower extremities equal bilaterally sensation to soft touch equal bilaterally SKIN: Warm, dry, no laceration, no petechiae, no rashes or lesions. Course Orders Ordered: ED Orders 06/23/18 18:17 MR lumbar spine wo/w con Stat 06/23/18 18:38 C-Reactive Protein Quant Stat Complete Blood Count AUTO DIFF Stat Comprehensive Metabolic Panel Stat Erythrocyte Sedimentation Rate Stat Lactate (Lactic Acid) Stat Procalcitonin Stat 06/23/18 19:40 Blood Culture Stat Sodium Chloride (Normal Saline 0.9%) 1,000 mls @ 250 mls/hr IV CONT WINNIE Last Infusion: 06/23/18 22:30 Dose: 999 mls/hr Admin: 06/23/18 21:44 Dose: 250 mls/hr Discontinued Medications Lorazepam (Ativan) 0.5 mg IV NOW ONE Stop: 06/23/18 21:11 Last Admin: 06/23/18 21:17 Dose: 0.5 mg Morphine Sulfate (Morphine) 2 mg IV NOW ONE Stop: 06/23/18 18:18 Last Admin: 06/23/18 18:40 Dose: 2 mg Morphine Sulfate (Morphine) 2 mg IV NOW ONE Stop: 06/23/18 19:39 Last Admin: 06/23/18 19:44 Dose: 2 mg Ondansetron HCl (Zofran) 4 mg IV NOW ONE Stop: 06/23/18 18:48 Last Admin: 06/23/18 18:48 Dose: 4 mg Vital Signs - 8 hr 06/23/18 17:53 06/23/18 22:56 Temperature 98.2 F Pulse Rate 102 H 88 Respiratory Rate 16 16 Blood Pressure 132/85 Blood Pressure [Right Arm] 133/82 Pulse Oximetry 98 99 MDM - Back Pain/Injury Medical Records Attestation: I reviewed the patient's medical records. Lab Data Attestation: I reviewed the patient's lab results. Result diagrams: 06/23/18 18:38 06/23/18 18:38 Lab Results 06/23/18 06/23/18 06/23/18 Range/Units 18:38 18:38 18:38 WBC 7.1 (4.5-11.0) X10^3/uL RBC 3.78 L (4.0-5.2) X10^6/uL Hgb 11.7 L (12.0-16.0) g/dL Hct 34.2 L (36-46) % MCV 90.7 (80-100) fL MCH 30.9 (26-34) PG MCHC 34.0 (30-36) % RDW 14.2 (11.6-14.8) % Plt Count 757 H (150-400) X10^3/uL Neut % (Auto) 56.8 (50-75) % Lymph % (Auto) 31.7 (25-40) % Gooding % (Auto) 9.1 (3-14) % Eos % (Auto) 1.3 L (2-4) % Baso % (Auto) 1.1 (0-2) % Neut # (Auto) 4000 (9511-5362) /uL RBC Morphology See below Anisocytosis 1+ H ESR 68 H (0-20) MM/HR Sodium 141 (137-145) mmol/L Potassium 3.8 (3.4-5.1) mmol/L Chloride 105 (98-107) mmol/L Carbon Dioxide 26 (22-32) mmol/L BUN 9 (7-17) mg/dL Creatinine 0.50 L (0.52-1.04) mg/dL Estimated GFR > 60.0 (>60) mL/min BUN/Creatinine Ratio 18.0 (6-22) Glucose 102 (80-110) mg/dL Lactate (0.7-2.1) mmol/L Calcium 9.3 (8.4-10.2) mg/dL Total Bilirubin 0.4 (0.2-1.3) mg/dL AST 28 (14-36) IU/L ALT 17 (9-52) IU/L Alkaline Phosphatase 122 (38-126) U/L C-Reactive Protein 1.5 H (<1.0) mg/dL Total Protein 7.6 (6.3-8.2) g/dL Albumin 4.1 (3.5-5.0) g/dL Globulin 3.5 (1.7-4.1) g/dL Albumin/Globulin Ratio 1.2 (1.0-2.8) Procalcitonin 0.06 (<0.5) ng/mL 06/23/18 Range/Units 18:38 WBC (4.5-11.0) X10^3/uL RBC (4.0-5.2) X10^6/uL Hgb (12.0-16.0) g/dL Hct (36-46) % MCV (80-100) fL MCH (26-34) PG MCHC (30-36) % RDW (11.6-14.8) % Plt Count (150-400) X10^3/uL Neut % (Auto) (50-75) % Lymph % (Auto) (25-40) % Gooding % (Auto) (3-14) % Eos % (Auto) (2-4) % Baso % (Auto) (0-2) % Neut # (Auto) (7728-6501) /uL RBC Morphology Anisocytosis ESR (0-20) MM/HR Sodium (137-145) mmol/L Potassium (3.4-5.1) mmol/L Chloride (98-107) mmol/L Carbon Dioxide (22-32) mmol/L BUN (7-17) mg/dL Creatinine (0.52-1.04) mg/dL Estimated GFR (>60) mL/min BUN/Creatinine Ratio (6-22) Glucose (80-110) mg/dL Lactate 1.1 (0.7-2.1) mmol/L Calcium (8.4-10.2) mg/dL Total Bilirubin (0.2-1.3) mg/dL AST (14-36) IU/L ALT (9-52) IU/L Alkaline Phosphatase (38-126) U/L C-Reactive Protein (<1.0) mg/dL Total Protein (6.3-8.2) g/dL Albumin (3.5-5.0) g/dL Globulin (1.7-4.1) g/dL Albumin/Globulin Ratio (1.0-2.8) Procalcitonin (<0.5) ng/mL Imaging Data MRI - lumbar: Radiologist's impression: PROCEDURE: MR LUMBAR SPINE WO/W CON INDICATIONS: diskitis, pain, infection TECHNIQUE: Noncontrast sagittal T1 spin echo and T2 fast spin echo, sagittal STIR, axial T1 and T2 fast spin echo through the lumbar spine. In cases with scoliosis, additional coronal T2 fast spin echo may be performed. After the administration of contrast, sagittal and axial T1 spin echo with fat saturation through the lumbar spine. COMPARISON: [facility], CT, CT ABDOMEN PELVIS WO CON, 06/13/2018, 14:33. [facility], CR, XR LUMBAR SPINE 2-3V, 06/02/2018, 11:35. FINDINGS: Image quality: Excellent. Alignment, marrow, and curvature: There are moderate multilevel degenerative changes of the lumbar spine with grade 1 anterolisthesis of L4 on L5 and multilevel degenerative disc disease. There is multilevel mild neural foraminal narrowing. There is otherwise maintenance of the normal lumbar lordosis. There is multilevel degenerative loss of T2 signal within the intervertebral discs of the lumbar spine. There is a superior endplate Schmorl's node at T12. There is a moderate anterior compression deformity/ fracture of the L1 vertebral body with approximately 30% height loss anteriorly. There is diffuse abnormal T1 hypointense marrow signal within the L1 vertebral body. There is abnormal STIR hyperintense signal within the L1-L2 intervertebral discs and abnormal signal within the superior endplate of L2. Spinal cord: Conus medullaris terminates at the L1 level. Visualized spinal cord demonstrates normal signal, without suspicious enhancement. There is a thin 3 mm AP by 8.0 cm CC region of serpiginous epidural enhancement within the anterior spinal canal extending from the T12 to L3 vertebral bodies, concerning for an epidural abscess/hemorrhage. There is also a 3 mm AP by 7 cm CC thin region of serpiginous enhancement along the anterior paraspinous musculature concerning for paraspinous inflammation/abscess. Paraspinous soft tissues: There is a 1.0 cm fluid collection extending laterally into the right iliopsoas muscle and a 0.8 cm fluid collection extending laterally into the left iliopsoas muscle at the level of L1, consistent with ilioppsoas abscesses. Cholelithiasis noted. There are multiple bilateral renal cysts. 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 This results in an L1 anterior vertebral body compression fracture with 30% vertebral body height loss. Findings are concerning for an additional thin anterior spinal canal epidural abscess/hemorrhage extending from T12 to L3, a thin anterior paraspinous fluid collection/abscess, and small bilateral iliopsoas abscesses with surrounding inflammation. Findings discussed with the referring provider Dr. Purdy of the emergency department at 9:00 PM on 06/23/[address] Lorenzo. Dictated by: Guy Lorenzo M.D. on 06/23/2018 at 20:42 MDM Narrative Medical decision making narrative: He is elevated ESR and CRP but no leukocytosis does not appear septic. Her MRI does show possible eppidural abscess of T12-L3 along with diskitis and possible osteomyelitis of L1. Patient's PCP did call and state that she had an elevated ESR on June 16 of 112 and a CRP of 50 however I do not have record of this. Pain is much better after morphine. 10:[address] Holden neurosurgery at [facility] has reviewed MRI. He says non operative at this time would treat conservatively. Is also questions possible tumor would definitely need a biopsy. [facility] does not have infectious disease or ability for biopsy. With patient's history of multi drug resistance and recent bacteremia, will definitely need biopsy. [place] closed [place] closed Dr. Stacy at [facility] has been updated on patient's symptoms and test results and happily accepts patient for transfer Discharge Plan Departure Patient Disposition: [facility] Clinical Impression: Discitis, Osteomyelitis, Epidural abscess Prescriptions: No Action naproxen sodium 220 mg Tablet 440 mg PO BID RF: 0 ibuprofen 200 mg Tablet 600 mg PO TID RF: 0 methocarbamol 500 mg Tablet 500 mg PO TID Qty: 20 RF: 0 acyclovir [Zovirax] 400 mg Tablet 800 mg PO BID Qty: 20 RF: 0 lidocaine HCl [Lidocaine Viscous] 2 % Solution 30 ml Mucous Membrane Q4H PRN (Reason: ucositis) Qty: 150 RF: 0 gabapentin 100 mg Capsule 100 mg PO TID Qty: 30 RF: 0 alum-mag hydroxide-simeth [Mag-Al Plus] 200-200-20 mg/5 mL Suspension 30 ml Mucous Membrane Q4H PRN (Reason: ucositis) Qty: 150 RF: 0 cefdinir 300 mg capsule 300 mg PO Q12H 10 Days Qty: 20 RF: 0
[2018-06-23 18:55] LABS: Add Manual Diff / Slide Review NO; Basophils Percent Auto 1.1 % (0-2); Eosinophils Percent Auto 1.3 % (2-4); Hematocrit 34.2 % (36-46); Hemoglobin 11.7 g/dL (12.0-16.0); Lymphocytes Percent Auto 31.7 % (25-40); Mean Corpuscular Hemoglobin 30.9 PG (26-34); Mean Corpuscular Volume 90.7 fL (80-100); Monocytes Percent Auto 9.1 % (3-14); Neutrophils Absolute Auto 4000 /uL (1500-7000); Neutrophils Percent Auto 56.8 % (50-75); Red Blood Cell Count 3.78 X10^6/uL (4.0-5.2); Red Cell Distribution Width 14.2 % (11.6-14.8); White Blood Cell Count 7.1 X10^3/uL (4.5-11.0)
[2018-06-23 19:02] LABS: Alanine Aminotransferase 17 IU/L (9-52); Albumin 4.1 g/dL (3.5-5.0); Albumin Globulin Ratio 1.2 (1.0-2.8); Alkaline Phosphatase 122 U/L (38-126); Aspartate Aminotransferase 28 IU/L (14-36); Bilirubin Total 0.4 mg/dL (0.2-1.3); Blood Urea Nitrogen 9 mg/dL (7-17); C-Reactive Protein Quant 1.5 mg/dL (<1.0); Calcium 9.3 mg/dL (8.4-10.2); Carbon Dioxide 26 mmol/L (22-32); Chloride 105 mmol/L (98-107); Estimated Glomerular Filt Rate > 60.0 mL/min (>60); Globulin 3.5 g/dL (1.7-4.1); Glucose 102 mg/dL (80-110); HEMOLYSIS < 15 (0-50); Potassium 3.8 mmol/L (3.4-5.1); Sodium 141 mmol/L (137-145); Total Protein 7.6 g/dL (6.3-8.2)
[2018-06-23 19:13] LABS: Lactate (Lactic Acid) 1.1 mmol/L (0.7-2.1); Procalcitonin 0.06 ng/mL (<0.5)
[2018-06-23 19:23] LABS: Platelet Count 757 X10^3/uL (150-400)
[2018-06-23 19:24] LABS: Anisocytosis 1+
[2018-06-23 19:26] LABS: Erythrocyte Sedimentation Rate 68 MM/HR (0-20)
[2018-06-23] MEDS: LORazepam 2 MG/ML SYRINGE 0.5 MG IV (21:17)
[2018-06-23] MEDS: SODIUM CHLORIDE 0.9% 1,000 ML 250 ML IV (21:44)
--- NOTE | 2018-06-23 22:30 | PC.NURSE ---
fluid increased to 999ml/hr per BOTE
[2018-06-23 22:56] VITALS: BP 133/82; PULSE 88; RESP 16; O2SAT 99
[2018-06-24 00:55] LABS: Bacteria Urine None Seen; RBC Urine None Seen (0-5/HPF)
[2018-06-24 01:19] LABS: Squamous Epithelial Cell Urine 0-1 /HPF; WBC Urine 0-1/HPF (0-5/HPF)
[2018-06-24 01:20] LABS: Culture Indicated Urine Cult Not Indicated; Hyaline Casts Urine 0-1/LPF; Mucus Urine 1+ (Negative)
== END 2018-06-24 00:50 | disposition short-term general hospital (02) ==
PROVIDERS: Emergency Provider Emergency Medicine; PCP Internal Medicine
DX: M46.46 Discitis, unspecified, lumbar region (principal); M46.26 Osteomyelitis of vertebra, lumbar region; G06.2 Extradural and subdural abscess, unspecified
CPT/HCPCS: 36591; 72158; 80053; 81003; 81015; 83605; 84145; 85025; 85651; 86140; 87040; 96361; 96374; 96375; 96376; 99283; 99285; J2060; J2270; J2405

== ENCOUNTER → 2018-09-06 09:31 | Outpatient (CLI) | payer MEDICARE, SELFPAY | PROVIDERS: PCP Internal Medicine; Visit Provider Internal Medicine | DX: M81.0 Age-related osteoporosis without current pathological fracture (principal); Z78.0 Asymptomatic menopausal state; Z82.62 Family history of osteoporosis | CPT/HCPCS: 77080 ==

== ENCOUNTER → 2018-09-13 13:44 | Outpatient (CLI) | payer MEDICARE, SELFPAY ==
--- NOTE | 2018-09-13 | DI.RAD.S_ITS ---
PROCEDURE: XR LUMBAR SPINE 2-3V INDICATIONS: LOW BACK PAIN TECHNIQUE: 2 views of the lumbar spine were acquired. COMPARISON: [facility], CT, CT ABDOMEN PELVIS WO CON, 06/13/2018, 14:33. [facility], CR, XR CHEST 1V, 06/13/2018, 14:58. [facility], MR, MR LUMBAR SPINE WO/W CON, 06/23/2018, 18:40. [facility], CR, XR LUMBAR SPINE 2-3V, 06/02/2018, 11:35. FINDINGS: Bones: 5 tvi-xis-najdwat vertebrae are present. There is grade 1 anterolisthesis at L4-L5. Severe L1 vertebral body compression fracture, worsened June 23, 2018. No suspicious bony lesions. Soft tissues: Overlying bowel gas pattern is normal. No suspicious soft tissue calcifications. IMPRESSION: Progressive worsening of L1 compression deformity, likely pathological fracture related to discitis/vertebral osteomyelitis. If clinical symptoms persist or clinical suspicion for worsening of infection is high, MRI with and without contrast is suggested for followup evaluation.. Dictated by: Chilo Sprague M.D. on 09/13/2018 at 16:52 Approved by: Chilo Sprague M.D. on 09/13/2018 at 16:58
== END ==
PROVIDERS: PCP Internal Medicine; Visit Provider Internal Medicine
DX: M54.5 Low back pain (principal); M48.56XA Collapsed vertebra, not elsewhere classified, lumbar region, initial encounter for fracture
CPT/HCPCS: 72100

== ENCOUNTER → 2018-09-21 15:33 | Outpatient (CLI) | payer MEDICARE, SELFPAY ==
--- NOTE | 2018-09-21 | DI.MRI.S_ITS ---
PROCEDURE: MR LUMBAR SPINE WO/W CON INDICATIONS: WEDGE COMPRESSION FRACTURE. Low back pain. TECHNIQUE: Noncontrast sagittal T1 spin echo and T2 fast spin echo, sagittal STIR, axial T1 and T2 fast spin echo through the lumbar spine. In cases with scoliosis, additional coronal T2 fast spin echo may be performed. After the administration of contrast, sagittal and axial T1 spin echo with fat saturation through the lumbar spine. COMPARISON: [facility], CT, CT ABDOMEN PELVIS WO CON, 06/13/2018, 14:33. [facility], CR, L-SPINE 2-3 VIEWS, 05/10/2013, 11:06. [facility], CR, XR LUMBAR SPINE 2-3V, 06/02/2018, 11:35. [facility], MR, MR LUMBAR SPINE WO/W CON, 06/23/2018, 18:40. FINDINGS: Image quality: Excellent. Alignment and curvature: There is grade 1 anterolisthesis of L4 on L5. Marrow: There is abnormal signal and enhancement in L1 vertebra and superior endplate of L2, as well as L1-L2 disc, consistent with known discitis and vertebral osteomyelitis. There is acute vertebral body compression fracture at L1 with approximately 50-60% loss of vertebral body height. There is mild posterior displacement of L1 vertebral body causing mild central canal stenosis. Compared to the last exam on 06/15/1018, compression deformity has increased. There is marrow edema and abnormal enhancement in the superior endplate of L2 without vertebral body height loss. Abnormal enhancement in superior endplate of L2 has increased. Spinal cord: Conus medullaris terminates at the L1 level. Visualized spinal cord demonstrates normal signal, without suspicious enhancement. Paraspinous soft tissues: There is mild paravertebral enhancement at L1-L2 and to a lesser degree at T12. L1-L2: Severe loss disc height and moderate disc desiccation. There is diffuse posterior disc bulge. The central canal is mildly narrowed. Moderate bilateral foraminal stenosis. L2-L3: Preserved disc height. Gwya-wc-niegbgox disc desiccation. There is mild posterior disc bulge. Mild bilateral facet arthropathy. The central canal is patent. Makd-mc-cvfhuetl bilateral foraminal stenosis. L3-L4: Preserved disc height. Vxct-py-siorxnnh disc desiccation. There is mild posterior disc bulge. Moderate bilateral facet arthropathy. The central canal is mildly narrowed. Mild bilateral foraminal stenosis. L4-L5: Preserved disc height. Gonf-tz-bkjuruox disc desiccation. There is mild posterior disc bulge. Moderate bilateral facet arthropathy. The central canal is mildly narrowed. Mild bilateral foraminal stenosis. L5-S1: Normal appearance intervertebral disc. Mild to moderate bilateral facet arthropathy. No central canal or foraminal stenosis. IMPRESSION: 1. Abnormal signal and enhancement involving the L1 vertebra and superior endplate of L2 as well as the L1-L2 disc consistent with discitis/vertebral osteomyelitis. 2. There is increasing compression deformity of L1. There is increased marrow edema in superior end plate L2. A linear low signal is seen in the superior end plate of L2 is consistent with impending fracture. 3 Multilevel degenerative disc disease and facet arthropathy as described. 4. Mild central canal stenosis at L1-L2, L3-L4 and L5-L5. 5. Multilevel foraminal stenosis as described. Dictated by: Chilo Sprague M.D. on 09/21/2018 at 17:49 Approved by: Chilo Sprague M.D. on 09/22/2018 at 13:11
== END ==
PROVIDERS: PCP Internal Medicine; Visit Provider Internal Medicine
DX: S32.010A Wedge compression fracture of first lumbar vertebra, initial encounter for closed fracture (principal); M54.5 Low back pain; M51.36 Other intervertebral disc degeneration, lumbar region; M48.061 Spinal stenosis, lumbar region without neurogenic claudication
CPT/HCPCS: 72158; A9579

== ENCOUNTER → 2021-10-05 11:24 | Outpatient (CLI) | payer MEDICARE, SELFPAY ==
[2021-10-05 12:26] LABS: Add Manual Diff / Slide Review NO; Basophils Absolute Auto 0 /uL (0-100); Basophils Percent Auto 0.7 % (0-2); Eosinophils Absolute Auto 100 /uL (0-450); Eosinophils Percent Auto 1.3 % (2-4); Hematocrit 41.4 % (36-46); Hemoglobin 13.7 g/dL (12.0-16.0); Lymphocytes Absolute Auto 2000 /uL (1100-4500); Mean Corpuscular HGB Conc 33.1 % (30-36); Mean Corpuscular Hemoglobin 30.1 PG (26-34); Mean Corpuscular Volume 90.8 fL (80-100); Monocytes Absolute Auto 400 /uL (0-900); Neutrophils Absolute Auto 2700 /uL (1500-7000); Platelet Count 333 X10^3/uL (150-400); Red Blood Cell Count 4.56 X10^6/uL (4.0-5.2); Red Cell Distribution Width 13.7 % (11.6-14.8); White Blood Cell Count 5.2 X10^3/uL (4.5-11.0)
[2021-10-05 12:42] LABS: Appearance Urine UA CLEAR; Bilirubin Urine UA NEGATIVE (NEGATIVE); Color Urine UA YELLOW; Glucose Urine UA TRACE g/dL (Negative); Ketones Urine UA NEGATIVE (NEGATIVE); Leukocyte Esterase Urine UA TRACE (NEGATIVE); Nitrite Urine UA NEGATIVE (Negative); Occult Blood Urine UA TRACE-INTACT (Negative); Protein Urine UA TRACE (Negative); Specific Gravity Urine UA 1.015 (1.000-1.035); Urobilinogen Urine UA 0.2 E.U./dL (0.2)
[2021-10-05 12:43] LABS: pH Urine UA 6.5 (4.5-8.0)
[2021-10-05 12:46] LABS: Alanine Aminotransferase 6 IU/L (<35); Albumin 4.4 g/dL (3.5-5.0); Albumin Globulin Ratio 1.8 (1.0-2.8); Alkaline Phosphatase 80 U/L (38-126); Aspartate Aminotransferase 21 IU/L (14-36); BUN Creatinine Ratio 32.2 (6-22); Bilirubin Total 0.4 mg/dL (0.2-1.3); Blood Urea Nitrogen 19 mg/dL (7-17); Calcium 8.9 mg/dL (8.4-10.2); Carbon Dioxide 28 mmol/L (22-32); Chloride 108 mmol/L (98-107); Cholesterol 255 mg/dL (140-199); Estimated Glomerular Filt Rate > 60.0 mL/min (>60); Globulin 2.5 g/dL (1.7-4.1); Glucose 92 mg/dL (80-110); HDL Cholesterol 48 mg/dL (40-60); HEMOLYSIS < 15 (0-50); LDL Cholesterol Calculated 180 mg/dL (<100); Potassium 4.2 mmol/L (3.4-5.1); Sodium 142 mmol/L (137-145); Total Protein 6.9 g/dL (6.3-8.2); Triglycerides 134 mg/dL (35-150)
[2021-10-05 12:47] LABS: Amorphous Sediment Urine 1+; Bacteria Urine None Seen; Culture Indicated Urine Cult Not Indicated; Mucus Urine 1+ (Negative); RBC Urine 1-5/HPF (0-5/HPF); Squamous Epithelial Cell Urine 5-10 /HPF (0-5/HPF); WBC Urine None Seen (0-5/HPF)
[2021-10-05 13:12] LABS: TSH w/ Reflex to FT4 2.74 uIU/mL (0.47-4.68)
== END ==
PROVIDERS: PCP Internal Medicine; Referring Provider Internal Medicine; Visit Provider Internal Medicine
DX: E78.2 Mixed hyperlipidemia (principal); Z87.440 Personal history of urinary (tract) infections; I87.2 Venous insufficiency (chronic) (peripheral)
CPT/HCPCS: 36415; 80053; 80061; 81001; 84443; 85025

== ENCOUNTER → 2021-12-24 15:12 | Outpatient (CLI) | payer MEDICARE, SELFPAY ==
[2021-12-24 16:28] LABS: Appearance Urine UA CLOUDY; Bilirubin Urine UA NEGATIVE (NEGATIVE); Color Urine UA YELLOW; Glucose Urine UA NEGATIVE (Negative); Ketones Urine UA TRACE (NEGATIVE); Leukocyte Esterase Urine UA 3+ (NEGATIVE); Nitrite Urine UA POSITIVE (Negative); Occult Blood Urine UA 3+ (Negative); Protein Urine UA 2+ (Negative); Specific Gravity Urine UA 1.015 (1.000-1.035); Urobilinogen Urine UA 0.2 E.U./dL (0.2)
[2021-12-24 16:36] LABS: pH Urine UA 5.5 (4.5-8.0)
[2021-12-24 16:59] LABS: Alanine Aminotransferase 5 IU/L (<35); Albumin 4.4 g/dL (3.5-5.0); Albumin Globulin Ratio 1.6 (1.0-2.8); Alkaline Phosphatase 85 U/L (38-126); Aspartate Aminotransferase 24 IU/L (14-36); BUN Creatinine Ratio 34.5 (6-22); Bilirubin Total 0.4 mg/dL (0.2-1.3); Blood Urea Nitrogen 20 mg/dL (7-17); Calcium 8.6 mg/dL (8.4-10.2); Carbon Dioxide 27 mmol/L (22-32); Chloride 106 mmol/L (98-107); Estimated Glomerular Filt Rate > 60 mL/min (>60); Globulin 2.8 g/dL (1.7-4.1); Glucose 92 mg/dL (80-110); HEMOLYSIS < 15 (0-50); Sodium 140 mmol/L (137-145); Total Protein 7.2 g/dL (6.3-8.2)
[2021-12-24 17:36] LABS: RBC Urine >100/HPF (0-5/HPF); Squamous Epithelial Cell Urine 0-1 /HPF (0-5/HPF); WBC Urine >100/HPF (0-5/HPF)
[2021-12-24 17:37] LABS: Bacteria Urine Many (>30); Culture Indicated Urine Specimen Cultured
== END ==
PROVIDERS: PCP Internal Medicine; Referring Provider Internal Medicine; Visit Provider Internal Medicine
DX: M81.0 Age-related osteoporosis without current pathological fracture (principal); Z87.440 Personal history of urinary (tract) infections
CPT/HCPCS: 36415; 80053; 81001; 87077; 87086; 87186

== ENCOUNTER → 2022-10-13 12:24 | Outpatient (CLI) | payer MEDICARE, SELFPAY ==
[2022-10-13 13:02] LABS: Hematocrit 39.5 % (36-46); Hemoglobin 13.2 g/dL (12.0-16.0); Mean Corpuscular HGB Conc 33.3 % (30-36); Mean Corpuscular Hemoglobin 30.1 PG (26-34); Mean Corpuscular Volume 90.6 fL (80-100); Platelet Count 304 X10^3/uL (150-400); Red Blood Cell Count 4.37 X10^6/uL (4.0-5.2); Red Cell Distribution Width 13.9 % (11.6-14.8); White Blood Cell Count 5.7 X10^3/uL (4.5-11.0)
[2022-10-13 13:38] LABS: Alanine Aminotransferase 9 IU/L (<35); Albumin 4.2 g/dL (3.5-5.0); Albumin Globulin Ratio 1.6 (1.0-2.8); Alkaline Phosphatase 89 U/L (38-126); Aspartate Aminotransferase 22 IU/L (14-36); BUN Creatinine Ratio 35.3 (6-22); Bilirubin Total 0.5 mg/dL (0.2-1.3); Blood Urea Nitrogen 18 mg/dL (7-17); Calcium 8.8 mg/dL (8.4-10.2); Carbon Dioxide 28 mmol/L (22-32); Chloride 105 mmol/L (98-107); Cholesterol 195 mg/dL (140-199); Estimated Glomerular Filt Rate > 60 mL/min (>60); Globulin 2.7 g/dL (1.7-4.1); Glucose 94 mg/dL (80-110); HDL Cholesterol 46 mg/dL (40-60); HEMOLYSIS < 15 (0-50); LDL Cholesterol Calculated 122 mg/dL (<100); Potassium 3.9 mmol/L (3.4-5.1); Sodium 140 mmol/L (137-145); Total Protein 6.9 g/dL (6.3-8.2); Triglycerides 133 mg/dL (35-150)
[2022-10-13 14:05] LABS: TSH w/ Reflex to FT4 2.18 uIU/mL (0.47-4.68)
== END ==
PROVIDERS: PCP Internal Medicine; Referring Provider Internal Medicine; Visit Provider Internal Medicine
DX: E78.2 Mixed hyperlipidemia (principal); M81.0 Age-related osteoporosis without current pathological fracture; N20.0 Calculus of kidney; Z87.440 Personal history of urinary (tract) infections
CPT/HCPCS: 36415; 80053; 80061; 84443; 85027

== ENCOUNTER → 2023-07-16 11:07 | Outpatient (CLI) | payer MEDICARE, SELFPAY ==
--- NOTE | 2023-07-16 | DI.MG.S_ITS ---
BILATERAL DIGITAL SCREENING MAMMOGRAM 3D/2D WITH CAD: 07/16/2023 CLINICAL: Routine screening. Family history of breast cancer. Comparison is made to exams dated: 01/12/2017 mammogram, 07/12/2016 mammogram, 12/19/2015 mammogram, and 11/03/2015 mammogram - [facility]. There are scattered areas of fibroglandular density in both breasts (category b / 25%-50% glandular tissue). Current study was also evaluated with a Computer Aided Detection (CAD) system. No significant masses, calcifications, or other findings are seen in either breast. There has been no significant interval change. IMPRESSION: NEGATIVE There is no mammographic evidence of malignancy. A 1 year screening mammogram is recommended. Based on the Tyrer Cuzick model (a risk assessment model) the patient's lifetime risk is 3.3% and her 10 year risk is 0.0%. According to the ACR, ACS, and NCCN guidelines, an annual breast MRI exam along with mammogram is recommended if the patient's lifetime risk is 20% or greater. This exam was interpreted at Station ID: [id number]. NOTE: For mammograms, a report in lay terms will be sent to the patient. Approximately 15% of breast malignancies will not be visualized mammographically. In the management of a palpable breast mass, a negative mammogram must not discourage biopsy of a clinically suspicious lesion. Electronically Signed By: Felton masterson/ethan:07/18/2023 08:27:26 letter sent: Normal Exam ACR BI-RADS Category 1: Negative [id number]
== END ==
LOC: MAMMO 11:09
PROVIDERS: PCP Internal Medicine; Referring Provider Internal Medicine; Visit Provider Internal Medicine
DX: Z12.31 Encounter for screening mammogram for malignant neoplasm of breast (principal); Z80.3 Family history of malignant neoplasm of breast; R92.323 Mammographic fibroglandular density, bilateral breasts
CPT/HCPCS: 77063; 77067

== ENCOUNTER → 2023-08-30 08:26 | Outpatient (CLI) | payer MEDICARE, SELFPAY ==
[2023-08-30 09:46] LABS: Hematocrit 39.4 % (36-46); Hemoglobin 13.3 g/dL (12.0-16.0); Mean Corpuscular HGB Conc 33.9 % (30-36); Mean Corpuscular Hemoglobin 31.2 PG (26-34); Mean Corpuscular Volume 92.2 fL (80-100); Platelet Count 313 X10^3/uL (150-400); Red Blood Cell Count 4.27 X10^6/uL (4.0-5.2); Red Cell Distribution Width 13.3 % (11.6-14.8); White Blood Cell Count 6.1 X10^3/uL (4.5-11.0)
[2023-08-30 10:11] LABS: HEMOLYSIS < 15 (0-50); Potassium 4.2 mmol/L (3.4-5.1)
[2023-08-30 10:12] LABS: Alanine Aminotransferase 14 IU/L (<35); Albumin Globulin Ratio 1.5 (1.0-2.8); Alkaline Phosphatase 66 U/L (38-126); Aspartate Aminotransferase 22 IU/L (14-36); BUN Creatinine Ratio 30.4 (6-22); Bilirubin Total 0.5 mg/dL (0.2-1.3); Blood Urea Nitrogen 17 mg/dL (7-17); Calcium 9.1 mg/dL (8.4-10.2); Carbon Dioxide 28 mmol/L (22-32); Chloride 109 mmol/L (98-107); Estimated Glomerular Filt Rate > 60 mL/min (>60); Globulin 2.6 g/dL (1.7-4.1); Glucose 94 mg/dL (80-110); Lipase 84 U/L (23-300); Sodium 143 mmol/L (137-145); Total Protein 6.6 g/dL (6.3-8.2)
== END ==
PROVIDERS: PCP Internal Medicine; Referring Provider Internal Medicine; Visit Provider Internal Medicine
DX: K80.20 Calculus of gallbladder without cholecystitis without obstruction (principal); R10.13 Epigastric pain
CPT/HCPCS: 36415; 80053; 83690; 85027

== ENCOUNTER → 2023-11-01 09:53 | Outpatient (CLI) | payer MEDICARE, SELFPAY ==
--- NOTE | 2023-11-01 09:55 | DI.RAD.S_ITS ---
PROCEDURE: XR DEXA AXIAL SKELETON INDICATIONS: osteopenia COMPARISON: [facility], JOANIE, XR DEXA AXIAL SKELETON, 09/06/2018, 10:04. [facility], CR, DEXA AXIAL SKELETON, 11/03/2015, 15:16. FINDINGS: Lumbar Spine: Bone mineral density 1.0 g/cm2, T score -0.4, dissimilar scan type does not allow for statistical comparison. Previously-1.1. Left Hip: Bone mineral density 0.739 g/cm2, T score -1.7, dissimilar scan type does not allow for statistical comparison. Previously-1.7. Left Femoral Neck: Bone mineral density 0.546 g/cm2, T score -2.7, dissimilar scan type does not allow for statistical comparison. Right Hip: Bone mineral density is 0.725 g/cm2, T score -1.8, dissimilar scan type does not allow for statistical comparison. Previously-1.8. Right Femoral Neck: Bone mineral density 0.528 g/cm2, T score -2.9, dissimilar scan type does not allow for statistical comparison. Fracture Risk Calculation (when applicable): Cannot be calculated due to prior hip or vertebral fracture and osteoporosis diagnosis. (T score greater or equal to -1.0 to: NORMAL) (T score from -1.1 to -2.4: OSTEOPENIA) (T score less than or equal to -2.5: OSTEOPOROSIS) IMPRESSION: Osteoporosis. Follow-up guidelines as follows: Osteoporosis: Consider a repeat DEXA and Vertebral Fracture Assessment (VFA) exam in 2 years or sooner if medically necessary, to reassess this patient's status. Osteopenia: Consider a repeat DEXA in 2-3 years to reassess this patient's status, or if there is a new clinical indication. Normal: Consider a repeat DEXA in 5 years or sooner, or if there is a new clinical indication. Dictated by: Owen Walker M.D. on 11/01/2023 at 12:50 Approved by: Owen Walker M.D. on 11/01/2023 at 12:52
== END ==
PROVIDERS: PCP Internal Medicine; Referring Provider Internal Medicine; Visit Provider Internal Medicine
DX: M85.89 Other specified disorders of bone density and structure, multiple sites (principal); M81.0 Age-related osteoporosis without current pathological fracture; Z13.820 Encounter for screening for osteoporosis
CPT/HCPCS: 77080

== ENCOUNTER → 2023-11-18 09:52 | Outpatient (CLI) | payer MEDICARE, SELFPAY ==
[2023-11-18 10:54] LABS: Alanine Aminotransferase 7 IU/L (<35); Albumin 4.3 g/dL (3.5-5.0); Albumin Globulin Ratio 2.2 (1.0-2.8); Alkaline Phosphatase 58 U/L (38-126); Aspartate Aminotransferase 21 IU/L (14-36); BUN Creatinine Ratio 36.8 (6-22); Bilirubin Total 0.6 mg/dL (0.2-1.3); Blood Urea Nitrogen 21 mg/dL (7-17); Calcium 8.8 mg/dL (8.4-10.2); Carbon Dioxide 28 mmol/L (22-32); Chloride 109 mmol/L (98-107); Estimated Glomerular Filt Rate > 60 mL/min (>60); Glucose 92 mg/dL (80-110); HEMOLYSIS < 15 (0-50); Potassium 4.4 mmol/L (3.4-5.1); Sodium 142 mmol/L (137-145); Total Protein 6.3 g/dL (6.3-8.2)
== END ==
PROVIDERS: PCP Internal Medicine; Referring Provider Internal Medicine; Visit Provider Internal Medicine
DX: M81.0 Age-related osteoporosis without current pathological fracture (principal)
CPT/HCPCS: 36415; 80053

== ENCOUNTER 2024-01-01 03:31 | Observation (INO) | payer MEDICARE, SELFPAY ==
[2024-01-01] VITALS (39 sets, daily range): BP systolic 104–195; BP diastolic 54–116; PULSE 68–104; RESP 10–22; TEMP 36.4–37; O2SAT 88–100; BMI 29.2
--- NOTE | 2024-01-01 | PATH_ITS ---
[facility] Accession Number: [id number] No. of containers..01 Tissue . 01 Material submitted: . gallbladder - GALLBLADDER . 01 Diagnosis: GALLBLADDER, CHOLECYSTECTOMY: Acute on chronic cholecystitis and cholelithiasis. One benign lymph node. [facility] 01/04/2024 1049 Local . 01 Electronically signed: . Bettye Carney MD, Pathologist NPI- [id number] . 01 Gross description: . Received in formalin with two identifiers and gallbladder, is an intact gallbladder 9.4 x 4.4 x 3.2 cm with a violaceous external surface. The cystic duct margin is inked blue, and a pericystic lymph node candidate measures 0.9 cm in greatest dimension. The lumen contains multiple greco to brown smooth ovoid calculi measuring up to 3.1 cm in greatest dimension admixed with brown viscous bile. The mucosa is green and roughened to greco and velvety with no distinct discoloration or lesions identified. The mayfield range from 0.1 to 0.3 cm thick. [employer] sections to include the cystic duct margin, full thickness sections, and intact lymph node candidate are submitted in cassette A1. ([id number]) /KIT 01/03/2024 0925 Local . 01 Pathologist provided ICD-10: K81.1, K80.10 . 01 CPT . 947351 Specimen Comment: A courtesy copy of this report has been sent to [phone] Performed at: [address] [id number] MD Rich Storm MD Phone: [phone]
--- NOTE | 2024-01-01 03:51 | DI.RAD.S_ITS ---
PROCEDURE: XR CHEST 1V INDICATIONS: chest pain TECHNIQUE: One view of the chest was acquired. COMPARISON: [facility], CR, XR CHEST 1V, 06/13/2018, 14:58. FINDINGS: Surgical changes and devices: None. Lungs and pleura: Lungs are clear. No pleural effusions or pneumothorax. Mediastinum: Mediastinal contours appear normal. Heart size is normal. Bones and chest wall: No suspicious bony lesions. Overlying soft tissues appear unremarkable. IMPRESSION: No acute pulmonary process. Dictated by: Anita Solis M.D. on 01/01/2024 at 7:53 Approved by: Anita Solis M.D. on 01/01/2024 at 7:53
--- NOTE | 2024-01-01 03:55 | EKG_ITS ---
[address] [address] Test Date: 2024-01-01 Pat Name: Angela Snider Department: [facility] Room: Gender: Female Welding Manager: KATHRYN : 1945 Requested By: Order Number: [id number] Reading MD: Morro Oleary MD Measurements Intervals Carbon Rate: 74 P: 36 OH: 158 QRS: -13 QRSD: 108 T: 93 QT: 422 QTc: 468 Interpretive Statements Normal sinus rhythm Anterolateral infarct , age undetermined Electronically Signed On 01-02-2024 7:56:36 PDT by Morro Oleary MD
[2024-01-01] MEDS: ONDANSETRON 4 MG/2 ML INJ IV ×2 (04:00→12:47)
[2024-01-01 04:20] LABS: Add Manual Diff / Slide Review NO; Basophils Absolute Auto 100 /uL (0-100); Basophils Percent Auto 0.6 % (0-2); Eosinophils Absolute Auto 100 /uL (0-450); Eosinophils Percent Auto 0.6 % (2-4); Hematocrit 41.9 % (36-46); Hemoglobin 13.7 g/dL (12.0-16.0); Lymphocytes Absolute Auto 3400 /uL (1100-4500); Lymphocytes Percent Auto 27.6 % (25-40); Mean Corpuscular HGB Conc 32.7 % (30-36); Mean Corpuscular Hemoglobin 30.1 PG (26-34); Mean Corpuscular Volume 91.9 fL (80-100); Monocytes Absolute Auto 700 /uL (0-900); Monocytes Percent Auto 5.3 % (3-14); Neutrophils Absolute Auto 8100 /uL (1500-7000); Neutrophils Percent Auto 65.9 % (50-75); Platelet Count 341 X10^3/uL (150-400); Red Blood Cell Count 4.57 X10^6/uL (4.0-5.2); Red Cell Distribution Width 13.4 % (11.6-14.8); White Blood Cell Count 12.3 X10^3/uL (4.5-11.0)
[2024-01-01 04:21] LABS: INR 0.9 (0.9-1.3); Prothrombin Time 10.6 SECONDS (9.4-12.5)
[2024-01-01 04:23] LABS: PTT Partial Thromboplastin Tim 31 SECONDS (25.1-36.5)
[2024-01-01 04:26] LABS: Alanine Aminotransferase 11 IU/L (<35); Albumin 4.7 g/dL (3.5-5.0); Albumin Globulin Ratio 1.5 (1.0-2.8); Alkaline Phosphatase 81 U/L (38-126); Aspartate Aminotransferase 26 IU/L (14-36); BUN Creatinine Ratio 39.7 (6-22); Bilirubin Total 0.5 mg/dL (0.2-1.3); Blood Urea Nitrogen 23 mg/dL (7-17); Calcium 9.9 mg/dL (8.4-10.2); Carbon Dioxide 23 mmol/L (22-32); Chloride 111 mmol/L (98-107); Creatine Kinase 65 U/L (30-135); Estimated Glomerular Filt Rate > 60 mL/min (>60); Globulin 3.2 g/dL (1.7-4.1); Glucose 160 mg/dL (80-110); HEMOLYSIS < 15 (0-50); Lipase 89 U/L (23-300); Magnesium 2.2 mg/dL (1.6-2.3); Potassium 3.6 mmol/L (3.4-5.1); Sodium 142 mmol/L (137-145); Total Protein 7.9 g/dL (6.3-8.2)
[2024-01-01 04:37] LABS: NT-proBNP (BNP-Adult 18+) 43 pg/mL (<450); Troponin I < 0.012 ng/mL (0.01-0.034)
[2024-01-01] MEDS: ASPIRIN 81 MG CHEW TAB 324 MG PO (05:04)
--- NOTE | 2024-01-01 05:08 | DI.CT.S_ITS ---
PROCEDURE: CT ABDOMEN PELVIS WO CON INDICATIONS: chest abd pelvis pain TECHNIQUE: Axial sections were acquired from the lung bases to the pubic symphysis. Coronal and sagittal reformats were performed. For radiation dose reduction, the following was used: automated exposure control, adjustment of mA and/or kV according to patient size. COMPARISON: [facility], CR, XR LUMBAR SPINE 2-3V, 09/13/2018, 14:01. CT, CT ABDOMEN PELVIS WO CON, 06/13/2018, 14:33. FINDINGS: Image quality: Diagnostic. Lower Chest: Changes are URINARY: Right Kidney: Multiple punctate calcifications. Measuring 1 2 cm Hounsfield units 1195. Right Ureter: No hydroureter. Left Kidney: Multiple calcifications. Largest calcification 2-3 mm. No obstruction. Left Ureter: No hydroureter. Bladder: Normal wall thickness. No stones. ABDOMEN: Liver: No contour-deforming solid mass. Gallbladder: Distended with hyperdensity. No wall thickening. Biliary ducts: No biliary dilation. Pancreas: No ductal dilation. Spleen: Size is within normal limits. Adrenal Glands: No adrenal nodules. Stomach and Bowel: Normal colonic caliber, without significant wall thickening. Colonic diverticular present without inflammatory change. Peritoneum: No abnormal intraperitoneal fluid. No free air. Ventral Wall: No hernia. Abdominal Nodes: No enlarged retroperitoneal or mesenteric lymph nodes. Vessels: Aorta and inferior vena cava are normal in size. PELVIS: Pelvic Organs: Unremarkable. Pelvic Nodes: Unremarkable. Miscellaneous: No inguinal hernias are seen. Bones: Unchanged compression deformity. IMPRESSION: No obstructing stones or hydronephrosis. Cholelithiasis without wall thickening. Diverticulosis. The above findings are concordant with preliminary report. Dictated by: Anita Solis M.D. on 01/01/2024 at 8:07 Approved by: Anita Solis M.D. on 01/01/2024 at 8:20
--- NOTE | 2024-01-01 05:10 | ED.CHESTPAIN ---
HPI - Chest Pain <Catalino Clarke MD - Last Filed: 01/01/24 18:55> General Chief Complaint: Chest Pain Stated Complaint: pain all around mid section Time Seen by Provider: 01/01/24 04:56 Source: patient Mode of arrival: Ambulatory Limitations: no limitations History of Present Illness HPI narrative: 78-year-old female with no known coronary artery disease, complains of lower chest upper abdomen epigastric area discomfort since 6:00 p.m. yesterday, fairly constant, no treatment tried, radiates to the back, does not seem to radiate to the jaw or arms or arms. History of back injury 5 years ago, this feels somewhat different. No known history of reflux. No prior upper endoscopies. She has her gallbladder. She denies known problems with her gallbladder, pancreatitis, colitis, aortic problems. She denies pain with urination, frequency of urination, bloody urine. No flank area discomfort. Related Data Home Medications Medication Instructions Recorded Confirmed propylene glycol 0.6 % eye drops 1 drp EYE-BOTH QID 04/07/23 01/01/24 (Systane Balance) Previous Rx's Medication Instructions Recorded rosuvastatin 5 mg tablet 5 mg PO DAILY #90 tabs 08/30/23 Allergies Allergy/AdvReac Type Severity Reaction Status Date / Time Penicillins Allergy Verified 10/17/23 12:48 Sulfa (Sulfonamide Allergy Verified 10/17/23 12:48 Antibiotics) atorvastatin AdvReac Intermediate Verified 10/17/23 12:48 ciprofloxacin AdvReac Intermediate Verified 10/17/23 12:48 lovastatin AdvReac Intermediate Verified 10/17/23 12:48 pravastatin AdvReac Intermediate Verified 10/17/23 12:48 rosuvastatin AdvReac Intermediate Verified 10/17/23 12:48 Review of Systems <Catalino Clarke MD - Last Filed: 01/01/24 18:55> Review of Systems Narrative: per HPI Patient History <Catalino Clarke MD - Last Filed: 01/01/24 18:55> Medical History Cholelithiasis Iliotibial band syndrome, right leg Age-related osteoporosis without current pathological fracture Bilateral hearing loss Bilateral tinnitus Venous insufficiency of both lower extremities Bilateral nephrolithiasis History of recurrent UTI (urinary tract infection) Recurrent pyelonephritis Allergic rhinitis History of recurrent UTI (urinary tract infection) Chronic GERD Osteopenia Elevated lipids Surgical History Status post breast biopsy Family History Mother No known health problems Father No known health problems Social History household members: spouse and children Smoking Status: Never smoker alcohol intake: current Smoking Status: Never smoker alcohol intake frequency: a few times a week Alcohol type: wine Substance Use Type: does not use Exam <Catalino Clarke MD - Last Filed: 01/01/24 18:55> Narrative Exam Narrative: GENERAL: Well-developed patient, in mild distress. HEAD: Atraumatic. Normocephalic. EYES: Pupils equal round and reactive. Extraocular motions intact. No scleral icterus. No injection or drainage. ENT: Nose without bleeding, purulent drainage. Throat without erythema, tonsillar hypertrophy or exudate. Airway patent. NECK: Trachea midline. Non tender CARDIOVASCULAR: Regular rate and rhythm without murmurs, gallops, or rubs. RESPIRATORY: Clear to auscultation. Breath sounds equal bilaterally. No wheezes, rales, or rhonchi. GASTROINTESTINAL: Abdomen soft, non-tender, nondistended. EXTREMITIES: No edema or joint tenderness. BACK: Nontender without deformity or crepitance. No flank tenderness. NEURO: AOx3. SKIN: No rash or erythema of visible areas Initial Vital Signs Initial Vital Signs: Vital Signs Temperature 97.6 F 01/01/24 03:51 Pulse Rate 76 01/01/24 03:51 Respiratory Rate 01/01/24 03:51 Blood Pressure 184/88 H 01/01/24 03:51 Pulse Oximetry 98 01/01/24 03:51 Oxygen Delivery Method Room Air 01/01/24 03:51 <Zhou Locke DO - Last Filed: 01/01/24 13:16> Initial Vital Signs Initial Vital Signs: Vital Signs Temperature 97.6 F 01/01/24 03:51 Pulse Rate 76 01/01/24 03:51 Respiratory Rate 22 01/01/24 03:51 Blood Pressure 184/88 H 01/01/24 03:51 Pulse Oximetry 98 01/01/24 03:51 Oxygen Delivery Method Room Air 01/01/24 03:51 Course <Catalino Clarke MD - Last Filed: 01/01/24 18:55> Orders Ordered: ED Orders 01/01/24 12:01 Consult to General Surgery Stat Acetaminophen (Acetaminophen 325 Mg Tablet) 650 mg PO Q4HR PRN PRN Reason: Fever/Mild Pain (1-3) Al Hydrox/Mg Hydrox/Simethicone (Mag Hydrox/Alum/Simeth 30 Ml Udc) 30 ml PO Q6HR PRN PRN Reason: Dyspepsia Calcium Carbonate (Calcium Carbonate 500 Mg Tab) 1,000 mg PO Q4HR PRN PRN Reason: Dyspepsia Celecoxib (Celecoxib 200 Mg Capsule) 200 mg PO BID WINNIE Enoxaparin Sodium (Enoxaparin 40 Mg/0.4 Ml Syringe) 40 mg SUBCUT DAILY WINNIE Hydromorphone HCl (Hydromorphone 0.5 Mg Inj) 0.5 mg IV Q2H PRN PRN Reason: Pain, Severe (7-10) Dextrose/Sodium Chloride (Dextrose 5%-0.45% Ns) 1,000 mls @ 100 mls/hr IV CONT WINNIE Last Admin: 01/01/24 17:50 Dose: 100 mls/hr Documented By: EV Naloxone HCl (Naloxone 0.4 Mg/Ml Vial) 0.2 mg IV Q2MIN PRN PRN Reason: Opiate Reversal Non-Formulary Medication (Propylene Glycol [Systane Balance]) 1 drop EYE-BOTH QID WINNIE Ondansetron HCl (Ondansetron 4 Mg/2 Ml Inj) 4 mg IV Q8HR PRN PRN Reason: Nausea And Vomiting Tramadol HCl (Tramadol 50 Mg Tablet) 50 mg PO TID PRN PRN Reason: Pain, Moderate (4-6) Discontinued Medications Aspirin (Aspirin 81 Mg Chew Tab) 324 mg PO NOW ONE Stop: 01/01/24 03:51 Last Admin: 01/01/24 05:04 Dose: 324 mg Documented By: Bupivacaine HCl (Bupivacaine 0.25% (Pf) Vial) 30 ml INJ NOW ONE Stop: 01/01/24 15:55 Last Admin: 01/01/24 15:54 Dose: 30 ml Documented By: TIM Clindamycin Phosphate (Cleocin) 900 mg in 50 mls @ 50 mls/hr IV NOW ONE Stop: 01/01/24 15:18 Last Admin: 01/01/24 16:42 Dose: Not Given Documented By: DEMETRICE Acetaminophen (Ofirmev) 1,000 mg in 100 mls @ 400 mls/hr IV NOW ONE Stop: 01/01/24 15:54 Last Admin: 01/01/24 15:40 Dose: 400 mls/hr Documented By: (2) Clindamycin Phosphate (Cleocin) 900 mg in 50 mls @ 50 mls/hr IV NOW ONE Stop: 01/01/24 16:29 Last Admin: 01/01/24 15:30 Dose: 50 mls/hr Documented By: (2) Lactated Ringer's (Lactated Ringers) 1,000 mls @ 42 mls/hr IV NOW ONE Stop: 01/02/24 16:31 Last Infusion: 01/01/24 17:02 Dose: Infused Documented By: Admin: 01/01/24 16:44 Dose: 42 mls/hr Documented By: Infusion: 01/01/24 16:44 Dose: Infused Documented By: Admin: 01/01/24 16:43 Dose: 42 mls/hr Documented By: DEMETRICE Morphine Sulfate (Morphine 4 Mg/Ml Inj) 4 mg IV NOW ONE Stop: 01/01/24 05:32 Last Admin: 01/01/24 05:48 Dose: 4 mg Documented By: Morphine Sulfate (Morphine 4 Mg/Ml Inj) 4 mg IV NOW ONE Stop: 01/01/24 07:43 Last Admin: 01/01/24 08:05 Dose: 4 mg Documented By: ALESHA Morphine Sulfate (Morphine 4 Mg/Ml Inj) 4 mg IV NOW ONE Stop: 01/01/24 12:19 Last Admin: 01/01/24 12:32 Dose: 4 mg Documented By: NEELAM Ondansetron HCl (Ondansetron 4 Mg/2 Ml Inj) 4 mg IV NOW ONE Stop: 01/01/24 04:01 Last Admin: 01/01/24 04:00 Dose: 4 mg Documented By: Ondansetron HCl (Ondansetron 4 Mg/2 Ml Inj) 4 mg IV NOW ONE Stop: 01/01/24 12:45 Last Admin: 01/01/24 12:47 Dose: 4 mg Documented By: NEELAM Pantoprazole Sodium (Pantoprazole 40 Mg Vial) 40 mg IV NOW ONE Stop: 01/01/24 05:35 Last Admin: 01/01/24 05:48 Dose: 40 mg Documented By: AB Vital Signs Vital signs: Vital Signs - 8 hr 01/01/24 11:00 01/01/24 11:00 01/01/24 11:30 Pulse Rate 87 94 H Blood Pressure 170/79 H Pulse Oximetry 97 97 Oxygen Delivery Method Nasal Cannula Oxygen Flow Rate 2 01/01/24 11:30 01/01/24 12:00 01/01/24 12:00 Pulse Rate 88 Blood Pressure 177/77 H 182/80 H Pulse Oximetry 98 Oxygen Delivery Method Oxygen Flow Rate 01/01/24 12:30 01/01/24 12:30 01/01/24 13:00 Pulse Rate 94 H 96 H Blood Pressure 173/77 H Pulse Oximetry 96 98 Oxygen Delivery Method Oxygen Flow Rate 01/01/24 13:00 Pulse Rate Blood Pressure 176/81 H Pulse Oximetry Oxygen Delivery Method Oxygen Flow Rate <Zhou Locke DO - Last Filed: 01/01/24 13:16> Orders Ordered: ED Orders 01/01/24 12:01 Consult to General Surgery Stat Acetaminophen (Acetaminophen 325 Mg Tablet) 650 mg PO Q4HR PRN PRN Reason: Fever/Mild Pain (1-3) Al Hydrox/Mg Hydrox/Simethicone (Mag Hydrox/Alum/Simeth 30 Ml Udc) 30 ml PO Q6HR PRN PRN Reason: Dyspepsia Calcium Carbonate (Calcium Carbonate 500 Mg Tab) 1,000 mg PO Q4HR PRN PRN Reason: Dyspepsia Celecoxib (Celecoxib 200 Mg Capsule) 200 mg PO BID WINNIE Enoxaparin Sodium (Enoxaparin 40 Mg/0.4 Ml Syringe) 40 mg SUBCUT DAILY WINNIE Hydromorphone HCl (Hydromorphone 0.5 Mg Inj) 0.5 mg IV Q2H PRN PRN Reason: Pain, Severe (7-10) Dextrose/Sodium Chloride (Dextrose 5%-0.45% Ns) 1,000 mls @ 100 mls/hr IV CONT WINNIE Last Admin: 01/01/24 17:50 Dose: 100 mls/hr Documented By: EV Naloxone HCl (Naloxone 0.4 Mg/Ml Vial) 0.2 mg IV Q2MIN PRN PRN Reason: Opiate Reversal Non-Formulary Medication (Propylene Glycol [Systane Balance]) 1 drop EYE-BOTH QID WINNIE Ondansetron HCl (Ondansetron 4 Mg/2 Ml Inj) 4 mg IV Q8HR PRN PRN Reason: Nausea And Vomiting Tramadol HCl (Tramadol 50 Mg Tablet) 50 mg PO TID PRN PRN Reason: Pain, Moderate (4-6) Discontinued Medications Aspirin (Aspirin 81 Mg Chew Tab) 324 mg PO NOW ONE Stop: 01/01/24 03:51 Last Admin: 01/01/24 05:04 Dose: 324 mg Documented By: Bupivacaine HCl (Bupivacaine 0.25% (Pf) Vial) 30 ml INJ NOW ONE Stop: 01/01/24 15:55 Last Admin: 01/01/24 15:54 Dose: 30 ml Documented By: TIM Clindamycin Phosphate (Cleocin) 900 mg in 50 mls @ 50 mls/hr IV NOW ONE Stop: 01/01/24 15:18 Last Admin: 01/01/24 16:42 Dose: Not Given Documented By: DEMETRICE Acetaminophen (Ofirmev) 1,000 mg in 100 mls @ 400 mls/hr IV NOW ONE Stop: 01/01/24 15:54 Last Admin: 01/01/24 15:40 Dose: 400 mls/hr Documented By: (2) Clindamycin Phosphate (Cleocin) 900 mg in 50 mls @ 50 mls/hr IV NOW ONE Stop: 01/01/24 16:29 Last Admin: 01/01/24 15:30 Dose: 50 mls/hr Documented By: (2) Lactated Ringer's (Lactated Ringers) 1,000 mls @ 42 mls/hr IV NOW ONE Stop: 01/02/24 16:31 Last Infusion: 01/01/24 17:02 Dose: Infused Documented By: Admin: 01/01/24 16:44 Dose: 42 mls/hr Documented By: Infusion: 01/01/24 16:44 Dose: Infused Documented By: Admin: 01/01/24 16:43 Dose: 42 mls/hr Documented By: DEMETRICE Morphine Sulfate (Morphine 4 Mg/Ml Inj) 4 mg IV NOW ONE Stop: 01/01/24 05:32 Last Admin: 01/01/24 05:48 Dose: 4 mg Documented By: Morphine Sulfate (Morphine 4 Mg/Ml Inj) 4 mg IV NOW ONE Stop: 01/01/24 07:43 Last Admin: 01/01/24 08:05 Dose: 4 mg Documented By: ALESHA Morphine Sulfate (Morphine 4 Mg/Ml Inj) 4 mg IV NOW ONE Stop: 01/01/24 12:19 Last Admin: 01/01/24 12:32 Dose: 4 mg Documented By: NEELAM Ondansetron HCl (Ondansetron 4 Mg/2 Ml Inj) 4 mg IV NOW ONE Stop: 01/01/24 04:01 Last Admin: 01/01/24 04:00 Dose: 4 mg Documented By: Ondansetron HCl (Ondansetron 4 Mg/2 Ml Inj) 4 mg IV NOW ONE Stop: 01/01/24 12:45 Last Admin: 01/01/24 12:47 Dose: 4 mg Documented By: NEELAM Pantoprazole Sodium (Pantoprazole 40 Mg Vial) 40 mg IV NOW ONE Stop: 01/01/24 05:35 Last Admin: 01/01/24 05:48 Dose: 40 mg Documented By: Vital Signs Vital signs: Vital Signs - 8 hr 01/01/24 11:00 01/01/24 11:00 01/01/24 11:30 Pulse Rate 87 94 H Blood Pressure 170/79 H Pulse Oximetry 97 97 Oxygen Delivery Method Nasal Cannula Oxygen Flow Rate 2 01/01/24 11:30 01/01/24 12:00 01/01/24 12:00 Pulse Rate 88 Blood Pressure 177/77 H 182/80 H Pulse Oximetry 98 Oxygen Delivery Method Oxygen Flow Rate 01/01/24 12:30 01/01/24 12:30 01/01/24 13:00 Pulse Rate 94 H 96 H Blood Pressure 173/77 H Pulse Oximetry 96 98 Oxygen Delivery Method Oxygen Flow Rate 01/01/24 13:00 Pulse Rate Blood Pressure 176/81 H Pulse Oximetry Oxygen Delivery Method Oxygen Flow Rate MDM - Chest Pain <Catalino Clarke MD - Last Filed: 01/01/24 18:55> Lab Data Attestation: I reviewed the patient's lab results. 01/01/24 04:05 01/01/24 04:05 Labs: Lab Results 01/01/24 01/01/24 Range/Units 04:05 07:21 WBC 12.3 H (4.5-11.0) X10^3/uL RBC 4.57 (4.0-5.2) X10^6/uL Hgb 13.7 (12.0-16.0) g/dL Hct 41.9 (36-46) % MCV 91.9 (80-100) fL MCH 30.1 (26-34) PG MCHC 32.7 (30-36) % RDW 13.4 (11.6-14.8) % Plt Count 341 (150-400) X10^3/uL Neut % (Auto) 65.9 (50-75) % Lymph % (Auto) 27.6 (25-40) % Gray % (Auto) 5.3 (3-14) % Eos % (Auto) 0.6 L (2-4) % Baso % (Auto) 0.6 (0-2) % Neut # (Auto) 8100 H (6753-7887) /uL Lymph # (Auto) 3400 (0064-6265) /uL Gray # (Auto) 700 (0-900) /uL Eos # (Auto) 100 (0-450) /uL Baso # (Auto) 100 (0-100) /uL PT 10.6 (9.4-12.5) SECONDS INR 0.9 (0.9-1.3) APTT 31 (25.1-36.5) SECONDS Sodium 142 (137-145) mmol/L Potassium 3.6 (3.4-5.1) mmol/L Chloride 111 H (98-107) mmol/L Carbon Dioxide 23 (22-32) mmol/L BUN 23 H (7-17) mg/dL Creatinine 0.58 (0.52-1.04) mg/dL Estimated GFR > 60 (>60) mL/min BUN/Creatinine Ratio 39.7 H (6-22) Glucose 160 H (80-110) mg/dL Calcium 9.9 (8.4-10.2) mg/dL Magnesium 2.2 (1.6-2.3) mg/dL Total Bilirubin 0.5 (0.2-1.3) mg/dL AST 26 (14-36) IU/L ALT 11 (<35) IU/L Alkaline Phosphatase 81 (38-126) U/L Total Creatine Kinase 65 (30-135) U/L Troponin I < 0.012 < 0.012 (0.01-0.034) ng/mL NT-Pro-B Natriuret Pep 43 (<450) pg/mL Total Protein 7.9 (6.3-8.2) g/dL Albumin 4.7 (3.5-5.0) g/dL Globulin 3.2 (1.7-4.1) g/dL Albumin/Globulin Ratio 1.5 (1.0-2.8) Lipase 89 (23-300) U/L ECG Data Attestation: I personally reviewed and interpreted this ECG as follows: Interpretation: Normal sinus rhythm with rate of 74, no obvious ST segment elevation changes. Significant wandering baseline artifact precordial lead V1-V3. UT 158, QRS 108, QTC 468 MDM Narrative Medical decision making narrative: 78-year-old female with lower chest epigastric area discomfort, radiating straight back, no tenderness on epigastrium or other parts of the abdomen, no known CAD. Afebrile, sirs screen negative. Screening EKG without obvious ischemic changes, troponin negative. White blood cell count 89780, hemoglobin normal, CMP unremarkable, lipase normal. Urinalysis still pending. Given aspirin. IV morphine. IV Protonix. DX consider GE reflux, esophagitis, gastritis, PUD, ACS, biliary colic, cholecystitis, choledocholithiasis, pancreatitis, aortic dissection/aneurysm, colitis, other. GFR 31. Chest x-ray unremarkable. CT abdomen and pelvis noncontrast study ordered. Chest single view, impression: ?No acute cardiopulmonary abnormality is identified.? Tele radiology report CT abdomen and pelvis noncontrast. Impression: ?Gallbladder distention and cholelithiasis. Recommend right upper quadrant ultrasound which is more sensitive evaluation for the diagnosis of acute cholecystitis. Nonobstructing bilateral intrarenal calculi.? Tele radiology report US gallbladder ordered, signed out to Dr Locke <Zhou Locke, - Last Filed: 01/01/24 13:16> Lab Data Labs: Lab Results 01/01/24 01/01/24 Range/Units 04:05 07:21 WBC 12.3 H (4.5-11.0) X10^3/uL RBC 4.57 (4.0-5.2) X10^6/uL Hgb 13.7 (12.0-16.0) g/dL Hct 41.9 (36-46) % MCV 91.9 (80-100) fL MCH 30.1 (26-34) PG MCHC 32.7 (30-36) % RDW 13.4 (11.6-14.8) % Plt Count 341 (150-400) X10^3/uL Neut % (Auto) 65.9 (50-75) % Lymph % (Auto) 27.6 (25-40) % Gray % (Auto) 5.3 (3-14) % Eos % (Auto) 0.6 L (2-4) % Baso % (Auto) 0.6 (0-2) % Neut # (Auto) 8100 H (3497-6221) /uL Lymph # (Auto) 3400 (5186-8800) /uL Gray # (Auto) 700 (0-900) /uL Eos # (Auto) 100 (0-450) /uL Baso # (Auto) 100 (0-100) /uL PT 10.6 (9.4-12.5) SECONDS INR 0.9 (0.9-1.3) APTT 31 (25.1-36.5) SECONDS Sodium 142 (137-145) mmol/L Potassium 3.6 (3.4-5.1) mmol/L Chloride 111 H (98-107) mmol/L Carbon Dioxide 23 (22-32) mmol/L BUN 23 H (7-17) mg/dL Creatinine 0.58 (0.52-1.04) mg/dL Estimated GFR > 60 (>60) mL/min BUN/Creatinine Ratio 39.7 H (6-22) Glucose 160 H (80-110) mg/dL Calcium 9.9 (8.4-10.2) mg/dL Magnesium 2.2 (1.6-2.3) mg/dL Total Bilirubin 0.5 (0.2-1.3) mg/dL AST 26 (14-36) IU/L ALT 11 (<35) IU/L Alkaline Phosphatase 81 (38-126) U/L Total Creatine Kinase 65 (30-135) U/L Troponin I < 0.012 < 0.012 (0.01-0.034) ng/mL NT-Pro-B Natriuret Pep 43 (<450) pg/mL Total Protein 7.9 (6.3-8.2) g/dL Albumin 4.7 (3.5-5.0) g/dL Globulin 3.2 (1.7-4.1) g/dL Albumin/Globulin Ratio 1.5 (1.0-2.8) Lipase 89 (23-300) U/L Imaging Data CT scan - abdomen/pelvis: Radiologist's Impression: PROCEDURE: CT ABDOMEN PELVIS WO CON INDICATIONS: chest abd pelvis pain TECHNIQUE: Axial sections were acquired from the lung bases to the pubic symphysis. Coronal and sagittal reformats were performed. For radiation dose reduction, the following was used: automated exposure control, adjustment of mA and/or kV according to patient size. COMPARISON: Merged With [facility], CR, XR LUMBAR SPINE 2-3V, 09/13/2018, 14:01. CT, CT ABDOMEN PELVIS WO CON, 06/13/2018, 14:33. FINDINGS: Image quality: Diagnostic. Lower Chest: Changes are URINARY: Right Kidney: Multiple punctate calcifications. Measuring 1 2 cm Hounsfield units 1195. Right Ureter: No hydroureter. Left Kidney: Multiple calcifications. Largest calcification 2-3 mm. No obstruction. Left Ureter: No hydroureter. Bladder: Normal wall thickness. No stones. ABDOMEN: Liver: No contour-deforming solid mass. Gallbladder: Distended with hyperdensity. No wall thickening. Biliary ducts: No biliary dilation. Pancreas: No ductal dilation. Spleen: Size is within normal limits. Adrenal Glands: No adrenal nodules. Stomach and Bowel: Normal colonic caliber, without significant wall thickening. Colonic diverticular present without inflammatory change. Peritoneum: No abnormal intraperitoneal fluid. No free air. Ventral Wall: No hernia. Abdominal Nodes: No enlarged retroperitoneal or mesenteric lymph nodes. Vessels: Aorta and inferior vena cava are normal in size. PELVIS: Pelvic Organs: Unremarkable. Pelvic Nodes: Unremarkable. Miscellaneous: No inguinal hernias are seen. Bones: Unchanged compression deformity. IMPRESSION: No obstructing stones or hydronephrosis. Cholelithiasis without wall thickening. Diverticulosis. The above findings are concordant with preliminary report. US - abdomen: Radiologist's Impression: PROCEDURE: US ABDOMEN LIMITED INDICATIONS: gallbladder ultrasound TECHNIQUE: Real-time focused scanning was performed of the abdomen, with image documentation. COMPARISON: Merged With [facility], US, US ABDOMEN COMPLETE, 06/08/2018, 18:47. Merged With [facility], CT, CT ABDOMEN PELVIS WO CON, 01/01/2024, 6:07. FINDINGS: Gallbladder demonstrates a 3.6 luminal stone. Gallbladder is distended. The gallbladder wall is not well visualized in its entirety. While portions do appear to demonstrate normal thickness, the anterior aspect of the gallbladder wall is thickened measuring 1.3 cm. Common bile duct measures 6 mm. IMPRESSION: Single gallstone as identified on CT. Gallbladder is distended. The wall is poorly visualized in its entirety. Portions appear within normal limits particularly posterior aspects. Focal area of anterior marked thickening is measured at 1.3 cm. Recommend correlation to patient's symptoms of cholecystitis as this could be artifactually elevated as CT is not as pronounced within this region for marked wall thickening. [facility] Narrative Medical decision making narrative: 78-year-old female with lower chest epigastric area discomfort, radiating straight back, no tenderness on epigastrium or other parts of the abdomen, no known CAD. Afebrile, sirs screen negative. Screening EKG without obvious ischemic changes, troponin negative. White blood cell count 97111, hemoglobin normal, CMP unremarkable, lipase normal. Urinalysis still pending. Given aspirin. IV morphine. IV Protonix. DX consider GE reflux, esophagitis, gastritis, PUD, ACS, biliary colic, cholecystitis, choledocholithiasis, pancreatitis, aortic dissection/aneurysm, colitis, other. GFR 31. Chest x-ray unremarkable. CT abdomen and pelvis noncontrast study ordered. Chest single view, impression: ?No acute cardiopulmonary abnormality is identified.? Tele radiology report CT abdomen and pelvis noncontrast. Impression: ?Gallbladder distention and cholelithiasis. Recommend right upper quadrant ultrasound which is more sensitive evaluation for the diagnosis of acute cholecystitis. Nonobstructing bilateral intrarenal calculi.? Tele radiology report US gallbladder ordered, signed out to Dr Raghav locke: Received turned over. Review patient's history and physical and workup up to this point. Patient continues to have right upper quadrant abdominal pain. Normal bilirubin. Normal LFTs. Right upper quadrant ultrasound shows cholelithiasis with thickened gallbladder wall and distended gallbladder. I did discuss the case with Dr. Rangel who evaluated the patient here in the emergency department. Decision made to admit to the hospital for surgical intervention. Patient was made aware of the findings of the CT scan and ultrasound. Will admit for surgical intervention. Discharge Plan Departure Patient Disposition: Admitted to Surgery Clinical Impression: Symptomatic cholelithiasis Admit Date/Time: 01/01/24 13:17 Admit Provider: Wesly Rangel
[2024-01-01] MEDS: PANTOPRAZOLE 40 MG VIAL IV (05:48)
[2024-01-01] MEDS: MORPHINE 4 MG/ML INJ IV ×3 (05:48→12:32)
--- NOTE | 2024-01-01 07:44 | DI.US.S_ITS ---
PROCEDURE: US ABDOMEN LIMITED INDICATIONS: gallbladder ultrasound TECHNIQUE: Real-time focused scanning was performed of the abdomen, with image documentation. COMPARISON: [facility], US, US ABDOMEN COMPLETE, 06/08/2018, 18:47. [facility], CT, CT ABDOMEN PELVIS WO CON, 01/01/2024, 6:07. FINDINGS: Gallbladder demonstrates a 3.6 luminal stone. Gallbladder is distended. The gallbladder wall is not well visualized in its entirety. While portions do appear to demonstrate normal thickness, the anterior aspect of the gallbladder wall is thickened measuring 1.3 cm. Common bile duct measures 6 mm. IMPRESSION: Single gallstone as identified on CT. Gallbladder is distended. The wall is poorly visualized in its entirety. Portions appear within normal limits particularly posterior aspects. Focal area of anterior marked thickening is measured at 1.3 cm. Recommend correlation to patient's symptoms of cholecystitis as this could be artifactually elevated as CT is not as pronounced within this region for marked wall thickening. Dictated by: Anita Solis M.D. on 01/01/2024 at 11:13 Approved by: Anita Solis M.D. on 01/01/2024 at 11:16
[2024-01-01 08:01] LABS: Troponin I < 0.012 ng/mL (0.01-0.034)
--- NOTE | 2024-01-01 13:14 | PM.HP.1 ---
History of Present Illness History of Present Illness Date Patient Seen: 01/01/24 Time Patient Seen: 13:17 Chief complaint: pain all around mid section Narrative: Ms. Snider is a 78-year-old woman with no major medical issues who presents with acute onset abdominal pain. She has had episodes of biliary colic previously which have generally resolved within a few hours. Last night she presented with severe right upper quadrant pain and despite multiple doses of morphine she remains in pain. A abdominal ultrasound and CT abdomen pelvis were performed demonstrating gallstones and significant wall thickening. At admission afebrile, WBC 12, total bilirubin 0.5 LFTs within normal limits. No prior abdominal surgery. FOR[facility]LY [facility], LATER [facility] Medical History Cholelithiasis Iliotibial band syndrome, right leg Age-related osteoporosis without current pathological fracture Bilateral hearing loss Bilateral tinnitus Venous insufficiency of both lower extremities Bilateral nephrolithiasis History of recurrent UTI (urinary tract infection) Recurrent pyelonephritis Allergic rhinitis History of recurrent UTI (urinary tract infection) Chronic GERD Osteopenia Elevated lipids Surgical History Status post breast biopsy Family History Mother No known health problems Father No known health problems Social History household members: spouse and children Smoking Status: Never smoker alcohol intake: current Meds Home Medications and Allergies Home Medications Medication Instructions Recorded Confirmed Type propylene glycol 0.6 % eye drops 1 drp EYE-BOTH QID 04/07/23 10/17/23 History (Systane Balance) rosuvastatin 5 mg tablet 5 mg PO DAILY #90 tabs 08/30/23 10/17/23 Rx Allergies Allergy/AdvReac Type Severity Reaction Status Date / Time Penicillins Allergy Verified 10/17/23 12:48 Sulfa (Sulfonamide Allergy Verified 10/17/23 12:48 Antibiotics) atorvastatin AdvReac Intermediate Verified 10/17/23 12:48 ciprofloxacin AdvReac Intermediate Verified 10/17/23 12:48 lovastatin AdvReac Intermediate Verified 10/17/23 12:48 pravastatin AdvReac Intermediate Verified 10/17/23 12:48 rosuvastatin AdvReac Intermediate Verified 10/17/23 12:48 Exam Vital Signs (past 8 hours): - 01/01/24 05:30 01/01/24 05:30 01/01/24 06:08 Pulse Rate 76 76 Blood Pressure 184/86 H Pulse Oximetry 99 88 L Oxygen Delivery Method Oxygen Flow Rate 01/01/24 06:10 01/01/24 06:10 01/01/24 06:30 Pulse Rate 79 Blood Pressure 181/79 H 181/77 H Pulse Oximetry 90 L Oxygen Delivery Method Oxygen Flow Rate 01/01/24 06:30 01/01/24 07:00 01/01/24 07:00 Pulse Rate 77 78 Blood Pressure 173/74 H Pulse Oximetry 96 96 Oxygen Delivery Method Nasal Cannula Nasal Cannula Oxygen Flow Rate 2 2 01/01/24 07:30 01/01/24 07:30 01/01/24 08:00 Pulse Rate 81 Blood Pressure 185/77 H 192/79 H Pulse Oximetry 96 Oxygen Delivery Method Nasal Cannula Nasal Cannula Oxygen Flow Rate 2 2 01/01/24 08:00 01/01/24 08:30 01/01/24 08:30 Pulse Rate 80 86 Blood Pressure 167/77 H Pulse Oximetry 99 97 Oxygen Delivery Method Oxygen Flow Rate 01/01/24 09:00 01/01/24 09:00 01/01/24 09:30 Pulse Rate 88 Blood Pressure 159/76 H 173/81 H Pulse Oximetry 96 Oxygen Delivery Method Oxygen Flow Rate 01/01/24 09:30 01/01/24 10:19 01/01/24 10:19 Pulse Rate 88 88 Blood Pressure 172/81 H Pulse Oximetry 99 98 Oxygen Delivery Method Nasal Cannula Oxygen Flow Rate 2 01/01/24 10:30 01/01/24 10:30 01/01/24 11:00 Pulse Rate 87 87 Blood Pressure 165/79 H Pulse Oximetry 97 97 Oxygen Delivery Method Nasal Cannula Oxygen Flow Rate 2 01/01/24 11:00 01/01/24 11:30 01/01/24 11:30 Pulse Rate 94 H Blood Pressure 170/79 H 177/77 H Pulse Oximetry 97 Oxygen Delivery Method Nasal Cannula Oxygen Flow Rate 2 01/01/24 12:00 01/01/24 12:00 01/01/24 12:30 Pulse Rate 88 94 H Blood Pressure 182/80 H Pulse Oximetry 98 96 Oxygen Delivery Method Oxygen Flow Rate 01/01/24 12:30 01/01/24 13:00 01/01/24 13:00 Pulse Rate 96 H Blood Pressure 173/77 H 176/81 H Pulse Oximetry 98 Oxygen Delivery Method Oxygen Flow Rate Oxygen Delivery Method Nasal Cannula Oxygen Flow Rate 2 Narrative Exam Narrative: GENERAL: A well nourished, well developed adult woman uncomfortable HEENT: Normocephalic, atraumatic. No scleral icterus CHEST: Rising symmetrically. No audible wheezes CARDIOVASCULAR: Warm and well perfused. Regular rate ABDOMEN: Positive Samano sign EXTREMITIES: Normal tone and without edema. NEUROLOGIC: Moving all extremities spontaneously. No gross motor deficits. Objective Labs 01/01/24 04:05 01/01/24 04:05 Labs: Laboratory Results - last 24 hr 01/01/24 01/01/24 04:05 07:21 WBC 12.3 H RBC 4.57 Hgb 13.7 Hct 41.9 MCV 91.9 MCH 30.1 MCHC 32.7 RDW 13.4 Plt Count 341 Neut % (Auto) 65.9 Lymph % (Auto) 27.6 [place] % (Auto) 5.3 Eos % (Auto) 0.6 L Baso % (Auto) 0.6 Neut # (Auto) 8100 H Lymph # (Auto) 3400 [place] # (Auto) 700 Eos # (Auto) 100 Baso # (Auto) 100 PT 10.6 INR 0.9 APTT 31 Sodium 142 Potassium 3.6 Chloride 111 H Carbon Dioxide 23 BUN 23 H Creatinine 0.58 Estimated GFR > 60 BUN/Creatinine Ratio 39.7 H Glucose 160 H Calcium 9.9 Magnesium 2.2 Total Bilirubin 0.5 AST 26 ALT 11 Alkaline Phosphatase 81 Total Creatine Kinase 65 Troponin I < 0.012 < 0.012 NT-Pro-B Natriuret Pep 43 Total Protein 7.9 Albumin 4.7 Globulin 3.2 Albumin/Globulin Ratio 1.5 Lipase 89 Assessment & Plan Assessment and plan (1) Acute cholecystitis: Status: Acute Assessment & Plan narrative: 78-year-old woman with signs and radiographic findings consistent with acute cholecystitis. Labs and imaging personally reviewed. Lengthy discussion with the patient and her in regards to management. Recommended that we proceed with laparoscopic cholecystectomy. She wonders whether this can be accomplished in an elective setting. I do not think this is possible given that she is continuing to require IV pain medication for pain control. We discussed operative risks including hemorrhage, infection, damage to surrounding structures, biliary injury, conversion to open, and rare but serious complications such as myocardial infarction, stroke and . Her questions have been answered and she is in agreement with this plan. Time-Based Coding :: [TOTAL MINUTES] spent with patient and on the chart (including review of chart, obtaining history, exam, reviewing outside data, placing orders, documenting exam and treatment plan, and counseling patient) on [DATE].
[2024-01-01] MEDS: CLINDAMYCIN 900 MG/50 ML PIGGYBACK 50 MG IV (15:30)
[2024-01-01] MEDS: ACETAMINOPHEN IV 1,000 MG/100 ML VIAL 400 MG IV (15:40)
--- NOTE | 2024-01-01 15:48 | SUR.OPER ---
Supine on padded OR bed, head on pillow, safety belt at thigh, left arm padded and tucked at side. Right arm secured on padded arm board <90 degrees abduction. Legs uncrossed. Padded footboard in place. Tape over blanket to secure lower legs.
[2024-01-01] MEDS: BUPIVACAINE 0.25% (PF) VIAL 30 ML INJ (15:54)
--- NOTE | 2024-01-01 16:33 | P.OP_ITS ---
Operative Date/Time/Diagnoses Date of procedure: 01/01/24 Time of procedure: 16:33 Pre-op diagnosis: Acute cholecystitis Post-op diagnosis: other (Gangrenous cholecystitis) Procedure & Clinicians Procedure: Laparoscopic cholecystectomy Same procedure as scheduled: Yes Indications: 78-year-old woman history of biliary colic who presented with symptoms and radiographic findings consistent with acute cholecystitis. Surgeon: Wesly Rangel Click Yes if Unassisted: Yes Anesthesia Type: General Operative Notes Findings: Necrotic gallbladder. Large gallstone impacted within the neck of the gallbla dder. Critical view of safety established. Oozing from the gallbladder fossa. Specimen(s): other (Gallbladder) Procedure in detail: The patient was placed supine on the table and bilateral lower extremity compression devices were applied. Anesthesia was induced they were intubated with an endotracheal tube and received clindamycin. A time-out was performed. They were prepped and draped in sterile fashion. An infraumbilical incision was made. The fascia was elevated incised and the abdomen was entered atraumatically. A blunt tip 12mm balloon trocar was then inserted, pneumoperitoneum was established and inspection of the abdomen demonstrated no evidence of injury. They were placed head up and right side up and then a 11 mm port was placed high in the epigastrium and two 5mm in the right upper quadrant. The gallbladder was frankly necrotic and tensely distended. The was percutaneously drained. The gallbladder was grasped by the fundus and retracted over the liver and retracted laterally by the infundibulum. Using electrocautery the lateral plane between the gallbladder and the liver was opened towards the fundus. The gallbladder was then retracted laterally and the medial plane was developed in the same manner. With the gallbladder mobilized the bottom of the cystic plate was visualized. The hepatocystic triangle was meticulosly skeletonized with blunt dissection of fat and fibrous tissue from both the front and the back. Only two structures were then clearly seen entering the gallbladder the cystic duct and the cystic artery. With the critical view of safety fully established the cystic duct was clipped twice proximally and once distally using the 10 mm Weck hemoclip applied under direct visualization and then sharply divided. The cystic artery was divided in the same fashion. The gallbladder was removed from the liver bed using electro cautery. The liver bed was then inspected for hemostasis and this was achieved with a combination of electrocautery and Surgicel. The abdomen was irrigated with sterile saline and inspection was made that showed the clips in good position. The specimen was removed using Endo-Catch. The abdomen was desufflated. The umbilical fascia was closed with 0 Vicryl in a [id number] fashion under direct visualization. Skin incisions were irrigated and closed with 4-0 Monocryl. 30 ml of 0.25% bupivacaine was infiltrated into the subcutaneous tissue of the incisions. The wounds were sealed with Dermabond. Patient emerged from anesthesia was extubated and transferred to recovery in stable condition. The sponge and instrument count at the end of the operation was correct. Complications: none Post-operative Condition: stable Disposition: Acute Care
[2024-01-01] MEDS: LACTATED RINGERS 1,000 ML 42 ML IV ×2 (16:43→16:44)
[2024-01-01] MEDS: DEXTROSE 5%-0.45% NS 1,000 ML 100 ML IV (17:50)
--- NOTE | 2024-01-01 18:34 | PC.NURSE ---
POST OP admission: Patient admitted to room 202, report received from Anne. Patient alert, oriented, drowsy but easily arousable. Moved self from gurney to bed with minimal assistance. VSS, received on O2 at 2L via NC. IVF initiated, SCDs in place. Oriented to room, environment, and plan of care. Spouse Alfredo at bedside, providing supportive care. Dr. Rangel stopped by to see patient and update spouse. Call light within reach, bed alarm active.
[2024-01-01] MEDS: CELECOXIB 200 MG CAPSULE PO (20:45)
[2024-01-02] VITALS: BP 128/75; PULSE 90; RESP 14; TEMP 36.7; O2SAT 98
[2024-01-02] MEDS: TRAMADOL 50 MG TABLET PO ×3 (01:22→15:32)
[2024-01-02 04:07] VITALS: BP 109/53; PULSE 71; RESP 16; TEMP 36.9; O2SAT 95
[2024-01-02] MEDS: DEXTROSE 5%-0.45% NS 1,000 ML 100 ML IV (04:18)
[2024-01-02 08:00] VITALS: BP 113/67; PULSE 84; RESP 16; TEMP 36.9; O2SAT 97
[2024-01-02] MEDS: ENOXAPARIN 40 MG/0.4 ML SYRINGE SUBCUT (08:44)
[2024-01-02] MEDS: ACETAMINOPHEN 325 MG TABLET 650 MG PO ×2 (08:45→15:33)
[2024-01-02] MEDS: CELECOXIB 200 MG CAPSULE PO ×2 (08:45→20:12)
[2024-01-02 11:46] LABS: Add Manual Diff / Slide Review NO; Basophils Absolute Auto 0 /uL (0-100); Basophils Percent Auto 0.2 % (0-2); Eosinophils Absolute Auto 0 /uL (0-450); Hematocrit 34.7 % (36-46); Hemoglobin 11.5 g/dL (12.0-16.0); Lymphocytes Absolute Auto 1500 /uL (1100-4500); Lymphocytes Percent Auto 11.3 % (25-40); Mean Corpuscular HGB Conc 33.1 % (30-36); Mean Corpuscular Hemoglobin 30.6 PG (26-34); Mean Corpuscular Volume 92.5 fL (80-100); Monocytes Absolute Auto 900 /uL (0-900); Monocytes Percent Auto 6.6 % (3-14); Neutrophils Absolute Auto 11100 /uL (1500-7000); Neutrophils Percent Auto 81.9 % (50-75); Platelet Count 265 X10^3/uL (150-400); Red Blood Cell Count 3.75 X10^6/uL (4.0-5.2); Red Cell Distribution Width 14.1 % (11.6-14.8); White Blood Cell Count 13.6 X10^3/uL (4.5-11.0)
[2024-01-02 11:50] LABS: Alanine Aminotransferase 25 IU/L (<35); Albumin 3.7 g/dL (3.5-5.0); Albumin Globulin Ratio 1.3 (1.0-2.8); Alkaline Phosphatase 55 U/L (38-126); Aspartate Aminotransferase 58 IU/L (14-36); Bilirubin Total 0.8 mg/dL (0.2-1.3); Blood Urea Nitrogen 18 mg/dL (7-17); Calcium 7.9 mg/dL (8.4-10.2); Carbon Dioxide 25 mmol/L (22-32); Chloride 107 mmol/L (98-107); Estimated Glomerular Filt Rate > 60 mL/min (>60); Globulin 2.8 g/dL (1.7-4.1); Glucose 104 mg/dL (80-110); HEMOLYSIS < 15 (0-50); Potassium 3.8 mmol/L (3.4-5.1); Sodium 138 mmol/L (137-145); Total Protein 6.5 g/dL (6.3-8.2)
[2024-01-02 12:00] VITALS: BP 105/58; PULSE 78; RESP 16; TEMP 36.4; O2SAT 94
--- NOTE | 2024-01-02 12:23 | PM.PNPO.1 ---
Subjective Subjective Date Patient Seen: 01/02/24 Time Patient Seen: 12:23 Interval history: pain not well controlled when mobilizing. reports falls at home. Exam Vital Signs (past 8 hours): - 01/02/24 08:00 01/02/24 08:00 01/02/24 12:00 Temperature 98.4 F 97.6 F Pulse Rate 84 78 Respiratory Rate 16 16 Blood Pressure 113/67 105/58 L Pulse Oximetry 97 97 94 Oxygen Delivery Method Room Air Oxygen Flow Rate 1 0 Oxygen Delivery Method Room Air Oxygen Flow Rate 0 Narrative Exam Narrative: abdomen soft, dressing dry and intact Objective Labs 01/02/24 11:22 01/02/24 11:22 Labs: Laboratory Results - last 24 hr 01/02/24 11:22 WBC 13.6 H RBC 3.75 L Hgb 11.5 L Hct 34.7 L MCV 92.5 MCH 30.6 MCHC 33.1 RDW 14.1 Plt Count 265 Neut % (Auto) 81.9 H Lymph % (Auto) 11.3 L [place] % (Auto) 6.6 Eos % (Auto) 0.0 L Baso % (Auto) 0.2 Neut # (Auto) 96419 H Lymph # (Auto) 1500 [place] # (Auto) 900 Eos # (Auto) 0 Baso # (Auto) 0 Sodium 138 Potassium 3.8 Chloride 107 Carbon Dioxide 25 BUN 18 H Creatinine 0.58 Estimated GFR > 60 BUN/Creatinine Ratio 31.0 H Glucose 104 Calcium 7.9 L Total Bilirubin 0.8 AST 58 H ALT 25 Alkaline Phosphatase 55 Total Protein 6.5 Albumin 3.7 Globulin 2.8 Albumin/Globulin Ratio 1.3 PFSH Medical History Cholelithiasis Iliotibial band syndrome, right leg Age-related osteoporosis without current pathological fracture Bilateral hearing loss Bilateral tinnitus Venous insufficiency of both lower extremities Bilateral nephrolithiasis History of recurrent UTI (urinary tract infection) Recurrent pyelonephritis Allergic rhinitis History of recurrent UTI (urinary tract infection) Chronic GERD Osteopenia Elevated lipids Surgical History Status post breast biopsy Family History Mother No known health problems Father No known health problems Social History household members: spouse and children Smoking Status: Never smoker alcohol intake: current Assessment & Plan Post-op Postoperative Procedures: Procedures Operation Date: 01/01/24 14:45 Actual Procedure Side Surgeon p Laparoscopic Cholecystectomy Not Applicable Wesly Rangel MD Postoperative status: marginal pain control Postoperative status narrative: Consult PT for evaluation and treatment. home tomorrow. labs today. Postoperative plan: routine post-op care
--- NOTE | 2024-01-02 13:49 | CM.DANOTE ---
Patient is an 78 yo female who was admitted OBS Status on 01/01/24 for Abd Pain. Pt has [facility] and [employer] for insurance and her PCP is Dr. Coleman Castellanos. EMR was reviewed. Per Surgeon, pt admitted for acute cholecystitis and had a lap rach yesterday and tolerated well. Pt having some pain control issues today and not yet stable for discharge but likely tomorrow. SW observed pt ambulating call SBA with DENTAL INTERN and walker due to pain. SW met bedside with pt and explained role and she confirms she lives at home with her in [facility] outside of [facility] and is active and very independent at baseline. Pt does not use DME for ambulation and still drives and denies any hx of HH or SNF but has a family member who lives at [facility]. Pt confirms her pain is still not managed well and does not feel stable for d/c home yet today but does feel she is making progress for d/c tomorrow and states her spouse will provide transport at d/c. Pt inquired about her OBS Status and SW explained MCR criteria for OBS vs Inpt and up to 48 hours for observation and pt acknowledged understanding and appreciative and plans to d/c home tomorrow morning. Pt does not anticipate any d/c needs at this time and confirms spouse can assist. Plan: SW to follow for plan of pt discharge home tomorrow morning via spouse POV and outpt f/u. ELYSSA Cool Discharge Planning/Care Management CM Discharge Assessment Start: 01/02/24 13:48 Freq: Status: Active Protocol: Document 01/02/24 13:48 BF (Rec: 01/02/24 13:49 BF [id number]) Discharge Planning Assessment Assigned Business Solutions Architect ELYSSA Hurd DPOA/Assigned Designee Name spouse Alfredo Contact Information [phone] Advance Directives? No Advance Directives on File No History Provided By Patient,Medical Record Has Patient been admitted in last 30 No days? Prior Living Arrangements House Household Members spouse,children Type of transporation used prior to Drives own vehicle admit Independent with ADL's Yes Is patient alert and oriented? Yes Caregiver for Another No Barriers to Discharge No Discharge Plan Home Transportation Arrangement Spouse will transport at d/c Referrals Initiated None needed Whiteboard Updated in Patient Room with Yes name and ext. # of Business Solutions Architect Review Status In Process Please Provide Date Initial DC 01/02/24 Assessment Was Performed Next Review Type Continued Stay Review
--- NOTE | 2024-01-02 15:05 | PT.IIE ---
Current Diagnoses Acute cholecystitis (01/01/24) Surgery Performed Operation Date: 01/01/24 14:45 Actual Procedures p Laparoscopic Cholecystectomy(Not Applicable) - Wesly Rangel MD Surgical History (Last Reviewed 01/01/24 @ 13:20 by Wesly Rangel MD) Status post breast biopsy Medical History (Last Reviewed 01/01/24 @ 13:20 by Wesly Rangel MD) Age-related osteoporosis without current pathological fracture Allergic rhinitis Bilateral hearing loss Bilateral nephrolithiasis Bilateral tinnitus Cholelithiasis Chronic GERD Elevated lipids History of recurrent UTI (urinary tract infection) History of recurrent UTI (urinary tract infection) Iliotibial band syndrome, right leg Osteopenia Recurrent pyelonephritis Venous insufficiency of both lower extremities Physical Therapy Inpatient Evaluation/Re-Eval M1 PT/OT-IP Prior Functional Status Start: 01/02/24 14:37 Freq: NEEDED Status: Active Protocol: Document 01/02/24 14:30 MB (Rec: 01/02/24 15:05 MB [id number]) Medical Review Prior Functional Status Medical History Reviewed Yes Diet/Fluid Consistency Regular Communication WNLs Mobility and Gait I Activities of Daily Living and IADL's I, drove Social History Household Members spouse,children Living Arrangements House Number of Floors (Floors) One Floor Number of Stairs To Enter/Railing? 8 steps with two rails to enter Home Environment Standard Height Toilet,Walk in Shower,Tub/Shower Home Equipment Straight Cane,Grab Bars Near Toilet,Grab Bars In Shower Employment Status Retired M2 PT-IP Current Condition Start: 01/02/24 14:37 Freq: NEEDED Status: Active Protocol: Document 01/02/24 14:30 MB (Rec: 01/02/24 15:05 MB [id number]) Physical Therapy Current Condition Current Condition Evaluation Date 01/02/24 Treatment Diagnosis S/p cholecystectomy M3 PT-IP Subjective Start: 01/02/24 14:37 Freq: NEEDED Status: Active Protocol: Document 01/02/24 14:30 MB (Rec: 01/02/24 15:05 MB [id number]) Subjective Physical Therapy Visit Type Type Initial Evaluation Visit Start Time 14:30 Visit Stop Time 14:56 Number of INTERNET MEDIA PLANNER Visits 0 Physical Therapy Visit Comments Patient Comments Pt is agreeable to PT. Therapy Pain Assessment Pain When Pain Assessed During Mobility Pain Present Pain Present Pain Reported Location Abdomen Intensity 5 Scale Used Numeric (0 - 10) M4 PT-IP Mobility and Gait Start: 01/02/24 14:37 Freq: NEEDED Status: Active Protocol: Document 01/02/24 14:30 MB (Rec: 01/02/24 15:05 MB [id number]) PT-Bed Mobility Assessment Rolling Type of Rolling Log Rolling,Roll to Left Level of Assist Standby Assistance Supine to Sit Supine to Sit Standby Assistance,1 Person Assistance Scooting Scooting to Edge of Bed Standby Assistance Scooting Up and Down in Bed Standby Assistance PT-Transfer Assessment Sit to and From Stand Sit to and from Stand Standby Assistance,1 Person Assistance Equipment Transfer Assistive Device Gait Belt Orthotic/Prosthetic Devices or Brace: No Transfers Transfer Destination Chair Transfer Technique Ambulation Transfer Ability Level of Assist Standby Assistance Comments Mobility Comments Pt is I with toileting in BR Gait Assessment Assistive Devices Assistive Device Gait Belt,Front Wheeled Walker Orthotic/Prosthetic Devices or Brace: No Gait Deviations General Gait Pattern Antalgic,Decreased Stride Length,Flexed Trunk Factors Limiting Gait Function Factors Limiting Gait Function Decreased Activity Tolerance, Pain,Poor Balance Comments Gait Comments Pt gait trains 20' with RW, 50 ' with left STOCK UNLOADER and 150' with SBA. She has antalgic gait pattern, slow gait and reports of dizziness when up that does not worsen Stair Climbing Assessment Evaluation Level of Assist On Stairs Standby Assistance Devices Stair Climbing Assistive Devices Left Railing,Right Railing Technique/Endurance Stair Climbing Direction Ascend and Descend Stair Climbing Technique Step Over Step Number of Steps Climbed 3 Query Text: Stair Climbing Set # Repetitions (reps) 1 PT-Balance Assessment Sitting Balance and Reactions Static Sitting Balance Ability Normal Dynamic Sitting Balance Ability Normal Standing Balance and Reactions Static Standing Balance Ability Good Dynamic Standing Balance Ability Good Device Used None M5 PT-IP Objective Assessments Start: 01/02/24 14:37 Freq: NEEDED Status: Active Protocol: Document 01/02/24 14:30 MB (Rec: 01/02/24 15:05 MB [id number]) Orientation Orientation/Cognition Level of Alertness Alert Orientation Name,Age,Birthday,Month,Date, Year,Day of Week,Place, Situation Language Function Ability No Deficits Noted Safety Awareness Understands Safety Issues Memory Description No Deficits Noted Gross Range of Motion Upper Extremity ROM Assessment Within Functional Limits Lower Extremity ROM Assessment Within Functional Limits Strength Upper Extremity Strength Assessment Within Functional Limits Lower Extremity Strength Assessment Within Functional Limits M6 PT-IP Treatment Start: 01/02/24 14:37 Freq: NEEDED Status: Active Protocol: Document 01/02/24 14:30 MB (Rec: 01/02/24 15:05 MB [id number]) Physical Therapy Treatment Education Education Provided Precautions,Post-Op Packet, Safety M7 PT-IP Assessment and Plan Start: 01/02/24 14:37 Freq: NEEDED Status: Active Protocol: Document 01/02/24 14:30 MB (Rec: 01/02/24 15:05 MB [id number]) PT Summary Assessment and Plan Potential Rehabilitation Potential Excellent Status of Condition at Evaluation Evolving Summary Impairments Pain,Balance,Bed Mobility, Transfers,Gait,Activity Tolerance Progress Towards Goals Slow Progress due to Pain Assessment Summary Pt is a pleasant 78 y/o female who reports abdominal pain after surgery. Pt has been up prior to PT arrival but once awakened after nap and on feet , she c/o dizziness when up and may benefit from having orthostatics assessed. She gait trains with SBA with mild imbalance in hallway. Recommend up walking with nsg. Goals Bed Mobility Goal Independent Transfer Goal Independent Gait Goal Independent Gait Distance 200 Other Goals Pt will ascend and descend at least 3 steps with B rails and mod I. Days to Meet Goals 2 Frequency of Treatment Frequency Of Treatment Once a Day Treatment Plan Physical Therapy Treatment Plan Bed Mobility Training,Transfer Training,Gait Training, Therapeutic Exercise,Balance Retraining,Post Op Education, Discharge Planning Precautions Abdominal Surgery Precautions Log Roll,Lifting Restrictions, Gait Belt above Incisional Area Weight Bearing Status Weight Bearing Status Weight Bear as Tolerated Recommendations To Nursing Amount of Assist Needed Standby Assistance Discharge Recommendations PT Discharge Recommendations Home with Assistance Transportation Needs at Discharge Private Vehicle
[2024-01-02 16:00] VITALS: BP 99/62; PULSE 82; RESP 16; TEMP 36.6; O2SAT 94
--- NOTE | 2024-01-02 18:43 | PC.NURSE ---
Dayshift: Pt stated she did not feel ready to d/c d/t balance concerns and stairs at home, notified MD Salmeron and PT consult done. Pt ambulating w/o assistance and denies dizziness.
[2024-01-02 20:00] VITALS: BP 121/61; PULSE 77; RESP 18; TEMP 36.4; O2SAT 95
[2024-01-03] VITALS: BP 110/49; PULSE 91; RESP 16; TEMP 36.4; O2SAT 94
--- NOTE | 2024-01-03 01:42 | PC.NURSE ---
Addendum entered by Damari Bee R.N. 01/03/24 05:28: pt sitting comfortably in bed watching television. reports mild discomfort, 3/10 in her abdomen. tylenol PO administered. bed alarm is on and call light is within reach. unremarkable shift. Original Note: Pt is A&Ox4. breath sounds cta bilaterally with O2 sats of 95% on room air. hypoactive bowel sounds. LBM 7/6. denies nausea. expresses slight discomfort only when ambulating. per pt, didn't feel comfortable discharging home 8 due to balance concerns, however denies any dizziness and lightheadedness while ambulating. 4 lap site incisions covered with bandaids which are CDI. trace edema in bilateral ankles. standby assist up to the bathroom. bilateral calf scds are on. call light within reach.
[2024-01-03 04:00] VITALS: BP 102/61; PULSE 83; RESP 17; TEMP 36.3; O2SAT 93
[2024-01-03] MEDS: ACETAMINOPHEN 325 MG TABLET 650 MG PO (05:26)
[2024-01-03 08:00] VITALS: BP 94/54; PULSE 96; RESP 18; TEMP 36.6; O2SAT 94
[2024-01-03] MEDS: ENOXAPARIN 40 MG/0.4 ML SYRINGE SUBCUT (08:05)
[2024-01-03] MEDS: CELECOXIB 200 MG CAPSULE PO (08:05)
[2024-01-03 11:02] LABS: Add Manual Diff / Slide Review NO; Basophils Absolute Auto 0 /uL (0-100); Basophils Percent Auto 0.2 % (0-2); Eosinophils Absolute Auto 100 /uL (0-450); Hematocrit 32.6 % (36-46); Hemoglobin 10.7 g/dL (12.0-16.0); Lymphocytes Absolute Auto 900 /uL (1100-4500); Lymphocytes Percent Auto 8.2 % (25-40); Mean Corpuscular HGB Conc 32.9 % (30-36); Mean Corpuscular Hemoglobin 30.4 PG (26-34); Mean Corpuscular Volume 92.3 fL (80-100); Monocytes Absolute Auto 600 /uL (0-900); Monocytes Percent Auto 5.4 % (3-14); Neutrophils Absolute Auto 9800 /uL (1500-7000); Neutrophils Percent Auto 85.2 % (50-75); Platelet Count 258 X10^3/uL (150-400); Red Blood Cell Count 3.53 X10^6/uL (4.0-5.2); Red Cell Distribution Width 13.9 % (11.6-14.8); White Blood Cell Count 11.5 X10^3/uL (4.5-11.0)
--- NOTE | 2024-01-03 11:34 | PM.DS.1 ---
History of Present Illness History of Present Illness Date Patient Seen: 01/03/24 Time Patient Seen: 11:34 Chief complaint: pain all around mid section Narrative: Ms. Snider is a 78-year-old woman with no major medical issues who presents with acute onset abdominal pain. She has had episodes of biliary colic previously which have generally resolved within a few hours. Last night she presented with severe right upper quadrant pain and despite multiple doses of morphine she remains in pain. A abdominal ultrasound and CT abdomen pelvis were performed demonstrating gallstones and significant wall thickening. At admission afebrile, WBC 12, total bilirubin 0.5 LFTs within normal limits. No prior abdominal surgery. Discharge Providers Provider Date of admission: 01/01/24 13:17 Discharge Date: 01/03/24 Primary care physician: Coleman Castellanos MD Consults: 01/01/24 12:01 Consult to General Surgery Stat Comment: Consulting Provider: Wesly Rangel Reason for consultation: Symptomatic cholelithiasis Has provider been notified: Yes 01/02/24 11:19 Consult to Physical Therapy Evaluate & Treat Comment: Hx of balance problems/falls Physician Instructions: Evaluate and Treat Discharge provider: Wesly Rangel MD Summary Hospital Course Discharge Diagnosis: gangrenous cholecystitis Hospital Course: She underwent a laparoscopic cholecystectomy performed January 01, 2024, operative findings significant for a gangrenous gallbladder. She did well postoperatively leukocytosis resolved. At discharge she is tolerant of a diet ambulatory afebrile her pain is well controlled with oral medication. Exam Vital Signs (past 8 hours): - 01/03/24 04:00 01/03/24 04:00 01/03/24 08:00 Temperature 97.3 F L 98 F Pulse Rate 83 96 H Respiratory Rate 17 18 Blood Pressure 102/61 94/54 L Pulse Oximetry 93 93 94 Oxygen Delivery Method Room Air Oxygen Flow Rate 0 0 01/03/24 08:00 Temperature Pulse Rate Respiratory Rate Blood Pressure Pulse Oximetry 94 Oxygen Delivery Method Room Air Oxygen Flow Rate 0 Oxygen Delivery Method Room Air Oxygen Flow Rate 0 Narrative Exam Narrative: General adult woman alert oriented no acute distress Chest nonlabored respiration Abdomen soft appropriately tender to palpation. Laparoscopic port incisions clean dry intact. Extremities warm well perfused Objective Labs 01/03/24 10:47 01/02/24 11:22 Labs: Laboratory Results - last 24 hr 01/02/24 01/03/24 11:22 10:47 WBC 13.6 H 11.5 H RBC 3.75 L 3.53 L Hgb 11.5 L 10.7 L Hct 34.7 L 32.6 L MCV 92.5 92.3 MCH 30.6 30.4 MCHC 33.1 32.9 RDW 14.1 13.9 Plt Count 265 258 Neut % (Auto) 81.9 H 85.2 H Lymph % (Auto) 11.3 L 8.2 L [place] % (Auto) 6.6 5.4 Eos % (Auto) 0.0 L 1.0 L Baso % (Auto) 0.2 0.2 Neut # (Auto) 19151 H 9800 H Lymph # (Auto) 1500 900 L [place] # (Auto) 900 600 Eos # (Auto) 0 100 Baso # (Auto) 0 0 Sodium 138 Potassium 3.8 Chloride 107 Carbon Dioxide 25 BUN 18 H Creatinine 0.58 Estimated GFR > 60 BUN/Creatinine Ratio 31.0 H Glucose 104 Calcium 7.9 L Total Bilirubin 0.8 AST 58 H ALT 25 Alkaline Phosphatase 55 Total Protein 6.5 Albumin 3.7 Globulin 2.8 Albumin/Globulin Ratio 1.3 PFSH Medical History Cholelithiasis Iliotibial band syndrome, right leg Age-related osteoporosis without current pathological fracture Bilateral hearing loss Bilateral tinnitus Venous insufficiency of both lower extremities Bilateral nephrolithiasis History of recurrent UTI (urinary tract infection) Recurrent pyelonephritis Allergic rhinitis History of recurrent UTI (urinary tract infection) Chronic GERD Osteopenia Elevated lipids Surgical History Status post breast biopsy Family History Mother No known health problems Father No known health problems Social History household members: spouse and children Smoking Status: Never smoker alcohol intake: current Discharge Plan Discharge Plan Patient Disposition: Home Provider Discharge Comment: -Okay to shower -Do not submerge wounds in water until seen in follow-up. -No lifting >10 lbs x 4 weeks. -Walking only for exercise for 4 weeks. -No driving while taking narcotics. Discharge orders & Medications Prescriptions: New celecoxib [Celebrex] 200 mg capsule 200 mg PO BID Qty: 20 0RF tramadol 50 mg tablet 50 mg PO Q6H PRN (Reason: pain) Qty: 5 0RF docusate sodium [Colace] 100 mg capsule 100 mg PO BID Qty: 30 0RF acetaminophen [Tylenol] 325 mg capsule 650 mg PO QID PRN (Reason: pain) Qty: 60 0RF Continued rosuvastatin 5 mg tablet 5 mg PO DAILY Qty: 90 3RF Systane Balance 0.6 % drops 1 drp EYE-BOTH QID Follow up/Referrals: Wesly Rangel MD [Physician] - 2 Weeks Diet/Activity/Treatments Diet: Low-fat Skin/Wound/Dressing Care Report to your healthcare provider any signs of infection, such as:: chills, fever, increased pain, unusual drainage and unusual redness Visit Report/Discharge Packet Stand Alone Forms: Patient Portal/API, Stroke Signs & Symptoms Discharge Data Primary Care Provider: Coleman Castellanos V Attending Provider: Wesly Rangel Admit Date/Time: 01/01/24 13:17
--- NOTE | 2024-01-03 11:35 | PT.IPTN ---
Current Diagnoses Acute cholecystitis (01/01/24) Surgery Performed Operation Date: 01/01/24 14:45 Actual Procedures p Laparoscopic Cholecystectomy(Not Applicable) - Wesly Rangel MD Physical Therapy Treatment Note M2 PT-IP Current Condition Start: 01/02/24 14:37 Freq: NEEDED Status: Active Protocol: Document 01/02/24 14:30 MB (Rec: 01/02/24 15:05 MB [id number]) Physical Therapy Current Condition Current Condition Evaluation Date 01/02/24 Treatment Diagnosis S/p cholecystectomy M3 PT-IP Subjective Start: 01/02/24 14:37 Freq: NEEDED Status: Active Protocol: Document 01/03/24 11:55 TS (Rec: 01/03/24 12:04 TS [id number]) Subjective Physical Therapy Visit Type Type Treatment Note Visit Start Time 11:35 Visit Stop Time 11:45 Number of INGOT PASSER Visits 10 Physical Therapy Visit Comments Patient Comments Pt reports doing well, she does get dizzy when up on feet . She is agreeable to PT. M4 PT-IP Mobility and Gait Start: 01/02/24 14:37 Freq: NEEDED Status: Active Protocol: Document 01/03/24 11:55 TS (Rec: 01/03/24 12:04 TS [id number]) PT-Transfer Assessment Sit to and From Stand Sit to and from Stand Standby Assistance,1 Person Assistance Equipment Transfer Assistive Device Gait Belt Orthotic/Prosthetic Devices or Brace: No Comments Mobility Comments STS with BUE support pushing from arms of chair SBA. She ambulated SBA with FWW ~100. She performed stairs x3 SBA with B handrails. She ambulated back to the room SBA with no AD, she is unsteady and has some dizziness. Pt was educated on the use of cane at home for gait. Pt was left in chair, all needs met. Gait Assessment Gait Gait Assistance Required: Standby Assistance Distance (Feet) 200 Assistive Devices Assistive Device Gait Belt,Front Wheeled Walker Gait Deviations General Gait Pattern Antalgic,Decreased Stride Length,Flexed Trunk,Wide Based Gait Factors Limiting Gait Function Factors Limiting Gait Function Decreased Activity Tolerance, Pain,Poor Balance Stair Climbing Assessment Evaluation Level of Assist On Stairs Standby Assistance Devices Stair Climbing Assistive Devices Left Railing,Right Railing Technique/Endurance Stair Climbing Direction Ascend and Descend Stair Climbing Technique Step Over Step Number of Steps Climbed 3 Stair Climbing Set # Repetitions (reps) 1 PT-Balance Assessment Sitting Balance and Reactions Static Sitting Balance Ability Normal Dynamic Sitting Balance Ability Normal Standing Balance and Reactions Static Standing Balance Ability Good Dynamic Standing Balance Ability Good Device Used None M5 PT-IP Objective Assessments Start: 01/02/24 14:37 Freq: NEEDED Status: Active Protocol: Document 01/02/24 14:30 MB (Rec: 01/02/24 15:05 MB [id number]) Orientation Orientation/Cognition Level of Alertness Alert Orientation Name,Age,Birthday,Month,Date, Year,Day of Week,Place, Situation Language Function Ability No Deficits Noted Safety Awareness Understands Safety Issues Memory Description No Deficits Noted Gross Range of Motion Upper Extremity ROM Assessment Within Functional Limits Lower Extremity ROM Assessment Within Functional Limits Strength Upper Extremity Strength Assessment Within Functional Limits Lower Extremity Strength Assessment Within Functional Limits M6 PT-IP Treatment Start: 01/02/24 14:37 Freq: NEEDED Status: Active Protocol: Document 01/03/24 11:55 TS (Rec: 01/03/24 12:04 [id number]) Physical Therapy Treatment Education Education Provided Precautions,Post-Op Packet, Safety M7 PT-IP Assessment and Plan Start: 01/02/24 14:37 Freq: NEEDED Status: Active Protocol: Document 01/03/24 11:55 TS (Rec: 01/03/24 12:04 TS [id number]) PT Summary Assessment and Plan Potential Rehabilitation Potential Excellent Summary Impairments Pain,Balance,Bed Mobility, Transfers,Gait,Activity Tolerance Progress Towards Goals Slow Progress due to Pain Assessment Summary Ankit continues to do well with her mobility. She ambulated 100' with FWW SBA and 100'SBA with no AD. She is unsteady with no AD and recommended use of a cane. She performed stairs x3 with B handrails and SBA. PT is recommending home with assist. Goals Bed Mobility Goal Independent Transfer Goal Independent Gait Goal Independent Gait Distance 200 Other Goals Pt will ascend and descend at least 3 steps with B rails and mod I. Days to Meet Goals 2 Frequency of Treatment Frequency Of Treatment Once a Day Treatment Plan Physical Therapy Treatment Plan Bed Mobility Training,Transfer Training,Gait Training, Therapeutic Exercise,Balance Retraining,Post Op Education, Discharge Planning Precautions Abdominal Surgery Precautions Log Roll,Lifting Restrictions, Gait Belt above Incisional Area Weight Bearing Status Weight Bearing Status Weight Bear as Tolerated Recommendations To Nursing Amount of Assist Needed Standby Assistance Discharge Recommendations PT Discharge Recommendations Home with Assistance Transportation Needs at Discharge Private Vehicle
[2024-01-03 12:00] VITALS: BP 129/57; PULSE 92; RESP 18; TEMP 36.3; O2SAT 97
--- NOTE | 2024-01-03 12:18 | CM.DPC ---
DCP Cont. Reviewed EMR and team rounds for status updates. Pt has been medically cleared for d/c, family will transport her home this afternoon. No further DCP needs indicated at this time.
--- NOTE | 2024-01-03 14:30 | PC.NURSE ---
13:55 PIV d/c'ed. Discharge education for kallie loyd provided and questions answered by JAVIER Lee. All belongings with patient. Pt escorted to exit with spouse, spouse stated he will drive pt home.
== END 2024-01-03 13:50 | disposition home or self-care (01) ==
LOC: ED 13:16 → AC 01-02 07:17
PROVIDERS: Emergency Medicine; Surgery; Admitting Provider Surgery; Emergency Provider Emergency Medicine; PCP Internal Medicine; Referring Provider Emergency Medicine; Visit Provider Surgery
PROC: 0FT44ZZ Resection of Gallbladder, Percutaneous Endoscopic Approach (ICD-10-PCS; CPT 47562; principal; 2024-01-01 14:45)
DX: K80.00 Calculus of gallbladder with acute cholecystitis without obstruction (principal); K82.A1 Gangrene of gallbladder in cholecystitis
CPT/HCPCS: 47562; 36415; 71045; 74176; 76705; 80053; 82550; 83690; 83735; 83880; 84484; 85025; 85610; 85730; 93005; 96372; 96374; 96375; 96376; 97161; 97530; 99285; G0378; A9270; J0136; J1100; J1170; J1650; J1885; J2270; J2405; J2470; J2704; J3010

== ENCOUNTER → 2024-01-05 12:30 | Outpatient (CLI) | payer MEDICARE, SELFPAY ==
[2024-01-01 17:32] VITALS: BMI 29.2
== END ==
PROVIDERS: PCP Internal Medicine; Visit Provider Nurse Practitioner Family
DX: R30.0 Dysuria (principal); Z87.440 Personal history of urinary (tract) infections
CPT/HCPCS: 87077; 87086

== ENCOUNTER → 2024-12-18 09:38 | Outpatient (CLI) | payer MEDICARE, SELFPAY ==
[2024-01-30 10:13] VITALS: BMI 29.2
[2024-12-18 10:30] LABS: Hematocrit 39.4 % (36-46); Hemoglobin 13.3 g/dL (12.0-16.0); Mean Corpuscular HGB Conc 33.8 % (30-36); Mean Corpuscular Volume 91.9 fL (80-100); Platelet Count 287 X10^3/uL (150-400); Red Blood Cell Count 4.29 X10^6/uL (4.0-5.2); Red Cell Distribution Width 13.8 % (11.6-14.8); White Blood Cell Count 6.1 X10^3/uL (4.5-11.0)
[2024-12-18 10:58] LABS: Aspartate Aminotransferase 24 IU/L (14-36); BUN Creatinine Ratio 40.4 (6-22); Blood Urea Nitrogen 23 mg/dL (7-17); Carbon Dioxide 27 mmol/L (22-32); Chloride 108 mmol/L (98-107); Estimated Glomerular Filt Rate > 60 mL/min (>60); Glucose 96 mg/dL (70-99); HEMOLYSIS < 15 (0-50); Lipase 60 U/L (23-300); Sodium 141 mmol/L (137-145)
[2024-12-18 11:30] LABS: TSH w/ Reflex to FT4 2.43 uIU/mL (0.47-4.68)
== END ==
LOC: LAB 09:42
PROVIDERS: PCP Internal Medicine; Referring Provider Internal Medicine; Visit Provider Internal Medicine
DX: E78.2 Mixed hyperlipidemia (principal); Z87.440 Personal history of urinary (tract) infections
CPT/HCPCS: 36415; 80048; 83690; 84443; 84450; 85027

== ENCOUNTER → 2025-01-02 15:17 | Outpatient (CLI) | payer MEDICARE, SELFPAY ==
[2025-01-01 13:25] VITALS: BMI 29.2
[2025-01-02 17:22] LABS: Appearance Urine UA CLEAR; Bilirubin Urine UA NEGATIVE (NEGATIVE); Color Urine UA YELLOW; Glucose Urine UA NEGATIVE (Negative); Ketones Urine UA NEGATIVE (NEGATIVE); Leukocyte Esterase Urine UA 2+ (NEGATIVE); Nitrite Urine UA NEGATIVE (Negative); Occult Blood Urine UA TRACE-INTACT (Negative); Protein Urine UA NEGATIVE (Negative); Specific Gravity Urine UA <=1.005 (1.000-1.035); Urobilinogen Urine UA 0.2 E.U./dL (0.2)
[2025-01-02 17:40] LABS: pH Urine UA 6.5 (4.5-8.0)
[2025-01-02 17:53] LABS: Culture Indicated Urine Specimen Cultured
== END ==
PROVIDERS: PCP Internal Medicine; Referring Provider Internal Medicine; Visit Provider Internal Medicine
DX: M54.9 Dorsalgia, unspecified (principal); M46.1 Sacroiliitis, not elsewhere classified
CPT/HCPCS: 81001; 87077; 87086; 87186